=== PATIENT | female | born 1970 | race Caucasian/White ===

== ENCOUNTER 2017-05-29 12:08 | Outpatient (CLI) | payer MEDICAID | END 2017-05-29 12:09 | disposition critical access hospital (66) | LOC: EMS 12:08 | PROVIDERS: ATTEND Surgery | DX: R10.9 Unspecified abdominal pain (principal) | CPT/HCPCS: A0425; A0427 ==

== ENCOUNTER 2017-05-29 12:26 | Emergency (ER) | payer MEDICAID ==
[2017-05-29] MEDS ORDERED: ACETAMINOPHEN 1,000 MG/100 ML 100 ML IV STA (14:08)
[2017-05-29] MEDS ORDERED: SODIUM CHLORIDE 0.9% 1,000 ML IV ONE (14:08)
[2017-05-29] MEDS ORDERED: ONDANSETRON 4 MG/2 ML VIAL IVP STA (14:08)
--- NOTE | 2017-05-29 14:17 | ED Physician Documentation ---
History of Present Illness - Stated complaint Stated Complaint: AB PX - Chief complaint Chief Complaint: Abd Pain - Additonal information Additional information: hx from pt 47 female hx ulcerative colitiis s/p hyst to ER with severe focal lower midline abd pain since last night also a skin infection from shaving to upper right pubic area subjective fever nausea no vomit one bloody BM no urinary sx no bad food no travel no recent antibiotics no camping no hx similar sx Review of Systems Constitutional: reports: Fever. denies: Chills Cardiac: denies: Chest pain / pressure Respiratory: denies: Dyspnea GI: reports: Abdominal Pain, Nausea, Bloody / black stool. 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 - Present Medications Home Medications: Ambulatory Orders Medication Instructions Recorded Confirmed Losartan Potassium 100 mg PO DAILY #30 tablet 06/20/15 predniSONE [Deltasone] 40 mg PO DAILY 5 Days 06/20/15 Cephalexin [Keflex] 500 mg PO Q6H #28 capsule 05/29/17 Mupirocin Calcium [Bactroban] 30 gm TP BID #30 g 05/29/17 Phenazopyridine [Pyridium] 100 mg PO Q8H PRN #9 tablet 05/29/17 - Allergies Allergies/Adverse Reactions: Allergies Allergy/AdvReac Type Severity Reaction Status Date / Time NSAIDS (Non-Steroidal Allergy Nausea Verified 02/25/16 20:19 Anti-Inflamma Penicillins Allergy Respiratory Verified 02/25/16 20:19 - Social History Does the pt smoke?: Yes Smoking Status: Current every day smoker Does the pt drink ETOH?: No Does the pt have substance abuse?: Yes - Immunizations Immunizations are current?: Yes - POLST Patient has POLST: No PD ED PE NORMAL - Vitals Vital signs reviewed: Yes - General General: Alert and oriented X 3, Other (crying and writihing in pain) - HEENT HEENT: PERRL - Cardiac Cardiac: RRR - Respiratory Respiratory: No respiratory distress, Clear bilaterally - Abdomen Abdomen: Other (+ BS, mild distension, severe TTP lower abd R > L but no guarding, cannot determine rebound, crying and writhing in pain, pathc opf cellulitis s abscess over shaved region R upper suprapubic) - Female Female : Deferred (hyst) - Back Back: No CVA TTP - Derm Derm: Other (cellulitis suprapubic) - Neuro Neuro: Alert and oriented X 3 Results - Vitals Vitals: Vital Signs - 24 hr 05/29/17 05/29/17 12:27 14:51 Temperature 36.6 C Heart Rate 98 89 Respiratory 24 16 Rate Blood Pressure 160/97 H 118/84 H O2 Saturation 95 97 Oxygen O2 Source Room air - Labs Labs: Laboratory Tests 05/29/17 05/29/17 05/29/17 14:31 14:31 15:10 WBC 10.2 RBC 3.82 L Hgb 11.9 L Hct 34.2 L MCV 89.4 MCH 31.1 H MCHC 34.8 RDW 13.6 Plt Count 256 MPV 8.2 Neut # 6.3 Lymph # 2.3 [place] # 1.4 H Eos # 0.1 Baso # 0.1 Absolute Nucleated RBC 0.00 Nucleated RBCs 0.0 Sodium 133 L Potassium 3.4 L Chloride 98 L Carbon Dioxide 26 Anion Gap 9.0 BUN 21 H Creatinine 1.6 H Estimated GFR (MDRD) 34 L Glucose 84 Calcium 8.6 Total Bilirubin 0.7 AST 23 ALT 14 Alkaline Phosphatase 88 Total Protein 7.2 Albumin 4.2 Globulin 3.0 Albumin/Globulin Ratio 1.4 Lipase 15 L Urine Color YELLOW Urine Clarity SL. CLOUDY Urine pH 6.0 Ur Specific [place] 1.020 Urine Protein TRACE Urine Glucose (UA) NEGATIVE Urine Ketones NEGATIVE Urine Occult Blood SMALL H Urine Nitrite NEGATIVE Urine Bilirubin NEGATIVE Urine Urobilinogen 0.2 (NORMAL) Ur Leukocyte Esterase MODERATE H Urine RBC 0-5 Urine WBC >25 H Urine WBC Clumps PRESENT Ur Squamous Epith Cells MANY Squamous H Urine Bacteria Many H Ur Microscopic Review INDICATED Urine Culture Comments NOT INDICATED Departure - Departure Disposition: 01 Home, Self Care Clinical Impression: Urinary tract infection Qualifiers: Urinary tract infection type: acute cystitis Hematuria presence: without hematuria Qualified Code(s): N30.00 - Acute cystitis without hematuria Instructions: Abdominal Pain, ED UTI Cystitis Female Prescriptions: Mupirocin Calcium [Bactroban] 30 gm TP BID #30 g Cephalexin [Keflex] 500 mg PO Q6H #28 capsule Phenazopyridine [Pyridium] 100 mg PO Q8H PRN #9 tablet PRN Reason: painful urination Comments: The CT scan was fine - no bowel infection or blockage or perforation, no appendicitis, no kidney stones, no aneurysm It looks like your symptoms are being caused by a bladder infection I have prescribed the antibiotic keflex which you have taken before and pyridium which will help the pain. The keflex should also help the skin infection on your abdomen - in addition apply the antibiotic ointment I prescribed twice a day Your blood count is fine but I recommend you speak to your GI doctor about the blood in your stools
[2017-05-29] MEDS ORDERED: ACETAMINOPHEN 1,000 MG/100 ML 100 ML IV ONE (14:30)
[2017-05-29] MEDS ORDERED: ONDANSETRON 4 MG/2 ML VIAL ONE (14:30)
[2017-05-29 14:40] LABS: BASOPHILS # (AUTO) 0.1 10^3/uL (0.0-0.1); BASOPHILS % (AUTO) 0.7 %; EOSINOPHILS # (AUTO) 0.1 10^3/uL (0.0-0.7); EOSINOPHILS % (AUTO) 1.2 %; HCT - HEMATOCRIT 34.2 % (37.0-47.0); HGB - HEMOGLOBIN 11.9 g/dL (12.0-16.0); LYMPHOCYTES # (AUTO) 2.3 10^3/uL (1.5-3.5); LYMPHOCYTES % (AUTO) 22.8 %; MEAN CORPUSCULAR HEMOGLOBIN 31.1 pg (27.0-31.0); MEAN CORPUSCULAR HGB CONC 34.8 g/dL (32.0-36.0); MEAN CORPUSCULAR VOLUME 89.4 fL (81.0-99.0); MEAN PLATELET VOLUME 8.2 fL (7.9-10.8); MONOCYTES # (AUTO) 1.4 10^3/uL (0.0-1.0); MONOCYTES % (AUTO) 13.9 %; NEUTROPHILS # (AUTO) 6.3 10^3/uL (1.5-6.6); NEUTROPHILS % (AUTO) 61.4 %; RED BLOOD COUNT 3.82 10^6/uL (4.20-5.40); RED CELL DISTRIBUTION WIDTH 13.6 % (12.0-15.0); UNCORRECTED WHITE BLOOD COUNT 10.2 x10^3/uL; WHITE BLOOD COUNT 10.2 x10^3/uL (4.8-10.8)
[2017-05-29 14:51] LABS: ALBUMIN/GLOBULIN RATIO 1.4 (1.0-2.2); BILIRUBIN,TOTAL 0.7 mg/dL (0.2-1.0); CALCIUM 8.6 mg/dL (8.5-10.3); CREATININE 1.6 mg/dL (0.4-1.0); POTASSIUM 3.4 mmol/L (3.5-5.0); TOTAL PROTEIN 7.2 g/dL (6.7-8.2)
--- NOTE | 2017-05-29 14:53 | CT Preliminary Report ---
Exam: CT Abdomen/Pelvis W/O IMPRESSION: 1. Diverticulosis. 2. Appendix not identified but no pericecal inflammatory changes. 3. Mildly prominent common bile duct postcholecystectomy stable [facility] SITE ID: [id number]
--- NOTE | 2017-05-29 14:56 | CT Report ---
EXAM: CT ABDOMEN AND PELVIS EXAM DATE: 05/29/2017 02:28 PM. CLINICAL HISTORY: Severe lower abd pain bloody stools. COMPARISONS: 06/12/2009. TECHNIQUE: Routine helical CT imaging was performed through the abdomen and pelvis. IV contrast: None . Enteric contrast: No. Reconstructions: Coronal and sagittal. In accordance with CT protocol optimization, one or more of the following dose reduction techniques w ere utilized for this exam: automated exposure control, adjustment of mA and/or KV based on patient s ize, or use of iterative reconstructive technique. FINDINGS: Lung Bases: Unremarkable. Liver: Subcentimeter density in right lobe liver is stable, too small to characterize Gallbladder/Bile Ducts: Post cholecystectomy. Common bile duct 1 cm stable Spleen: Normal. Pancreas: Normal. Adrenal Glands: Normal. Kidneys: Normal. No masses or hydronephrosis. Peritoneal Cavity/Bowel: Diverticulosis. No free fluid, free air or adenopathy. No masses or acute in flammatory process. The appendix is not identified but no pericecal inflammatory changes Pelvic Organs: Normal. The bladder and visualized pelvic organs are within normal limits. Vasculature: No aneurysms or other significant abnormality. Bones: No significant abnormality. Other: None. IMPRESSION: 1. Diverticulosis. 2. Appendix not identified but no pericecal inflammatory changes. 3. Mildly prominent common bile duct postcholecystectomy stable [facility] Referring Provider Line: [phone] SITE ID: [id number]
[2017-05-29 15:20] LABS: BILIRUBIN,URINE NEGATIVE (NEGATIVE)
[2017-05-29 15:21] LABS: UA w/ MICROSCOPIC CHARGE YES
[2017-05-29 15:31] LABS: UR CULTURE IF IND NOT INDICATED; WBC,URINE >25 /HPF (0-5)
[2017-05-29] MEDS ORDERED: PHENAZOPYRIDINE 100 MG TABLET PO STA (16:05)
[2017-05-29] MEDS ORDERED: CEPHALEXIN 250 MG CAPSULE PO STA (16:13)
[2017-05-29 16:15] VITALS: BP 119/78
[2017-05-29] MEDS ORDERED: PHENAZOPYRIDINE 100 MG TABLET PO ONE (16:27)
[2017-05-29] MEDS ORDERED: CEPHALEXIN 250 MG CAPSULE PO ONE (16:27)
== END 2017-05-29 16:29 | disposition home or self-care (01) ==
LOC: ED 12:26
DX: N30.00 Acute cystitis without hematuria (principal); I11.0 Hypertensive heart disease with heart failure; I50.9 Heart failure, unspecified; E78.00 Pure hypercholesterolemia, unspecified; I25.10 Atherosclerotic heart disease of native coronary artery without angina pectoris; J44.9 Chronic obstructive pulmonary disease, unspecified; J45.909 Unspecified asthma, uncomplicated; Z98.84 Bariatric surgery status; Z87.19 Personal history of other diseases of the digestive system; F17.200 Nicotine dependence, unspecified, uncomplicated
CPT/HCPCS: 36415; 74176; 80053; 81001; 83690; 85025; 96361; 96374; 96375; 99284; A9270; J0131; 81003; 87086

== ENCOUNTER 2017-06-17 15:23 | Emergency (ER) | payer MEDICAID ==
[2017-06-17] MEDS ORDERED: oxyCODONE 5 MG TABLET PO STA (16:01)
--- NOTE | 2017-06-17 16:02 | ED Physician Documentation ---
PD HPI LOWER EXT INJURY - Stated complaint Stated Complaint: L FOOT INJ - Chief complaint Chief Complaint: Ext Problem - History obtained from History obtained from: Patient, Family - History of Present Illness PD HPI LOW EXT INJURY LOCATION: Left, Foot Type of injury: Crush (piece of wood) Where injury occurred: Home Timing - onset: How many hours ago (15) Timing - duration: Hours (15) Timing - details: Abrupt onset Pain level max: 9 Pain level now: 9 Improved by: Rest Worsened by: Moving, Palpating, Other (walking) Associated symptoms: Swelling. 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 - Present Medications Home Medications: Ambulatory Orders Medication Instructions Recorded Confirmed Cephalexin [Keflex] 500 mg PO Q6H #28 capsule 05/29/17 06/17/17 Oxycodone HCl/Acetaminophen 1 - 2 each PO Q6H PRN #10 tablet 06/17/17 [Percocet 5-325 mg Tablet] - Allergies Allergies/Adverse Reactions: Allergies Allergy/AdvReac Type Severity Reaction Status Date / Time NSAIDS (Non-Steroidal Allergy Nausea Verified 06/17/17 15:35 Anti-Inflamma Penicillins Allergy Respiratory Verified 06/17/17 15:35 - Social History Does the pt smoke?: Yes Smoking Status: Current every day smoker Does the pt drink ETOH?: No Does the pt have substance abuse?: Yes - Immunizations Immunizations are current?: Yes - POLST Patient has POLST: No PD ED PE NORMAL - Vitals Vital signs reviewed: Yes - General General: Alert and oriented X 3, No acute distress - Derm Derm: Warm and dry - Extremities Extremities: Other (L foot - Diffusely tender to palpation across the dorsum of the right foot. Mild swelling. No deformity. Neurovascularly intact. Normal exam of the ankle.) - Neuro Neuro: Alert and oriented X 3 - Psych Psych: Normal mood, Normal affect Results - Vitals Vitals: Vital Signs - 24 hr 06/17/17 06/17/17 15:31 16:56 Temperature 36.3 C L 36.2 C L Heart Rate 92 87 Respiratory 20 18 Rate Blood Pressure 155/100 H 162/105 H O2 Saturation 97 99 Oxygen O2 Source Room air - Rads (name of study) L foot x-ray Radiology: Prelim report reviewed, EMP read contemporaneously, See rad report ( Soft tissue swelling. ) PD MEDICAL DECISION MAKING - ED course Complexity details: reviewed results, re-evaluated patient, considered differential, d/w patient, d/w family ED course: Patient is a 47-year-old female presents to the emergency department after a board dropped on her left foot early this morning. No acute findings on x-ray. Pain well controlled. Given crutches and placed in the postoperative shoe. We will have her follow-up with her doctor for further evaluation and care. Patient counseled regarding signs and symptoms for which I believe and urgent re -evaluation would be necessary. Patient with good understanding of and agreement to plan and is comfortable going home at this time This document was made in part using voice recognition software. While efforts are made to proofread this document, sound alike and grammatical errors may occur. Counseled regarding missed fractures secondary to acute swelling and may need repeat xrays if not improving. Departure - Departure Disposition: 01 Home, Self Care Clinical Impression: Foot contusion Qualifiers: Encounter type: initial encounter Laterality: right Qualified Code(s): S90.31XA - Contusion of right foot, initial encounter Condition: Good Instructions: ED Contusion Foot Follow-Up: your,doctor in 1 week [Other] Prescriptions: Oxycodone HCl/Acetaminophen [Percocet 5-325 mg Tablet] 1 - 2 each PO Q6H PRN # 10 tablet PRN Reason: pain Comments: Use crutches as needed. Keep the postoperative shoe on until released by her doctor. Do not drink alcohol or drive while on narcotic pain medicine. Note that many narcotic pain relievers also contain tylenol/acetaminophen. Please ensure that your total dose of acetaminophen from all sources does not exceed 3 grams (3000mg) per day. You may constipated on this medication, take a stool softener such as "Colace" twice a day while you are on it. Also recommend a mwaj-cvk-rcnahuv laxative such as senna or MiraLAX any day that you do not have a bowel movement. If you received narcotic pain medication in the emergency department, do not drive or operate machinery for the next 24 hours. Your blood pressure was elevated today on check in to the emergency department. This does not mean that you have hypertension, it is a common phenomenon to check into the emergency department and have elevated blood pressure. I recommend that you see your primary care physician within the week to have it rechecked when you're feeling better. Discharge Date/Time: 06/17/17 17:00
--- NOTE | 2017-06-17 16:26 | XRAY Preliminary Report ---
Exam: XR Foot 3 View LT IMPRESSION: Soft tissue swelling. [facility] SITE ID: [id number]
--- NOTE | 2017-06-17 16:28 | XRAY Report ---
EXAM: LEFT FOOT RADIOGRAPHY EXAM DATE: 06/17/2017 04:19 PM. CLINICAL HISTORY: Trauma, pain. COMPARISON: None. TECHNIQUE: 3 views. FINDINGS: Bones: Osteopenia. No definite fracture or other bone lesion. Joints: Normal. No subluxations. Soft Tissues: Mild soft tissue swelling. IMPRESSION: Soft tissue swelling. [facility] Referring Provider Line: [phone] SITE ID: [id number]
[2017-06-17] MEDS ORDERED: oxyCODONE 5 MG TABLET ONE (16:34)
[2017-06-17 16:59] VITALS: BP 162/105
== END 2017-06-17 17:00 | disposition home or self-care (01) ==
LOC: ED 15:23
DX: S90.31XA Contusion of right foot, initial encounter (principal); W22.8XXA Striking against or struck by other objects, initial encounter; Y92.009 Unspecified place in unspecified non-institutional (private) residence as the place of occurrence of the external cause; I11.0 Hypertensive heart disease with heart failure; I50.9 Heart failure, unspecified; I25.10 Atherosclerotic heart disease of native coronary artery without angina pectoris; F17.200 Nicotine dependence, unspecified, uncomplicated
CPT/HCPCS: 73630; 99283; A9270

== ENCOUNTER 2018-04-20 12:28 | Emergency (ER) | payer MEDICAID ==
[2018-04-20 12:52] LABS: BASOPHILS # (AUTO) 0.1 10^3/uL (0.0-0.1); EOSINOPHILS # (AUTO) 0.1 10^3/uL (0.0-0.7); EOSINOPHILS % (AUTO) 0.5 %; LYMPHOCYTES # (AUTO) 2.9 10^3/uL (1.5-3.5); LYMPHOCYTES % (AUTO) 28.3 %; MEAN CORPUSCULAR HEMOGLOBIN 31.1 pg (27.0-31.0); MEAN CORPUSCULAR HGB CONC 33.7 g/dL (32.0-36.0); MEAN CORPUSCULAR VOLUME 92.2 fL (81.0-99.0); MEAN PLATELET VOLUME 8.3 fL (7.9-10.8); MONOCYTES # (AUTO) 0.9 10^3/uL (0.0-1.0); MONOCYTES % (AUTO) 9.2 %; NEUTROPHILS # (AUTO) 6.3 10^3/uL (1.5-6.6); PLT - PLATELET COUNT 293 10^3/uL (130-450); RED BLOOD COUNT 4.51 10^6/uL (4.20-5.40); RED CELL DISTRIBUTION WIDTH 14.7 % (12.0-15.0); WHITE BLOOD COUNT 10.3 x10^3/uL (4.8-10.8)
[2018-04-20 13:08] LABS: ALBUMIN 4.6 g/dL (3.2-5.5); ALBUMIN/GLOBULIN RATIO 1.3 (1.0-2.2); BILIRUBIN,TOTAL 0.7 mg/dL (0.2-1.0); CALCIUM 9.7 mg/dL (8.5-10.3); CREATININE 1.9 mg/dL (0.4-1.0); TOTAL PROTEIN 8.2 g/dL (6.7-8.2)
[2018-04-20 14:08] LABS: GLUCOSE, URINE (UA) NEGATIVE (NEGATIVE); KETONES,URINE (UA) NEGATIVE (NEGATIVE); LEUKOCYTE ESTERASE, URINE SMALL (NEGATIVE); NITRITE,URINE POSITIVE (NEGATIVE); OCCULT BLOOD,URINE SMALL (NEGATIVE); PROTEIN,URINE 30 mg/dL (NEGATIVE); UROBILINOGEN,URINE 0.2 (NORMAL) E.U./dL (NORMAL)
[2018-04-20 14:13] LABS: BILIRUBIN,URINE NEGATIVE (NEGATIVE); CLARITY,URINE CLOUDY (CLEAR); HCG UR QUAL NEGATIVE; ICTOTEST,URINE NEGATIVE
[2018-04-20 14:32] LABS: BACTERIA,URINE Moderate /HPF (None Seen); CRYSTALS,URINE 26-50 Ca Oxalate /LPF; SQUAMOUS EPITHELIAL CELL,UR FEW Squamous (<= Few)
--- NOTE | 2018-04-20 15:02 | ED Physician Documentation ---
History of Present Illness - Stated complaint Stated Complaint: UPPER ABD PX - Chief complaint Chief Complaint: Abd Pain - Additonal information Additional information: hx from pt 48 female s/p hyst and agus hx cardiac dz and renal insuff and maybe bone cancer to ED with right sided abd pain for a week worse with eating subj fever NVD also cough no bad food recent travel from [place] no leg pain or swelling Review of Systems Constitutional: reports: Fever. 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 - Present Medications Home Medications: Ambulatory Orders Medication Instructions Recorded Confirmed Ciprofloxacin HCl [Cipro] 500 mg PO BID #20 tablet 04/20/18 Lisinopril 10 mg PO DAILY #30 tablet 04/20/18 Promethazine [Phenergan] 25 mg PO Q6H PRN #10 tablet 04/20/18 - Allergies Allergies/Adverse Reactions: Allergies Allergy/AdvReac Type Severity Reaction Status Date / Time NSAIDS (Non-Steroidal Allergy Nausea Verified 06/17/17 15:35 Anti-Inflamma Penicillins Allergy Respiratory Verified 04/20/18 12:35 - Social History Does the pt smoke?: Yes Smoking Status: Current every day smoker Does the pt drink ETOH?: No Does the pt have substance abuse?: Yes - Immunizations Immunizations are current?: Yes - POLST Patient has POLST: No PD ED PE NORMAL - Vitals Vital signs reviewed: Yes - Cardiac Cardiac: RRR - Respiratory Respiratory: No respiratory distress, Clear bilaterally - Abdomen Abdomen: Soft, Other (severe TTP entire right abd with vol guarding) - Derm Derm: Normal color - Extremities Extremities: No deformity - Neuro Neuro: Alert and oriented X 3 Eye Opening: Spontaneous Results - Vitals Vitals: Vital Signs - 24 hr 04/20/18 04/20/18 04/20/18 12:33 15:24 17:37 Temperature 36.3 C L Heart Rate 99 70 67 Respiratory 20 18 18 Rate Blood Pressure 144/100 H 152/110 H 121/103 H O2 Saturation 100 97 100 07/23/18 07/23/18 18:10 18:14 Temperature 36.1 C L Heart Rate 78 Respiratory 18 Rate Blood Pressure 164/126 H 162/106 H O2 Saturation 100 Oxygen O2 Source Room air - Labs Labs: Laboratory Tests 04/20/18 04/20/18 04/20/18 12:45 12:45 13:40 WBC 10.3 RBC 4.51 Hgb 14.0 Hct 41.6 MCV 92.2 MCH 31.1 H MCHC 33.7 RDW 14.7 Plt Count 293 MPV 8.3 Neut # (Auto) 6.3 Lymph # (Auto) 2.9 [place] # (Auto) 0.9 Eos # (Auto) 0.1 Baso # (Auto) 0.1 Absolute Nucleated RBC 0.00 Nucleated RBC % 0.0 Sodium 134 L Potassium 3.5 Chloride 97 L Carbon Dioxide 26 Anion Gap 11.0 BUN 29 H Creatinine 1.9 H Estimated GFR (MDRD) 28 L Glucose 102 H Calcium 9.7 Total Bilirubin 0.7 AST 23 ALT 19 Alkaline Phosphatase 89 Total Protein 8.2 Albumin 4.6 Globulin 3.6 Albumin/Globulin Ratio 1.3 Lipase 22 Urine Color DARK YELLOW Urine Clarity CLOUDY Urine pH 5.0 Ur Specific [place] >=1.030 H Urine Protein 30 H Urine Glucose (UA) NEGATIVE Urine Ketones NEGATIVE Urine Occult Blood SMALL H Urine Nitrite POSITIVE H Urine Bilirubin NEGATIVE Urine Urobilinogen 0.2 (NORMAL) Ur Leukocyte Esterase SMALL H Urine RBC 6-10 H Urine WBC 11-25 H Ur Squamous Epith Cells FEW Squamous Urine Crystals 26-50 Ca Oxalate Urine Bacteria Moderate H Ur Microscopic Review INDICATED Urine Culture Comments INDICATED Urine HCG, Qual NEGATIVE - Rads (name of study) CXR Radiology: See rad report (no acute process possible COPD) CT AP Radiology: See rad report (segmental infectious inflammatory colitis spenic flexure to rectum) PD MEDICAL DECISION MAKING - ED course ED course: colitis and pyelo in penicillin allergic (anaphylaxis) pt with worse than baseline (1.9 vs 1.6) renal insuff which precludes bactrim pt states she has take cipro s adverse rxn before so will rx that she is feeling ready to go home BP very high pt states used to be in lisinopril so will rx that - but given renal insuff will rx low dose 10 mg per day - pt has been on lisinopril before without adverse kidney effect that she is aware of, and apparently with good control and renal insuff noted today is more likely due to dehydration and wildly uncontrolled HTN, depending on follow up BP and GFR PMD may adjust meds - Sepsis Event Vital Signs: Vital Signs - 24 hr 04/20/18 04/20/18 04/20/18 12:33 15:24 17:37 Temperature 36.3 C L Heart Rate 99 70 67 Respiratory 20 18 18 Rate Blood Pressure 144/100 H 152/110 H 121/103 H O2 Saturation 100 97 100 04/20/18 04/20/18 18:10 18:14 Temperature 36.1 C L Heart Rate 78 Respiratory 18 Rate Blood Pressure 164/126 H 162/106 H O2 Saturation 100 Oxygen O2 Source Room air Departure - Departure Disposition: 01 Home, Self Care Clinical Impression: Pyelonephritis, Colitis Hypertension Qualifiers: Hypertension type: unspecified Qualified Code(s): I10 - Essential (primary) hypertension Condition: Good Instructions: ED Kidney Infec Female, ED Colitis Ulcerative Follow-Up: [facility] [Provider Group] Prescriptions: Ciprofloxacin HCl [Cipro] 500 mg PO BID #20 tablet Lisinopril 10 mg PO DAILY #30 tablet Promethazine [Phenergan] 25 mg PO Q6H PRN #10 tablet PRN Reason: vomiting Comments: You have a kidney infection and a section of inflamed or infected colon The cipro should treat both We discussed the potential of tendon and nerve injury with cipro - you have taken it before without problem and feel comfortable taking is again I also prescribed phenergan to help with the vomiting May take tylenol for the pain Your kidney function has declined which may be partly due to dehydration so you need to drink plenty of fluids Please follow up with [facility] for a follow up before the weekend - call and say you need an ER follow up - need to follow up on the infection and also the blood pressure and kidney function If your urine infection indicates you need to be on a different antibiotic the ER staff will call you Discharge Date/Time: 04/20/18 18:19
[2018-04-20] MEDS: ACETAMINOPHEN 1,000 MG/100 ML 100 ML IV STA (15:07)
--- NOTE | 2018-04-20 15:37 | XRAY Report ---
Procedure Date: 04/20/2018 Accession Number: [id number] / [id number] Procedure: XR - Chest 2 View X-Ray CPT Code: 08468 FULL RESULT: EXAM: CHEST RADIOGRAPHY EXAM DATE: 04/20/2018 03:23 PM. CLINICAL HISTORY: Chest pain, shortness of breath. COMPARISON: Chest radiograph 06/20/2015, 05/19/2012 and 06/24/2008. Concurrent CT of the abdomen and pelvis without contrast. TECHNIQUE: 2 views. FINDINGS: Lungs/Pleura: No focal opacities evident. No pleural effusion. No pneumothorax. Mildly large lung volumes as before. Mediastinum: Heart and mediastinal contours are unremarkable. Other: Right upper quadrant clips in keeping with prior cholecystectomy. IMPRESSION: No acute cardiopulmonary abnormality with mildly large lung volumes as on prior exams, the latter may be physiologic or due to airways disease such as asthma or COPD. [facility]
--- NOTE | 2018-04-20 15:50 | CT Report ---
Procedure Date: 04/20/2018 Accession Number: [id number] / [id number] Procedure: CT - Abdomen/Pelvis W/O CPT Code: FULL RESULT: EXAM: CT ABDOMEN AND PELVIS EXAM DATE: 04/20/2018 03:18 PM. CLINICAL HISTORY: Right abdominal pain, status post cholecystectomy, history of UC. COMPARISONS: Concurrent chest radiograph. CT of the abdomen and pelvis without contrast 05/29/2017. TECHNIQUE: Routine helical CT imaging was performed through the abdomen and pelvis. IV contrast: None. Enteric contrast: No. Reconstructions: Coronal and sagittal. In accordance with CT protocol optimization, one or more of the following dose reduction techniques were utilized for this exam: automated exposure control, adjustment of mA and/or KV based on patient size, or use of iterative reconstructive technique. FINDINGS: Note: Sensitivity is limited due to the lack of intravenous contrast particularly in evaluation of the solid visceral organs and vasculature. Lung Bases: Unremarkable. Liver: Normal size and surface contour. Subcentimeter hypodensity within the right hepatic lobe inferiorly on prior exam is less well appreciated today, statistically likely a cyst or hemangioma. Gallbladder/Bile Ducts: Post cholecystectomy. No abnormal biliary ductal dilatation. Spleen: Diminutive but unremarkable. Pancreas: Negative. Adrenal Glands: Negative. Kidneys: No calculi or hydronephrosis. No contour-deforming lesion. No significant perinephric fat stranding. Peritoneal Cavity/Bowel: Moderate distal colonic diverticulosis without acute diverticulitis. The distal colon is decompressed limiting sensitivity and evaluation, though there is mild circumferential wall thickening from the level of the splenic flexure through the rectum. A portion of the wall thickening may be due to chronic submucosal fatty deposition, often seen with chronic inflammatory bowel disease. There is minimal adjacent pericolonic fat stranding through this region. Upstream colon as well as the stomach and small bowel are within normal limits for technique. Appendix is well-visualized and normal. No free fluid. No extraluminal gas. No abnormally enlarged lymph nodes by noncontrast exam. Pelvic Organs: Urinary bladder is unremarkable. Uterus is surgically absent. No adnexal mass demonstrated. Vasculature: No abdominal aortic aneurysm. Calcific atherosclerosis noted, marked in the infrarenal abdominal aorta and common iliac arteries. Bones: No acute osseous abnormality. No suspicious focal osseous lesion. No evidence of sacroiliitis. Subcentimeter sclerotic focus within the left femoral head is unchanged, statistically likely a bone island (3/70). Other: None. IMPRESSION: 1. Findings suggestive of mild segmental infectious/inflammatory colitis involving the distal colon from the splenic flexure through the rectum. Statistically this is most likely mild acute on chronic ulcerative colitis flare given the provided patient history. 2. Colonic diverticulosis without evidence of acute diverticulitis. [facility]
[2018-04-20 18:14] VITALS: BP 162/106
[2018-04-20] MEDS: CIPROFLOXACIN 250 MG TABLET PO STA (18:17)
== END 2018-04-20 18:19 | disposition home or self-care (01) ==
LOC: ED 12:28
DX: N12 Tubulo-interstitial nephritis, not specified as acute or chronic (principal); K52.9 Noninfective gastroenteritis and colitis, unspecified; I10 Essential (primary) hypertension; N28.9 Disorder of kidney and ureter, unspecified
CPT/HCPCS: 36415; 71046; 74176; 80053; 81001; 81025; 83690; 85025; 87086; 96365; 99283; A9270; J0131; 81003; 87077; 87181

== ENCOUNTER 2018-05-01 14:15 | Outpatient (CLI) | payer MEDICAID ==
[2018-05-01 18:53] LABS: BASOPHILS # (AUTO) 0.1 10^3/uL (0.0-0.1); BASOPHILS % (AUTO) 0.5 %; EOSINOPHILS # (AUTO) 0.1 10^3/uL (0.0-0.7); EOSINOPHILS % (AUTO) 1.4 %; HGB - HEMOGLOBIN 12.9 g/dL (12.0-16.0); LYMPHOCYTES # (AUTO) 2.9 10^3/uL (1.5-3.5); LYMPHOCYTES % (AUTO) 26.4 %; MEAN CORPUSCULAR HEMOGLOBIN 30.8 pg (27.0-31.0); MEAN CORPUSCULAR HGB CONC 33.5 g/dL (32.0-36.0); MEAN PLATELET VOLUME 9.2 fL (7.9-10.8); MONOCYTES % (AUTO) 8.9 %; NEUTROPHILS # (AUTO) 6.9 10^3/uL (1.5-6.6); NEUTROPHILS % (AUTO) 62.8 %; PLT - PLATELET COUNT 257 10^3/uL (130-450); RED BLOOD COUNT 4.19 10^6/uL (4.20-5.40); RED CELL DISTRIBUTION WIDTH 15.1 % (12.0-15.0)
[2018-05-01 19:34] LABS: ALBUMIN/GLOBULIN RATIO 1.3 (1.0-2.2); BILIRUBIN,TOTAL 0.3 mg/dL (0.2-1.0); CREATININE 1.3 mg/dL (0.4-1.0); TOTAL PROTEIN 7.1 g/dL (6.7-8.2); URIC ACID 5.4 mg/dL (2.6-7.2)
== END 2018-05-01 14:16 | disposition home or self-care (01) ==
LOC: LAB.N 14:15
PROVIDERS: ATTEND Family Medicine
DX: N10 Acute pyelonephritis (principal); N18.9 Chronic kidney disease, unspecified; K51.90 Ulcerative colitis, unspecified, without complications
CPT/HCPCS: 36415; 80053; 84550; 85025; 85651

== ENCOUNTER 2018-05-22 12:21 | Outpatient (CLI) | payer MEDICAID ==
--- NOTE | 2018-05-25 08:51 | Mammography Report ---
Reason: SCREENING MAMMO Procedure Date: 05/22/2018 Accession Number: [id number] / [id number] Procedure: MGN - Screening Mammo Dig Bilat CPT Code: FULL RESULT: EXAM: Screening Mammo Dig Bilat DATE: 05/22/2018 12:41 PM CLINICAL HISTORY: 48-year-old female with personal history of ovarian cancer and early menses presents for screening mammogram. TECHNIQUE: Bilateral CC and MLO views were obtained. COMPARISON: 06/04/2012. FINDINGS: The breasts demonstrate scattered fibroglandular densities bilaterally. No suspicious masses, clustered microcalcifications, or regions of architectural distortion are identified. IMPRESSION: Negative examination RECOMMENDATION: Routine annual screening unless otherwise clinically indicated. BIRADS CATEGORY 1: Negative STANDARD QUALIFYING STATEMENTS: 1. This examination was reviewed with the aid of Computer-Aided Detection (CAD). 2. A negative or benign imaging report should not delay biopsy if clinically suspicious findings are present. Consider surgical consultation if warrented. More than 5% of cancers are not identified by imaging. 3. Dense breasts may obscure an underlying neoplasm.
== END 2018-05-22 12:22 | disposition home or self-care (01) ==
LOC: DI.N 12:21
PROVIDERS: ATTEND Radiology Diagnostic Radiology
DX: Z12.31 Encounter for screening mammogram for malignant neoplasm of breast (principal); Z85.43 Personal history of malignant neoplasm of ovary
CPT/HCPCS: 77067

== ENCOUNTER 2018-05-22 14:00 | Outpatient (CLI) | payer MEDICAID | END 2018-05-22 14:01 | disposition home or self-care (01) | LOC: LAB.R 14:00 | PROVIDERS: ATTEND Family Medicine | DX: B35.3 Tinea pedis (principal); B35.1 Tinea unguium; L60.2 Onychogryphosis ==

== ENCOUNTER 2019-07-05 04:15 | Outpatient (CLI) | payer MEDICAID | END 2019-07-05 04:16 | disposition critical access hospital (66) | LOC: EMS 04:15 | PROVIDERS: ATTEND Surgery | DX: R10.10 Upper abdominal pain, unspecified (principal); R11.2 Nausea with vomiting, unspecified | CPT/HCPCS: A0425; A0427; A0999 ==

== ENCOUNTER 2019-07-05 04:28 | Emergency (ER) | payer MEDICAID ==
[2019-07-05 04:51] LABS: BASOPHILS # (AUTO) 0.1 10^3/uL (0.0-0.1); BASOPHILS % (AUTO) 0.6 %; EOSINOPHILS # (AUTO) 0.1 10^3/uL (0.0-0.7); EOSINOPHILS % (AUTO) 0.7 %; HGB - HEMOGLOBIN 14.6 g/dL (12.0-16.0); LYMPHOCYTES # (AUTO) 2.1 10^3/uL (1.5-3.5); LYMPHOCYTES % (AUTO) 16.7 %; MEAN CORPUSCULAR VOLUME 94.1 fL (81.0-99.0); MEAN PLATELET VOLUME 10.5 fL (7.9-10.8); MONOCYTES # (AUTO) 0.8 10^3/uL (0.0-1.0); MONOCYTES % (AUTO) 6.2 %; NEUTROPHILS # (AUTO) 9.4 10^3/uL (1.5-6.6); NEUTROPHILS % (AUTO) 75.4 %; PLT - PLATELET COUNT 298 10^3/uL (130-450); RED BLOOD COUNT 4.71 10^6/uL (4.20-5.40); RED CELL DISTRIBUTION WIDTH 13.3 % (12.0-15.0); WHITE BLOOD COUNT 12.5 x10^3/uL (4.8-10.8)
[2019-07-05 05:04] LABS: ALBUMIN 4.6 g/dL (3.2-5.5); ALBUMIN/GLOBULIN RATIO 1.1 (1.0-2.2); BILIRUBIN,TOTAL 0.8 mg/dL (0.2-1.0); CALCIUM 9.5 mg/dL (8.5-10.3); CREATININE 1.2 mg/dL (0.4-1.0); TOTAL PROTEIN 8.6 g/dL (6.7-8.2)
--- NOTE | 2019-07-05 05:32 | ED Physician Documentation ---
PD HPI ABD PAIN - Stated complaint Stated Complaint: ABD PX - Chief complaint Chief Complaint: Abd Pain - History obtained from History obtained from: Patient - History of Present Illness Timing - onset: How many days ago (2-3) Timing - duration: Days Timing - details: Gradual onset Quality: Dull Location: RUQ, Epigastric Radiation: Chest Associated symptoms: No: Fever Similar symptoms before: Has not had sx before Recently seen: Not recently seen - Additional information Additional information: c/o upper abdominal and mid-line low chest pain x 1-2 days. also dysepnea, cough. has no PMD. 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 - Present Medications Home Medications: Ambulatory Orders Medication Instructions Recorded Confirmed Ciprofloxacin HCl [Cipro] 500 mg PO BID #20 tablet 04/20/18 Lisinopril 10 mg PO DAILY #30 tablet 04/20/18 Promethazine [Phenergan] 25 mg PO Q6H PRN #10 tablet 04/20/18 Albuterol Sulf [Ventolin Hfa 1 - 2 puffs INH Q4HR PRN #1 inhaler 07/05/19 Inhaler] Azithromycin [Zithromax] 250 mg PO DAILY #4 tablet 07/05/19 Lisinopril 10 mg PO DAILY #30 tablet 07/05/19 predniSONE [Prednisone] 40 mg PO DAILY 3 Days #6 tablet 07/05/19 - Allergies Allergies/Adverse Reactions: Allergies Allergy/AdvReac Type Severity Reaction Status Date / Time NSAIDS (Non-Steroidal Allergy Nausea Verified 07/05/19 04:38 Anti-Inflamma Penicillins Allergy Respiratory Verified 07/05/19 04:38 - Social History Does the pt smoke?: Yes Smoking Status: Current every day smoker Does the pt drink ETOH?: No Does the pt have substance abuse?: Yes - Immunizations Immunizations are current?: Yes - POLST Patient has POLST: No PD ED PE NORMAL - Vitals Vital signs reviewed: Yes - General General: Alert and oriented X 3, No acute distress, Well developed/nourished - HEENT HEENT: PERRL - Neck Neck: Supple, no meningeal sign - Cardiac Cardiac: RRR, No murmur, No gallop, No rub - Respiratory Respiratory: No respiratory distress - Abdomen Abdomen: Soft, Non tender - Derm Derm: Normal color, Warm and dry, No rash - Extremities Extremities: No edema PD ED PE EXPANDED - Respiratory Respiratory: Wheezing (bilateral expiratory) Results - Vitals Vitals: Oxygen O2 Source Room air - EKG (time done) No standard instances Rate: Rate (enter#) Rhythm: NSR (80) [place]: Normal Intervals: Normal [place] QRS: Normal Ischemia: Normal ST segments - Labs Labs: Laboratory Tests 07/05/19 07/05/19 07/05/19 04:40 04:40 05:05 WBC 12.5 H RBC 4.71 Hgb 14.6 Hct 44.3 MCV 94.1 MCH 31.0 MCHC 33.0 RDW 13.3 Plt Count 298 MPV 10.5 Neut # (Auto) 9.4 H Lymph # (Auto) 2.1 [place] # (Auto) 0.8 Eos # (Auto) 0.1 Baso # (Auto) 0.1 Absolute Nucleated RBC 0.00 Nucleated RBC % 0.0 Sodium 142 Potassium 4.0 Chloride 102 Carbon Dioxide 29 Anion Gap 11.0 BUN 17 Creatinine 1.2 H Estimated GFR (MDRD) 47 L Glucose 140 H Calcium 9.5 Total Bilirubin 0.8 AST 27 ALT 37 Alkaline Phosphatase 88 Troponin I High Sens 6.1 B-Natriuretic Peptide Total Protein 8.6 H Albumin 4.6 Globulin 4.0 Albumin/Globulin Ratio 1.1 Lipase 28 07/05/19 Unknown WBC RBC Hgb Hct MCV MCH MCHC RDW Plt Count MPV Neut # (Auto) Lymph # (Auto) [place] # (Auto) Eos # (Auto) Baso # (Auto) Absolute Nucleated RBC Nucleated RBC % Sodium Potassium Chloride Carbon Dioxide Anion Gap BUN Creatinine Estimated GFR (MDRD) Glucose Calcium Total Bilirubin AST ALT Alkaline Phosphatase Troponin I High Sens B-Natriuretic Peptide 18 Total Protein Albumin Globulin Albumin/Globulin Ratio Lipase PD MEDICAL DECISION MAKING - ED course Complexity details: reviewed results, re-evaluated patient, considered differential, d/w patient Departure - Departure Disposition: 01 Home, Self Care Clinical Impression: Hypertension Qualifiers: Hypertension type: unspecified Qualified Code(s): I10 - Essential (primary) hypertension Pneumonia Qualifiers: Pneumonia type: due to unspecified organism Laterality: bilateral Lung location: lower lobe of lung Qualified Code(s): J18.1 - Lobar pneumonia, unspecified organism Condition: Good Instructions: ED Hypertension New Begin Tx, ED Pneumonia Adult Follow-Up: Alf Garcia MD [Primary Care Provider] - Within 1 week Prescriptions: Albuterol Sulf [Ventolin Hfa Inhaler] 1 - 2 puffs INH Q4HR PRN #1 inhaler PRN Reason: Shortness Of Air/Wheezing Azithromycin [Zithromax] 250 mg PO DAILY #4 tablet Lisinopril 10 mg PO DAILY #30 tablet predniSONE [Prednisone] 40 mg PO DAILY 3 Days #6 tablet Discharge Date/Time: 07/05/19 08:13
[2019-07-05] MEDS ORDERED: predniSONE 20 MG TABLET PO STA (06:15)
[2019-07-05] MEDS ORDERED: IPRATROPIUM/ALBUTEROL 3 ML NEB INH STA (06:15)
--- NOTE | 2019-07-05 06:52 | XRAY Report ---
Reason: dyspnea Procedure Date: 07/05/2019 Accession Number: [id number] / [id number] Procedure: XR - Chest 2 View X-Ray CPT Code: 79347 FULL RESULT: EXAM: CHEST RADIOGRAPHY EXAM DATE: 07/05/2019 06:40 AM CLINICAL HISTORY: Dyspnea. COMPARISON: CHEST 2 VIEW 04/20/2018 3:14 PM, ABDOMEN/PELVIS W/O 04/20/2018 3:13 PM. TECHNIQUE: 2 views. FINDINGS: Lungs/Pleura: Right middle lobe airspace opacities with lesser involvement of the left lower lobe. No pneumothorax or effusion. Mediastinum: Heart and mediastinal contours are unremarkable. Other: None. IMPRESSION: Mild bibasilar pneumonia. RADIA
[2019-07-05] MEDS ORDERED: ALBUTEROL NEB 2.5 MG/3 ML INH STA (06:57)
[2019-07-05] MEDS ORDERED: LISINOPRIL 5 MG TABLET PO STA (07:47)
[2019-07-05] MEDS ORDERED: AZITHROMYCIN 250 MG TABLET PO STA (07:48)
[2019-07-05 08:09] VITALS: BP 138/117
== END 2019-07-05 08:13 | disposition home or self-care (01) ==
LOC: EDUNIT# → ED 04:28
DX: J18.9 Pneumonia, unspecified organism (principal); J44.9 Chronic obstructive pulmonary disease, unspecified; I10 Essential (primary) hypertension; I25.10 Atherosclerotic heart disease of native coronary artery without angina pectoris; F17.200 Nicotine dependence, unspecified, uncomplicated
CPT/HCPCS: 36415; 71046; 80053; 83690; 83880; 84484; 85025; 93005; 94640; 94664; 99284; A9270; J7512

== ENCOUNTER 2019-07-13 14:02 | Outpatient (CLI) | payer MEDICAID ==
[2019-07-13 14:16] LABS: BASOPHILS # (AUTO) 0.1 10^3/uL (0.0-0.1); BASOPHILS % (AUTO) 0.6 %; EOSINOPHILS # (AUTO) 0.5 10^3/uL (0.0-0.7); EOSINOPHILS % (AUTO) 3.4 %; HGB - HEMOGLOBIN 12.5 g/dL (12.0-16.0); LYMPHOCYTES # (AUTO) 2.9 10^3/uL (1.5-3.5); MEAN CORPUSCULAR HEMOGLOBIN 31.2 pg (27.0-31.0); MEAN CORPUSCULAR HGB CONC 33.2 g/dL (32.0-36.0); MEAN CORPUSCULAR VOLUME 93.8 fL (81.0-99.0); MEAN PLATELET VOLUME 9.9 fL (7.9-10.8); MONOCYTES # (AUTO) 1.2 10^3/uL (0.0-1.0); MONOCYTES % (AUTO) 8.5 %; NEUTROPHILS % (AUTO) 65.9 %; PLT - PLATELET COUNT 273 10^3/uL (130-450); RED BLOOD COUNT 4.01 10^6/uL (4.20-5.40); RED CELL DISTRIBUTION WIDTH 13.4 % (12.0-15.0); WHITE BLOOD COUNT 13.6 x10^3/uL (4.8-10.8)
--- NOTE | 2019-07-13 14:57 | XRAY Report ---
Reason: PNEUMONIA Procedure Date: 07/13/2019 Accession Number: [id number] / [id number] Procedure: XR - Chest 2 View X-Ray CPT Code: 60120 FULL RESULT: EXAM: CHEST RADIOGRAPHY EXAM DATE: 07/13/2019 02:29 PM. CLINICAL HISTORY: PNEUMONIA, follow-up. COMPARISON: CHEST 2 VIEW 07/05/2019 6:32 AM CHEST 2 VIEW 04/20/2018 3:14 PM. TECHNIQUE: 2 views. FINDINGS: Lungs/Pleura: Mild streaky and patchy right middle lobe opacities are similar in appearance since 07/05/2019. Streaky left base densities have improved. No new consolidation. No pleural effusion. No pneumothorax. Normal expansion. Mediastinum: Heart and mediastinal contours are normal. Other: None. IMPRESSION: Mild right middle lobe opacities are similar to prior and could represent pneumonia, atelectasis or scarring. Improved left lung base opacity. No new consolidation. RADIA
[2019-07-13 15:51] LABS: FREE T4 (FREE THYROXINE) 0.25 ng/dL (0.58-1.64)
== END 2019-07-13 14:03 | disposition home or self-care (01) ==
LOC: DI 14:02
PROVIDERS: ATTEND Nurse Practitioner Gerontology
DX: J18.9 Pneumonia, unspecified organism (principal)
CPT/HCPCS: 36415; 71046; 84439; 84443; 85025

== ENCOUNTER 2019-09-28 11:40 | Outpatient (CLI) | payer MEDICAID | END 2019-09-28 11:41 | disposition home or self-care (01) | LOC: SC 11:40 | PROVIDERS: ATTEND Internal Medicine Pulmonary Disease | DX: Z53.9 Procedure and treatment not carried out, unspecified reason (principal) ==

== ENCOUNTER 2019-10-04 17:39 | Outpatient (CLI) | payer MEDICAID ==
[2019-10-04 18:03] LABS: BASOPHILS # (AUTO) 0.1 10^3/uL (0.0-0.1); BASOPHILS % (AUTO) 0.7 %; EOSINOPHILS # (AUTO) 0.2 10^3/uL (0.0-0.7); EOSINOPHILS % (AUTO) 1.8 %; HGB - HEMOGLOBIN 13.5 g/dL (12.0-16.0); LYMPHOCYTES # (AUTO) 2.9 10^3/uL (1.5-3.5); LYMPHOCYTES % (AUTO) 31.6 %; MEAN CORPUSCULAR HEMOGLOBIN 30.3 pg (27.0-31.0); MEAN CORPUSCULAR HGB CONC 32.1 g/dL (32.0-36.0); MEAN CORPUSCULAR VOLUME 94.2 fL (81.0-99.0); MEAN PLATELET VOLUME 10.3 fL (7.9-10.8); MONOCYTES # (AUTO) 0.6 10^3/uL (0.0-1.0); NEUTROPHILS # (AUTO) 5.4 10^3/uL (1.5-6.6); NEUTROPHILS % (AUTO) 58.4 %; PLT - PLATELET COUNT 238 10^3/uL (130-450); RED BLOOD COUNT 4.46 10^6/uL (4.20-5.40); RED CELL DISTRIBUTION WIDTH 14.1 % (12.0-15.0); WHITE BLOOD COUNT 9.2 x10^3/uL (4.8-10.8)
[2019-10-04 18:15] LABS: ALBUMIN 4.7 g/dL (3.2-5.5); ALBUMIN/GLOBULIN RATIO 1.5 (1.0-2.2); BILIRUBIN,TOTAL 0.7 mg/dL (0.2-1.0); CALCIUM 9.7 mg/dL (8.5-10.3); CREATININE 1.2 mg/dL (0.4-1.0); TOTAL PROTEIN 7.8 g/dL (6.7-8.2)
[2019-10-04 20:37] LABS: FREE T4 (FREE THYROXINE) < 0.25 ng/dL (0.58-1.64)
--- NOTE | 2019-10-05 09:08 | XRAY Report ---
Reason: TOBACCO DEPENDENCE,SHORTNESS OF BREATH Procedure Date: 10/04/2019 Accession Number: [id number] / [id number] Procedure: XR - Chest 2 View X-Ray CPT Code: 11461 Final Report FULL RESULT: EXAM: CHEST RADIOGRAPHY EXAM DATE: 10/04/2019 05:49 PM. CLINICAL HISTORY: TOBACCO Dependence, shortness OF BREATH. COMPARISON: CHEST 2 VIEW 07/13/2019 2:20 PM CHEST 2 VIEW 07/05/2019 6:32 AM ABDOMEN/PELVIS W/O 04/20/2018 3:13 PM ABDOMEN/PELVIS W/O 05/29/2017 2:20 PM. TECHNIQUE: 2 views. FINDINGS: Lungs/Pleura: No focal consolidation evident. No pleural effusion. No pneumothorax. Mild medial right middle lobe and inferior lingular scarring and/or atelectasis. Mediastinum: Heart and mediastinal contours are unremarkable. Other: Mild mid thoracic kyphosis with degenerative thoracic spine endplate changes. Gallbladder fossa surgical clips. IMPRESSION: 1. No acute consolidation. RADIA
== END 2019-10-04 17:40 | disposition home or self-care (01) ==
LOC: DI 17:39
PROVIDERS: ATTEND Nurse Practitioner Gerontology
DX: R06.02 Shortness of breath (principal); F17.200 Nicotine dependence, unspecified, uncomplicated; I10 Essential (primary) hypertension; E07.9 Disorder of thyroid, unspecified
CPT/HCPCS: 36415; 71046; 80053; 84439; 84443; 85025

== ENCOUNTER 2020-08-15 09:12 | Emergency (ER) | payer MEDICAID ==
--- NOTE | 2020-08-15 09:18 | ED Physician Documentation ---
PD HPI OPHTHO - Stated complaint Stated Complaint: SWELLING IN EYES AND FEET - History obtained from History obtained from: Patient - History of Present Illness Timing - onset: How many months ago (3) Timing - details: Gradual onset, Still present (worse the past 1-2 weeks, with dyspnea and cough. Had been in [place] for 3 months and did not have any of her Rx meds with her. Returned couple weeks ago and is feeling edema, cough, wheezing.) Location: Both (swelling around both eyes.) Associated symptoms: Swelling Contributing factors: No: Recent URI Similar symptoms before: Has not had sx before (has had copd and asthma in the past. Currently without ALbuterol MDI. history of some allergies in the past.) Recently seen: Not recently seen (Not seem for the past 4 months and out of meds for 3 months, when went to [place] abruptly due to of child there.) Review of Systems Constitutional: denies: Fever, Chills Nose: reports: Rhinorrhea / runny nose, Congestion. denies: Sinus pressure / pain Throat: denies: Sore throat Cardiac: denies: Chest pain / pressure, Palpitations Respiratory: reports: Dyspnea, Cough, Wheezing GI: denies: Abdominal Pain, Nausea, Vomiting, Diarrhea, Bloody / black stool Skin: denies: Rash Musculoskeletal: reports: Extremity swelling Neurologic: reports: Generalized weakness. 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 - Present Medications Home Medications: Ambulatory Orders Medication Instructions Recorded Confirmed Ciprofloxacin HCl [Cipro] 500 mg PO BID #20 tablet 04/20/18 Promethazine [Phenergan] 25 mg PO Q6H PRN #10 tablet 04/20/18 lisinopriL [Lisinopril] 10 mg PO DAILY #30 tablet 04/20/18 Albuterol Sulf [Ventolin Hfa 1 - 2 puffs INH Q4HR PRN #1 inhaler 07/05/19 Inhaler] Azithromycin [Zithromax] 250 mg PO DAILY #4 tablet 07/05/19 lisinopriL [Lisinopril] 10 mg PO DAILY #30 tablet 07/05/19 predniSONE [Prednisone] 40 mg PO DAILY 3 Days #6 tablet 07/05/19 Albuterol Sulf [Ventolin Hfa 2 - 3 puffs INH Q4HR PRN #1 inhaler 08/15/20 Inhaler] Doxycycline Hyclate 100 mg PO BID #14 tablet. 08/15/20 Levothyroxine Sodium [Unithroid] 200 mcg PO DAILY #30 tablet 08/15/20 Lisinopril/Hydrochlorothiazide 1 each PO DAILY #30 tablet 08/15/20 [Zestoretic 20-25 mg Tablet] Mupirocin Calcium [Mupirocin] 1 applic TP TID #15 cream..g. 08/15/20 amLODIPine [Norvasc] 10 mg PO DAILY #30 tablet 08/15/20 dexAMETHasone [Decadron] 4 mg PO DAILY #5 tablet 08/15/20 - Allergies Allergies/Adverse Reactions: Allergies Allergy/AdvReac Type Severity Reaction Status Date / Time NSAIDS (Non-Steroidal Allergy Nausea Verified 08/15/20 09:15 Anti-Inflamma Penicillins Allergy Respiratory Verified 08/15/20 09:15 - Social History Does the pt smoke?: Yes Smoking Status: Current every day smoker Does the pt drink ETOH?: No Does the pt have substance abuse?: Yes - Immunizations Immunizations are current?: Yes - POLST Patient has POLST: No PD ED PE NORMAL - Vitals Vital signs reviewed: Yes - General General: Alert and oriented X 3, No acute distress, Well developed/nourished (though somewhat unkempt with dirty fingers and under nailbeds, not washed nor groomed hair. ) - HEENT HEENT: Moist mucous membranes, Pharynx benign - Neck Neck: Supple, no meningeal sign, No adenopathy, No JVD - Cardiac Cardiac: RRR, No murmur - Respiratory Respiratory: Clear bilaterally - Abdomen Abdomen: Normal bowel sounds, Soft, Non tender, Non distended - Derm Derm: Normal color, No rash - Extremities Extremities: No tenderness to palpate, Normal ROM s pain, No calf tenderness / cord, Other (1+ edema in both lower legs to shins. Some edema periorbital both eyes. ) - Neuro Neuro: Alert and oriented X 3, No motor deficit, No sensory deficit, Normal speech Eye Opening: Spontaneous Motor: Obeys Commands Verbal: Oriented GCS Score: 15 - Psych Psych: Normal mood, Normal affect Results - Vitals Vitals: Vital Signs - 24 hr 08/15/20 08/15/20 08/15/20 09:15 10:30 10:45 Temperature 36.5 C Heart Rate 97 73 74 Respiratory 22 28 H 16 Rate Blood Pressure 150/108 H 177/121 H O2 Saturation 100 94 08/15/20 11:00 Temperature 36.6 C Heart Rate 75 Respiratory 17 Rate Blood Pressure 173/120 H O2 Saturation 96 Oxygen O2 Source Room air - EKG (time done) 10:05 Rate: Rate (enter#) (69) Rhythm: NSR [place]: Normal Intervals: Normal [place], Prolonged QT QRS: Normal Ischemia: Normal ST segments. No: ST elevation c/w ischemia, ST depression - Labs Labs: Laboratory Tests 08/15/20 08/15/20 08/15/20 09:40 09:40 09:40 WBC 10.6 RBC 4.32 Hgb 13.6 Hct 40.6 MCV 94.0 MCH 31.5 H MCHC 33.5 RDW 14.4 Plt Count 268 MPV 10.8 Neut # (Auto) 7.4 H Lymph # (Auto) 2.6 [place] # (Auto) 0.4 Eos # (Auto) 0.1 Baso # (Auto) 0.1 Absolute Nucleated RBC 0.00 Nucleated RBC % 0.0 Sodium 138 Potassium 3.5 Chloride 101 Carbon Dioxide 27 Anion Gap 10.0 BUN 10 Creatinine 1.2 H Estimated GFR (MDRD) 47 L Glucose 105 H Calcium 8.9 Magnesium 2.1 Total Bilirubin 0.4 AST 36 ALT 41 Alkaline Phosphatase 70 B-Natriuretic Peptide 109 H Total Protein 7.4 Albumin 4.5 Globulin 2.9 Albumin/Globulin Ratio 1.6 TSH Urine Color Urine Clarity Urine pH Ur Specific [place] Urine Protein Urine Glucose (UA) Urine Ketones Urine Occult Blood Urine Nitrite Urine Bilirubin Urine Urobilinogen Ur Leukocyte Esterase Urine RBC Urine WBC Ur Squamous Epith Cells Urine Bacteria Ur Microscopic Review Urine Culture Comments 08/15/20 08/15/20 09:40 10:30 WBC RBC Hgb Hct MCV MCH MCHC RDW Plt Count MPV Neut # (Auto) Lymph # (Auto) [place] # (Auto) Eos # (Auto) Baso # (Auto) Absolute Nucleated RBC Nucleated RBC % Sodium Potassium Chloride Carbon Dioxide Anion Gap BUN Creatinine Estimated GFR (MDRD) Glucose Calcium Magnesium Total Bilirubin AST ALT Alkaline Phosphatase B-Natriuretic Peptide Total Protein Albumin Globulin Albumin/Globulin Ratio TSH 62.37 H Urine Color YELLOW Urine Clarity CLEAR Urine pH 7.0 Ur Specific [place] 1.020 Urine Protein NEGATIVE Urine Glucose (UA) NEGATIVE Urine Ketones NEGATIVE Urine Occult Blood NEGATIVE Urine Nitrite NEGATIVE Urine Bilirubin NEGATIVE Urine Urobilinogen 0.2 (NORMAL) Ur Leukocyte Esterase SMALL H Urine RBC 0-5 Urine WBC 0-3 Ur Squamous Epith Cells FEW Squamous Urine Bacteria Few Ur Microscopic Review INDICATED Urine Culture Comments INDICATED - Rads (name of study) chest xray Radiology: Prelim report reviewed (no acute process), See rad report PD MEDICAL DECISION MAKING - ED course Complexity details: reviewed results (Does not appear in significiant CHF though does have bilateral edema. Has been out of BP/meds for 3 months, so can add HCTZ to her lisinopril anyway. Otherwise dyspnea more likely COPD exac. Mild prolonged QT, but not on any meds, and not having fainting/lightheaded symptoms. ), considered differential, d/w patient Departure - Departure Disposition: 01 Home, Self Care Clinical Impression: Asthma exacerbation in COPD, Edema of both legs, Has run out of medications Skin abscess Qualifiers: Site of cutaneous abscess: extremity Site of cutaneous abscess of extremity: lower extremity Laterality: left Qualified Code(s): L02.416 - Cutaneous abscess of left lower limb Hypertension Qualifiers: Hypertension type: unspecified Qualified Code(s): I10 - Essential (primary) hypertension Condition: Stable Record reviewed to determine appropriate education?: Yes Instructions: ED COPD Flare, ED Edema Legs Bilateral Prescriptions: Albuterol Sulf [Ventolin Hfa Inhaler] 2 - 3 puffs INH Q4HR PRN #1 inhaler PRN Reason: Shortness Of Air/Wheezing dexAMETHasone [Decadron] 4 mg PO DAILY #5 tablet Doxycycline Hyclate 100 mg PO BID #14 tablet. Mupirocin Calcium [Mupirocin] 1 applic TP TID #15 cream..g. amLODIPine [Norvasc] 10 mg PO DAILY #30 tablet Levothyroxine Sodium [Unithroid] 200 mcg PO DAILY #30 tablet Lisinopril/Hydrochlorothiazide [Zestoretic 20-25 mg Tablet] 1 each PO DAILY #30 tablet Comments: Resume usual medications of thyroid and blood pressure and inhaler. I added a diuretic (water pill) to the lisinopril that you previously take. Use your albuterol inhaler 2 puffs 4 times a day for the next several days to week and then as needed. For your current trouble breathing, the diuretic will help some and will decrease the swelling you have. However also use the Decadron steroid and doxycycline antibiotic for presumed flareup of your COPD/asthma. For the leg wound, clean with soap and water and apply mupirocin antibiotic ointment twice daily. That should heal up slowly and resolved. Call to make a follow-up appointment with the clinic. Discharge Date/Time: 08/15/20 11:09
[2020-08-15] MEDS ORDERED: FUROSEMIDE 20 MG/2 ML VIAL IVP STA (09:58)
[2020-08-15] MEDS ORDERED: ALBUTEROL 1 PUFF INH STA (09:58)
[2020-08-15 10:04] LABS: BASOPHILS # (AUTO) 0.1 10^3/uL (0.0-0.1); BASOPHILS % (AUTO) 0.5 %; EOSINOPHILS # (AUTO) 0.1 10^3/uL (0.0-0.7); EOSINOPHILS % (AUTO) 1.2 %; HGB - HEMOGLOBIN 13.6 g/dL (12.0-16.0); LYMPHOCYTES # (AUTO) 2.6 10^3/uL (1.5-3.5); LYMPHOCYTES % (AUTO) 24.4 %; MEAN CORPUSCULAR HEMOGLOBIN 31.5 pg (27.0-31.0); MEAN CORPUSCULAR HGB CONC 33.5 g/dL (32.0-36.0); MEAN PLATELET VOLUME 10.8 fL (7.9-10.8); MONOCYTES # (AUTO) 0.4 10^3/uL (0.0-1.0); MONOCYTES % (AUTO) 4.1 %; NEUTROPHILS # (AUTO) 7.4 10^3/uL (1.5-6.6); NEUTROPHILS % (AUTO) 69.2 %; PLT - PLATELET COUNT 268 10^3/uL (130-450); RED BLOOD COUNT 4.32 10^6/uL (4.20-5.40); RED CELL DISTRIBUTION WIDTH 14.4 % (12.0-15.0); WHITE BLOOD COUNT 10.6 x10^3/uL (4.8-10.8)
[2020-08-15 10:19] LABS: ALBUMIN 4.5 g/dL (3.2-5.5); ALBUMIN/GLOBULIN RATIO 1.6 (1.0-2.2); BILIRUBIN,TOTAL 0.4 mg/dL (0.2-1.0); CALCIUM 8.9 mg/dL (8.5-10.3); CREATININE 1.2 mg/dL (0.4-1.0); MAGNESIUM 2.1 mg/dL (1.7-2.8); TOTAL PROTEIN 7.4 g/dL (6.7-8.2)
--- NOTE | 2020-08-15 10:25 | XRAY Report ---
PROCEDURE: Chest 1 View X-Ray INDICATIONS: dyspnea and leg edema for 3 months TECHNIQUE: One view of the chest was acquired. COMPARISON: 10/04/2019 FINDINGS: Surgical changes and devices: None. Lungs and pleura: No pleural effusions or pneumothorax. Lungs are clear. Mediastinum: Mediastinal contours appear normal. Heart size is normal. Bones and chest wall: No suspicious bony lesions. Overlying soft tissues appear unremarkable. IMPRESSION: Chest without acute cardiopulmonary abnormalities. Reviewed by: Dwight Ceballos MD on 08/15/2020 10:24 AM [facility] Approved by: Dwight Ceballos MD on 08/15/2020 10:24 AM [facility] Station ID: [id number]
[2020-08-15] MEDS ORDERED: POTASSIUM CHLORIDE 20 MEQ TABLET PO STA (10:32)
[2020-08-15 10:40] LABS: BILIRUBIN,URINE NEGATIVE (NEGATIVE); GLUCOSE, URINE (UA) NEGATIVE (NEGATIVE); KETONES,URINE (UA) NEGATIVE (NEGATIVE); LEUKOCYTE ESTERASE, URINE SMALL (NEGATIVE); NITRITE,URINE NEGATIVE (NEGATIVE); OCCULT BLOOD,URINE NEGATIVE (NEGATIVE); PROTEIN,URINE NEGATIVE (NEGATIVE); UROBILINOGEN,URINE 0.2 (NORMAL) E.U./dL (NORMAL)
[2020-08-15 10:41] LABS: CLARITY,URINE CLEAR (CLEAR)
[2020-08-15 10:56] LABS: BACTERIA,URINE Few /HPF (None Seen); RBC,URINE 0-5 /HPF (0-5); SQUAMOUS EPITHELIAL CELL,UR FEW Squamous (<= Few)
[2020-08-15 11:01] VITALS: BP 173/120
== END 2020-08-15 11:09 | disposition home or self-care (01) ==
LOC: ED 09:12
DX: J44.1 Chronic obstructive pulmonary disease with (acute) exacerbation (principal); R60.0 Localized edema; L02.416 Cutaneous abscess of left lower limb; Y63.6 Underdosing and nonadministration of necessary drug, medicament or biological substance; I11.0 Hypertensive heart disease with heart failure; I50.9 Heart failure, unspecified; F17.200 Nicotine dependence, unspecified, uncomplicated; R94.31 Abnormal electrocardiogram [ECG] [EKG]; Z20.828 Contact with and (suspected) exposure to other viral communicable diseases
CPT/HCPCS: 36415; 71045; 80053; 81001; 83735; 83880; 84443; 85025; 87086; 87635; 93005; 94640; 96374; 99284; A9270; 81003

== ENCOUNTER 2020-12-10 18:32 | Outpatient (CLI) | payer MEDICAID ==
[2020-12-10 18:45] LABS: BASOPHILS % (AUTO) 0.3 %; HCT - HEMATOCRIT 37.9 % (37.0-47.0); HGB - HEMOGLOBIN 12.6 g/dL (12.0-16.0); LYMPHOCYTES # (AUTO) 2.2 10^3/uL (1.5-3.5); LYMPHOCYTES % (AUTO) 18.1 %; MEAN CORPUSCULAR HEMOGLOBIN 30.7 pg (27.0-31.0); MEAN CORPUSCULAR HGB CONC 33.2 g/dL (32.0-36.0); MEAN CORPUSCULAR VOLUME 92.2 fL (81.0-99.0); MEAN PLATELET VOLUME 10.1 fL (7.9-10.8); MONOCYTES # (AUTO) 0.4 10^3/uL (0.0-1.0); MONOCYTES % (AUTO) 3.5 %; NEUTROPHILS # (AUTO) 9.3 10^3/uL (1.5-6.6); NEUTROPHILS % (AUTO) 77.8 %; PLT - PLATELET COUNT 266 10^3/uL (130-450); RED BLOOD COUNT 4.11 10^6/uL (4.20-5.40); RED CELL DISTRIBUTION WIDTH 13.5 % (12.0-15.0)
[2020-12-10 18:56] LABS: ALBUMIN 4.7 g/dL (3.2-5.5); ALBUMIN/GLOBULIN RATIO 1.4 (1.0-2.2); BILIRUBIN,TOTAL 0.6 mg/dL (0.2-1.0); CALCIUM 9.8 mg/dL (8.5-10.3); CREATININE 1.7 mg/dL (0.4-1.0); POTASSIUM 3.2 mmol/L (3.5-5.0); TOTAL PROTEIN 8.1 g/dL (6.7-8.2)
[2020-12-10 19:27] LABS: THYROID STIMULATING HORMONE 44.28 uIU/mL (0.34-5.60)
--- NOTE | 2020-12-10 19:42 | XRAY Report ---
PROCEDURE: Chest 2 View X-Ray INDICATIONS: COPD EXACERBATION TECHNIQUE: 2 view(s) of the chest. COMPARISON: Chest x-ray dated 08/15/2020 FINDINGS: Surgical changes and devices: None. Lungs and pleura: No pleural effusions or pneumothorax. Lungs are clear. Mediastinum: Mediastinal contours are normal. Heart size is normal. Bones and chest wall: No suspicious bony abnormalities. Soft tissues appear unremarkable. IMPRESSION: No acute process. Reviewed by: Dominique Carrasco MD on 12/10/2020 7:41 PM PDT Approved by: Dominique Carrasco MD on 12/10/2020 7:41 PM PDT Station ID: [id number]
[2020-12-10 20:09] LABS: FREE T4 (FREE THYROXINE) < 0.25 ng/dL (0.58-1.64)
[2020-12-13 11:40] LABS: ESTIMATED AVERAGE GLUCOSE 137 mg/dL (70-100); HEMOGLOBIN A1c% 6.4 % (4.27-6.07)
== END 2020-12-10 18:33 | disposition home or self-care (01) ==
LOC: DI 18:32
PROVIDERS: ATTEND Physician Assistant Medical
DX: J44.1 Chronic obstructive pulmonary disease with (acute) exacerbation (principal); N18.9 Chronic kidney disease, unspecified; E07.9 Disorder of thyroid, unspecified; I12.9 Hypertensive chronic kidney disease with stage 1 through stage 4 chronic kidney disease, or unspecified chronic kidney disease; R73.9 Hyperglycemia, unspecified
CPT/HCPCS: 36415; 80053; 83036; 84439; 84443; 85025

== ENCOUNTER 2021-02-06 08:00 | Outpatient (CLI) | payer MEDICAID | END 2021-02-06 23:59 | disposition home or self-care (01) | LOC: LAB.R 08:00 | PROVIDERS: ATTEND Physician Assistant Medical | DX: N10 Acute pyelonephritis (principal) | CPT/HCPCS: 87077; 87086; 87181 ==

== ENCOUNTER 2021-03-04 22:01 | Outpatient (CLI) | payer MEDICAID | END 2021-03-04 22:02 | disposition EMS.NT | LOC: EMS 22:01 | DX: R11.2 Nausea with vomiting, unspecified (principal) ==

== ENCOUNTER 2021-03-08 13:29 | Outpatient (CLI) | payer MEDICAID ==
[2021-03-08 13:58] LABS: CREATININE 1.4 mg/dL (0.4-1.0)
[2021-03-08 14:06] LABS: POTASSIUM 2.1 mmol/L (3.5-5.0)
[2021-03-08] MEDS ORDERED: IOVERSOL 320 100 ML VIAL IVP ONE ×2 (14:26→16:54)
--- NOTE | 2021-03-08 15:15 | CT Report ---
PROCEDURE: CHEST W INDICATIONS: COPD, SHORTNESS OF BREATH CONTRAST: IV CONTRAST: Optiray 320 ml: 100 PO CONTRAST: *NO PO CONTRAST TECHNIQUE: After the administration of intravenous contrast, 5 mm thick sections acquired from the pulmonary api serafin to the posterior costophrenic angles. 7 mm thick coronal MIP reformats were acquired. For radia tion dose reduction, the following was used: automated exposure control, adjustment of mA and/or kV according to patient size. COMPARISON: None. FINDINGS: Image quality: Excellent. Lungs and pleura: No acute air space opacities. There is mild right basilar atelectasis. Mild centri lobular emphysematous changes are seen bilaterally in the upper lungs. No pleural effusions or pneum othorax. Central and peripheral airways are patent and normal in caliber. Mediastinum: Heart size is normal. No pericardial effusion. No mediastinal or hilar adenopathy by size criteria. Thoracic aorta and central pulmonary arteries are normal in size. The aortic arch allen s atherosclerotic calcifications. Esophagus is normal in caliber. No hiatal hernia. The coronary ar teries have atherosclerotic calcifications. Bones and chest wall: No suspicious bony lesions. No vertebral body compression fractures. No axil jake or supraclavicular adenopathy by size criteria. The thyroid is normal in size and there are no incidental findings.. Abdomen: Visualized upper abdominal solid organs appear normal. Upper abdominal bowel loops are nor mal in caliber. IMPRESSION: 1. No acute abnormality of the chest. 2. Mild centrilobular emphysematous changes. Reviewed by: Jericho Watson on 03/08/2021 3:14 PM PDT Approved by: Jericho Watson on 03/08/2021 3:14 PM PDT Station ID: [id number]
== END 2021-03-08 13:30 | disposition home or self-care (01) ==
LOC: LAB 13:29
PROVIDERS: ATTEND Physician Assistant Medical
DX: J43.2 Centrilobular emphysema (principal)
CPT/HCPCS: 36415; 71260; 80048; Q9967

== ENCOUNTER 2021-03-22 02:34 | Outpatient (CLI) | payer MEDICAID | END 2021-03-22 02:35 | disposition critical access hospital (66) | LOC: EMS 02:34 | DX: R56.9 Unspecified convulsions (principal) | CPT/HCPCS: A0425; A0427; A0999 ==

== ENCOUNTER 2021-03-22 02:48 | Inpatient (IN) | payer MEDICAID ==
--- NOTE | 2021-03-22 02:50 | ED Physician Documentation ---
PD HPI SEIZURE - Stated complaint Stated Complaint: SEIZURE/LOC - History obtained from History obtained from: EMS - History of Present Illness Timing - onset: How many minutes ago (approximately 45 minutes [employer]) Witnessed: Witnessed Number of seizures: Multiple, Lasted minutes, Recovered between seizure Description of seizure activity: Generalized, LOC, Postictal Injury during seizure: None Associated symptoms: Unknown History of seizures: First seizure Contributing factors: Substance abuse Similar symptoms before: Has not had sx before Recently seen: Not recently seen - Additional information Additional information: MARTELLA. Unable to obtain HPI/ROS from patient due to AMS. Per EMS, patient's roommate called 911 after witnessing patient have a generalized seizure with LOC, lasting approximately 2-3 minutes. Roommate told EMS that patient had been having nausea, vomiting, and diarrhea x 3 weeks. EMS arrived to find patient awake, alert, with some mild confusion initially which rapidly cleared during their assessment; EMS says patient was AAOx3 and in NAD during transport to ED, but as they were pulling up to the ED, patient had a GTC seizure lasting approximately 45 seconds for which they gave 2mg IV Versed. She arrives post- ictal and thus not able to contribute to HPI/ROS. Patient had told EMS she has never had seizures before. Roommate had told EMS that patient is a daily user of methamphetamines and heroin. Review of Systems Unable to obtain: AMS PD PAST MEDICAL HISTORY - Past Medical History Past Medical History: Yes Cardiovascular: Hypertension - Present Medications Home Medications: Ambulatory Orders Medication Instructions Recorded Confirmed Albuterol Sulf [Ventolin Hfa 2 - 3 puffs INH Q4HR PRN #1 inhaler 08/15/20 03/22/21 Inhaler] - Allergies Allergies/Adverse Reactions: Allergies Allergy/AdvReac Type Severity Reaction Status Date / Time NSAIDS (Non-Steroidal Allergy Nausea Verified 03/22/21 04:17 Anti-Inflamma Penicillins Allergy Respiratory Verified 03/22/21 04:17 - Social History Does the pt have substance abuse?: Yes PD ED PE NORMAL - Vitals Vital signs reviewed: Yes - General General: Well developed/nourished - HEENT HEENT: Atraumatic, PERRL, Other (dry mucous membranes) - Cardiac Cardiac: RRR, No murmur - Respiratory Respiratory: No respiratory distress, Clear bilaterally - Derm Derm: Normal color, Warm and dry - Neuro Eye Opening: None Motor: None Verbal: None GCS Score: 3 PD ED PE EXPANDED - General General: Unresponsive - GCS Eye Opening: None Motor: None Verbal: None Total: 3 Results - Vitals Vitals: Vital Signs - 24 hr 03/22/21 03/22/21 03/22/21 02:56 03:15 03:32 Temperature 36.6 C Heart Rate 88 79 79 Respiratory 16 14 15 Rate Blood Pressure 177/128 H 188/144 H 190/130 H O2 Saturation 100 100 03/22/21 03/22/21 03/22/21 04:00 04:55 05:00 Temperature Heart Rate 79 85 82 Respiratory 14 22 15 Rate Blood Pressure 212/143 H 169/103 H 163/108 H O2 Saturation 100 03/22/21 03/22/21 03/22/21 05:10 05:17 05:30 Temperature Heart Rate 82 81 86 Respiratory 20 13 21 Rate Blood Pressure 158/102 H 158/118 H 156/108 H O2 Saturation 100 100 99 03/22/21 05:55 Temperature Heart Rate 85 Respiratory 16 Rate Blood Pressure 114/101 H O2 Saturation 99 Oxygen O2 Source Room air Oxygen Flow Rate 2 - EKG (time done) #1 Rate: Rate (enter#) (81) Rhythm: NSR, LAE [place]rill: Normal Intervals: Normal [place] QRS: Normal Ischemia: ST depression (V3-V6, I, II, III, aVF) #2 Rate: Rate (enter#) (82) Rhythm: NSR, JOSE Sherrill: Normal Intervals: Normal [place], Prolonged QT QRS: Normal, LVH Ischemia: ST depression (V1, V2, V4-V6, I, II, III, aVF) - Labs Labs: Laboratory Tests 03/22/21 03/22/21 03/22/21 03:09 03:09 03:09 WBC 14.9 H RBC 4.78 Hgb 14.7 Hct 40.9 MCV 85.6 MCH 30.8 MCHC 35.9 RDW 12.2 Plt Count 273 MPV 10.6 Neut # (Auto) 11.8 H Lymph # (Auto) 2.1 [place] # (Auto) 0.8 Eos # (Auto) 0.0 Baso # (Auto) 0.1 Absolute Nucleated RBC 0.00 Nucleated RBC % 0.0 Sodium 121 L Potassium 2.2 L* Chloride 71 L* Carbon Dioxide 29 Anion Gap 21.0 H BUN 20 Creatinine 2.4 H Estimated GFR (MDRD) 21 L Glucose 134 H Calcium 8.3 L Magnesium 1.7 Total Bilirubin 0.7 AST 57 H ALT 37 Alkaline Phosphatase 141 H Troponin I High Sens Total Protein 6.3 L Albumin 3.3 Globulin 3.0 Albumin/Globulin Ratio 1.1 Lipase 20 L TSH Free T4 HCG, Quant 2.02 Urine Color Urine Clarity Urine pH Ur Specific [place] Urine Protein Urine Glucose (UA) Urine Ketones Urine Occult Blood Urine Nitrite Urine Bilirubin Urine Urobilinogen Ur Leukocyte Esterase Urine RBC Urine WBC Ur Squamous Epith Cells Urine Bacteria Urine Casts Ur Microscopic Review Urine Culture Comments Nasal Adenovirus (PCR) Nasal B. parapertussis DNA (PCR) Nasal Coronavir 229E PCR Nasal Coronavir HKU1 PCR Nasal Coronavir NL63 PCR Nasal Coronavir OC43 PCR Nasal Enterovir/Rhinovir PCR Nasal Influenza B PCR Nasal Influenza A PCR Nasal Parainfluen 1 PCR Nasal Parainfluen 2 PCR Nasal Parainfluen 3 PCR Nasal Parainfluen 4 PCR Nasal RSV (PCR) Nasal B.pertussis DNA PCR Nasal C.pneumoniae (PCR) [place] Human Metapneumo PCR Nasal M.pneumoniae (PCR) Nasal SARS-CoV-2 (PCR) Urine Opiates Screen Ur Oxycodone Screen Urine Methadone Screen Ur Propoxyphene Screen Ur Barbiturates Screen Ur Tricyclics Screen Ur Phencyclidine Scrn Ur Amphetamine Screen U Methamphetamines Scrn U Benzodiazepines Scrn Urine Cocaine Screen U Cannabinoids Screen Ethyl Alcohol < 5.0 03/22/21 03/22/21 03/22/21 03:09 03:12 03:30 WBC RBC Hgb Hct MCV MCH MCHC RDW Plt Count MPV Neut # (Auto) Lymph # (Auto) [place] # (Auto) Eos # (Auto) Baso # (Auto) Absolute Nucleated RBC Nucleated RBC % Sodium Potassium Chloride Carbon Dioxide Anion Gap BUN Creatinine Estimated GFR (MDRD) Glucose Calcium Magnesium Total Bilirubin AST ALT Alkaline Phosphatase Troponin I High Sens 64.9 H* Total Protein Albumin Globulin Albumin/Globulin Ratio Lipase TSH Free T4 HCG, Quant Urine Color YELLOW Urine Clarity CLEAR Urine pH 6.5 Ur Specific [place] 1.020 Urine Protein >=300 H Urine Glucose (UA) NEGATIVE Urine Ketones NEGATIVE Urine Occult Blood SMALL H Urine Nitrite NEGATIVE Urine Bilirubin NEGATIVE Urine Urobilinogen 0.2 (NORMAL) Ur Leukocyte Esterase NEGATIVE Urine RBC 6-10 H Urine WBC 0-3 Ur Squamous Epith Cells NONE SEEN Urine Bacteria Many H Urine Casts 6-10 Hyaline Casts Ur Microscopic Review INDICATED Urine Culture Comments NOT INDICATED Nasal Adenovirus (PCR) NOT DETECTED Nasal B. parapertussis DNA (PCR) NOT DETECTED Nasal Coronavir 229E PCR NOT DETECTED Nasal Coronavir HKU1 PCR NOT DETECTED Nasal Coronavir NL63 PCR NOT DETECTED Nasal Coronavir OC43 PCR NOT DETECTED Nasal Enterovir/Rhinovir PCR NOT DETECTED Nasal Influenza B PCR NOT DETECTED Nasal Influenza A PCR NOT DETECTED Nasal Parainfluen 1 PCR NOT DETECTED Nasal Parainfluen 2 PCR NOT DETECTED Nasal Parainfluen 3 PCR NOT DETECTED Nasal Parainfluen 4 PCR NOT DETECTED Nasal RSV (PCR) NOT DETECTED Nasal B.pertussis DNA PCR NOT DETECTED Nasal C.pneumoniae (PCR) NOT DETECTED [place] Human Metapneumo PCR NOT DETECTED Nasal M.pneumoniae (PCR) NOT DETECTED Nasal SARS-CoV-2 (PCR) NOT DETECTED Urine Opiates Screen POSITIVE H Ur Oxycodone Screen NEGATIVE Urine Methadone Screen NEGATIVE Ur Propoxyphene Screen NEGATIVE Ur Barbiturates Screen NEGATIVE Ur Tricyclics Screen NEGATIVE Ur Phencyclidine Scrn NEGATIVE Ur Amphetamine Screen POSITIVE H U Methamphetamines Scrn POSITIVE H U Benzodiazepines Scrn NEGATIVE Urine Cocaine Screen NEGATIVE U Cannabinoids Screen POSITIVE H Ethyl Alcohol 03/22/21 03/22/21 05:00 05:00 WBC RBC Hgb Hct MCV MCH MCHC RDW Plt Count MPV Neut # (Auto) Lymph # (Auto) [place] # (Auto) Eos # (Auto) Baso # (Auto) Absolute Nucleated RBC Nucleated RBC % Sodium Potassium Chloride Carbon Dioxide Anion Gap BUN Creatinine Estimated GFR (MDRD) Glucose Calcium Magnesium Total Bilirubin AST ALT Alkaline Phosphatase Troponin I High Sens 58.4 H* Total Protein Albumin Globulin Albumin/Globulin Ratio Lipase TSH 54.42 H Free T4 < 0.25 L HCG, Quant Urine Color Urine Clarity Urine pH Ur Specific [place] Urine Protein Urine Glucose (UA) Urine Ketones Urine Occult Blood Urine Nitrite Urine Bilirubin Urine Urobilinogen Ur Leukocyte Esterase Urine RBC Urine WBC Ur Squamous Epith Cells Urine Bacteria Urine Casts Ur Microscopic Review Urine Culture Comments Nasal Adenovirus (PCR) Nasal B. parapertussis DNA (PCR) Nasal Coronavir 229E PCR Nasal Coronavir HKU1 PCR Nasal Coronavir NL63 PCR Nasal Coronavir OC43 PCR Nasal Enterovir/Rhinovir PCR Nasal Influenza B PCR Nasal Influenza A PCR Nasal Parainfluen 1 PCR Nasal Parainfluen 2 PCR Nasal Parainfluen 3 PCR Nasal Parainfluen 4 PCR Nasal RSV (PCR) Nasal B.pertussis DNA PCR Nasal C.pneumoniae (PCR) [place] Human Metapneumo PCR Nasal M.pneumoniae (PCR) Nasal SARS-CoV-2 (PCR) Urine Opiates Screen Ur Oxycodone Screen Urine Methadone Screen Ur Propoxyphene Screen Ur Barbiturates Screen Ur Tricyclics Screen Ur Phencyclidine Scrn Ur Amphetamine Screen U Methamphetamines Scrn U Benzodiazepines Scrn Urine Cocaine Screen U Cannabinoids Screen Ethyl Alcohol - Rads (name of study) CT head Radiology: Prelim report reviewed, See rad report CXR Radiology: Prelim report reviewed, See rad report PD MEDICAL DECISION MAKING - ED course Complexity details: reviewed old records, reviewed results, re-evaluated patient, considered differential, d/w patient ED course: Patient had steady improvement in mental status early in ED stay c/w resolution of post-ictal phase after a witnessed seizure by EMS (with an earlier seizure witnessed by a roommate). She is able to converse and provide accurate answers, AAOx3 during ED stay. She has new-onset seizure, hypokalmeia (2.2 potassium), hyponatremia (121), EKG changes (diffuse ST depressions), creatinine elevated above her baseline, and severe hypertension en route to ED as well as early in ED stay (consistently 120s-140s DBP on several consecutive readings in field and in ED). Her blood pressure responded rapidly to nicardipine drip. Her troponin is elevated: 65 on first draw but 2 hour repeat is 58 and she denies having chest pain during ED stay. I discussed these results with patient and the multiple emergent concerns as above. She is dismissive of these concerns (for example, repeatedly insists she did not have seizures even though EMS witnessed seizure activity, is unconcerned about her lab abnormalities, and feels that the response to the nicardipine drip equates to not having to stay in the hospital), but she ultimately is agreeable to admission. D/W Dr. Klein, who accepts to hospitalist service. - Critical Care Time(min): 45 Time Includes: Direct patient care, Review records, Reassess patient, Document care, Coordinate care, Medical consult, See progress note Data interpretation: Labs, Pulse ox, CXR, Prior EKG, See progress note Procedures included in critical care time: See progress note Procedures excluded from critical care time: See progress note Departure - Departure Disposition: 66 [facility] DC/Xfer Clinical Impression: Seizure, Hypokalemia, Hyponatremia, Hypertensive emergency Condition: Stable Discharge Date/Time: 03/22/21 07:11
[2021-03-22 03:16] LABS: MUDS CUTOFF CONCENTRATIONS CUTOFF CONC BELOW:
[2021-03-22 03:20] LABS: BILIRUBIN,URINE NEGATIVE (NEGATIVE); GLUCOSE, URINE (UA) NEGATIVE (NEGATIVE); KETONES,URINE (UA) NEGATIVE (NEGATIVE); LEUKOCYTE ESTERASE, URINE NEGATIVE (NEGATIVE); NITRITE,URINE NEGATIVE (NEGATIVE); OCCULT BLOOD,URINE SMALL (NEGATIVE); PH,URINE 6.5 PH (5.0-7.5); PROTEIN,URINE >=300 mg/dL (NEGATIVE); UROBILINOGEN,URINE 0.2 (NORMAL) E.U./dL (NORMAL)
[2021-03-22 03:23] LABS: BASOPHILS # (AUTO) 0.1 10^3/uL (0.0-0.1); BASOPHILS % (AUTO) 0.3 %; EOSINOPHILS % (AUTO) 0.1 %; HCT - HEMATOCRIT 40.9 % (37.0-47.0); HGB - HEMOGLOBIN 14.7 g/dL (12.0-16.0); LYMPHOCYTES # (AUTO) 2.1 10^3/uL (1.5-3.5); LYMPHOCYTES % (AUTO) 14.2 %; MEAN CORPUSCULAR HEMOGLOBIN 30.8 pg (27.0-31.0); MEAN CORPUSCULAR HGB CONC 35.9 g/dL (32.0-36.0); MEAN CORPUSCULAR VOLUME 85.6 fL (81.0-99.0); MEAN PLATELET VOLUME 10.6 fL (7.9-10.8); MONOCYTES # (AUTO) 0.8 10^3/uL (0.0-1.0); MONOCYTES % (AUTO) 5.3 %; NEUTROPHILS # (AUTO) 11.8 10^3/uL (1.5-6.6); NEUTROPHILS % (AUTO) 79.6 %; PLT - PLATELET COUNT 273 10^3/uL (130-450); RED BLOOD COUNT 4.78 10^6/uL (4.20-5.40); RED CELL DISTRIBUTION WIDTH 12.2 % (12.0-15.0); WHITE BLOOD COUNT 14.9 x10^3/uL (4.8-10.8)
[2021-03-22 03:25] LABS: CLARITY,URINE CLEAR (CLEAR)
[2021-03-22 03:30] LABS: BACTERIA,URINE Many /HPF (None Seen); SQUAMOUS EPITHELIAL CELL,UR NONE SEEN (<= Few); WBC,URINE 0-3 /HPF (0-5)
[2021-03-22 03:31] LABS: AMPHETAMINE SCREEN,URINE POSITIVE (NEGATIVE); BARBITURATE SCREEN,UR NEGATIVE (NEGATIVE); BENZODIAZEPINES SCREEN, URINE NEGATIVE (NEGATIVE); CASTS, URINE 6-10 Hyaline Casts /LPF; COCAINE SCREEN URINE NEGATIVE (NEGATIVE); METHADONE SCREEN, URINE NEGATIVE (NEGATIVE); METHAMPHETAMINES SCREEN, URINE POSITIVE (NEGATIVE); OPIATE SCREEN, URINE POSITIVE (NEGATIVE); OXYCODONE SCREEN, URINE NEGATIVE (NEGATIVE); PROPOXYPHENE SCREEN, URINE NEGATIVE (NEGATIVE); THC CANNABINOID SCREEN, URINE POSITIVE (NEGATIVE); TRICYCLIC ANTIDEPRESSANT,URINE NEGATIVE (NEGATIVE)
[2021-03-22 03:55] LABS: ALBUMIN 3.3 g/dL (3.2-5.5); ALBUMIN/GLOBULIN RATIO 1.1 (1.0-2.2); ALKALINE PHOSPHATASE 141 IU/L (42-121); ALT ALANINE AMINOTRANSFERASE 37 IU/L (10-60); AST ASPARTATE AMINOTRANSFERASE 57 IU/L (10-42); BILIRUBIN,TOTAL 0.7 mg/dL (0.2-1.0); BUN - BLOOD UREA NITROGEN 20 mg/dL (6-20); CALCIUM 8.3 mg/dL (8.5-10.3); CARBON DIOXIDE - CO2 29 mmol/L (21-32); CREATININE 2.4 mg/dL (0.4-1.0); ETOH - ETHANOL < 5.0 mg/dL; GFR - MDRD 21 (>89); GLUCOSE 134 mg/dL (70-100); LIPASE 20 U/L (22-51); MAGNESIUM 1.7 mg/dL (1.7-2.8); SODIUM 121 mmol/L (135-145); TOTAL PROTEIN 6.3 g/dL (6.7-8.2)
[2021-03-22 03:57] LABS: CHLORIDE 71 mmol/L (101-111); POTASSIUM 2.2 mmol/L (3.5-5.0)
[2021-03-22] MEDS ORDERED: LABETALOL VIAL 200 MG in SODIUM CHLORIDE 0.9% 160 ML IV STA (03:59)
[2021-03-22] MEDS ORDERED: POTASSIUM CHLOR 10 MEQ/100 ML 10 MEQ/100 ML BAG IV STA ×2 (04:02→05:16)
[2021-03-22] MEDS ORDERED: LABETALOL 5 MG/1 ML 20 ML MDV ONE (04:16)
[2021-03-22] MEDS ORDERED: NICARDIPINE HCL 25 MG in SODIUM CHLORIDE 0.9% 240 ML IV STA (04:29)
[2021-03-22] MEDS ORDERED: NICARDIPINE HCL 25 MG/10 ML VIAL IV ONE (04:36)
[2021-03-22 04:42] LABS: B. PARAPERTUSSIS- RESP PCR PAN NOT DETECTED; B. PERTUSSIS- RESP PCR PANEL NOT DETECTED; C. PNEUMONIAE- RESP PCR PANEL NOT DETECTED; CORONAVIRUS 229E-RESP PCR NOT DETECTED; CORONAVIRUS HKU1-RESP PCR NOT DETECTED; CORONAVIRUS NL63-RESP PCR NOT DETECTED; CORONAVIRUS OC43-RESP PCR NOT DETECTED; HUMAN METAPNEUMOVIRUS NOT DETECTED; INFLUENZA A- RESP PCR PANEL NOT DETECTED; INFLUENZA B - RESP PCR PANEL NOT DETECTED; M. PNEUMONIAE- RESP PCR PANEL NOT DETECTED; PARAINFLUENZA VIRUS 1 NOT DETECTED; PARAINFLUENZA VIRUS 2 NOT DETECTED; PARAINFLUENZA VIRUS 3 NOT DETECTED; PARAINFLUENZA VIRUS 4 NOT DETECTED; RHINOVIRUS/ENTEROVIRUS NOT DETECTED; RSV- RESP PCR PANEL NOT DETECTED; SARS-CoV-2 -RESP PCR PANEL NOT DETECTED
[2021-03-22] MEDS ORDERED: SODIUM CHLORIDE 0.9% 1,000 ML IV STA (05:16)
[2021-03-22] MEDS ORDERED: ALBUTEROL NEB 2.5 MG/3 ML INH PRN (06:02)
[2021-03-22] MEDS ORDERED: oxyCODONE 5 MG TABLET PO PRN (06:02)
[2021-03-22] MEDS ORDERED: SODIUM CHLORIDE FLUSH 0.9% 10 ML SYRINGE IVP PRN (06:02)
[2021-03-22] MEDS ORDERED: ACETAMINOPHEN 325 MG TABLET PO PRN (06:02)
[2021-03-22] MEDS ORDERED: ONDANSETRON ODT 4 MG TABLET TL PRN (06:02)
[2021-03-22] MEDS ORDERED: POTASSIUM CHLORIDE 20 MEQ TABLET PO ONE (06:58)
--- NOTE | 2021-03-22 07:06 | HISTORY & PHYSICAL EXAMINATION ---
Chief Complaint - Chief Complaint Chief Complaint: Seizure at home History of Present Illness - Admitted From Admitted From:: Home - History Obtained From Records Reviewed: Yes History obtained from: Patient, ER Physician, EMR - History of Present Illness HPI Comment/Other: This is a 50-year-old female with a past medical history significant for COPD, ulcerative colitis, heroin and methamphetamine abuse, hypertension who presents today after reportedly having a seizure at home. The patient herself does not believe that she had a seizure and she tells me that she was just resting at home. Reportedly, the patient had a seizure at home that was witnessed by her roommate who then called EMS. In route to the hospital she had another seizure and was reportedly given Versed. The patient denies having a prior history of seizures and she still does not believe that she had a seizure today. She denies any focal deficits, headache, numbness, tingling. She reports no chest pain, dyspnea. She states she is compliant with her antihypertensive medications as well as her thyroid medication but she cannot tell me what her doses. She does admit to daily marijuana use and also admits to heroin and methamphetamine use but cannot tell me when her last use was. She does report feeling depressed at times but denies any suicidal ideations or thoughts at this time. She states she had had suicidal thoughts in the past but currently denies this. She reports no dysuria but does state occasional hematuria. She was reportedly prescribed antibiotics recently for a suspected urinary tract infection. She does report poor oral intake due to nausea so she with ulcerative colitis but she has been using marijuana to treat this with relief. In the emergency department, she is found to be hypertensive with systolics in the 170s to 180s and diastolic in the 120s. Her labs were significant for sodium of 121, potassium 2.2, bicarbonate 71. Her creatinine was 2.4. Initial troponin was 64.9 and repeat was down to 58.4. EKG revealed diffuse ST depressions. Chest x-ray was unremarkable as well as a CT of the head. Given the above findings, medicine was consulted for admission. We did discuss goals of care and she would like to be a DNR. History - Past Medical History Cardiovascular: reports: Congestive heart failure, Hypertension, High cholesterol, Coronary artery disease Respiratory: reports: Asthma, COPD Neuro: reports: None Endocrine/Autoimmune: reports: HyPOthyroidism GI: reports: Ulcerative colitis MRSA Hx?: No - Past Surgical History General: reports: Cholecystectomy, Gastric surgery /CRA OFFICER: reports: Hysterectomy - Family & Social History Family History Comment/Other: She believes her mother had gastric cancer that metastasized to the lung and brain. Living arrangement: At home Living Situation: With friend(s) Social History Notes: She lives at home with her roommate, Netta. She does admit to smoking a pack a day. She denies any alcohol use but does admit to daily marijuana use as well as heroin and methamphetamine use. - Substance History Abuse: Recurrent use of substance despite neg consequences: Amphetamine - POLST Patient has POLST: No Meds/Allgy - Home Medications Home Medications: Ambulatory Orders Medication Instructions Recorded Confirmed Albuterol Sulf [Ventolin Hfa 2 - 3 puffs INH Q4HR PRN #1 inhaler 08/15/20 03/22/21 Inhaler] - Allergies Allergies/Adverse Reactions: Allergies Allergy/AdvReac Type Severity Reaction Status Date / Time NSAIDS (Non-Steroidal Allergy Nausea Verified 03/22/21 04:17 Anti-Inflamma Penicillins Allergy Respiratory Verified 03/22/21 04:17 Review of Systems - Constitutional Constitutional: denies: Fever, Chills - Eyes Eyes: denies: Blurred vision - Ears, Nose & Throat Ears, Nose & Throat: denies: Nasal discharge, Nasal congestion, Sore throat - Cardiovascular Cariovascular: denies: Chest pain, Exertional dyspnea, Decr. exercise tolerance - Respiratory Respiratory: denies: Cough, SOB at rest, SOB with exertion - Gastrointestinal Gastrointestinal: reports: Abdominal pain, Diarrhea, Nausea, Vomiting. denies: Black stools, Bloody stools - Genitourinary Genitourinary: reports: Hematuria. denies: Dysuria, Frequency - Integumentary Integumentary: denies: Rash - Neurological Neurological: denies: General weakness, Focal weakness - Psychiatric Psychiatric: reports: Depression - Hematologic/Lymphatic Hematologic/Lymphatic: denies: Anemia, Bleeding tendencies - All Other Systems All Other Systems: reports: Reviewed and negative Prior Level of Functionality: She is independent with her ADLs. Exam - Vital Signs Reviewed Vital Signs: Yes Vital Signs: Vital Signs x48h Temp Pulse Resp BP Pulse Ox 03/22/21 06:28 16 131/95 H 94 03/22/21 06:10 36.6 C 54 L 17 149/102 H 99 03/22/21 05:55 85 16 114/101 H 99 03/22/21 05:30 86 21 156/108 H 99 03/22/21 05:17 81 13 158/118 H 100 03/22/21 05:10 82 20 158/102 H 100 03/22/21 05:00 82 15 163/108 H 100 03/22/21 04:55 85 22 169/103 H 03/22/21 04:00 79 14 212/143 H 03/22/21 03:32 79 15 190/130 H 03/22/21 03:15 79 14 188/144 H 100 03/22/21 02:56 36.6 C 88 16 177/128 H 100 - Physical Exam General Appearance: positive: No acute distress, Alert Eyes Bilateral: positive: PERRL ENT: positive: Dry mucous membranes. negative: No signs of dehydration Respiratory: positive: No respiratory distress. negative: Wheezes, Rales Cardiovascular: positive: Systolic murmur. negative: No murmur Abdomen: positive: No distention, Tenderness (Mild epigastric tenderness.). negative: Guarding, Rebound Skin: positive: Warm, Dry Extremities: positive: No pedal edema Neurologic/Psychiatric: positive: Motor nml. negative: Disoriented to person, Disoriented to place, Disoriented to time, Facial droop, Slurred/abnml speech Conclusion/Plan - Problem List (1) Hypertensive emergency Conclusion/Plan: She presented with a systolic blood pressure greater than 180 and a diastolic of nearly 140. Concern was for hypertensive emergency given her seizure and diffuse ST depressions on EKG. She has been started on nicardipine by the emergency department physician. Her blood pressure has improved down to the 130s systolic and 90s diastolic. We will continue nicardipine and resume her home medications once dosing is confirmed by pharmacy. (2) Seizure Conclusion/Plan: This is likely multifactorial and related to her illicit drug use as well as the hyponatremia. CT of the head was unremarkable. Her alcohol level was not detectable and she denies a history of alcohol use. We will admit her and treat her underlying electrolyte derangements. Unfortunately MRI is not available so we will not be obtaining one although this can be done on outpatient basis. We will hold off on any antiepileptics given this is her first seizure and likely related to her electrolytes illicit drug use. Seizure precautions. (3) Hyponatremia Conclusion/Plan: This appears to be hypovolemic hyponatremia. Her sodium is decreased at 121. This likely contributed to her new seizures. We will hydrate her with normal saline at 100 mL an hour. We will check BMP every 6 hours. Will obtain urine sodium if there is no improvement. (4) Hypokalemia Conclusion/Plan: Her potassium is decreased at 2.2. I do not have a complete home medication list at this time so I am not sure if she is on any medication that may contribute to this. This could potentially be to GI losses given her ongoing vomiting which she reports. Given her hypertension, consideration is made for possible Breann syndrome. At this time, we will replace her potassium with 40 mEq orally and 40 mEq intravenously. Her magnesium stores are adequate. We will recheck a BMP at noon. Will consider further work-up if she remains persistently hypokalemic. (5) Abnormal EKG Conclusion/Plan: Her EKG does reveal diffuse ST depressions. Her troponin is elevated in the 60s but this is decreasing. She has no chest pain. I suspect her EKG changes are related to her hypokalemia and less likely to be ACS. We will obtain an echocardiogram today. Continue to monitor on telemetry and trend troponin. (6) Illicit drug use Conclusion/Plan: She does admit to daily marijuana use as well as the use of heroin and methamphe tamines. This likely contributed to her new seizures today. I have asked social work to see her regarding her drug use. We will monitor for signs of withdrawal. (7) Hypothyroid Conclusion/Plan: Her last TSH was greater than 40. She does report being compliant with Synthroid. We will recheck a TSH today when asked pharmacy to confirm her home medications before resuming Synthroid or adjusting dose. (8) Depression Conclusion/Plan: She does admit to being depressed but denies any suicidal thoughts or ideations. - Lab Results Lab results reviewed: Yes Fantasma Bones: 03/22/21 03:09 03/22/21 03:09 - Diagnostic Imaging Results Diagnostic Imaging Results: positive: Prelim report reviewed - EKG Results EKG Interpreted Independently: Yes EKG Findings: EKG reveals sinus rhythm with diffuse ST depressions. QTC is prolonged. Core Measures - Anticipated LOS I expect patient to be DC'd or transferred within 96 hours.: Yes - Issues Hospital Issues and Management Plan: 50-year-old female with a history of methamphetamine and heroin use presents with a seizure found to be hyponatremic and hypokalemic. She is also hypertensive with systolic in the 180s and diastolic in the 140s. Will admit for blood pressure control and treat the hypokalemia and hyponatremia. - DVT/VTE - Prophylaxis VTE/DVT Device ordered at admit?: Yes VTE/DVT Prophylaxis med ordered at admit?: Yes
--- NOTE | 2021-03-22 07:12 | CT Report ---
PROCEDURE: HEAD WO INDICATIONS: new onset seizure TECHNIQUE: Noncontrast 4.5 mm thick angled axial sections acquired from the foramen magnum to the vertex. For r adiation dose reduction, the following was used: automated exposure control, adjustment of mA and/or kV according to patient size. COMPARISON: None. FINDINGS: Image quality: Excellent. CSF spaces: Basal cisterns are patent. No extra-axial fluid collections. Ventricles are normal in size and shape. Brain: No midline shift. No intracranial masses or hemorrhage. Blum-white matter interface is norm al. Skull and face: Calvarium and visualized facial bones are intact, without suspicious lesions. Sinuses: Visualized sinuses and mastoids are clear. IMPRESSION: No acute intracranial disease process. If there is continued concern for intracranial pathology, MRI of the brain with and without contrast should be considered for further evaluation. Reviewed by: Lynette Hernández MD, PhD on 03/22/2021 7:11 AM PDT Approved by: Lynette Hernández MD, PhD on 03/22/2021 7:11 AM PDT Station ID: [id number]
[2021-03-22 07:21] LABS: THYROID STIMULATING HORMONE 54.42 uIU/mL (0.34-5.60)
[2021-03-22] MEDS: SODIUM CHLORIDE 0.9% 1,000 ML IV SCH ×2 (07:25→17:17)
[2021-03-22 07:36] LABS: FREE T4 (FREE THYROXINE) < 0.25 ng/dL (0.58-1.64)
[2021-03-22] MEDS: POTASSIUM CHLOR 10 MEQ/100 ML 10 MEQ/100 ML BAG IV SCH ×13 (07:48→23:23)
[2021-03-22] MEDS ORDERED: LORazepam 2 MG/ML VIAL ONE (08:21)
[2021-03-22] MEDS ORDERED: LORazepam 2 MG/ML VIAL IVP PRN (08:29)
[2021-03-22] MEDS ORDERED: SODIUM CHLORIDE 0.9% IV ONE (09:00)
[2021-03-22] MEDS ORDERED: LEVETIRACETAM IV ONE (09:00)
[2021-03-22] MEDS ORDERED: MORPHINE 10 MG/ML VIAL IVP PRN (09:06)
[2021-03-22] MEDS: ONDANSETRON 4 MG/2 ML VIAL IVP PRN (09:12)
--- NOTE | 2021-03-22 09:15 | PHARMACY PROGRESS NOTE ---
- Best Possible Medication History Admit Date and Time: 03/22/21 0602 Processed by: Pharmacy Medication History completed: Yes Patient Interview: Pt unable to participate Secondary Source(s): Physician records, Pharmacy records As the person ultimately responsible for medication therapy, providers are able to order a medication from an existing home medication list in [facility] via the "Reconcile Routine" prior to Confirmation of that medication by youth accommodation support worker. Such practice is discouraged except when the physician, in their clinical judgment, deems that a medical need exists for a medication without regard to previous use.
[2021-03-22] MEDS: HEPARIN 5,000 UNIT/ML VIAL SUBQ SCH ×2 (09:18→21:31)
--- NOTE | 2021-03-22 09:37 | XRAY Report ---
PROCEDURE: Chest 1 View X-Ray INDICATIONS: seizure, AMS TECHNIQUE: One view of the chest was acquired. COMPARISON: CT chest 03/08/21, Chest xray 12/10/20 FINDINGS: Surgical changes and devices: None. Lungs and pleura: No pleural effusions or pneumothorax. Lungs are clear. Mediastinum: Mediastinal contours appear normal. Heart size is normal. Bones and chest wall: No suspicious bony lesions. Overlying soft tissues appear unremarkable. IMPRESSION: 1. No acute pulmonary process. Reviewed by: Soo Weber MD on 03/22/2021 9:35 AM PDT Approved by: Soo Weber MD on 03/22/2021 9:35 AM PDT Station ID: [id number]
[2021-03-22 10:07] LABS: FECAL OCCULT BLOOD (FIT) POSITIVE (NEGATIVE)
[2021-03-22] MEDS ORDERED: MORPHINE 2 MG/ML CARPUJECT IVP PRN (10:15)
[2021-03-22] MEDS: SODIUM CHLORIDE FLUSH 0.9% 10 ML SYRINGE IVP SCH ×2 (10:26→17:00)
[2021-03-22] MEDS: diltiaZEM CD 120 MG CAPSULE PO SCH (11:13)
[2021-03-22] MEDS: lisinopriL 20 MG TABLET PO SCH (11:14)
[2021-03-22] MEDS: amLODIPine 5 MG TABLET PO SCH (12:00)
[2021-03-22] MEDS: IPRATROPIUM 0.2 MG/ML NEB INH SCH ×2 (13:39→20:14)
[2021-03-22 13:41] LABS: CALCIUM 7.3 mg/dL (8.5-10.3); CREATININE 1.7 mg/dL (0.4-1.0)
[2021-03-22 13:45] LABS: POTASSIUM 2.4 mmol/L (3.5-5.0)
--- NOTE | 2021-03-22 15:34 | PROVIDER PROGRESS NOTE ---
Progress Note Patient was admitted earlier this morning by my colleague for seizures. She is 50-year-old female with a past medical history of hypertension and polysubstance abuse including methamphetamines and marijuana. She denies any known history of seizure disorder but states she has been having 3 weeks of diarrhea. Chart review reveals she has a documented history of ulcerative colitis. This morning a rapid response was called due to patient having a seizure approximately 8 AM. Upon arrival to the patient's room immediately, found the patient in a tonic-clonic seizure, with appropriate positioning to the patient's lateral decubitus to prevent aspiration. Seizure lasted approximately 1 to 2 minutes, during which IV Ativan was ordered but the seizure abated prior to administering any of it. Blood pressure was fluctuant during the seizure but normalized shortly after. She had a moderate duration postictal state. Review of events with nursing staff revealed that patient had received 40 mEq of p.o. potassium and about 5 mEq of IV potassium prior to the seizure. Consideration was given for the need for airway protection/intubation however because the patient's seizure abated quickly, and she was breathing well on her own and her post ictal sleep, it did not seem necessary and this was monitored closely for some time. Shortly after seizure, I consulted with neurologist, Dr. Aris Dwyer at [facility] who was kind enough to provide generalized guidance with me over the phone. Please note that this guidance was without the benefit of Dr. Dwyer being able to review the patient's chart, and as he was a remote search consultant was not able to examine the patient himself. But generally speaking his advice was in agreement to pursue antiepileptic medication specifically with a loading dose of 2000 mg of Keppra followed by 1000 mg twice daily starting at 9 PM this evening. He agreed that it would be preferable for the patient to have an MRI but felt that as long as she is neurologically stable it would be okay for the patient to have this done on Friday when our MRI capabilities resume or as an outpatient if she is discharged sooner. In addition, would recommend an EEG if available, but agrees that the lack of availability of EEG is not an indication for transfer to tertiary facility at this time. She agreed with the plan of replacing electrolytes, as this is likely an underlying contributor to the seizures, and felt that as long as this was successful and minimal seizure activity moving forward she would be stable for further management in our hospital. Sometime after I returned to the patient's room to reevaluate her she was awake and alert and conversant. She complained of abdominal pain and provided further history about the diarrhea. Shortly after this conversation she had a large bowel movement and reported feeling better. Stool studies were ordered including ova and parasites, culture, inflammatory markers, and stool culture. Since then patient has been relatively stable, and diet has been advanced and we will continue to monitor keeping her on seizure precautions and anticipate an additional 2 to 3 days of hospitalization. With respect to hypertension, nicardipine was discontinued and blood pressure medications per home regimen were resumed. Dr. Dwyer did mention the concern for press syndrome given the history of hypertension and uncontrolled hypertension being a possible contributor to seizure disorder and we will monitor for this. Again MRI would be preferable, but lack of this is not at this time an immediate indication for transfer as long as she remains neurologically stable and blood pressure can be fairly well managed. Approximately 45 minutes of critical care time was spent providing direct patient care for this patient, in addition to chart review, facilitating care with nursing staff, and consulting specialist.
[2021-03-22] MEDS ORDERED: SODIUM CHLORIDE 0.9% 1,000 ML IV ONE (18:06)
[2021-03-22] MEDS: levETIRAcetam INJ 1,000 MG in SODIUM CHLORIDE 0.9% 100ML 100 ML IV SCH (21:30)
[2021-03-22 23:32] LABS: MAGNESIUM 1.3 mg/dL (1.7-2.8); PHOSPHORUS 1.7 mg/dL (2.5-4.6)
[2021-03-22] MEDS ORDERED: ASPIRIN CHEW 81 MG TABLET PO STA (23:47)
[2021-03-23] MEDS: POTASSIUM CHLOR 10 MEQ/100 ML 10 MEQ/100 ML BAG IV SCH ×3 (00:23→02:33)
[2021-03-23] MEDS: IPRATROPIUM 0.2 MG/ML NEB INH SCH ×4 (01:16→16:00)
[2021-03-23] MEDS ORDERED: POTASSIUM PHOSPHATE 15 MMOL in SODIUM CHLORIDE 0.9% 250 ML IV ONE ×2 (02:37→08:00)
[2021-03-23] MEDS ORDERED: LORazepam 2 MG/ML VIAL IVP STA (03:08)
[2021-03-23] MEDS: SODIUM CHLORIDE FLUSH 0.9% 10 ML SYRINGE IVP SCH ×3 (03:22→17:01)
[2021-03-23] MEDS: MAGNESIUM SULFATE 2 GRAM 2 GM/50 ML BAG IV SCH ×2 (03:36→04:35)
[2021-03-23] MEDS: SODIUM CHLORIDE 0.9% 1,000 ML IV SCH ×2 (04:09→12:19)
[2021-03-23] MEDS: ONDANSETRON 4 MG/2 ML VIAL IVP PRN (04:52)
[2021-03-23 04:58] LABS: BASOPHILS # (AUTO) 0.1 10^3/uL (0.0-0.1); BASOPHILS % (AUTO) 0.4 %; EOSINOPHILS # (AUTO) 0.1 10^3/uL (0.0-0.7); EOSINOPHILS % (AUTO) 0.4 %; HCT - HEMATOCRIT 31.2 % (37.0-47.0); HGB - HEMOGLOBIN 11.1 g/dL (12.0-16.0); LYMPHOCYTES # (AUTO) 2.7 10^3/uL (1.5-3.5); MEAN CORPUSCULAR HEMOGLOBIN 30.9 pg (27.0-31.0); MEAN CORPUSCULAR HGB CONC 35.6 g/dL (32.0-36.0); MEAN CORPUSCULAR VOLUME 86.9 fL (81.0-99.0); MONOCYTES # (AUTO) 0.7 10^3/uL (0.0-1.0); MONOCYTES % (AUTO) 5.6 %; NEUTROPHILS # (AUTO) 9.3 10^3/uL (1.5-6.6); NEUTROPHILS % (AUTO) 72.1 %; PLT - PLATELET COUNT 206 10^3/uL (130-450); RED BLOOD COUNT 3.59 10^6/uL (4.20-5.40); RED CELL DISTRIBUTION WIDTH 12.6 % (12.0-15.0); WHITE BLOOD COUNT 12.9 x10^3/uL (4.8-10.8)
[2021-03-23 05:15] LABS: ALBUMIN 2.4 g/dL (3.2-5.5); BILIRUBIN,DIRECT 0.1 mg/dL (0.1-0.5); BILIRUBIN,TOTAL 0.8 mg/dL (0.2-1.0); MAGNESIUM 1.5 mg/dL (1.7-2.8); PHOSPHORUS 1.3 mg/dL (2.5-4.6); TOTAL PROTEIN 4.8 g/dL (6.7-8.2)
[2021-03-23] MEDS: LEVOTHYROXINE 100 MCG TABLET PO SCH (06:44)
[2021-03-23] MEDS ORDERED: hydroCHLOROthiazide 25 MG TABLET PO SCH (09:00)
[2021-03-23] MEDS: HEPARIN 5,000 UNIT/ML VIAL SUBQ SCH ×2 (09:24→21:15)
[2021-03-23] MEDS: levETIRAcetam INJ 1,000 MG in SODIUM CHLORIDE 0.9% 100ML 100 ML IV SCH (09:28)
[2021-03-23] MEDS: amLODIPine 5 MG TABLET PO SCH (09:30)
[2021-03-23] MEDS: lisinopriL 20 MG TABLET PO SCH (09:31)
[2021-03-23] MEDS: LACTOBACILLUS RHAMNOSUS GG CAPSULE PO SCH (09:31)
[2021-03-23] MEDS: diltiaZEM CD 120 MG CAPSULE PO SCH (09:31)
[2021-03-23] MEDS ORDERED: GLUCAGON 1 MG/ML VIAL ONE (11:49)
[2021-03-23] MEDS ORDERED: GLUCAGON 1 MG/ML VIAL SUBQ ONE (11:56)
[2021-03-23 12:49] LABS: CREATININE 1.7 mg/dL (0.4-1.0); POTASSIUM 3.5 mmol/L (3.5-5.0)
[2021-03-23 12:59] LABS: CALCIUM 6.5 mg/dL (8.5-10.3)
[2021-03-23] MEDS ORDERED: DEXTROSE 5% 1,000 ML IV SCH (13:00)
--- NOTE | 2021-03-23 13:37 | PROVIDER PROGRESS NOTE ---
Subjective - Prog Note Date Prog Note Date: 03/23/21 Prog Note Time: 13:35 - Subjective Pt reports feeling: Improved Subjective: Patient continues to be very lethargic today but I was able to wake her up long enough to ask her if her abdomen was feeling better and she confirmed to me that it did feel better and that she wanted to try to eat something. She sat up in her bed as if she was about to start eating and then went back to sleep. Current Medications - Current Medications Current Medications: Current Medications Generic Name Dose Route Start Last Admin Trade Name Freq PRN Reason Stop Dose Admin Acetaminophen 650 mg 03/22/21 06:02 03/22/21 11:18 Acetaminophen 325 Mg Tablet PO 650 mg Q4HR PRN Administration Pain 1 to 4 Albuterol 2.5 mg 03/22/21 06:02 03/22/21 20:14 Albuterol Neb 2.5 Mg/3 Ml INH 2.5 mg Q4HR PRN Administration Wheezing Amlodipine Besylate 10 mg 03/22/21 12:00 03/23/21 09:30 Amlodipine 5 Mg Tablet PO Not Given DAILY PHI Diltiazem HCl 120 mg 03/22/21 11:00 03/23/21 09:31 Diltiazem Cd 120 Mg Capsule PO Not Given DAILY PHI Heparin Sodium (Porcine) 5,000 unit 03/22/21 09:00 03/23/21 09:24 Heparin 5,000 Unit/Ml Vial SUBQ 5,000 unit BID PHI Administration Sodium Chloride 1,000 mls @ 100 mls/hr 03/22/21 07:00 03/23/21 12:19 Normal Saline 0.9% IV Not Given .Q10H PHI Levetiracetam 1,000 mg/ Sodium 110 mls @ 400 mls/hr 03/22/21 21:00 03/23/21 09:41 Chloride IV 0 mls/hr BID PHI Infusion Dextrose 1,000 mls @ 100 mls/hr 03/23/21 13:00 03/23/21 12:05 D5w IV 100 mls/hr .Q10H PHI Administration Ipratropium [place] 0.5 mg 03/22/21 13:00 03/23/21 10:15 Ipratropium 0.2 Mg/Ml Neb INH 0.5 mg RTQ6H PHI Administration Lactobacillus Rhamnosus 1 cap 03/23/21 09:00 03/23/21 09:31 Lactobacillus Rhamnosus Gg Capsule PO Not Given DAILY PHI Levothyroxine Sodium 200 mcg 03/23/21 07:00 03/23/21 06:44 Levothyroxine 100 Mcg Tablet PO 200 mcg QDAC PHI Administration Lisinopril 40 mg 03/22/21 11:00 03/23/21 09:31 Lisinopril 20 Mg Tablet PO Not Given DAILY PHI Morphine Sulfate 2 mg 03/22/21 10:15 03/22/21 15:49 Morphine 2 Mg/Ml Carpuject IVP 2 mg Q4H PRN Administration PAIN Ondansetron HCl 4 mg 03/22/21 06:02 03/23/21 04:52 Ondansetron 4 Mg/2 Ml Vial IVP 4 mg Q6HR PRN Administration Nausea / Vomiting Oxycodone HCl 5 mg 03/22/21 06:02 03/22/21 11:18 Oxycodone 5 Mg Tablet PO 5 mg Q4HR PRN Administration Pain 5 to 7 Sodium Chloride 10 ml 03/22/21 09:00 03/23/21 09:27 Sodium Chloride Flush 0.9% 10 Ml Syringe IVP 20 ml 0100,0900,1700 PHI Administration Sodium Chloride 10 ml 03/22/21 06:02 03/22/21 10:35 Sodium Chloride Flush 0.9% 10 Ml Syringe IVP 10 ml PRN PRN Administration NEEDED PER PROVIDER ORDERS Objective - Vital Signs/Intake & Output Reviewed Vital Signs: Yes Vital Signs: Vital Signs x48h Temp Pulse Pulse Resp BP Pulse Ox 03/23/21 12:00 36.5 C 68 12 106/64 94 03/23/21 11:00 62 12 109/67 03/23/21 10:15 70 14 03/23/21 10:00 67 15 105/74 88 L 03/23/21 08:59 71 18 93/68 96 03/23/21 08:00 36.4 C L 63 13 114/76 99 03/23/21 07:00 58 L 13 114/76 03/23/21 06:00 64 12 96/58 L Intake & Output: Intake & Output 03/20/21 03/21/21 03/22/21 03/23/21 23:59 23:59 23:59 23:59 Intake Total 4862.916 2640.834 Output Total 6519 892 Balance 2723.916 1748.834 - Objective General Appearance: positive: No acute distress, Lethargic Eyes Bilateral: positive: Normal inspection, EOMI ENT: positive: ENT inspection nml Neck: positive: Nml inspection Respiratory: positive: Chest non-tender, No respiratory distress, Breath sounds nml Cardiovascular: positive: Regular rate & rhythm, No murmur, No gallop Abdomen: positive: Non-tender, No organomegaly, Nml bowel sounds, No distention Skin: positive: Color nml, No rash, Warm Extremities: positive: Non-tender Neurologic/Psychiatric: positive: Motor nml, Weakness, Other (And somewhat hypersomnolence, mumbled speech, but able to arouse to somewhat more normal affect and clear speech when stimulated). negative: Mood/affect nml - Lab Results Fish Bones: 03/23/21 04:40 03/23/21 12:25 Other Labs: Lab Results x24hrs 03/23/21 03/23/21 03/23/21 Range/Units 12:25 07:48 04:40 WBC (4.8-10.8) x10^3/uL RBC (4.20-5.40) 10^6/uL Hgb (12.0-16.0) g/dL Hct (37.0-47.0) % MCV (81.0-99.0) fL MCH (27.0-31.0) pg MCHC (32.0-36.0) g/dL RDW (12.0-15.0) % Plt Count (130-450) 10^3/uL MPV (7.9-10.8) fL Neut # (Auto) (1.5-6.6) 10^3/uL Lymph # (Auto) (1.5-3.5) 10^3/uL [place] # (Auto) (0.0-1.0) 10^3/uL Eos # (Auto) (0.0-0.7) 10^3/uL Baso # (Auto) (0.0-0.1) 10^3/uL Absolute Nucleated RBC x10^3/uL Nucleated RBC % /100WBC Sodium 128 L (135-145) mmol/L Potassium 3.5 (3.5-5.0) mmol/L Chloride 96 L (101-111) mmol/L Carbon Dioxide 24 (21-32) mmol/L Anion Gap 8.0 (6-13) BUN 12 (6-20) mg/dL Creatinine 1.7 H (0.4-1.0) mg/dL Estimated GFR (MDRD) 31 L (>89) Glucose 156 H (70-100) mg/dL Calcium 6.5 L* (8.5-10.3) mg/dL Phosphorus (2.5-4.6) mg/dL Magnesium 2.4 (1.7-2.8) mg/dL Total Bilirubin (0.2-1.0) mg/dL Direct Bilirubin (0.1-0.5) mg/dL AST (10-42) IU/L ALT (10-60) IU/L Alkaline Phosphatase (42-121) IU/L Troponin I High Sens 113.8 H* (2.3-14.8) ng/L Total Protein (6.7-8.2) g/dL Albumin (3.2-5.5) g/dL Globulin (2.1-4.2) g/dL 03/23/21 03/23/21 03/22/21 Range/Units 04:40 04:40 23:14 WBC 12.9 H (4.8-10.8) x10^3/uL RBC 3.59 L (4.20-5.40) 10^6/uL Hgb 11.1 L (12.0-16.0) g/dL Hct 31.2 L (37.0-47.0) % MCV 86.9 (81.0-99.0) fL MCH 30.9 (27.0-31.0) pg MCHC 35.6 (32.0-36.0) g/dL RDW 12.6 (12.0-15.0) % Plt Count 206 (130-450) 10^3/uL MPV 10.0 (7.9-10.8) fL Neut # (Auto) 9.3 H (1.5-6.6) 10^3/uL Lymph # (Auto) 2.7 (1.5-3.5) 10^3/uL [place] # (Auto) 0.7 (0.0-1.0) 10^3/uL Eos # (Auto) 0.1 (0.0-0.7) 10^3/uL Baso # (Auto) 0.1 (0.0-0.1) 10^3/uL Absolute Nucleated RBC 0.00 x10^3/uL Nucleated RBC % 0.0 /100WBC Sodium (135-145) mmol/L Potassium 3.0 L (3.5-5.0) mmol/L Chloride (101-111) mmol/L Carbon Dioxide (21-32) mmol/L Anion Gap (6-13) BUN (6-20) mg/dL Creatinine (0.4-1.0) mg/dL Estimated GFR (MDRD) (>89) Glucose (70-100) mg/dL Calcium (8.5-10.3) mg/dL Phosphorus 1.3 L 1.7 L (2.5-4.6) mg/dL Magnesium 1.5 L 1.3 L (1.7-2.8) mg/dL Total Bilirubin 0.8 (0.2-1.0) mg/dL Direct Bilirubin 0.1 (0.1-0.5) mg/dL AST 71 H (10-42) IU/L ALT 34 (10-60) IU/L Alkaline Phosphatase 94 (42-121) IU/L Troponin I High Sens (2.3-14.8) ng/L Total Protein 4.8 L (6.7-8.2) g/dL Albumin 2.4 L (3.2-5.5) g/dL Globulin 2.4 (2.1-4.2) g/dL 03/22/21 03/22/21 03/22/21 Range/Units 23:14 13:20 13:20 WBC (4.8-10.8) x10^3/uL RBC (4.20-5.40) 10^6/uL Hgb (12.0-16.0) g/dL Hct (37.0-47.0) % MCV (81.0-99.0) fL MCH (27.0-31.0) pg MCHC (32.0-36.0) g/dL RDW (12.0-15.0) % Plt Count (130-450) 10^3/uL MPV (7.9-10.8) fL Neut # (Auto) (1.5-6.6) 10^3/uL Lymph # (Auto) (1.5-3.5) 10^3/uL [place] # (Auto) (0.0-1.0) 10^3/uL Eos # (Auto) (0.0-0.7) 10^3/uL Baso # (Auto) (0.0-0.1) 10^3/uL Absolute Nucleated RBC x10^3/uL Nucleated RBC % /100WBC Sodium 125 L (135-145) mmol/L Potassium 2.4 L* (3.5-5.0) mmol/L Chloride 82 L (101-111) mmol/L Carbon Dioxide 31 (21-32) mmol/L Anion Gap 12.0 (6-13) BUN 15 (6-20) mg/dL Creatinine 1.7 H (0.4-1.0) mg/dL Estimated GFR (MDRD) 32 L (>89) Glucose 121 H (70-100) mg/dL Calcium 7.3 L (8.5-10.3) mg/dL Phosphorus (2.5-4.6) mg/dL Magnesium (1.7-2.8) mg/dL Total Bilirubin (0.2-1.0) mg/dL Direct Bilirubin (0.1-0.5) mg/dL AST (10-42) IU/L ALT (10-60) IU/L Alkaline Phosphatase (42-121) IU/L Troponin I High Sens 138.7 H* 81.2 H* (2.3-14.8) ng/L Total Protein (6.7-8.2) g/dL Albumin (3.2-5.5) g/dL Globulin (2.1-4.2) g/dL Assessment/Plan - Problem List (1) Seizure Impression: Patient admitted for new onset seizures with etiology likely multifactorial. Hypokalemia with history of substance abuse and dehydration secondary to GI loss are likely all contributing factors. 1 witnessed seizure in the ICU yesterday morning, has not repeated since. Has standing orders for as needed Ativan and seizure precautions. Appreciate neurology telephone consultation yesterday with recommendations for loading of Keppra and MRI and EEG when and if possible. We will continue current medications, switching to p.o. Keppra from IV assuming she is able to tolerate p.o. medications. Continue to stabilize electrolytes. Continues to be overly lethargic, would not deem her to be medically stable for discharge until she is more neurologically at baseline. (2) Abnormal EKG Impression: Repeat EKGShows resolution of ST segment depressions. Troponins have trended down This is likely demand ischemia S electrolyte abnormality induced that has since resolved and was probably exacerbated by the seizure activity. Given downward trend of troponin, would not repeat unless symptomatic or changes on telemetry. (3) Hypertensive emergency Impression: Blood pressure is now low, demonstrating significant drop in 24 hours which may be partly related to her lethargy. She is on multiple medications at home, but it is unclear how many of them she was taking at the same time given history of noncompliance and gaps in refills. We will titrate down her antihypertensive starting by discontinuing lisinopril 40 mg daily. Monitor blood pressure and adjust medications accordingly. (4) Hypokalemia Impression: Hypokalemia likely secondary to GI loss with patient admitting to 3 weeks of diarrhea, which may be related to ulcerative colitis versus infectious etiology (Stool studies ordered but diarrhea have since resolved so not enough stool to send for all studies) (5) Hyponatremia Impression: Hyponatremia likely secondary to GI loss and volume depletion, now improved. Improving at an appropriate rate we will continue IV fluids and monitor.
[2021-03-23 14:08] LABS: CALCIUM, IONIZED 0.87 mmol/L (1.15-1.33); VBG PH 7.376 (7.31-7.41)
[2021-03-23] MEDS ORDERED: CALCIUM GLUCONATE 2,000 MG in SODIUM CHLORIDE 0.9% 100ML 100 ML IV ONE (15:00)
[2021-03-23] MEDS ORDERED: DEXTROSE 50% ABBOJECT 25 GM/50 ML SYRINGE IVP ONE (16:39)
[2021-03-23] MEDS ORDERED: levETIRAcetam INJ 1,000 MG in SODIUM CHLORIDE 0.9% 100ML 100 ML IV STA (21:02)
[2021-03-23] MEDS: levETIRAcetam 100 MG/ML 473ML BOTTLE PO SCH (21:08)
[2021-03-24] MEDS: DEXTROSE 5%-0.9% NACL 1,000 ML IV SCH ×2 (00:23→14:12)
[2021-03-24] MEDS: IPRATROPIUM 0.2 MG/ML NEB INH SCH (02:26)
[2021-03-24 04:51] LABS: BASOPHILS # (AUTO) 0.1 10^3/uL (0.0-0.1); BASOPHILS % (AUTO) 0.4 %; EOSINOPHILS # (AUTO) 0.1 10^3/uL (0.0-0.7); EOSINOPHILS % (AUTO) 0.7 %; HCT - HEMATOCRIT 36.1 % (37.0-47.0); HGB - HEMOGLOBIN 12.4 g/dL (12.0-16.0); LYMPHOCYTES # (AUTO) 2.4 10^3/uL (1.5-3.5); LYMPHOCYTES % (AUTO) 19.2 %; MEAN CORPUSCULAR HEMOGLOBIN 30.1 pg (27.0-31.0); MEAN CORPUSCULAR HGB CONC 34.3 g/dL (32.0-36.0); MEAN CORPUSCULAR VOLUME 87.6 fL (81.0-99.0); MEAN PLATELET VOLUME 10.6 fL (7.9-10.8); MONOCYTES # (AUTO) 0.6 10^3/uL (0.0-1.0); MONOCYTES % (AUTO) 5.2 %; NEUTROPHILS # (AUTO) 9.1 10^3/uL (1.5-6.6); NEUTROPHILS % (AUTO) 74.3 %; PLT - PLATELET COUNT 228 10^3/uL (130-450); RED BLOOD COUNT 4.12 10^6/uL (4.20-5.40); WHITE BLOOD COUNT 12.3 x10^3/uL (4.8-10.8)
[2021-03-24] MEDS: SODIUM CHLORIDE 0.9% 1,000 ML IV SCH ×2 (04:55→09:30)
[2021-03-24] MEDS: SODIUM CHLORIDE FLUSH 0.9% 10 ML SYRINGE IVP SCH ×3 (04:55→17:21)
[2021-03-24 05:01] LABS: PHOSPHORUS 1.7 mg/dL (2.5-4.6)
[2021-03-24] MEDS ORDERED: POTASSIUM PHOSPHATE 15 MMOL in SODIUM CHLORIDE 0.9% 250 ML IV ONE ×2 (05:23→09:00)
[2021-03-24] MEDS ORDERED: CALCIUM GLUCONATE 2,000 MG in SODIUM CHLORIDE 0.9% 100ML 100 ML IV ONE (05:25)
[2021-03-24 07:50] LABS: CALCIUM 7.8 mg/dL (8.5-10.3); CREATININE 1.6 mg/dL (0.4-1.0); POTASSIUM 2.8 mmol/L (3.5-5.0)
[2021-03-24] MEDS: amLODIPine 5 MG TABLET PO SCH (08:18)
[2021-03-24] MEDS: diltiaZEM CD 120 MG CAPSULE PO SCH (08:20)
[2021-03-24] MEDS: LEVOTHYROXINE 100 MCG TABLET PO SCH (08:20)
[2021-03-24] MEDS: HEPARIN 5,000 UNIT/ML VIAL SUBQ SCH (08:21)
[2021-03-24] MEDS: LACTOBACILLUS RHAMNOSUS GG CAPSULE PO SCH (08:21)
[2021-03-24] MEDS: levETIRAcetam 100 MG/ML 473ML BOTTLE PO SCH (08:22)
[2021-03-24] MEDS: POTASSIUM CHLORIDE 20 MEQ TABLET PO SCH ×2 (11:03→14:30)
[2021-03-24] MEDS: NEUTRA-PHOS 250 MG TABLET PO SCH ×2 (11:03→12:49)
--- NOTE | 2021-03-24 15:58 | PROVIDER PROGRESS NOTE ---
Objective - Vital Signs/Intake & Output Vital Signs: Vital Signs Temp Pulse Resp BP Pulse Ox 03/24/21 14:00 68 16 97/76 03/24/21 13:00 66 20 156/96 H 03/24/21 12:00 36.9 C 72 20 147/87 H 94 Intake & Output: Intake & Output 03/21/21 03/22/21 03/23/21 03/24/21 23:59 23:59 23:59 23:59 Intake Total 4862.916 4256.167 2930.817 Output Total 2139 1412 832 Balance 2723.916 2844.167 2098.817 - Lab Results Fish Bones: 03/24/21 04:05 03/24/21 07:33 Other Labs: Lab Results x24hrs 03/24/21 03/24/21 03/24/21 Range/Units 12:04 07:33 07:29 WBC (4.8-10.8) x10^3/uL RBC (4.20-5.40) 10^6/uL Hgb (12.0-16.0) g/dL Hct (37.0-47.0) % MCV (81.0-99.0) fL MCH (27.0-31.0) pg MCHC (32.0-36.0) g/dL RDW (12.0-15.0) % Plt Count (130-450) 10^3/uL MPV (7.9-10.8) fL Neut # (Auto) (1.5-6.6) 10^3/uL Lymph # (Auto) (1.5-3.5) 10^3/uL [place] # (Auto) (0.0-1.0) 10^3/uL Eos # (Auto) (0.0-0.7) 10^3/uL Baso # (Auto) (0.0-0.1) 10^3/uL Absolute Nucleated RBC x10^3/uL Nucleated RBC % /100WBC Sodium 127 L (135-145) mmol/L Potassium 2.8 L (3.5-5.0) mmol/L Chloride 97 L (101-111) mmol/L Carbon Dioxide 22 (21-32) mmol/L Anion Gap 8.0 (6-13) BUN 13 (6-20) mg/dL Creatinine 1.6 H (0.4-1.0) mg/dL Estimated GFR (MDRD) 34 L (>89) Glucose 99 (70-100) mg/dL POC Whole Bld Glucose 113 H 106 H (70 - 100) mg/dL Calcium 7.8 L (8.5-10.3) mg/dL Phosphorus (2.5-4.6) mg/dL Magnesium (1.7-2.8) mg/dL Albumin (3.2-5.5) g/dL 03/24/21 03/24/21 03/24/21 Range/Units 04:05 04:05 04:05 WBC 12.3 H (4.8-10.8) x10^3/uL RBC 4.12 L (4.20-5.40) 10^6/uL Hgb 12.4 (12.0-16.0) g/dL Hct 36.1 L (37.0-47.0) % MCV 87.6 (81.0-99.0) fL MCH 30.1 (27.0-31.0) pg MCHC 34.3 (32.0-36.0) g/dL RDW 13.0 (12.0-15.0) % Plt Count 228 (130-450) 10^3/uL MPV 10.6 (7.9-10.8) fL Neut # (Auto) 9.1 H (1.5-6.6) 10^3/uL Lymph # (Auto) 2.4 (1.5-3.5) 10^3/uL [place] # (Auto) 0.6 (0.0-1.0) 10^3/uL Eos # (Auto) 0.1 (0.0-0.7) 10^3/uL Baso # (Auto) 0.1 (0.0-0.1) 10^3/uL Absolute Nucleated RBC 0.00 x10^3/uL Nucleated RBC % 0.0 /100WBC Sodium (135-145) mmol/L Potassium (3.5-5.0) mmol/L Chloride (101-111) mmol/L Carbon Dioxide (21-32) mmol/L Anion Gap (6-13) BUN (6-20) mg/dL Creatinine (0.4-1.0) mg/dL Estimated GFR (MDRD) (>89) Glucose (70-100) mg/dL POC Whole Bld Glucose (70 - 100) mg/dL Calcium (8.5-10.3) mg/dL Phosphorus 1.7 L (2.5-4.6) mg/dL Magnesium 2.0 (1.7-2.8) mg/dL Albumin 2.2 L (3.2-5.5) g/dL 03/23/21 03/23/21 03/23/21 Range/Units 20:14 17:09 16:36 WBC (4.8-10.8) x10^3/uL RBC (4.20-5.40) 10^6/uL Hgb (12.0-16.0) g/dL Hct (37.0-47.0) % MCV (81.0-99.0) fL MCH (27.0-31.0) pg MCHC (32.0-36.0) g/dL RDW (12.0-15.0) % Plt Count (130-450) 10^3/uL MPV (7.9-10.8) fL Neut # (Auto) (1.5-6.6) 10^3/uL Lymph # (Auto) (1.5-3.5) 10^3/uL [place] # (Auto) (0.0-1.0) 10^3/uL Eos # (Auto) (0.0-0.7) 10^3/uL Baso # (Auto) (0.0-0.1) 10^3/uL Absolute Nucleated RBC x10^3/uL Nucleated RBC % /100WBC Sodium (135-145) mmol/L Potassium (3.5-5.0) mmol/L Chloride (101-111) mmol/L Carbon Dioxide (21-32) mmol/L Anion Gap (6-13) BUN (6-20) mg/dL Creatinine (0.4-1.0) mg/dL Estimated GFR (MDRD) (>89) Glucose (70-100) mg/dL POC Whole Bld Glucose 77 154 H 69 L (70 - 100) mg/dL Calcium (8.5-10.3) mg/dL Phosphorus (2.5-4.6) mg/dL Magnesium (1.7-2.8) mg/dL Albumin (3.2-5.5) g/dL 03/23/21 03/23/21 03/23/21 Range/Units 12:32 12:09 11:48 WBC (4.8-10.8) x10^3/uL RBC (4.20-5.40) 10^6/uL Hgb (12.0-16.0) g/dL Hct (37.0-47.0) % MCV (81.0-99.0) fL MCH (27.0-31.0) pg MCHC (32.0-36.0) g/dL RDW (12.0-15.0) % Plt Count (130-450) 10^3/uL MPV (7.9-10.8) fL Neut # (Auto) (1.5-6.6) 10^3/uL Lymph # (Auto) (1.5-3.5) 10^3/uL [place] # (Auto) (0.0-1.0) 10^3/uL Eos # (Auto) (0.0-0.7) 10^3/uL Baso # (Auto) (0.0-0.1) 10^3/uL Absolute Nucleated RBC x10^3/uL Nucleated RBC % /100WBC Sodium (135-145) mmol/L Potassium (3.5-5.0) mmol/L Chloride (101-111) mmol/L Carbon Dioxide (21-32) mmol/L Anion Gap (6-13) BUN (6-20) mg/dL Creatinine (0.4-1.0) mg/dL Estimated GFR (MDRD) (>89) Glucose (70-100) mg/dL POC Whole Bld Glucose 160 H 98 67 L (70 - 100) mg/dL Calcium (8.5-10.3) mg/dL Phosphorus (2.5-4.6) mg/dL Magnesium (1.7-2.8) mg/dL Albumin (3.2-5.5) g/dL 03/23/21 03/23/21 03/22/21 Range/Units 11:44 08:05 21:35 WBC (4.8-10.8) x10^3/uL RBC (4.20-5.40) 10^6/uL Hgb (12.0-16.0) g/dL Hct (37.0-47.0) % MCV (81.0-99.0) fL MCH (27.0-31.0) pg MCHC (32.0-36.0) g/dL RDW (12.0-15.0) % Plt Count (130-450) 10^3/uL MPV (7.9-10.8) fL Neut # (Auto) (1.5-6.6) 10^3/uL Lymph # (Auto) (1.5-3.5) 10^3/uL [place] # (Auto) (0.0-1.0) 10^3/uL Eos # (Auto) (0.0-0.7) 10^3/uL Baso # (Auto) (0.0-0.1) 10^3/uL Absolute Nucleated RBC x10^3/uL Nucleated RBC % /100WBC Sodium (135-145) mmol/L Potassium (3.5-5.0) mmol/L Chloride (101-111) mmol/L Carbon Dioxide (21-32) mmol/L Anion Gap (6-13) BUN (6-20) mg/dL Creatinine (0.4-1.0) mg/dL Estimated GFR (MDRD) (>89) Glucose (70-100) mg/dL POC Whole Bld Glucose 56 L* 86 75 (70 - 100) mg/dL Calcium (8.5-10.3) mg/dL Phosphorus (2.5-4.6) mg/dL Magnesium (1.7-2.8) mg/dL Albumin (3.2-5.5) g/dL 03/22/21 03/22/21 03/22/21 Range/Units 17:31 11:59 08:03 WBC (4.8-10.8) x10^3/uL RBC (4.20-5.40) 10^6/uL Hgb (12.0-16.0) g/dL Hct (37.0-47.0) % MCV (81.0-99.0) fL MCH (27.0-31.0) pg MCHC (32.0-36.0) g/dL RDW (12.0-15.0) % Plt Count (130-450) 10^3/uL MPV (7.9-10.8) fL Neut # (Auto) (1.5-6.6) 10^3/uL Lymph # (Auto) (1.5-3.5) 10^3/uL [place] # (Auto) (0.0-1.0) 10^3/uL Eos # (Auto) (0.0-0.7) 10^3/uL Baso # (Auto) (0.0-0.1) 10^3/uL Absolute Nucleated RBC x10^3/uL Nucleated RBC % /100WBC Sodium (135-145) mmol/L Potassium (3.5-5.0) mmol/L Chloride (101-111) mmol/L Carbon Dioxide (21-32) mmol/L Anion Gap (6-13) BUN (6-20) mg/dL Creatinine (0.4-1.0) mg/dL Estimated GFR (MDRD) (>89) Glucose (70-100) mg/dL POC Whole Bld Glucose 128 H 120 H 146 H (70 - 100) mg/dL Calcium (8.5-10.3) mg/dL Phosphorus (2.5-4.6) mg/dL Magnesium (1.7-2.8) mg/dL Albumin (3.2-5.5) g/dL 03/22/21 Range/Units 03:18 WBC (4.8-10.8) x10^3/uL RBC (4.20-5.40) 10^6/uL Hgb (12.0-16.0) g/dL Hct (37.0-47.0) % MCV (81.0-99.0) fL MCH (27.0-31.0) pg MCHC (32.0-36.0) g/dL RDW (12.0-15.0) % Plt Count (130-450) 10^3/uL MPV (7.9-10.8) fL Neut # (Auto) (1.5-6.6) 10^3/uL Lymph # (Auto) (1.5-3.5) 10^3/uL [place] # (Auto) (0.0-1.0) 10^3/uL Eos # (Auto) (0.0-0.7) 10^3/uL Baso # (Auto) (0.0-0.1) 10^3/uL Absolute Nucleated RBC x10^3/uL Nucleated RBC % /100WBC Sodium (135-145) mmol/L Potassium (3.5-5.0) mmol/L Chloride (101-111) mmol/L Carbon Dioxide (21-32) mmol/L Anion Gap (6-13) BUN (6-20) mg/dL Creatinine (0.4-1.0) mg/dL Estimated GFR (MDRD) (>89) Glucose (70-100) mg/dL POC Whole Bld Glucose 140 H (70 - 100) mg/dL Calcium (8.5-10.3) mg/dL Phosphorus (2.5-4.6) mg/dL Magnesium (1.7-2.8) mg/dL Albumin (3.2-5.5) g/dL
--- NOTE | 2021-03-24 16:02 | Discharge Plan ---
Discharge Plan Problem Reviewed?: Yes Disposition: Home, Self Care Condition: Stable Prescriptions: diltiaZEM CD [Cardizem Cd] 120 mg PO DAILY #30 cap Levetiracetam [Keppra] 1,000 mg PO BID #60 tablet Amlodipine Besylate [Norvasc] 10 mg PO DAILY #30 tab Diet: Cardiac Activity Restrictions: Additional Comments (Please do not take baths as this could present a drowning risk if you have a seizure while taking a bath. Do not swim because of the risk of having a Seizure and drowning.) Shower Restrictions: No Driving Restrictions: Yes (Do not drive for at least 6 months) Instruction Topics: Epilepsy Safety During Seizure, Epilepsy Dx, Epilepsy Meds, Epilepsy Self Care Additional Instructions or Follow Up instructions: Please make sure to take your medications as prescribed. Missing doses of seizure medications puts you at risk for more seizures which ultimately can cause lifelong harm. Also, as we discussed, your kidney function is abnormal and I would really recommend getting this rechecked within about a week or so to make sure you are on the track. You should avoid taking medications called NSAIDs, these include ibuprofen, Advil, or Aleve as [id number] pain medications. Tylenol would be okay. Please stay very well-hydrated especially over the next few days with the hot weather as being dehydrated will worsen your already abnormal kidney function. No Smoking: If you smoke, Please STOP! Call for help.
[2021-03-24 16:51] VITALS: BP 114/77
--- NOTE | 2021-03-24 17:20 | DISCHARGE SUMMARY ---
"Discharge Summary Admit Date: 03/22/21 Discharge Date: 03/24/21 Discharging Provider: Mazin Spencer MD Primary Care Provider: None Code Status: Attempt Resuscitation Condition at Discharge: Stable Discharge Disposition: 01 Home, Self Care - DIAGNOSES Admission Diagnoses: Hypertensive emergencyresolved Seizureresolved Hyponatremiaimproved Hypokalemiaresolved Abnormal EKGresolved Illicit drug useunchanged Hypothyroidstable Depressionstable Discharge Diagnoses with Status of Each Condition: Seizure disorderstable Abnormal EKGresolved Hypertensive emergencyresolved Hypokalemiaimproved Stable Depressionstable Acute kidney injurystable, improved - HPI History of Present Illness: This is a 50-year-old female with a past medical history significant for COPD, ulcerative colitis, heroin and methamphetamine abuse, hypertension who presents today after reportedly having a seizure at home. The patient herself does not believe that she had a seizure and she tells me that she was just resting at home. Reportedly, the patient had a seizure at home that was witnessed by her roommate who then called EMS. In route to the hospital she had another seizure and was reportedly given Versed. The patient denies having a prior history of seizures and she still does not believe that she had a seizure today. She denies any focal deficits, headache, numbness, tingling. She reports no chest pain, dyspnea. She states she is compliant with her antihypertensive medications as well as her thyroid medication but she cannot tell me what her doses. She does admit to daily marijuana use and also admits to heroin and methamphetamine use but cannot tell me when her last use was. She does report feeling depressed at times but denies any suicidal ideations or thoughts at this time. She states she had had suicidal thoughts in the past but currently denies this. She reports no dysuria but does state occasional hematuria. She was reportedly prescribed antibiotics recently for a suspected urinary tract infection. She does report poor oral intake due to nausea so she with ul cerative colitis but she has been using marijuana to treat this with relief. In the emergency department, she is found to be hypertensive with systolics in the 170s to 180s and diastolic in the 120s. Her labs were significant for sodium of 121, potassium 2.2, bicarbonate 71. Her creatinine was 2.4. Initial troponin was 64.9 and repeat was down to 58.4. EKG revealed diffuse ST depressions. Chest x-ray was unremarkable as well as a CT of the head. Given the above findings, medicine was consulted for admission. We did discuss goals of care and she would like to be a DNR. - CONSULTS | PROCEDURES Consultations: Phone consultation only by Dr. Aris Dwyer, [facility] Procedures: None - HOSPITAL COURSE Hospital Course: On admission from the ER, patient was admitted to ICU with replacement protocol for hypokalemia and given IV fluids for hyponatremia. Shortly after admission and arriving in the ICU she had a witnessed seizure leading to a rapid response. This was attended by the attending physician and rapid response team, and the seizure abated within approximately 2 minutes, before the Ativan could be drawn and administered. She had a relatively benign but somewhat prolonged postictal state but was able to recover from this spontaneously without any intervention. Meanwhile, she had been put on a nicardipine drip for elevated blood pressures prior to leaving the ER, but her blood pressures had improved and nicardipine was shortly thereafter discontinued. After the witnessed seizure, a phone call in saltation was requested by a neurologist on-call at [facility]. Dr. Aris Dwyer was kind enough to provide generalized guidance knowing that he is unable to review the patient's chart and unable to of course see and examine the patient. Generally speaking however he did recommend loading the dose with Keppra 2000 mg followed by 1000 mg twice daily which was ordered. He also recommended an MRI and EEG if possible however our facility had temporarily lost access to MRI until 03/26/2021. We do not have access for EEG at any time. He felt that it would be reasonable as long as the patient is neurologically stable that if she would like to discharge sooner, and is otherwise doing well, that the MRI and EEG could be done as an outpatient. Over the next couple of days the patient did continue to be overly lethargic but was intermittently becoming more more arousable and waking. In the meantime, electrolyte abnormalities continue to be addressed. But her overall clinical course progressed and by the day of discharge on 03/24/2021 she symptomatically felt like she was back at baseline. She was able to provide a little bit more history. She stated that she had 3 weeks history of diarrhea prior to admission and this likely led to the hypokalemia. Hypokalemia likely led to seizures. Stool studies were ordered on admission but her diarrhea had already resolved so studies were canceled. She also been admitted to history of ulcerative colitis. Overall, patient will benefit from reconnecting with medical services as she does not have a PCP lower lung specialist. She stated that her current housing situation is tenuous at best so she is planning to relocate to [place] to live with her daughter within the next 2 weeks. She was advised to try to work on getting a PCP as soon as possible so that when she gets there she can have an EEG and an MRI and a neurology referral. In the meantime, I have recommended at least trying to get a repeat basic metabolic panel so that her creatinine and electrolytes can be followed up on. Her discharge creatinine was 1.7 which is apparently above her baseline. She was encouraged to hydrate as much as possible especially with the upcoming heat wave. She was also given the benefit of a social work consult for resource allocation as well as for substance abuse counseling. - ALLERGIES Allergies/Adverse Reactions: Allergies Allergy/AdvReac Type Severity Reaction Status Date / Time NSAIDS (Non-Steroidal Allergy Nausea Verified 03/22/21 04:17 Anti-Inflamma Penicillins Allergy Respiratory Verified 03/22/21 04:17 - MEDICATIONS Home Medications: Ambulatory Orders Medication Instructions Recorded Confirmed Albuterol Sulf [Ventolin Hfa 2 - 3 puffs INH Q4HR PRN #1 inhaler 08/15/20 03/22/21 Inhaler] Levothyroxine Sodium [Synthroid] 200 mcg PO QDAC 03/22/21 03/22/21 Tiotropium [place] [Spiriva] 1 puffs INH DAILY 03/22/21 03/22/21 Amlodipine Besylate [Norvasc] 10 mg PO DAILY #30 tab 03/24/21 Levetiracetam [Keppra] 1,000 mg PO BID #60 tablet 03/24/21 diltiaZEM CD [Cardizem Cd] 120 mg PO DAILY #30 cap 03/24/21 - PHYSICAL EXAM AT DISCHARGE General Appearance: positive: No acute distress Eyes Bilateral: positive: Normal inspection ENT: positive: ENT inspection nml Neck: positive: Nml inspection Respiratory: positive: Chest non-tender, No respiratory distress, Breath sounds nml Cardiovascular: positive: Regular rate & rhythm, No murmur, No gallop Peripheral Pulses: positive: 2+ Abdomen: positive: Non-tender, No organomegaly, Nml bowel sounds, No distention Skin: positive: Color nml, No rash, Warm Extremities: positive: Non-tender, Nml appearance, No pedal edema Neurologic/Psychiatric: positive: Oriented x3, Motor nml, Sensation nml, Mood/affect nml - LABS Result Diagrams: 03/24/21 04:05 03/24/21 07:33 - FOLLOW UP Follow Up: Follow-up As above with walk-in clinic with repeat basic metabolic panel within 1 week to check creatinine and electrolytes. Also would benefit from review of blood pressure as her medications were changed. Following this in the next couple of weeks when she moves to [place] she should establish with a PCP and get a referral to neurology for an MRI and EEG and further discussion of ongoing treatment for seizure disorder as this is a new diagnosis. - TIME SPENT Time Spent in Discharge (Minutes): 42"
== END 2021-03-24 17:35 | disposition home or self-care (01) | DRG 101 ==
LOC: SUPCPDRO 02:48 → ED 02:48 → ICU 06:02
PROVIDERS: ADMIT Internal Medicine; ATTEND Family Medicine Sports Medicine
DX: G40.909 Epilepsy, unspecified, not intractable, without status epilepticus (principal); I16.1 Hypertensive emergency; N17.9 Acute kidney failure, unspecified; E87.1 Hypo-osmolality and hyponatremia; R94.31 Abnormal electrocardiogram [ECG] [EKG]; E87.6 Hypokalemia; F32.9 Major depressive disorder, single episode, unspecified; J44.9 Chronic obstructive pulmonary disease, unspecified; E03.9 Hypothyroidism, unspecified; I10 Essential (primary) hypertension; Z66 Do not resuscitate; Z20.822 Contact with and (suspected) exposure to COVID-19; F17.210 Nicotine dependence, cigarettes, uncomplicated; F15.10 Other stimulant abuse, uncomplicated; R53.83 Other fatigue
CPT/HCPCS: 0202U; 36415; 51702; 70450; 71045; 80048; 80053; 80076; 80306; 80320; 81001; 81599; 82040; 82274; 82330; 83690; 83735; 83993; 84100; 84132; 84439; 84443; 84484; 84702; 85025; 87150; 87798; 93005; 93306; 94640; 96365; 96366; 96368; 99291; A9270; J2060; 81003; 87045; 87046; 87086; 87177; 87209; 87329

== ENCOUNTER 2021-03-30 17:13 | Outpatient (CLI) | payer MEDICAID ==
[2021-03-30 20:57] LABS: BASOPHILS # (AUTO) 0.1 10^3/uL (0.0-0.1); BASOPHILS % (AUTO) 0.7 %; EOSINOPHILS # (AUTO) 0.1 10^3/uL (0.0-0.7); EOSINOPHILS % (AUTO) 0.8 %; HCT - HEMATOCRIT 35.5 % (37.0-47.0); HGB - HEMOGLOBIN 11.9 g/dL (12.0-16.0); LYMPHOCYTES # (AUTO) 2.1 10^3/uL (1.5-3.5); LYMPHOCYTES % (AUTO) 20.5 %; MEAN CORPUSCULAR HEMOGLOBIN 30.2 pg (27.0-31.0); MEAN CORPUSCULAR HGB CONC 33.5 g/dL (32.0-36.0); MEAN CORPUSCULAR VOLUME 90.1 fL (81.0-99.0); MEAN PLATELET VOLUME 9.7 fL (7.9-10.8); MONOCYTES # (AUTO) 0.8 10^3/uL (0.0-1.0); MONOCYTES % (AUTO) 7.6 %; NEUTROPHILS # (AUTO) 7.3 10^3/uL (1.5-6.6); PLT - PLATELET COUNT 365 10^3/uL (130-450); RED BLOOD COUNT 3.94 10^6/uL (4.20-5.40); RED CELL DISTRIBUTION WIDTH 13.5 % (12.0-15.0); WHITE BLOOD COUNT 10.4 x10^3/uL (4.8-10.8)
[2021-03-30 21:07] LABS: ALBUMIN 3.2 g/dL (3.2-5.5); ALBUMIN/GLOBULIN RATIO 0.9 (1.0-2.2); BILIRUBIN,TOTAL 0.5 mg/dL (0.2-1.0); CALCIUM 8.6 mg/dL (8.5-10.3); CREATININE 1.1 mg/dL (0.4-1.0); POTASSIUM 2.6 mmol/L (3.5-5.0); TOTAL PROTEIN 6.6 g/dL (6.7-8.2)
[2021-03-30 21:09] LABS: ESTIMATED AVERAGE GLUCOSE 137 mg/dL (70-100); HEMOGLOBIN A1c% 6.4 % (4.27-6.07)
[2021-03-30 21:51] LABS: THYROID STIMULATING HORMONE 64.85 uIU/mL (0.34-5.60)
[2021-03-30 22:54] LABS: FREE T4 (FREE THYROXINE) < 0.25 ng/dL (0.58-1.64)
== END 2021-03-30 17:14 | disposition home or self-care (01) ==
LOC: LAB.N 17:13
PROVIDERS: ATTEND Physician Assistant Medical
DX: E87.6 Hypokalemia (principal); R56.9 Unspecified convulsions; I10 Essential (primary) hypertension
CPT/HCPCS: 36415; 80053; 80177; 83036; 84439; 84443; 85025

== ENCOUNTER 2021-04-06 08:00 | Outpatient (CLI) | payer MEDICAID ==
[2021-04-06 17:54] LABS: CALCIUM 9.6 mg/dL (8.5-10.3); CREATININE 1.1 mg/dL (0.4-1.0); POTASSIUM 2.7 mmol/L (3.5-5.0)
== END 2021-04-06 23:59 | disposition home or self-care (01) ==
LOC: LAB.WCP 08:00
PROVIDERS: ATTEND Physician Assistant Medical
DX: E87.6 Hypokalemia (principal)
CPT/HCPCS: 36415; 80048

== ENCOUNTER 2021-04-13 11:30 | Outpatient (CLI) | payer MEDICAID ==
[2021-04-13 17:51] LABS: CALCIUM 9.2 mg/dL (8.5-10.3); CREATININE 1.2 mg/dL (0.4-1.0); POTASSIUM 3.5 mmol/L (3.5-5.0)
== END 2021-04-13 23:59 | disposition home or self-care (01) ==
LOC: LAB.WCP 11:30
PROVIDERS: ATTEND Physician Assistant Medical
DX: E87.6 Hypokalemia (principal); R30.0 Dysuria
CPT/HCPCS: 36415; 80048; 81001

== ENCOUNTER 2021-04-13 18:21 | Outpatient (CLI) | payer MEDICAID | END 2021-04-13 23:59 | disposition home or self-care (01) | LOC: LAB.WCP 18:21 | PROVIDERS: ATTEND Physician Assistant Medical | DX: R30.0 Dysuria (principal) | CPT/HCPCS: 87086; 87181 ==

== ENCOUNTER 2021-05-11 12:56 | Outpatient (CLI) | payer MEDICAID | END 2021-05-11 12:57 | disposition home or self-care (01) | LOC: LAB.N 12:56 | PROVIDERS: ATTEND Physician Assistant Medical | DX: R30.0 Dysuria (principal) ==

== ENCOUNTER 2021-05-11 13:12 | Outpatient (CLI) | payer MEDICAID ==
[2021-05-11 18:51] LABS: BILIRUBIN,URINE NEGATIVE (NEGATIVE); GLUCOSE, URINE (UA) NEGATIVE (NEGATIVE); KETONES,URINE (UA) NEGATIVE (NEGATIVE); LEUKOCYTE ESTERASE, URINE MODERATE (NEGATIVE); NITRITE,URINE POSITIVE (NEGATIVE); OCCULT BLOOD,URINE TRACE-LYSE (NEGATIVE); PROTEIN,URINE 100 mg/dL (NEGATIVE); UROBILINOGEN,URINE 0.2 (NORMAL) E.U./dL (NORMAL)
[2021-05-11 18:58] LABS: CLARITY,URINE CLOUDY (CLEAR)
[2021-05-11 19:34] LABS: WBC,URINE >25 /HPF (0-5)
[2021-05-11 19:35] LABS: BACTERIA,URINE Many /HPF (None Seen); CRYSTALS,URINE 3-5 Calcium Oxalate /LPF; RBC,URINE 0-5 /HPF (0-5); SQUAMOUS EPITHELIAL CELL,UR FEW Squamous (<= Few)
== END 2021-05-11 23:59 | disposition home or self-care (01) ==
LOC: LAB.WCP 13:12
PROVIDERS: ATTEND Physician Assistant Medical
DX: R30.0 Dysuria (principal)
CPT/HCPCS: 81001; 87077; 87086; 87181

== ENCOUNTER 2021-07-12 14:43 | Inpatient (IN) | payer MEDICAID ==
[2021-07-12] MEDS ORDERED: ONDANSETRON 4 MG/2 ML VIAL IVP STA (15:10)
[2021-07-12] MEDS ORDERED: SODIUM CHLORIDE 0.9% 1,000 ML IV STA ×2 (15:10→16:20)
[2021-07-12] MEDS ORDERED: BUPRENORPHINE 0.3 MG/ML VIAL IVP STA (15:10)
--- NOTE | 2021-07-12 15:13 | ED Physician Documentation ---
History of Present Illness - Stated complaint Stated Complaint: N/V SOA - Chief complaint Chief Complaint: Abd Pain - History obtained from History obtained from: Patient - History of Present Illness Timing: Yesterday Pain level max: 10 Pain level now: 10 - Additonal information Additional information: Patient is a 51-year-old female who presents to the emergency department stating that she is withdrawing from Suboxone. She states that she has been buying this off of the streets. Has a history of methamphetamine and heroin abuse as well. She states that her last dose was yesterday. Has been vomiting for 24 hours.. Complains of diffuse abdominal pain. No fevers. No chills. Mild cough. Review of Systems Ten Systems: 10 systems reviewed and negative Constitutional: denies: Fever, Chills Nose: denies: Rhinorrhea / runny nose, Congestion Cardiac: denies: Chest pain / pressure, Palpitations Respiratory: reports: Dyspnea, Cough (mild) GI: reports: Abdominal Pain (Diffuse, crampy), Nausea, Vomiting, Diarrhea. denies: Hematemesis, Bloody / black stool : denies: Dysuria, Frequency, Hesitancy Skin: denies: Rash Musculoskeletal: denies: Neck pain, Back pain Neurologic: denies: Headache PD PAST MEDICAL HISTORY - Past Medical History Cardiovascular: Hypertension Respiratory: Asthma, COPD Neuro: None Endocrine/Autoimmune: HyPOthyroidism GI: Ulcerative colitis : None Psych: Depression Musculoskeletal: None Derm: None - Past Surgical History Past Surgical History: Yes General: Cholecystectomy, Gastric surgery /[employer]: Hysterectomy - Present Medications Home Medications: Ambulatory Orders Medication Instructions Recorded Confirmed Albuterol Sulf [Ventolin Hfa 2 - 3 puffs INH Q4HR PRN #1 inhaler 08/15/20 07/12/21 Inhaler] Levothyroxine Sodium [Synthroid] 200 mcg PO QDAC 03/22/21 07/12/21 Tiotropium [place] [Spiriva] 1 puffs INH DAILY 03/22/21 07/12/21 Amlodipine Besylate [Norvasc] 10 mg PO DAILY #30 tab 03/24/21 07/12/21 Levetiracetam [Keppra] 1,000 mg PO BID 07/12/21 07/12/21 dilTIAZem HCL [Diltiazem 24Hr ER 180 mg PO DAILY 07/12/21 07/12/21 (Xr)] - Allergies Allergies/Adverse Reactions: Allergies Allergy/AdvReac Type Severity Reaction Status Date / Time NSAIDS (Non-Steroidal Allergy Nausea Verified 07/12/21 15:03 Anti-Inflamma Penicillins Allergy Respiratory Verified 07/12/21 15:03 - Social History Does the pt smoke?: Yes Smoking Status: Current some day smoker Does the pt drink ETOH?: No Does the pt have substance abuse?: Yes - Immunizations Immunizations are current?: Yes - POLST Patient has POLST: No PD ED PE NORMAL - Vitals Vital signs reviewed: Yes - General General: Alert and oriented X 3, No acute distress, Other (Pale appearing, sweaty) - HEENT HEENT: PERRL, Moist mucous membranes - Neck Neck: Supple, no meningeal sign - Cardiac Cardiac: RRR, Strong equal pulses - Respiratory Respiratory: No respiratory distress, Clear bilaterally - Abdomen Abdomen: Soft, Non tender, Non distended - Derm Derm: Warm and dry, No rash - Extremities Extremities: No edema, No calf tenderness / cord - Neuro Neuro: Alert and oriented X 3 - Psych Psych: Normal mood, Normal affect Results - Vitals Vitals: Vital Signs - 24 hr 07/12/21 07/12/21 07/12/21 14:46 15:03 17:03 Temperature 35.8 C L 36.5 C 36.5 C Heart Rate 87 87 77 Respiratory 25 H 24 16 Rate Blood Pressure 181/114 H 135/70 H 136/72 H O2 Saturation 99 100 100 Oxygen O2 Source Room air - Labs Labs: Laboratory Tests 07/12/21 07/12/21 07/12/21 15:30 15:30 15:30 WBC 22.1 H RBC 6.31 H Hgb 18.2 H Hct 53.2 H MCV 84.3 MCH 28.8 MCHC 34.2 RDW 13.9 Plt Count 423 MPV 9.0 Neut # (Auto) 18.6 H Lymph # (Auto) 2.3 [place] # (Auto) 0.9 Eos # (Auto) 0.0 Baso # (Auto) 0.1 Absolute Nucleated RBC 0.00 Band Neuts % (Manual) Not Reportable Abnorm Lymph % (Manual) Not Reportable Nucleated RBC % 0.0 Neutrophils # (Manual) Not Reportable Lymphocytes # (Manual) Not Reportable Monocytes # (Manual) Not Reportable Eosinophils # (Manual) Not Reportable Basophils # (Manual) Not Reportable Differential Comment MANUAL=AUTO DIFF Platelet Morphology NORMAL APPEARANCE RBC Morph Micro Appear NORMAL APPEARANCE Sodium 125 L Potassium 2.6 L Chloride 76 L* Carbon Dioxide 30 Anion Gap 19.0 H BUN 17 Creatinine 1.9 H Estimated GFR (MDRD) 28 L Glucose 199 H Calcium 9.2 Total Bilirubin 0.9 AST 29 ALT 24 Alkaline Phosphatase 163 H Total Protein 7.4 Albumin 2.8 L Globulin 4.6 H Albumin/Globulin Ratio 0.6 L Lipase 22 TSH 105.01 H Nasal Adenovirus (PCR) Nasal B. parapertussis DNA (PCR) Nasal Coronavir 229E PCR Nasal Coronavir HKU1 PCR Nasal Coronavir NL63 PCR Nasal Coronavir OC43 PCR Nasal Enterovir/Rhinovir PCR Nasal Influenza B PCR Nasal Influenza A PCR Nasal Parainfluen 1 PCR Nasal Parainfluen 2 PCR Nasal Parainfluen 3 PCR Nasal Parainfluen 4 PCR Nasal RSV (PCR) Nasal B.pertussis DNA PCR Nasal C.pneumoniae (PCR) [place] Human Metapneumo PCR Nasal M.pneumoniae (PCR) Nasal SARS-CoV-2 (PCR) Salicylates < 6.0 Acetaminophen < 10 L Ethyl Alcohol < 5.0 07/12/21 16:12 WBC RBC Hgb Hct MCV MCH MCHC RDW Plt Count MPV Neut # (Auto) Lymph # (Auto) [place] # (Auto) Eos # (Auto) Baso # (Auto) Absolute Nucleated RBC Band Neuts % (Manual) Abnorm Lymph % (Manual) Nucleated RBC % Neutrophils # (Manual) Lymphocytes # (Manual) Monocytes # (Manual) Eosinophils # (Manual) Basophils # (Manual) Differential Comment Platelet Morphology RBC Morph Micro Appear Sodium Potassium Chloride Carbon Dioxide Anion Gap BUN Creatinine Estimated GFR (MDRD) Glucose Calcium Total Bilirubin AST ALT Alkaline Phosphatase Total Protein Albumin Globulin Albumin/Globulin Ratio Lipase TSH Nasal Adenovirus (PCR) NOT DETECTED Nasal B. parapertussis DNA (PCR) NOT DETECTED Nasal Coronavir 229E PCR NOT DETECTED Nasal Coronavir HKU1 PCR NOT DETECTED Nasal Coronavir NL63 PCR NOT DETECTED Nasal Coronavir OC43 PCR NOT DETECTED Nasal Enterovir/Rhinovir PCR NOT DETECTED Nasal Influenza B PCR NOT DETECTED Nasal Influenza A PCR NOT DETECTED Nasal Parainfluen 1 PCR NOT DETECTED Nasal Parainfluen 2 PCR NOT DETECTED Nasal Parainfluen 3 PCR NOT DETECTED Nasal Parainfluen 4 PCR NOT DETECTED Nasal RSV (PCR) NOT DETECTED Nasal B.pertussis DNA PCR NOT DETECTED Nasal C.pneumoniae (PCR) NOT DETECTED [place] Human Metapneumo PCR NOT DETECTED Nasal M.pneumoniae (PCR) NOT DETECTED Nasal SARS-CoV-2 (PCR) NOT DETECTED Salicylates Acetaminophen Ethyl Alcohol - Rads (name of study) Chest x-ray Radiology: Final report received, EMP read contemporaneously, See rad report (1.No acute cardiopulmonary abnormality. ) PD MEDICAL DECISION MAKING - ED course Complexity details: reviewed results, re-evaluated patient, considered differential, d/w patient, d/w peoplesoft consultant ED course: Patient is a 51-year-old female with what appears to be narcotic withdrawal complicated by significant dehydration, hyponatremia, hypokalemia and hypochloremia. Also has acute renal insufficiency. Similar symptoms in February of this year resulted in seizures. Will need gentle rehydration and control of her vomiting and diarrhea. Discussed the case with the hospitalist, Dr. Trevino who accepts. This document was made in part using voice recognition software. While efforts are made to proofread this document, sound alike and grammatical errors may occur. Departure - Departure Disposition: [facility] DC/Xfer Clinical Impression: Hyponatremia, Hypochloremia, Hypokalemia, Illicit drug use, Acute renal insufficiency Discharge Date/Time: 07/12/21 17:55
--- NOTE | 2021-07-12 15:28 | XRAY Report ---
PROCEDURE: Chest 1 View X-Ray INDICATIONS: Dyspnea TECHNIQUE: One view of the chest was acquired. COMPARISON: March 22, 2021 FINDINGS: SUPPORT DEVICES: None. LUNG/PLEURA: Hyperexpansion of the lungs. No focal consolidation or pulmonary edema. No pleural effus ion or space-occupying pneumothorax. MEDIASTINUM: The cardiomediastinal silhouette is within normal limits. BONES/SOFT TISSUES: No acute abnormality. IMPRESSION: 1.No acute cardiopulmonary abnormality. Reviewed by: Fede Garcia MD on 07/12/2021 3:27 PM PDT Approved by: Fede Garcia MD on 07/12/2021 3:27 PM PDT Station ID: [id number]
[2021-07-12 15:44] LABS: BASOPHILS # (AUTO) 0.1 10^3/uL (0.0-0.1); BASOPHILS % (AUTO) 0.3 %; EOSINOPHILS % (AUTO) 0.1 %; HCT - HEMATOCRIT 53.2 % (37.0-47.0); HGB - HEMOGLOBIN 18.2 g/dL (12.0-16.0); LYMPHOCYTES # (AUTO) 2.3 10^3/uL (1.5-3.5); LYMPHOCYTES % (AUTO) 10.3 %; MEAN CORPUSCULAR HEMOGLOBIN 28.8 pg (27.0-31.0); MEAN CORPUSCULAR HGB CONC 34.2 g/dL (32.0-36.0); MEAN CORPUSCULAR VOLUME 84.3 fL (81.0-99.0); MONOCYTES # (AUTO) 0.9 10^3/uL (0.0-1.0); MONOCYTES % (AUTO) 4.2 %; NEUTROPHILS # (AUTO) 18.6 10^3/uL (1.5-6.6); NEUTROPHILS % (AUTO) 84.3 %; PLT - PLATELET COUNT 423 10^3/uL (130-450); RED BLOOD COUNT 6.31 10^6/uL (4.20-5.40); RED CELL DISTRIBUTION WIDTH 13.9 % (12.0-15.0); WHITE BLOOD COUNT 22.1 x10^3/uL (4.8-10.8)
[2021-07-12 16:08] LABS: ACETAMINOPHEN < 10 ug/mL (10-30); ALBUMIN 2.8 g/dL (3.2-5.5); ALBUMIN/GLOBULIN RATIO 0.6 (1.0-2.2); ALKALINE PHOSPHATASE 163 IU/L (42-121); ALT ALANINE AMINOTRANSFERASE 24 IU/L (10-60); AST ASPARTATE AMINOTRANSFERASE 29 IU/L (10-42); BILIRUBIN,TOTAL 0.9 mg/dL (0.2-1.0); BUN - BLOOD UREA NITROGEN 17 mg/dL (6-20); CALCIUM 9.2 mg/dL (8.5-10.3); CARBON DIOXIDE - CO2 30 mmol/L (21-32); CREATININE 1.9 mg/dL (0.4-1.0); ETOH - ETHANOL < 5.0 mg/dL; GFR - MDRD 28 (>89); GLUCOSE 199 mg/dL (70-100); LIPASE 22 U/L (22-51); POTASSIUM 2.6 mmol/L (3.5-5.0); SALICYLATE < 6.0 mg/dL; SODIUM 125 mmol/L (135-145); TOTAL PROTEIN 7.4 g/dL (6.7-8.2)
[2021-07-12 16:10] LABS: CHLORIDE 76 mmol/L (101-111)
[2021-07-12 16:33] LABS: DIFFERENTIAL COMMENT MANUAL=AUTO DIFF; PLATELET MORPHOLOGY NORMAL APPEARANCE (NORMAL); RBC MORPHOLOGY (MULTIPLE) NORMAL APPEARANCE (NORMAL)
[2021-07-12] MEDS ORDERED: SODIUM CHLORIDE FLUSH 0.9% 10 ML SYRINGE IVP PRN (17:27)
[2021-07-12] MEDS ORDERED: PROCHLORPERAZINE 10 MG/2 ML VIAL IVP PRN (17:27)
[2021-07-12] MEDS ORDERED: ONDANSETRON 4 MG/2 ML VIAL IVP PRN (17:27)
[2021-07-12] MEDS ORDERED: POTASSIUM CHLORIDE 20 MEQ TABLET PO STA (17:34)
[2021-07-12] MEDS ORDERED: IPRATROPIUM/ALBUTEROL 3 ML NEB INH PRN (17:41)
[2021-07-12] MEDS ORDERED: ALBUTEROL NEB 2.5 MG/3 ML INH PRN (17:41)
[2021-07-12 17:42] LABS: B. PARAPERTUSSIS- RESP PCR PAN NOT DETECTED; B. PERTUSSIS- RESP PCR PANEL NOT DETECTED; C. PNEUMONIAE- RESP PCR PANEL NOT DETECTED; CORONAVIRUS 229E-RESP PCR NOT DETECTED; CORONAVIRUS HKU1-RESP PCR NOT DETECTED; CORONAVIRUS NL63-RESP PCR NOT DETECTED; CORONAVIRUS OC43-RESP PCR NOT DETECTED; HUMAN METAPNEUMOVIRUS NOT DETECTED; INFLUENZA A- RESP PCR PANEL NOT DETECTED; INFLUENZA B - RESP PCR PANEL NOT DETECTED; M. PNEUMONIAE- RESP PCR PANEL NOT DETECTED; PARAINFLUENZA VIRUS 1 NOT DETECTED; PARAINFLUENZA VIRUS 2 NOT DETECTED; PARAINFLUENZA VIRUS 3 NOT DETECTED; PARAINFLUENZA VIRUS 4 NOT DETECTED; RHINOVIRUS/ENTEROVIRUS NOT DETECTED; RSV- RESP PCR PANEL NOT DETECTED; SARS-CoV-2 -RESP PCR PANEL NOT DETECTED
--- NOTE | 2021-07-12 17:43 | HISTORY & PHYSICAL EXAMINATION ---
Chief Complaint - Chief Complaint Chief Complaint: nausea and vomiting, and SOB History of Present Illness - Admitted From Admitted From:: ER - History Obtained From Records Reviewed: [facility] History obtained from: pt - History of Present Illness HPI Comment/Other: This is a 51-year-old female with a past medical history significant for COPD/asthma, ulcerative colitis, heroin and methamphetamine abuse, hypertension, seizure, hypothyroidism who presents today in ER complain of withdrawing from Suboxone with nausea, vomiting, headache and shortness of breath. pt states she is withdrawing from Soboxone. pt has a history of methamphetamine and heroin abuse. She states that she has been buying soboxone from her friend. her last dose was yesterday. Now she could not get from her friend. She report she has been vomiting for 24 hours, report headache, and report diffuse abdominal pain. She denies fever, chill or chest pain. Routine laboratory tests that show patient had sodium 125, potassium 2.6, chloride 76, Creatinine 1.9, WBC 22. Chest x-ray is unremarkable. Urinalysis, drug screening are pending, COVID-19 test are negative. she report she did not have Covid 19 vaccinate. pt had sodium 121 in the last admission which was likely contributed to her new seizures. Given above medical condition, medical team was asked for admitted this patient. Discussed care goal with the patient, patient clearly state she want to be DNR. History - Past Medical History Cardiovascular: reports: Hypertension Respiratory: reports: Asthma, COPD Neuro: reports: None Endocrine/Autoimmune: reports: HyPOthyroidism GI: reports: Ulcerative colitis : reports: None Psych: reports: Depression Musculoskeletal: reports: None Derm: reports: None MRSA Hx?: No - Past Surgical History General: reports: Cholecystectomy, Gastric surgery /KEYLINER: reports: Hysterectomy - Family & Social History Family History Comment/Other: She believes her mother had gastric cancer that metastasized to the lung and brain. Living Situation: With friend(s) Social History Notes: She lives at home with her roommate, Netta. She does admit to smoking a pack a day. She denies any alcohol use but does admit to daily marijuana use as well as heroin and methamphetamine use. - POLST Patient has POLST: No Meds/Allgy - Home Medications Home Medications: Ambulatory Orders Medication Instructions Recorded Confirmed Albuterol Sulf [Ventolin Hfa 2 - 3 puffs INH Q4HR PRN #1 inhaler 08/15/20 07/12/21 Inhaler] Levothyroxine Sodium [Synthroid] 200 mcg PO QDAC 03/22/21 07/12/21 Tiotropium [facility] [place] [Spiriva] 1 puffs INH DAILY 03/22/21 07/12/21 Amlodipine Besylate [Norvasc] 10 mg PO DAILY #30 tab 03/24/21 07/12/21 Levetiracetam [Keppra] 1,000 mg PO BID 07/12/21 07/12/21 dilTIAZem HCL [Diltiazem 24Hr ER 180 mg PO DAILY 07/12/21 07/12/21 (Xr)] - Allergies Allergies/Adverse Reactions: Allergies Allergy/AdvReac Type Severity Reaction Status Date / Time NSAIDS (Non-Steroidal Allergy Nausea Verified 07/12/21 15:03 Anti-Inflamma Penicillins Allergy Respiratory Verified 07/12/21 15:03 Review of Systems - Constitutional Constitutional: denies: Fever, Chills - Eyes Eyes: denies: Pain - Ears, Nose & Throat Ears, Nose & Throat: denies: Ear pain - Cardiovascular Cariovascular: denies: Chest pain, Exertional dyspnea, Decr. exercise tolerance - Respiratory Respiratory: reports: Cough. denies: Wheezing, SOB at rest, SOB with exertion - Gastrointestinal Gastrointestinal: reports: Nausea, Vomiting. denies: Diarrhea - Genitourinary Genitourinary: denies: Dysuria - Musculoskeletal Musculoskeletal: denies: Muscle pain - Integumentary Integumentary: denies: Rash - Neurological Neurological: reports: Headache. denies: Focal weakness, Dizziness, Numbness, Abnormal gait, Seizures, Incoordination, Slurred speech - Psychiatric Psychiatric: denies: Depression, Suicidal Exam - Vital Signs Vital Signs: Vital Signs x48h Temp Pulse Resp BP Pulse Ox 07/12/21 17:03 36.5 C 77 16 136/72 H 100 07/12/21 15:03 36.5 C 87 24 135/70 H 100 07/12/21 14:46 35.8 C L 87 25 H 181/114 H 99 - Physical Exam General Appearance: positive: Alert, Mild distress. negative: Lethargic Eyes Bilateral: positive: Normal inspection, PERRL, No lid inflammation ENT: positive: ENT inspection nml. negative: Purulent nasal drainage Neck: positive: Nml inspection, Trachea midline. negative: Thyromegaly, Tracheal deviation Respiratory: positive: Chest non-tender, No respiratory distress. negative: Wheezes Cardiovascular: positive: Regular rate & rhythm, No murmur. negative: Tachycardia, Bradycardia, Systolic murmur, Diastolic murmur Peripheral Pulses: positive: 2+ Abdomen: positive: Non-tender, Nml bowel sounds, No distention. negative: Tenderness Back: positive: Nml inspection Skin: positive: Color nml, Warm, Dry. negative: Cyanosis Extremities: positive: Non-tender, Full ROM, Nml appearance. negative: Calf tenderness Neurologic/Psychiatric: positive: Oriented x3, Motor nml, Sensation nml. negative: Weakness, Sensory loss, Facial droop, Slurred/abnml speech, Depressed mood/affect Conclusion/Plan - Problem List (1) Withdrawal from recreational drug Conclusion/Plan: Patient reported she cannot get drugs from her friend for 24 hours, She reported she has nausea, vomiting, headache, diffuse abdominal pain. Drug screening show positive for methamphetamine, amphetamine, marijuana. Patient also has a history to use heroin. She also report to use Suboxone. We will continue give patient intravenous IV fluids, antiemesis, continue supportive patient, precaution to patient seizure from withdrawal, add Ativan for seizure PRN, and continue home seizure meds. (2) Nausea & vomiting Conclusion/Plan: it is Likely caused by patient withdrawal from recreational drugs. We will order antiemesis, intravenous IV fluids, microbiology laboratory manager, clear liquid diet as beginning (3) Hyponatremia Conclusion/Plan: Patient sodium is 125, patient has a history when his sodium reached 121 then she show seizure. This is likely caused by patient's nausea and vomiting from recreational drug usage withdrawal. We will give patient intravenous IV fluids with normal saline, laboratory closely monitor, slowly increase pt's sodium. neuro check (4) Hypokalemia Conclusion/Plan: Patient potassium 2.6, likely caused by patient nausea and vomiting, will replacement of potassium, continue microbiology laboratory manager (5) Hypochloremia Conclusion/Plan: Patient chloride is 76, likely caused by nausea and vomiting, we will give patient intravenous IV fluids with normal saline, continue microbiology laboratory manager (6) Acute renal insufficiency Conclusion/Plan: Creatinine today is 1.9, patient baseline creatinine 1.2, it is likely caused by patient dehydration from patient's nausea and vomiting. We will give patient intravenous IV fluids, we will continue microbiology laboratory manager, avoid nephrotoxic agent (7) Hx of seizure disorder Conclusion/Plan: Patient had a history of seizure, patient had her Keppra at home but the patient reported she did not take any Keppra because she believe Keppra get her dizzy and she feel not good for that. We will start with Keppra 500 mg twice daily, Ativan PRN (8) Hypertensive emergency Conclusion/Plan: pt has hx of Hypertensive emergency, patient has 210/135 blood pressure. We will give patient labetalol once, hydralazine as needed, will resume patient home medication amlodipine, closely vital monitor (9) Hypothyroid Conclusion/Plan: Patient reported she did not take any home medication, her TSH is significantly elevated, we will resume patient home Synthroid (10) COPD (chronic obstructive pulmonary disease) Conclusion/Plan: Patient had history of COPD, still cigarette smoker, patient has no active r espiratory distress, we will add albuterol, DuoNeb as needed (11) Medical non-compliance Conclusion/Plan: Patient reported she did not take any medication in the home. Strongly advised patient take medication as scheduled. - Lab Results Fish Bones: 07/13/21 05:11 07/13/21 05:11 Core Measures - Anticipated LOS I expect patient to be DC'd or transferred within 96 hours.: Yes - DVT/VTE - Prophylaxis VTE/DVT Device ordered at admit?: Yes VTE/DVT Prophylaxis med ordered at admit?: Yes
[2021-07-12] MEDS ORDERED: LORazepam 0.5 MG TABLET PO PRN (17:46)
[2021-07-12] MEDS: SODIUM CHLORIDE 0.9% 1,000 ML IV SCH (17:59)
[2021-07-12] MEDS ORDERED: SODIUM CHLORIDE 0.9% 1,000 ML IV SCH (18:00)
[2021-07-12 18:07] LABS: MAGNESIUM 1.8 mg/dL (1.7-2.8); PHOSPHORUS 5.4 mg/dL (2.5-4.6)
[2021-07-12] MEDS ORDERED: LORazepam 2 MG/ML VIAL IVP PRN (18:15)
[2021-07-12] MEDS ORDERED: hydrALAZINE INJ 20 MG/ML VIAL IVP PRN (18:21)
--- NOTE | 2021-07-12 18:31 | PHARMACY PROGRESS NOTE ---
- Best Possible Medication History Admit Date and Time: 07/12/21 0737 Processed by: Pharmacy Medication History completed: Yes Patient Interview: Completed Secondary Source(s): Pharmacy records, Insurance records (PATIENT REPORTS SHE HAS NOT BEEN TAKING HER MEDICATIONS X SEVERAL MONTHS ) As the person ultimately responsible for medication therapy, providers are able to order a medication from an existing home medication list in [facility] via the "Reconcile Routine" prior to Confirmation of that medication by child support specialist. Such practice is discouraged except when the physician, in their clinical judgment, deems that a medical need exists for a medication without regard to previous use.
[2021-07-12 18:45] LABS: MUDS CUTOFF CONCENTRATIONS CUTOFF CONC BELOW:
[2021-07-12 18:48] LABS: BILIRUBIN,URINE NEGATIVE (NEGATIVE); GLUCOSE, URINE (UA) NEGATIVE (NEGATIVE); KETONES,URINE (UA) NEGATIVE (NEGATIVE); LEUKOCYTE ESTERASE, URINE MODERATE (NEGATIVE); NITRITE,URINE NEGATIVE (NEGATIVE); OCCULT BLOOD,URINE SMALL (NEGATIVE); PH,URINE 6.5 PH (5.0-7.5); PROTEIN,URINE >=300 mg/dL (NEGATIVE); UROBILINOGEN,URINE 0.2 (NORMAL) E.U./dL (NORMAL)
[2021-07-12] MEDS: POTASSIUM CHLOR 10 MEQ/100 ML 10 MEQ/100 ML BAG IV SCH ×4 (18:48→22:43)
[2021-07-12 18:57] LABS: CLARITY,URINE CLEAR (CLEAR)
[2021-07-12 18:58] LABS: AMPHETAMINE SCREEN,URINE POSITIVE (NEGATIVE); BARBITURATE SCREEN,UR NEGATIVE (NEGATIVE); BENZODIAZEPINES SCREEN, URINE NEGATIVE (NEGATIVE); COCAINE SCREEN URINE NEGATIVE (NEGATIVE); HCG UR QUAL NEGATIVE; METHADONE SCREEN, URINE NEGATIVE (NEGATIVE); METHAMPHETAMINES SCREEN, URINE POSITIVE (NEGATIVE); OPIATE SCREEN, URINE NEGATIVE (NEGATIVE); OXYCODONE SCREEN, URINE NEGATIVE (NEGATIVE); PROPOXYPHENE SCREEN, URINE NEGATIVE (NEGATIVE); THC CANNABINOID SCREEN, URINE POSITIVE (NEGATIVE); TRICYCLIC ANTIDEPRESSANT,URINE NEGATIVE (NEGATIVE)
[2021-07-12 19:09] LABS: WBC,URINE >25 /HPF (0-5)
[2021-07-12 19:10] LABS: BACTERIA,URINE Many /HPF (None Seen); RBC,URINE 0-5 /HPF (0-5); SQUAMOUS EPITHELIAL CELL,UR FEW Squamous (<= Few); WBC CLUMPS,URINE PRESENT
[2021-07-12] MEDS: LABETALOL 20 MG/4 ML SYRINGE IVP ONE ×2 (19:42→21:34)
[2021-07-12] MEDS: cefTRIAXone 1 GM in SODIUM CHLORIDE 0.9% MINIBAG 100 ML IV SCH (20:42)
[2021-07-12] MEDS ORDERED: levETIRAcetam 250 MG TABLET PO SCH ×2 (21:00)
[2021-07-12] MEDS: HEPARIN 5,000 UNIT/ML VIAL SUBQ SCH (21:39)
[2021-07-12] MEDS: amLODIPine 5 MG TABLET PO SCH (23:44)
[2021-07-13] MEDS: SODIUM CHLORIDE FLUSH 0.9% 10 ML SYRINGE IVP SCH ×3 (00:20→17:01)
[2021-07-13] MEDS: SODIUM CHLORIDE 0.9% 1,000 ML IV SCH ×3 (02:29→20:54)
[2021-07-13 05:39] LABS: BASOPHILS % (AUTO) 0.2 %; EOSINOPHILS % (AUTO) 0.1 %; HCT - HEMATOCRIT 38.3 % (37.0-47.0); HGB - HEMOGLOBIN 13.2 g/dL (12.0-16.0); LYMPHOCYTES # (AUTO) 3.2 10^3/uL (1.5-3.5); LYMPHOCYTES % (AUTO) 18.6 %; MEAN CORPUSCULAR HGB CONC 34.5 g/dL (32.0-36.0); MEAN CORPUSCULAR VOLUME 84.2 fL (81.0-99.0); MEAN PLATELET VOLUME 9.3 fL (7.9-10.8); MONOCYTES # (AUTO) 0.7 10^3/uL (0.0-1.0); MONOCYTES % (AUTO) 4.3 %; NEUTROPHILS # (AUTO) 12.9 10^3/uL (1.5-6.6); NEUTROPHILS % (AUTO) 76.4 %; PLT - PLATELET COUNT 366 10^3/uL (130-450); RED BLOOD COUNT 4.55 10^6/uL (4.20-5.40); RED CELL DISTRIBUTION WIDTH 14.4 % (12.0-15.0); WHITE BLOOD COUNT 16.9 x10^3/uL (4.8-10.8)
[2021-07-13 05:49] LABS: CALCIUM 7.4 mg/dL (8.5-10.3); CREATININE 1.5 mg/dL (0.4-1.0); MAGNESIUM 1.8 mg/dL (1.7-2.8); PHOSPHORUS 3.7 mg/dL (2.5-4.6)
[2021-07-13] MEDS: LEVOTHYROXINE 100 MCG TABLET PO SCH (06:29)
[2021-07-13] MEDS ORDERED: LEVOTHYROXINE 112 MCG TABLET PO SCH (07:00)
[2021-07-13] MEDS ORDERED: POTASSIUM CHLORIDE 20 MEQ TABLET PO ONE (07:45)
[2021-07-13] MEDS ORDERED: levETIRAcetam 250 MG TABLET PO SCH (09:00)
[2021-07-13] MEDS: cefTRIAXone 1 GM in SODIUM CHLORIDE 0.9% MINIBAG 100 ML IV SCH (09:50)
[2021-07-13] MEDS: HEPARIN 5,000 UNIT/ML VIAL SUBQ SCH ×2 (09:56→21:01)
[2021-07-13] MEDS: levETIRAcetam 250 MG TABLET PO SCH ×2 (09:57→20:54)
[2021-07-13] MEDS: ACETAMINOPHEN 325 MG TABLET PO PRN ×2 (09:58→17:12)
[2021-07-13] MEDS: NICOTINE 14 MG PATCH TOP SCH (09:58)
[2021-07-13] MEDS: amLODIPine 5 MG TABLET PO SCH (09:58)
[2021-07-13] MEDS: POTASSIUM CHLOR 10 MEQ/100 ML 10 MEQ/100 ML BAG IV SCH ×2 (10:56→12:28)
[2021-07-13] MEDS: MULTIVITAMIN W/MINERALS TABLET PO SCH (13:33)
--- NOTE | 2021-07-13 14:51 | PROVIDER PROGRESS NOTE ---
Assessment/Plan - Problem List (1) Withdrawal from recreational drug Assessment/Plan: 10-15 good controlled now. advanced her diet as tolerated. continue give patient intravenous IV fluids, antiemesis, continue supportive patient, precaution to patient seizure from withdrawal, add Ativan for seizure PRN, and continue home seizure meds. Patient reported she cannot get drugs from her friend for 24 hours, She reported she has nausea, vomiting, headache, diffuse abdominal pain. Drug screening show positive for methamphetamine, amphetamine, marijuana. Patient also has a history to use heroin. She also report to use Suboxone. We will continue give patient intravenous IV fluids, antiemesis, continue supportive patient, precaution to patient seizure from withdrawal, add Ativan for seizure PRN, and continue home seizure meds. (2) Nausea & vomiting Conclusion/Plan: 10-15 better controlled, Continue antiemesis as needed, Continue intravenous IV fluids. it is Likely caused by patient withdrawal from recreational drugs. We will order antiemesis, intravenous IV fluids, clinical laboratory technologist, clear liquid diet as beginning (3) Hyponatremia Conclusion/Plan: 1015, improved, sodium is 128 From 125, continue intravenous normal saline, continue clinical laboratory technologist. Patient sodium is 125, patient has a history when his sodium reached 121 then she show seizure. This is likely caused by patient's nausea and vomiting from recreational drug usage withdrawal. We will give patient intravenous IV fluids with normal saline, laboratory closely monitor, slowly increase pt's sodium. neuro check (4) Hypokalemia Conclusion/Plan: 1015, improved, potassium 3.0, continue replacement, continue lab monitor Patient potassium 2.6, likely caused by patient nausea and vomiting, will replacement of potassium, continue clinical laboratory technologist (5) Hypochloremia Conclusion/Plan: 1015, Improved, Cl is 89, Continue intravenous IV fluids of normal saline, C ontinue clinical laboratory technologist Patient chloride is 76, likely caused by nausea and vomiting, we will give patient intravenous IV fluids with normal saline, continue clinical laboratory technologist (6) Acute renal insufficiency Conclusion/Plan: 1015, creatinine 1.5 today, We will continue intravenous IV fluids, continue clinical laboratory technologist Creatinine today is 1.9, patient baseline creatinine 1.2, it is likely caused by patient dehydration from patient's nausea and vomiting. We will give patient intravenous IV fluids, we will continue clinical laboratory technologist, avoid nephrotoxic agent (7) Hx of seizure disorder Conclusion/Plan: 1015,Patient was given one-time Ativan for yesterday afternoon possible seizure, Continue Keppra Patient had a history of seizure, patient had her Keppra at home but the patient reported she did not take any Keppra because she believe Keppra get her dizzy and she feel not good for that. We will start with Keppra 500 mg twice daily, Ativan PRN (8) Hypertensive emergency Conclusion/Plan: 1015, resolved pt has hx of Hypertensive emergency, patient has 210/135 blood pressure. We will give patient labetalol once, hydralazine as needed, will resume patient home medication amlodipine, closely vital monitor (9) Hypothyroid Conclusion/Plan: Patient reported she did not take any home medication, her TSH is significantly elevated, we will resume patient home Synthroid (10) COPD (chronic obstructive pulmonary disease) Conclusion/Plan: Patient had history of COPD, still cigarette smoker, patient has no active respiratory distress, we will add albuterol, DuoNeb as needed (11) Medical non-compliance Conclusion/Plan: Patient reported she did not take any medication in the home. Strongly advised patient take medication as scheduled. - Current Meds Current Meds: Current Medications Generic Name Dose Route Start Last Admin Trade Name Freq PRN Reason Stop Dose Admin Acetaminophen 650 mg 07/12/21 17:27 07/13/21 09:58 Acetaminophen 325 Mg Tablet PO 650 mg Q4HR PRN Administration Pain 1 to 4 Amlodipine Besylate 10 mg 07/12/21 23:00 07/13/21 09:58 Amlodipine 5 Mg Tablet PO 10 mg DAILY PHI Administration Heparin Sodium (Porcine) 5,000 unit 07/12/21 21:00 07/13/21 09:56 Heparin 5,000 Unit/Ml Vial SUBQ 5,000 unit BID PHI Administration Hydralazine HCl 10 mg 07/12/21 18:21 07/12/21 18:51 Hydralazine Inj 20 Mg/Ml Vial IVP 10 mg QID PRN Administration Hypertensive Emergency Ceftriaxone Sodium 1 gm/ 100 mls @ 200 mls/hr 07/12/21 19:13 07/13/21 10:25 Sodium Chloride IV Infused DAILY PHI Infusion Sodium Chloride 1,000 mls @ 100 mls/hr 07/13/21 07:48 07/13/21 14:07 Normal Saline 0.9% IV 100 mls/hr .Q10H PHI Infusion Levetiracetam 500 mg 07/13/21 09:00 07/13/21 09:57 Levetiracetam 250 Mg Tablet PO 500 mg BID PHI Administration Levothyroxine Sodium 200 mcg 07/13/21 07:00 07/13/21 06:29 Levothyroxine 100 Mcg Tablet PO 200 mcg QDAC PHI Administration Lorazepam 2 mg 07/12/21 18:15 07/12/21 18:49 Lorazepam 2 Mg/Ml Vial IVP 2 mg Q2H PRN Administration Seizure Multivitamins/Minerals 1 tab 07/13/21 13:00 07/13/21 13:33 Multivitamin W/Minerals Tablet PO 1 tab DAILYWM PHI Administration Nicotine 1 patch 07/13/21 09:00 07/13/21 09:58 Nicotine 14 Mg Patch TOP 1 patch DAILY PHI Administration Ondansetron HCl 4 mg 07/12/21 17:27 07/12/21 18:50 Ondansetron 4 Mg/2 Ml Vial IVP 4 mg Q6HR PRN Administration Nausea / Vomiting Sodium Chloride 10 ml 07/13/21 01:00 07/13/21 09:59 Sodium Chloride Flush 0.9% 10 Ml Syringe IVP Not Given 0100,0900,1700 PHI - Lab Result Fish Bone Diagrams: 07/13/21 05:11 07/13/21 05:11 - Additional Planning My Orders: My Active Orders 07/12/21 17:27 Activity Orders [RC] Q2HR IO [RC] IOSHIFT Initiate Bowel Care Protocol [RC] .protocol Initiate Line Care Protocol [RC] QSHIFT Initiate Personal Care Protoco [RC] .protocol Telemetry- [RC] Q4HR Vital Signs [RC] Q4HR Acetaminophen [Tylenol] 650 mg PO Q4HR PRN Ondansetron Inj [Zofran Inj] 4 mg IVP Q6HR PRN Prochlorperazine Inj [Compazine Inj] 10 mg IVP Q6HR PRN Sodium Chloride Flush 0.9% [Normal Saline Flush 0.9%] 10 ml IVP PRN PRN Code Status [OTHERS] Routine Condition of Patient [OTHERS] Routine DVT Prophylaxis [OTHERS] Routine 07/12/21 17:28 IV Insert [RC] .ONCE 07/12/21 17:29 SCDs [RC] QSHIFT 07/12/21 17:41 Albuterol 2.5 mg INH RTQ4H PRN Ipratropium/Albuterol [Duoneb] 3 ml INH RTQID PRN 07/12/21 17:46 LEVETIRACETAM (KEPPRA) LEVEL [REFLAB] Urgent LORazepam [Ativan] 0.5 mg PO Q6H PRN 07/12/21 18:15 LORazepam INJ [Ativan Inj (Vial)] 2 mg IVP Q2H PRN 07/12/21 18:18 Code Status [OTHERS] Routine 07/12/21 18:21 hydrALAZINE INJ [Apresoline Inj] 10 mg IVP QID PRN 07/12/21 19:13 cefTRIAXone [Rocephin] 1 gm Sodium Chloride 0.9% Minibag [Normal Saline 0.9% Minibag] 100 ml IV DAILY 07/12/21 19:23 RT [Oxygen Therapy] [RC] .PRN 07/12/21 21:00 Heparin [Heparin Sodium (Porcine)] 5,000 unit SUBQ BID 07/13/21 01:00 Sodium Chloride Flush 0.9% [Normal Saline Flush 0.9%] 10 ml IVP 0100,0900,1700 07/13/21 Breakfast Soft (Low Fiber) Diet [DIET] 07/13/21 07:00 Levothyroxine [Synthroid] 200 mcg PO QDAC 07/13/21 07:48 Sodium Chloride 0.9% [Normal Saline 0.9%] 1,000 ml IV 100 mls/hr 07/13/21 08:21 Blood Culture [CULTURE, BLOOD #1] [RM] Urgent 07/13/21 08:26 Blood Culture [CULTURE, BLOOD #2] [RM] Urgent 07/13/21 08:57 Neuro Check [RC] QSHIFT 07/13/21 09:00 Nicotine 14 mg Patch [Nicoderm] 1 patch TOP DAILY levETIRAcetam [Keppra] 500 mg PO BID 07/13/21 13:00 Multivitamin W/Minerals [Theragran M] 1 tab PO DAILYWM 07/14/21 05:00 BMP - BASIC METABOLIC PANEL [CHEM] DAILYLAB CBC - COMP BLD CT W/AUTO DIFF [HEME] DAILYLAB MAGNESIUM [CHEM] DAILYLAB PHOSPHORUS [CHEM] DAILYLAB 07/15/21 05:00 BMP - BASIC METABOLIC PANEL [CHEM] DAILYLAB CBC - COMP BLD CT W/AUTO DIFF [HEME] DAILYLAB 07/16/21 05:00 BMP - BASIC METABOLIC PANEL [CHEM] DAILYLAB CBC - COMP BLD CT W/AUTO DIFF [HEME] DAILYLAB 07/17/21 05:00 BMP - BASIC METABOLIC PANEL [CHEM] DAILYLAB CBC - COMP BLD CT W/AUTO DIFF [HEME] DAILYLAB Subjective - Subjective Patient Reports: Resting Comfortably Objective Vital Signs: Vital Signs - 24 hr 07/12/21 07/12/21 07/12/21 15:03 17:03 18:39 Temperature 36.5 C 36.5 C 36.7 C Heart Rate 87 77 Heart Rate [ Brachial] Heart Rate [ 88 Radial] Respiratory 24 16 24 Rate Blood Pressure 135/70 H 136/72 H Blood Pressure [Left Brachial artery] Blood Pressure 210/135 H [Right Brachial artery] O2 Saturation 100 100 98 07/12/21 07/12/21 07/12/21 18:51 19:13 19:15 Temperature 36.7 C Heart Rate Heart Rate [ 95 Brachial] Heart Rate [ 92 Radial] Respiratory 24 Rate Blood Pressure 210/135 H Blood Pressure [Left Brachial artery] Blood Pressure 146/96 H 140/93 H [Right Brachial artery] O2 Saturation 99 07/12/21 07/12/21 07/12/21 19:30 19:45 21:00 Temperature 36.5 C Heart Rate Heart Rate [ 95 95 95 Brachial] Heart Rate [ Radial] Respiratory 20 Rate Blood Pressure Blood Pressure 177/112 H [Left Brachial artery] Blood Pressure 138/100 H 150/91 H [Right Brachial artery] O2 Saturation 97 07/12/21 07/12/21 07/12/21 21:35 21:43 21:49 Temperature Heart Rate Heart Rate [ 93 66 67 Brachial] Heart Rate [ Radial] Respiratory Rate Blood Pressure Blood Pressure [Left Brachial artery] Blood Pressure 184/129 H 115/83 H 124/90 H [Right Brachial artery] O2 Saturation 07/12/21 07/12/21 07/12/21 21:55 22:15 22:44 Temperature Heart Rate Heart Rate [ 70 72 Brachial] Heart Rate [ Radial] Respiratory Rate Blood Pressure Blood Pressure [Left Brachial artery] Blood Pressure 137/100 H 163/114 H 175/114 H [Right Brachial artery] O2 Saturation 07/12/21 07/13/21 07/13/21 23:42 05:00 07:54 Temperature 37.1 C 36.8 C 36.8 C Heart Rate Heart Rate [ 75 76 70 Brachial] Heart Rate [ Radial] Respiratory 20 18 20 Rate Blood Pressure Blood Pressure [Left Brachial artery] Blood Pressure 174/94 H 145/94 H 123/77 [Right Brachial artery] O2 Saturation 98 95 93 07/13/21 12:08 Temperature 36.8 C Heart Rate Heart Rate [ 75 Brachial] Heart Rate [ Radial] Respiratory 18 Rate Blood Pressure Blood Pressure [Left Brachial artery] Blood Pressure 122/86 H [Right Brachial artery] O2 Saturation 96 Oxygen O2 Source Room air I&O (Last 24 Hrs): Intake and Output Totals x24h 07/11/21 07/12/21 07/13/21 23:59 23:59 23:59 Intake Total 4947.182 0852.907 Output Total 300 375 Balance 0654.028 8390.907 General: Alert, No acute distress HEENT: Atraumatic Neck: Supple Lymphatic: no adenopathy Neuro: Alert, Non Focal Cardiovascular: Regular rate, Normal S1, Normal S2 Respiratory: Chest non-tender, No respiratory distress Abdomen: Normal bowel sounds, Soft Extremities: Normal pulses - Results Results: Laboratory Results WBC 16.9 x10^3/uL (4.8-10.8) H 07/13/21 05:11 RBC 4.55 10^6/uL (4.20-5.40) 07/13/21 05:11 Hgb 13.2 g/dL (12.0-16.0) 07/13/21 05:11 Hct 38.3 % (37.0-47.0) 07/13/21 05:11 MCV 84.2 fL (81.0-99.0) 07/13/21 05:11 MCH 29.0 pg (27.0-31.0) 07/13/21 05:11 MCHC 34.5 g/dL (32.0-36.0) 07/13/21 05:11 RDW 14.4 % (12.0-15.0) 07/13/21 05:11 Plt Count 366 10^3/uL (130-450) 07/13/21 05:11 MPV 9.3 fL (7.9-10.8) 07/13/21 05:11 Neut # (Auto) 12.9 10^3/uL (1.5-6.6) H 07/13/21 05:11 Lymph # (Auto) 3.2 10^3/uL (1.5-3.5) 07/13/21 05:11 [place] # (Auto) 0.7 10^3/uL (0.0-1.0) 07/13/21 05:11 Eos # (Auto) 0.0 10^3/uL (0.0-0.7) 07/13/21 05:11 Baso # (Auto) 0.0 10^3/uL (0.0-0.1) 07/13/21 05:11 Absolute Nucleated RBC 0.00 x10^3/uL 07/13/21 05:11 Band Neuts % (Manual) Not Reportable 07/12/21 15:30 Abnorm Lymph % (Manual) Not Reportable 07/12/21 15:30 Nucleated RBC % 0.0 /100WBC 07/13/21 05:11 Neutrophils # (Manual) Not Reportable 07/12/21 15:30 Lymphocytes # (Manual) Not Reportable 07/12/21 15:30 Monocytes # (Manual) Not Reportable 07/12/21 15:30 Eosinophils # (Manual) Not Reportable 07/12/21 15:30 Basophils # (Manual) Not Reportable 07/12/21 15:30 Differential Comment MANUAL=AUTO DIFF 07/12/21 15:30 Platelet Morphology NORMAL APPEARANCE (NORMAL) 07/12/21 15:30 RBC Morph Micro Appear NORMAL APPEARANCE (NORMAL) 07/12/21 15:30 Sodium 128 mmol/L (135-145) L 07/13/21 05:11 Potassium 3.0 mmol/L (3.5-5.0) L 07/13/21 05:11 Chloride 89 mmol/L (101-111) L 07/13/21 05:11 Carbon Dioxide 28 mmol/L (21-32) 07/13/21 05:11 Anion Gap 11.0 (6-13) 07/13/21 05:11 BUN 18 mg/dL (6-20) 07/13/21 05:11 Creatinine 1.5 mg/dL (0.4-1.0) H 07/13/21 05:11 Estimated GFR (MDRD) 36 (>89) L 07/13/21 05:11 Glucose 120 mg/dL (70-100) H 07/13/21 05:11 Calcium 7.4 mg/dL (8.5-10.3) L 07/13/21 05:11 Phosphorus 3.7 mg/dL (2.5-4.6) 07/13/21 05:11 Magnesium 1.8 mg/dL (1.7-2.8) 07/13/21 05:11 Total Bilirubin 0.9 mg/dL (0.2-1.0) 07/12/21 15:30 AST 29 IU/L (10-42) 07/12/21 15:30 ALT 24 IU/L (10-60) 07/12/21 15:30 Alkaline Phosphatase 163 IU/L (42-121) H 07/12/21 15:30 Total Protein 7.4 g/dL (6.7-8.2) 07/12/21 15:30 Albumin 2.8 g/dL (3.2-5.5) L 07/12/21 15:30 Globulin 4.6 g/dL (2.1-4.2) H 07/12/21 15:30 Albumin/Globulin Ratio 0.6 (1.0-2.2) L 07/12/21 15:30 Lipase 22 U/L (22-51) 07/12/21 15:30 TSH 105.01 uIU/mL (0.34-5.60) H 07/12/21 15:30 Urine Color YELLOW 07/12/21 18:43 Urine Clarity CLEAR (CLEAR) 07/12/21 18:43 Urine pH 6.5 PH (5.0-7.5) 07/12/21 18:43 Ur Specific [place] 1.020 (1.002-1.030) 07/12/21 18:43 Urine Protein >=300 mg/dL (NEGATIVE) H 07/12/21 18:43 Urine Glucose (UA) NEGATIVE mg/dL (NEGATIVE) 07/12/21 18:43 Urine Ketones NEGATIVE mg/dL (NEGATIVE) 07/12/21 18:43 Urine Occult Blood SMALL (NEGATIVE) H 07/12/21 18:43 Urine Nitrite NEGATIVE (NEGATIVE) 07/12/21 18:43 Urine Bilirubin NEGATIVE (NEGATIVE) 07/12/21 18:43 Urine Urobilinogen 0.2 (NORMAL) E.U./dL (NORMAL) 07/12/21 18:43 Ur Leukocyte Esterase MODERATE (NEGATIVE) H 07/12/21 18:43 Urine RBC 0-5 /HPF (0-5) 07/12/21 18:43 Urine WBC >25 /HPF (0-5) H 07/12/21 18:43 Urine WBC Clumps PRESENT 07/12/21 18:43 Ur Squamous Epith Cells FEW Squamous (<= Few) 07/12/21 18:43 Urine Bacteria Many /HPF (None Seen) H 07/12/21 18:43 Ur Microscopic Review INDICATED 07/12/21 18:43 Urine Culture Comments INDICATED 07/12/21 18:43 Urine HCG, Qual NEGATIVE 07/12/21 18:43 Nasal Adenovirus (PCR) NOT DETECTED 07/12/21 16:12 Nasal B. parapertussis DNA (PCR) NOT DETECTED 07/12/21 16:12 Nasal Coronavir 229E PCR NOT DETECTED 07/12/21 16:12 Nasal Coronavir HKU1 PCR NOT DETECTED 07/12/21 16:12 Nasal Coronavir NL63 PCR NOT DETECTED 07/12/21 16:12 Nasal Coronavir OC43 PCR NOT DETECTED 07/12/21 16:12 Nasal Enterovir/Rhinovir PCR NOT DETECTED 07/12/21 16:12 Nasal Influenza B PCR NOT DETECTED 07/12/21 16:12 Nasal Influenza A PCR NOT DETECTED 07/12/21 16:12 Nasal Parainfluen 1 PCR NOT DETECTED 07/12/21 16:12 Nasal Parainfluen 2 PCR NOT DETECTED 07/12/21 16:12 Nasal Parainfluen 3 PCR NOT DETECTED 07/12/21 16:12 Nasal Parainfluen 4 PCR NOT DETECTED 07/12/21 16:12 Nasal RSV (PCR) NOT DETECTED 07/12/21 16:12 Nasal B.pertussis DNA PCR NOT DETECTED 07/12/21 16:12 Nasal C.pneumoniae (PCR) NOT DETECTED 07/12/21 16:12 [place] Human Metapneumo PCR NOT DETECTED 07/12/21 16:12 Nasal M.pneumoniae (PCR) NOT DETECTED 07/12/21 16:12 Nasal SARS-CoV-2 (PCR) NOT DETECTED 07/12/21 16:12 Salicylates < 6.0 mg/dL 07/12/21 15:30 Urine Opiates Screen NEGATIVE (NEGATIVE) 07/12/21 18:43 Ur Oxycodone Screen NEGATIVE (NEGATIVE) 07/12/21 18:43 Urine Methadone Screen NEGATIVE (NEGATIVE) 07/12/21 18:43 Ur Propoxyphene Screen NEGATIVE (NEGATIVE) 07/12/21 18:43 Acetaminophen < 10 ug/mL (10-30) L 07/12/21 15:30 Ur Barbiturates Screen NEGATIVE (NEGATIVE) 07/12/21 18:43 Ur Tricyclics Screen NEGATIVE (NEGATIVE) 07/12/21 18:43 Ur Phencyclidine Scrn NEGATIVE (NEGATIVE) 07/12/21 18:43 Ur Amphetamine Screen POSITIVE (NEGATIVE) H 07/12/21 18:43 U Methamphetamines Scrn POSITIVE (NEGATIVE) H 07/12/21 18:43 U Benzodiazepines Scrn NEGATIVE (NEGATIVE) 07/12/21 18:43 Urine Cocaine Screen NEGATIVE (NEGATIVE) 07/12/21 18:43 U Cannabinoids Screen POSITIVE (NEGATIVE) H 07/12/21 18:43 Ethyl Alcohol < 5.0 mg/dL 07/12/21 15:30 ABX Reporting Has patient been on IV antibiotics over the past 48 hours?: Yes Current Medications - Current Medications Current Medications: Active Medications Acetaminophen (Acetaminophen 325 Mg Tablet) 650 mg PO Q4HR PRN PRN Reason: Pain 1 to 4 Last Admin: 07/13/21 09:58 Dose: 650 mg Documented by: Albuterol (Albuterol Neb 2.5 Mg/3 Ml) 2.5 mg INH RTQ4H PRN PRN Reason: Wheezing Albuterol/Ipratropium (Ipratropium/Albuterol 3 Ml Neb) 3 ml INH RTQID PRN PRN Reason: Shortness of Air/Wheezing Amlodipine Besylate (Amlodipine 5 Mg Tablet) 10 mg PO DAILY [facility] Last Admin: 07/13/21 09:58 Dose: 10 mg Documented by: Heparin Sodium (Porcine) (Heparin 5,000 Unit/Ml Vial) 5,000 unit SUBQ BID PHI Last Admin: 07/13/21 09:56 Dose: 5,000 unit Documented by: Hydralazine HCl (Hydralazine Inj 20 Mg/Ml Vial) 10 mg IVP QID PRN PRN Reason: Hypertensive Emergency Last Admin: 07/12/21 18:51 Dose: 10 mg Documented by: Ceftriaxone Sodium 1 gm/ (Sodium Chloride) 100 mls @ 200 mls/hr IV DAILY [facility] Last Infusion: 07/13/21 10:25 Dose: Infused Documented by: Sodium Chloride (Normal Saline 0.9%) 1,000 mls @ 100 mls/hr IV .Q10H [facility] Last Infusion: 07/13/21 14:07 Dose: 100 mls/hr Documented by: Levetiracetam (Levetiracetam 250 Mg Tablet) 500 mg PO BID [facility] Last Admin: 07/13/21 09:57 Dose: 500 mg Documented by: Levothyroxine Sodium (Levothyroxine 100 Mcg Tablet) 200 mcg PO QDAC [facility] Last Admin: 07/13/21 06:29 Dose: 200 mcg Documented by: Lorazepam (Lorazepam 0.5 Mg Tablet) 0.5 mg PO Q6H PRN PRN Reason: Anxiety Lorazepam (Lorazepam 2 Mg/Ml Vial) 2 mg IVP Q2H PRN PRN Reason: Seizure Last Admin: 07/12/21 18:49 Dose: 2 mg Documented by: Multivitamins/Minerals (Multivitamin W/Minerals Tablet) 1 tab PO DAILYWM [facility] Last Admin: 07/13/21 13:33 Dose: 1 tab Documented by: Nicotine (Nicotine 14 Mg Patch) 1 patch TOP DAILY [facility] Last Admin: 07/13/21 09:58 Dose: 1 patch Documented by: Ondansetron HCl (Ondansetron 4 Mg/2 Ml Vial) 4 mg IVP Q6HR PRN PRN Reason: Nausea / Vomiting Last Admin: 07/12/21 18:50 Dose: 4 mg Documented by: Prochlorperazine Edisylate (Prochlorperazine 10 Mg/2 Ml Vial) 10 mg IVP Q6HR PRN PRN Reason: Nausea / Vomiting Sodium Chloride (Sodium Chloride Flush 0.9% 10 Ml Syringe) 10 ml IVP PRN PRN PRN Reason: NEEDED PER PROVIDER ORDERS Sodium Chloride (Sodium Chloride Flush 0.9% 10 Ml Syringe) 10 ml IVP 0100,0900,1700 [facility] Last Admin: 07/13/21 09:59 Dose: Not Given Documented by: Levothyroxine Sodium [Synthroid] 200 mcg PO QDAC 03/22/21 Tiotropium [place] [Spiriva] 1 puffs INH DAILY 03/22/21 Levetiracetam [Keppra] 1,000 mg PO BID 07/12/21 dilTIAZem HCL [Diltiazem 24Hr ER (Xr)] 180 mg PO DAILY 07/12/21
[2021-07-14] MEDS: SODIUM CHLORIDE FLUSH 0.9% 10 ML SYRINGE IVP SCH ×2 (00:03→08:32)
[2021-07-14] MEDS: ACETAMINOPHEN 325 MG TABLET PO PRN ×3 (00:10→13:24)
[2021-07-14] MEDS: LEVOTHYROXINE 100 MCG TABLET PO SCH (05:28)
[2021-07-14 05:50] LABS: BASOPHILS % (AUTO) 0.3 %; EOSINOPHILS % (AUTO) 0.3 %; HCT - HEMATOCRIT 38.6 % (37.0-47.0); LYMPHOCYTES # (AUTO) 3.3 10^3/uL (1.5-3.5); LYMPHOCYTES % (AUTO) 27.5 %; MEAN CORPUSCULAR HEMOGLOBIN 29.3 pg (27.0-31.0); MEAN CORPUSCULAR HGB CONC 33.7 g/dL (32.0-36.0); MEAN CORPUSCULAR VOLUME 87.1 fL (81.0-99.0); MEAN PLATELET VOLUME 9.4 fL (7.9-10.8); MONOCYTES # (AUTO) 0.7 10^3/uL (0.0-1.0); MONOCYTES % (AUTO) 5.9 %; NEUTROPHILS # (AUTO) 7.9 10^3/uL (1.5-6.6); NEUTROPHILS % (AUTO) 65.7 %; PLT - PLATELET COUNT 346 10^3/uL (130-450); RED BLOOD COUNT 4.43 10^6/uL (4.20-5.40); RED CELL DISTRIBUTION WIDTH 14.6 % (12.0-15.0); WHITE BLOOD COUNT 12.1 x10^3/uL (4.8-10.8)
[2021-07-14 06:03] LABS: CALCIUM 7.8 mg/dL (8.5-10.3); CREATININE 1.5 mg/dL (0.4-1.0); MAGNESIUM 1.8 mg/dL (1.7-2.8); PHOSPHORUS 2.5 mg/dL (2.5-4.6); POTASSIUM 2.9 mmol/L (3.5-5.0)
[2021-07-14] MEDS ORDERED: POTASSIUM CHLORIDE 20 MEQ TABLET PO ONE (07:11)
[2021-07-14] MEDS: SODIUM CHLORIDE 0.9% 1,000 ML IV SCH ×2 (08:24→14:46)
[2021-07-14] MEDS: HEPARIN 5,000 UNIT/ML VIAL SUBQ SCH (08:26)
[2021-07-14] MEDS: NICOTINE 14 MG PATCH TOP SCH (08:28)
[2021-07-14] MEDS: amLODIPine 5 MG TABLET PO SCH (08:30)
[2021-07-14] MEDS: levETIRAcetam 250 MG TABLET PO SCH (08:31)
[2021-07-14] MEDS: MULTIVITAMIN W/MINERALS TABLET PO SCH (08:31)
[2021-07-14] MEDS: cefTRIAXone 1 GM in SODIUM CHLORIDE 0.9% MINIBAG 100 ML IV SCH (08:35)
--- NOTE | 2021-07-14 08:44 | Discharge Plan ---
Discharge Plan Problem Reviewed?: Yes Disposition: Home, Self Care Condition: Fair Prescriptions: Potassium Chloride [Klor-Con] 20 meq PO TID #15 packet Diet: Regular Activity Restrictions: Activity as Tolerated Shower Restrictions: No Driving Restrictions: Yes (no driving due to seizures and not taking meds) Health Concerns: You presented to our emergency room with intractable nausea and vomiting since you are withdrawing from Suboxone. You have a history of heroin, and prescription opioid abuse and your urine tox screen was positive for methamphetamines and amphetamines as well. The nausea and vomiting was given you severe dehydration and a low sodium, potassium, and chloride in your bloodstream. We were able to control your nausea and vomiting, give you IV fluids and you were able to to eat breakfast, ambulate in your room without help, and were ready for discharge. While you were here we did treat you as a urinary tract infection and you received the 3 days of antibiotics you needed to get to complete therapy. Plan of Treatment: You have completed treatment for dehydration. Your kidney function is now normal for who you are. You have chronic kidney disease. We measure that with creatinine and your creatinine is 1.5. You usually run about 1.2. For you your sodium level is still a little low but that is normal for you. Your potassium is still low at 2.9 today. As such when you get home, you will need to: Take potassium 3 times a day for the next 5 days Make sure you take plenty of fluids. Get a container that is measuring 32 ounces. Drink that one container of fluid every day. Make sure you take your seizure medicine. Follow through with the referrals that social work gave you for a substance abuse clinic. See your primary care provider in the next 2 to 3 weeks. While you were here your thyroid was very, very low. You need to make sure that you take your thyroid medicine every day. If you do not it can sometimes cause permanent lack of memory, ability to have sharp thinking. Care Goals: To be free from substance abuse through help from the clinic. To have your thyroid go back to normal levels. To avoid having any seizures Assessment: Patient states that she will follow through No Smoking: If you smoke, Please STOP! Call for help. Follow-up with: Yokasta Bowens PA-C [Primary Care Provider] -
--- NOTE | 2021-07-14 08:47 | DISCHARGE SUMMARY ---
"Discharge Summary Admit Date: 07/12/21 Discharge Date: 07/14/21 Discharging Provider: Capri Trevino MD Primary Care Provider: PIEDAD Helm Code Status: Attempt Resuscitation Condition at Discharge: Fair Discharge Disposition: 01 Home, Self Care - DIAGNOSES Discharge Diagnoses with Status of Each Condition: 1. Withdrawal from recreational drug 2. Nausea and vomiting 3. Dehydration 4. Acute renal insufficiency 5. Hyponatremia 6. Hypokalemia 7. Hypochloremia 8. History of seizure disorder 9. Hypertensive emergency 10. Hypothyroidism 11. COPD without exacerbation 12. Medication noncompliance 13. Opioid abuse - HPI History of Present Illness: This is a 51-year-old female with a past medical history significant for COPD/asthma, ulcerative colitis, heroin and methamphetamine abuse, hypertension, seizure, hypothyroidism who presents today in ER complain of withdrawing from Suboxone with nausea, vomiting, headache and shortness of breath. pt states she is withdrawing from Soboxone. pt has a history of methamphetamine and heroin abuse. She states that she has been buying soboxone from her friend. her last dose was yesterday. Now she could not get from her friend. She report she has been vomiting for 24 hours, report headache, and report diffuse abdominal pain. She denies fever, chill or chest pain. Routine laboratory tests that show patient had sodium 125, potassium 2.6, chloride 76, Creatinine 1.9, WBC 22. Chest x-ray is unremarkable. Urinalysis, drug screening are pending, COVID-19 test are negative. she report she did not have Covid 19 vaccinate. pt had sodium 121 in the last admission which was likely contributed to her new seizures. Given above medical condition, medical team was asked for admitted this patient. Discussed care goal with the patient, patient clearly state she want to be DNR. 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 Chest x-ray without acute cardiopulmonary abnormality. 2. Urine culture with beta-hemolytic group strep 3. Blood cultures negative within 1 day - HOSPITAL COURSE Hospital Course: As her withdrawal symptoms abated, her nausea and vomiting also was much more controlled. She required antiemetics, continuous IV fluids. Withdrawal was treated with as needed Ativan. Her home medications for seizures were also continued. She was sharing with us that she went into withdrawal because her iends that usually give her her drugs had not been able to given to her for over 24 hours. She was still having hypokalemia at discharge but she wanted to be treated p.o. We did give her IV supplementation before she left. Hyponatremia had improved from 1 25-1 34. Urine culture grew out beta-hemolytic strep and blood cultures were negative. As such we did not think this was a true UTI. With hydration acute renal insufficiency also resolved. Hypertension which was initially 210/135 was treated with as needed medication as well as her home medicines of amlodipine. At discharge blood pressure was 141/91. Discharge exam was a temperature of 36.6. Pulse 78. Blood pressure 141/91. Respirations 18. 98% on room air. She is an alert oriented female. Says that she hurts all over and was asking for opioid prescriptions at discharge. I explained to her that she has an opioid problem and I am declining giving her more medication. Lungs are clear. Regular rate and rhythm. No tachycardia. No tremors no diaphoresis. Abdomen was vaguely achy on palpation but no rebound or guarding and she had normal bowel sounds. Extremities were with full range of motion, she did not have any ataxia. She was felt stable enough for discharge. She is asked to please follow-up with her primary care provider Angela oBwens. Social work is provided her with opportunities and list for rehab. Suboxone clinics. She is asked to follow-up with them as well. Greater than 30 minutes was spent coordinating discharge - ALLERGIES Allergies/Adverse Reactions: Allergies Allergy/AdvReac Type Severity Reaction Status Date / Time NSAIDS (Non-Steroidal Allergy Nausea Verified 07/12/21 15:03 Anti-Inflamma Penicillins Allergy Respiratory Verified 07/12/21 15:03 - MEDICATIONS Home Medications: Ambulatory Orders Medication Instructions Recorded Confirmed Levothyroxine Sodium [Synthroid] 200 mcg PO QDAC 03/22/21 07/12/21 Tiotropium [place] [Spiriva] 1 puffs INH DAILY 03/22/21 07/12/21 Amlodipine Besylate [Norvasc] 10 mg PO DAILY #30 tab 03/24/21 07/12/21 Levetiracetam [Keppra] 1,000 mg PO BID 07/12/21 07/12/21 dilTIAZem HCL [Diltiazem 24Hr ER 180 mg PO DAILY 07/12/21 07/12/21 (Xr)] Albuterol Sulfate [Proair Hfa 1 - 2 puffs INH Q4H PRN #1 gm 07/14/21 Inhaler] Potassium Chloride [Klor-Con] 20 meq PO TID #15 packet 07/14/21 - LABS Result Diagrams: 07/14/21 05:37 07/14/21 05:37"
[2021-07-14] MEDS: POTASSIUM CHLOR 10 MEQ/100 ML 10 MEQ/100 ML BAG IV SCH ×4 (09:10→12:31)
[2021-07-14 11:28] VITALS: BP 141/91
== END 2021-07-14 14:30 | disposition home or self-care (01) | DRG 897 ==
LOC: ED 14:43 → MS2 17:27
PROVIDERS: ADMIT Nurse Practitioner Gerontology; ATTEND Specialist
DX: F19.139 Other psychoactive substance abuse with withdrawal, unspecified (principal); E87.1 Hypo-osmolality and hyponatremia; I16.1 Hypertensive emergency; K51.90 Ulcerative colitis, unspecified, without complications; E86.0 Dehydration; N28.9 Disorder of kidney and ureter, unspecified; E87.6 Hypokalemia; E87.8 Other disorders of electrolyte and fluid balance, not elsewhere classified; G40.909 Epilepsy, unspecified, not intractable, without status epilepticus; E03.9 Hypothyroidism, unspecified; J44.9 Chronic obstructive pulmonary disease, unspecified; F11.10 Opioid abuse, uncomplicated; I10 Essential (primary) hypertension; Z20.822 Contact with and (suspected) exposure to COVID-19; F17.210 Nicotine dependence, cigarettes, uncomplicated; Z91.128 Patient's intentional underdosing of medication regimen for other reason; F15.10 Other stimulant abuse, uncomplicated
CPT/HCPCS: 0202U; 36415; 71045; 80048; 80053; 80177; 80306; 80307; 80320; 80329; 81001; 81025; 83690; 83735; 84100; 84443; 85025; 87040; 87077; 87086; 96361; 96374; 96375; 99284; 99285; A9270; J0592; J2060; 81003

== ENCOUNTER 2021-07-30 06:47 | Observation (INO) | payer MEDICAID ==
[2021-07-30] MEDS ORDERED: ONDANSETRON 4 MG/2 ML VIAL IVP STA (06:55)
[2021-07-30] MEDS ORDERED: SODIUM CHLORIDE 0.9% 1,000 ML IV STA ×3 (06:55→12:33)
[2021-07-30 07:32] LABS: BASOPHILS # (AUTO) 0.1 10^3/uL (0.0-0.1); BASOPHILS % (AUTO) 0.5 %; EOSINOPHILS % (AUTO) 0.3 %; HCT - HEMATOCRIT 42.5 % (37.0-47.0); HGB - HEMOGLOBIN 14.9 g/dL (12.0-16.0); LYMPHOCYTES # (AUTO) 2.2 10^3/uL (1.5-3.5); LYMPHOCYTES % (AUTO) 19.9 %; MEAN CORPUSCULAR HEMOGLOBIN 29.6 pg (27.0-31.0); MEAN CORPUSCULAR HGB CONC 35.1 g/dL (32.0-36.0); MEAN CORPUSCULAR VOLUME 84.5 fL (81.0-99.0); MEAN PLATELET VOLUME 9.5 fL (7.9-10.8); MONOCYTES # (AUTO) 0.8 10^3/uL (0.0-1.0); MONOCYTES % (AUTO) 7.6 %; NEUTROPHILS # (AUTO) 7.9 10^3/uL (1.5-6.6); NEUTROPHILS % (AUTO) 71.3 %; PLT - PLATELET COUNT 389 10^3/uL (130-450); RED BLOOD COUNT 5.03 10^6/uL (4.20-5.40); RED CELL DISTRIBUTION WIDTH 14.4 % (12.0-15.0); WHITE BLOOD COUNT 11.1 x10^3/uL (4.8-10.8)
[2021-07-30] MEDS ORDERED: BUPRENORPHINE 0.3 MG/ML VIAL IVP ONE (07:33)
[2021-07-30 07:55] LABS: BILIRUBIN,URINE NEGATIVE (NEGATIVE); GLUCOSE, URINE (UA) NEGATIVE (NEGATIVE); KETONES,URINE (UA) NEGATIVE (NEGATIVE); LEUKOCYTE ESTERASE, URINE TRACE (NEGATIVE); NITRITE,URINE NEGATIVE (NEGATIVE); OCCULT BLOOD,URINE NEGATIVE (NEGATIVE); PROTEIN,URINE 100 mg/dL (NEGATIVE); UROBILINOGEN,URINE 0.2 (NORMAL) E.U./dL (NORMAL)
[2021-07-30 07:57] LABS: ALBUMIN 3.1 g/dL (3.2-5.5); ALBUMIN/GLOBULIN RATIO 0.8 (1.0-2.2); BILIRUBIN,TOTAL 0.7 mg/dL (0.2-1.0); CALCIUM 8.7 mg/dL (8.5-10.3); CREATININE 0.9 mg/dL (0.4-1.0); TOTAL PROTEIN 6.8 g/dL (6.7-8.2)
[2021-07-30 07:58] LABS: CLARITY,URINE CLEAR (CLEAR)
[2021-07-30 08:04] LABS: POTASSIUM 2.1 mmol/L (3.5-5.0)
--- NOTE | 2021-07-30 08:04 | ED Physician Documentation ---
PD HPI NVD - Stated complaint Stated Complaint: VOMITING - Chief complaint Chief Complaint: Abd Pain - History obtained from History obtained from: Patient - History of Present Illness Timing - details: Gradual onset, Still present, Waxing and waning Associated symptoms: Abdominal pain, Dizzy, Near syncope / syncope Contributing factors: Other (narcotic withdrawal) Improved by: Vomiting Worsened by: Other (time) Similar symptoms before: Diagnosis (narcotic withdrawal, ulcerative colitis) Recently seen: Emergency Dept, Admitted - Additonal information Additional information: 51-year-old female with a history of heroin and methamphetamine abuse, ulcerative colitis, hypertension and seizure disorder has been using Suboxone that she has been buying off the street for the past 5 years. She reports she is doing this for pain control. She has been admitted into the hospital here at [facility] twice this year for withdrawal symptoms with excessive electrolyte and fluid losses resulting in hypertensive crisis and hypokalemia and hyponatremia. She indicates that she has plans to go to [facility] tomorrow. She has not been able to establish care to get to the neurologist for followup. She has had seizure in her first presentation this February with hypertensive crisis, dehydration, hypokalemia, hyponatremia and acute kidney injury. Review of Systems Constitutional: denies: Fever Eyes: denies: Decreased vision Ears: denies: Ear pain Nose: denies: Congestion Throat: denies: Sore throat Cardiac: denies: Chest pain / pressure, Palpitations, Pedal edema, Calf pain Respiratory: denies: Dyspnea, Cough GI: reports: Abdominal Pain, Nausea, Vomiting, Diarrhea : denies: Dysuria, Frequency PD PAST MEDICAL HISTORY - Past Medical History Past Medical History: Yes Cardiovascular: Hypertension Respiratory: Asthma, COPD Neuro: None Endocrine/Autoimmune: HyPOthyroidism GI: Ulcerative colitis : None Psych: Depression, Other Musculoskeletal: None Derm: None Other Past Medical History: Heroin addiction - Past Surgical History Past Surgical History: Yes General: Cholecystectomy, 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 - Present Medications Home Medications: Ambulatory Orders Medication Instructions Recorded Confirmed Levothyroxine Sodium [Synthroid] 200 mcg PO QDAC 03/22/21 07/30/21 Tiotropium [place] [Spiriva] 1 puffs INH DAILY 03/22/21 07/30/21 Amlodipine Besylate [Norvasc] 10 mg PO DAILY #30 tab 03/24/21 07/30/21 Levetiracetam [Keppra] 1,000 mg PO BID 07/12/21 07/30/21 dilTIAZem HCL [Diltiazem 24Hr ER 180 mg PO DAILY 07/12/21 07/30/21 (Xr)] Albuterol Sulfate [Proair Hfa 1 - 2 puffs INH Q4H PRN #1 gm 07/14/21 07/30/21 Inhaler] Potassium Chloride [Klor-Con] 20 meq PO TID #15 packet 07/14/21 07/30/21 - Allergies Allergies/Adverse Reactions: Allergies Allergy/AdvReac Type Severity Reaction Status Date / Time NSAIDS (Non-Steroidal Allergy Nausea Verified 07/30/21 07:01 Anti-Inflamma Penicillins Allergy Respiratory Verified 07/30/21 07:01 - Social History Does the pt smoke?: Yes Smoking Status: Current every day smoker Does the pt drink ETOH?: No Does the pt have substance abuse?: Yes - Immunizations Immunizations are current?: Yes - POLST Patient has POLST: No PD ED PE NORMAL - Vitals Vital signs reviewed: Yes (tachy and hypertensive severe) - General General: Alert and oriented X 3, Well developed/nourished, Other (The patient is whining and pain and not making tears.) - HEENT HEENT: Atraumatic, PERRL, EOMI, Other (Parched mucous membranes.) - Neck Neck: Supple, no meningeal sign, No bony TTP - Cardiac Cardiac: No murmur, Other (Tachycardic to 100) - Respiratory Respiratory: No respiratory distress, Clear bilaterally - Abdomen Abdomen: Normal bowel sounds, Soft, Non distended, No organomegaly, Other (Mild general tenderness without focal tenderness no guarding or rebound.) - Back Back: No CVA TTP, No spinal TTP - Derm Derm: Normal color, Warm and dry, No rash - Extremities Extremities: No deformity, No edema - Neuro Neuro: Alert and oriented X 3, hemp fiber taker off 2-12 intact, No motor deficit, No sensory deficit, Normal speech Eye Opening: Spontaneous Motor: Obeys Commands Verbal: Oriented GCS Score: 15 - Psych Psych: Other (Mood is defeated the affect is sad) Results - Vitals Vitals: Vital Signs - 24 hr 07/30/21 07/30/21 07/30/21 06:54 07:48 08:28 Temperature 36.7 C Heart Rate 103 H 110 H 94 Respiratory 18 18 16 Rate Blood Pressure 238/153 H 232/131 H 216/136 H O2 Saturation 100 99 92 07/30/21 07/30/21 07/30/21 09:30 11:00 12:00 Temperature Heart Rate 88 84 85 Respiratory 15 15 20 Rate Blood Pressure 216/136 H 192/118 H 180/128 H O2 Saturation 97 99 95 Oxygen O2 Source Room air - Labs Labs: Laboratory Tests 07/30/21 07/30/21 07/30/21 07:19 07:30 07:35 WBC 11.1 H RBC 5.03 Hgb 14.9 Hct 42.5 MCV 84.5 MCH 29.6 MCHC 35.1 RDW 14.4 Plt Count 389 MPV 9.5 Neut # (Auto) 7.9 H Lymph # (Auto) 2.2 [place] # (Auto) 0.8 Eos # (Auto) 0.0 Baso # (Auto) 0.1 Absolute Nucleated RBC 0.00 Nucleated RBC % 0.0 Sodium 135 Potassium 2.1 L* Chloride 87 L Carbon Dioxide 36 H Anion Gap 12.0 BUN 10 Creatinine 0.9 Estimated GFR (MDRD) 65 L Glucose 126 H Calcium 8.7 Total Bilirubin 0.7 AST 19 ALT 18 Alkaline Phosphatase 123 H Total Protein 6.8 Albumin 3.1 L Globulin 3.7 Albumin/Globulin Ratio 0.8 L Lipase 26 Urine Color YELLOW Urine Clarity CLEAR Urine pH 8.0 H Ur Specific [place] 1.020 Urine Protein 100 H Urine Glucose (UA) NEGATIVE Urine Ketones NEGATIVE Urine Occult Blood NEGATIVE Urine Nitrite NEGATIVE Urine Bilirubin NEGATIVE Urine Urobilinogen 0.2 (NORMAL) Ur Leukocyte Esterase TRACE H Urine RBC 0-5 Urine WBC 6-10 H Ur Squamous Epith Cells MOD Squamous H Urine Bacteria Few Urine Casts 0-2 Hyaline Casts Ur Microscopic Review INDICATED Urine Culture Comments NOT INDICATED Nasal Adenovirus (PCR) Nasal B. parapertussis DNA (PCR) Nasal Coronavir 229E PCR Nasal Coronavir HKU1 PCR Nasal Coronavir NL63 PCR Nasal Coronavir OC43 PCR Nasal Enterovir/Rhinovir PCR Nasal Influenza B PCR Nasal Influenza A PCR Nasal Parainfluen 1 PCR Nasal Parainfluen 2 PCR Nasal Parainfluen 3 PCR Nasal Parainfluen 4 PCR Nasal RSV (PCR) Nasal B.pertussis DNA PCR Nasal C.pneumoniae (PCR) [place] Human Metapneumo PCR Nasal M.pneumoniae (PCR) Nasal SARS-CoV-2 (PCR) 07/30/21 07/30/21 08:20 12:06 WBC RBC Hgb Hct MCV MCH MCHC RDW Plt Count MPV Neut # (Auto) Lymph # (Auto) [place] # (Auto) Eos # (Auto) Baso # (Auto) Absolute Nucleated RBC Nucleated RBC % Sodium 134 L Potassium 2.4 L* Chloride 92 L Carbon Dioxide 31 Anion Gap 11.0 BUN 8 Creatinine 0.7 Estimated GFR (MDRD) 88 L Glucose 105 H Calcium 8.1 L Total Bilirubin AST ALT Alkaline Phosphatase Total Protein Albumin Globulin Albumin/Globulin Ratio Lipase Urine Color Urine Clarity Urine pH Ur Specific [place] Urine Protein Urine Glucose (UA) Urine Ketones Urine Occult Blood Urine Nitrite Urine Bilirubin Urine Urobilinogen Ur Leukocyte Esterase Urine RBC Urine WBC Ur Squamous Epith Cells Urine Bacteria Urine Casts Ur Microscopic Review Urine Culture Comments Nasal Adenovirus (PCR) NOT DETECTED Nasal B. parapertussis DNA (PCR) NOT DETECTED Nasal Coronavir 229E PCR NOT DETECTED Nasal Coronavir HKU1 PCR NOT DETECTED Nasal Coronavir NL63 PCR NOT DETECTED Nasal Coronavir OC43 PCR NOT DETECTED Nasal Enterovir/Rhinovir PCR NOT DETECTED Nasal Influenza B PCR NOT DETECTED Nasal Influenza A PCR NOT DETECTED Nasal Parainfluen 1 PCR NOT DETECTED Nasal Parainfluen 2 PCR NOT DETECTED Nasal Parainfluen 3 PCR NOT DETECTED Nasal Parainfluen 4 PCR NOT DETECTED Nasal RSV (PCR) NOT DETECTED Nasal B.pertussis DNA PCR NOT DETECTED Nasal C.pneumoniae (PCR) NOT DETECTED [place] Human Metapneumo PCR NOT DETECTED Nasal M.pneumoniae (PCR) NOT DETECTED Nasal SARS-CoV-2 (PCR) NOT DETECTED PD MEDICAL DECISION MAKING - ED course Complexity details: reviewed results, re-evaluated patient, considered differential, d/w patient ED course: 51-year-old female with a history of heroin and methamphetamine abuse with seizure disorder and ulcerative colitis has developed withdrawal symptoms again and she is having issue with nausea vomiting abdominal pain and generalized pain. She arrives to the emergency department with a markedly elevated blood pressure she did not have seizure today. The patient is given a dose of buprenorphine with marked improvement in her affect and ability to cope. She is administered saline and ondansetron. She has critically low potassium at 2.1 and she is administered intravenous potassium and when her vomiting and affect are controlled she is administered oral potassium as well as her morning medications of amlodipine diltiazem and Keppra. Despite efforts with saline, intravenous potassium and oral potassium the patient's potassium still remains in critically low at 2.4. She does have an a appointment detox tomorrow at [facility]. She continues to have hypertensive crisis improved. Departure - Departure Disposition: ED Place in Observation Clinical Impression: Narcotic withdrawal, Hypertensive emergency, Hypokalemia
[2021-07-30] MEDS ORDERED: POTASSIUM CHLOR 10 MEQ/100 ML 10 MEQ/100 ML BAG IV ONE ×2 (08:06→10:01)
[2021-07-30 08:09] LABS: BACTERIA,URINE Few /HPF (None Seen); CASTS, URINE 0-2 Hyaline Casts /LPF; RBC,URINE 0-5 /HPF (0-5); SQUAMOUS EPITHELIAL CELL,UR MOD Squamous (<= Few)
[2021-07-30] MEDS ORDERED: amLODIPine 5 MG TABLET PO STA (08:41)
[2021-07-30] MEDS ORDERED: POTASSIUM CHLORIDE 20 MEQ TABLET PO STA ×2 (08:41→10:00)
[2021-07-30] MEDS ORDERED: diltiaZEM CD 180 MG CAPSULE PO STA (08:42)
[2021-07-30] MEDS ORDERED: levETIRAcetam 250 MG TABLET PO STA (08:45)
[2021-07-30 09:26] LABS: B. PARAPERTUSSIS- RESP PCR PAN NOT DETECTED; B. PERTUSSIS- RESP PCR PANEL NOT DETECTED; C. PNEUMONIAE- RESP PCR PANEL NOT DETECTED; CORONAVIRUS 229E-RESP PCR NOT DETECTED; CORONAVIRUS HKU1-RESP PCR NOT DETECTED; CORONAVIRUS NL63-RESP PCR NOT DETECTED; CORONAVIRUS OC43-RESP PCR NOT DETECTED; HUMAN METAPNEUMOVIRUS NOT DETECTED; INFLUENZA A- RESP PCR PANEL NOT DETECTED; INFLUENZA B - RESP PCR PANEL NOT DETECTED; M. PNEUMONIAE- RESP PCR PANEL NOT DETECTED; PARAINFLUENZA VIRUS 1 NOT DETECTED; PARAINFLUENZA VIRUS 2 NOT DETECTED; PARAINFLUENZA VIRUS 3 NOT DETECTED; PARAINFLUENZA VIRUS 4 NOT DETECTED; RHINOVIRUS/ENTEROVIRUS NOT DETECTED; RSV- RESP PCR PANEL NOT DETECTED; SARS-CoV-2 -RESP PCR PANEL NOT DETECTED
[2021-07-30 12:19] LABS: CALCIUM 8.1 mg/dL (8.5-10.3); CREATININE 0.7 mg/dL (0.4-1.0)
[2021-07-30 12:22] LABS: POTASSIUM 2.4 mmol/L (3.5-5.0)
[2021-07-30] MEDS: POTASSIUM CHLOR 10 MEQ/100 ML 10 MEQ/100 ML BAG IV SCH ×8 (13:04→22:01)
[2021-07-30] MEDS ORDERED: SODIUM CHLORIDE FLUSH 0.9% 10 ML SYRINGE IVP PRN (16:25)
[2021-07-30] MEDS: D5NS W/20 MEQ KCL 1,000 ML IV SCH (18:21)
[2021-07-30] MEDS: SODIUM CHLORIDE FLUSH 0.9% 10 ML SYRINGE IVP SCH (18:22)
[2021-07-30] MEDS: hydrALAZINE INJ 20 MG/ML VIAL IVP PRN (18:33)
[2021-07-30] MEDS ORDERED: ONDANSETRON 4 MG/2 ML VIAL IVP PRN (20:33)
[2021-07-30] MEDS ORDERED: PROCHLORPERAZINE 10 MG/2 ML VIAL IVP PRN (20:34)
--- NOTE | 2021-07-30 20:53 | HISTORY & PHYSICAL EXAMINATION ---
Chief Complaint - Chief Complaint Chief Complaint: Abdominal pain, nausea, vomiting History of Present Illness - Admitted From Admitted From:: ED from home - History Obtained From Records Reviewed: [facility] History obtained from: Patient, medical records Exam Limitations: None - History of Present Illness HPI Comment/Other: Verena is a 51 year old female who presented to the ED today with abdominal pain, nausea, and vomiting. She has a history of heroin and methamphetamine use and has been purchasing Suboxone from a friend for her pain. She has been hospitalized here twice for withdrawal symptoms, with her most recent stay being July 12-. She also has ulcerative colitis, hypertension, seizure disorder, asthma, COPD, and hypothydroidism. She reports that her symptoms of N/V and abdominal pain started 2 days ago. They have ebbed and flowed and worsened this morning. She reports that she vomited bright red blood yesterday and has been coughing. Her abdominal pain radiates to her back and chest. She describes her chest pain as "someone making a fist and punching my chest." She last used Suboxone 4 days ago and states that she tried Tylenol but it did not provide her any relief. She reports using methamphetamines daily and marijuana every 2-3 hours to "calm her nerves". She last used meth yesterday morning. She has an appointment with a detox center tomorrow morning at 8:30 a.m. and hopes to be discharged so she can still make the appointment. In the ED today, her blood pressure was as high as 238/152. Most recent blood pressure is 165/98. Her potassium was also critically low at 2.1. She was given supplemental IV potassium and it increased to 2.4 but is still much lower than we would like to see. She has a white count of 11.1, na 132, Cl 92, BUN 8, and Cr 0.7. The patient also complains of urinary urgency, frequency, and pain with urination; she has seen blood in her urine. She is sexually active and in a monogamous relationship with a man of 15 years. She has no concerns for STIs. Verena has a known seizure disorder for which she takes Keppra. Because of her nausea and vomiting, she has not been able to remain compliant. Her last seizure was yesterday afternoon. She does not regularly see a neurologist and is waiting for a call back from a clinic in [facility]. History - Past Medical History Cardiovascular: reports: Hypertension Respiratory: reports: Asthma, COPD Neuro: reports: None Endocrine/Autoimmune: reports: HyPOthyroidism GI: reports: Ulcerative colitis : reports: None Psych: reports: Depression, Other Musculoskeletal: reports: None Derm: reports: None MRSA Hx?: No Other Past Medical History: Heroin addiction - Past Surgical History General: reports: Cholecystectomy, Gastric surgery /[employer]: reports: Hysterectomy - Family & Social History Family History: Mother: Cancer, Father: Cancer Family History Comment/Other: Mother: gastric cancer, in her 50s. Father: lung cancer, in his 50s Living arrangement: At home Living Situation: With friend(s) Social History Notes: She lives at home with her roommates: 2 females and 1 males. She has been in a monogamous relationship with the same man for 15 years. She admits to daily marijuana and methamphetamine use. No alcohol abuse. 2 cigarette/day. unemployed. - Substance History Use: Uses substance without health or social issues: Tobacco, Amphetamine, Cannabis, Other (Heroin) Dependence: Experiences withdrawal or developed tolerances: Amphetamine, Other (Heroin) - POLST Patient has POLST: No Meds/Allgy - Home Medications Home Medications: Ambulatory Orders Medication Instructions Recorded Confirmed Levothyroxine Sodium [Synthroid] 200 mcg PO QDAC 03/22/21 07/30/21 Tiotropium [place] [Spiriva] 1 puffs INH DAILY 03/22/21 07/30/21 Amlodipine Besylate [Norvasc] 10 mg PO DAILY #30 tab 03/24/21 07/30/21 Levetiracetam [Keppra] 1,000 mg PO BID 07/12/21 07/30/21 dilTIAZem HCL [Diltiazem 24Hr ER 180 mg PO DAILY 07/12/21 07/30/21 (Xr)] Albuterol Sulfate [Proair Hfa 1 - 2 puffs INH Q4H PRN #1 gm 07/14/21 07/30/21 Inhaler] Potassium Chloride [Klor-Con] 20 meq PO TID #15 packet 07/14/21 07/30/21 - Allergies Allergies/Adverse Reactions: Allergies Allergy/AdvReac Type Severity Reaction Status Date / Time NSAIDS (Non-Steroidal Allergy Nausea Verified 07/30/21 07:01 Anti-Inflamma Penicillins Allergy Respiratory Verified 07/30/21 07:01 Review of Systems - Constitutional Constitutional: reports: Fatigue, Chills, Malaise, Weakness, Diaphoresis, Weight loss - Eyes Eyes: denies: Blurred vision, Vision loss - Ears, Nose & Throat Ears, Nose & Throat: denies: Hearing loss, Mouth lesions - Cardiovascular Cariovascular: reports: Chest pain (desribed as someone punching her), Lightheadedness - Respiratory Respiratory: reports: Cough, Wheezing (Hx of asthma and COPD), SOB at rest - Gastrointestinal Gastrointestinal: reports: Abdominal pain, Nausea, Vomiting, Aren blood emesis. denies: Constipation, Diarrhea - Genitourinary Genitourinary: reports: Dysuria, Frequency, Urgency, Hematuria, Flank pain - Integumentary Integumentary: reports: Rash, Dryness - Neurological Neurological: reports: Headache, Seizures (Last seizure was yesterday after missed dose of Keppra) - Psychiatric Psychiatric: reports: Depression - Hematologic/Lymphatic Hematologic/Lymphatic: denies: Bruising Prior Level of Functionality: Verena is able to perform her activities of daily living without difficulty. She has no ambulatory restrictions. Exam - Vital Signs Reviewed Vital Signs: Yes Vital Signs: Vital Signs x48h Temp Pulse Pulse Resp BP BP Pulse Ox 07/30/21 20:46 36.9 C 89 18 168/105 H 98 07/30/21 19:31 93 165/98 H 07/30/21 19:15 167/97 H 07/30/21 19:01 88 187/107 H 07/30/21 18:47 90 171/108 H 07/30/21 18:42 90 179/116 H 07/30/21 18:37 92 199/123 H 07/30/21 18:33 85 187/115 H 187/118 H 07/30/21 18:16 37.1 C 92 22 98 07/30/21 18:00 197/115 H 07/30/21 16:00 85 19 175/112 H 96 07/30/21 14:00 86 13 172/113 H 97 - Physical Exam General Appearance: positive: Alert, Other (The patient looks to feel miserable, she is sweaty and curled up in bed, rolling around and slow to answer questions) Eyes Bilateral: positive: PERRL, EOMI ENT: positive: Dry mucous membranes Neck: positive: No JVD. negative: Stiff neck Respiratory: positive: Breath sounds nml Cardiovascular: positive: Regular rate & rhythm. negative: Gallop/S4, Friction rub Peripheral Pulses: positive: 2+ Abdomen: positive: Tenderness (Diffuse tenderness, worst at RUQ), Guarding, Other (Active bowel sounds) Back: positive: CVA tenderness (R) Skin: positive: Dry (Lower extremities are dry), Skin rash (Small, circumscribed dry patch on right lateral carrero; has been present 2-3 months) Extremities: positive: Non-tender, No pedal edema Neurologic/Psychiatric: positive: Oriented x3, CN's nml (2-12) Conclusion/Plan - Problem List (1) Withdrawal from recreational drug Conclusion/Plan: This is the patient's third hospitalization for drug withdrawal this year. The last time she was admitted was July 12- for withdrawal from Suboxone. She purchases Suboxone from a friend and has been without it for 4 days now. She also admits to daily methamphetamine and marijuana use. She has a history of heroin use. Verena has an appointment with a detox facility tomorrow at 8:30 a.m. and is hopeful that she can still attend this appointment. Plan: Continue IVF, and anti-emetics as needed. We will monitor her closely for seizures during withdrawal. (2) Hypertensive emergency Conclusion/Plan: BP on initial presentation in the ED was 238/153. Most recent BP is 165/98. She received her usual home meds in the ER (oral). She has known hypertension for which she takes Diltiazem and Norvasc. Plan: Monitor BP closely Resume diltiazem/norvasc. Hydralazine as needed for systolic readings >175. (3) Hypokalemia Conclusion/Plan: Critically low potassium in the ED of 2.1. She was given IV potassium 100 meq and 40 meq po and increased to 2.4. Plan: Recheck now. Supplement with IV potassium Closely monitor with BMP (4) Hyponatremia Conclusion/Plan: Sodium of 134, likely due to volume depletion. Plan: IVF Closely monitor with BMP in am (5) Seizure Conclusion/Plan: Known seizure disorder. Takes Keppra at home. She missed yesterday's evening dose due to emesis. She had a seizure shortly after. She does not have a neurologist that she sees regularly. She is waiting for a call back from a clinic in [facility]. She did get 1000 mg in the ER. Plan: Change her PO Keppra to IV for tomorrow's dose due to nausea and vomiting Closely monitor electrolytes and symptoms of withdrawal (6) Hypothyroid Conclusion/Plan: TSH on 07/12. She has a history of medication non-compliance. IN review of the EMR she has had a rising TSH for most of the last year. Plan: Synthroid 200mcg PO in the morning Stress compliance since this may cause permanent end organ damage if she does this for too long. Qualifiers: Hypothyroidism type: acquired Qualified Code(s): E03.9 - Hypothyroidism, unspecified (7) Nicotine dependence Conclusion/Plan: Currently smoking 1-2 cigarettes daily. She is requesting a Nicotine patch for withdrawal. Plan: Nicotine 7mg patch Qualifiers: Nicotine product type: cigarettes (8) COPD (chronic obstructive pulmonary disease) Conclusion/Plan: History of chronic obstructive pulmonary disease. Lungs are clear on physical exam. Patient reports use of inhaler every 4-6 hours at home. Plan: Albuterol inhaler prn Qualifiers: COPD type: unspecified COPD Qualified Code(s): J44.9 - Chronic obstructive pulmonary disease, unspecified (9) Chest pain Conclusion/Plan: Plan: EKG Trend troponins Qualifiers: Chest pain type: unspecified Qualified Code(s): R07.9 - Chest pain, unspecified (10) Dysuria Conclusion/Plan: Dysuria, urinary freqency and urgency. Patient reports hematuria. Right sided- CVA tenderness on physical exam. UA results show protein 100, trace leukocyte esterase, urine WBC 6-10, and moderate squamous epithelial cells. Plan: CT abdomen and pelvis to rule out pyelonephritis. - Lab Results Lab results reviewed: Yes Fish Bones: 07/30/21 07:19 07/30/21 22:00 Core Measures - Anticipated LOS I expect patient to be DC'd or transferred within 96 hours.: Yes - DVT/VTE - Prophylaxis VTE/DVT Device ordered at admit?: Yes
[2021-07-30] MEDS ORDERED: ALBUTEROL NEB 2.5 MG/3 ML INH PRN (22:19)
[2021-07-30] MEDS ORDERED: POTASSIUM CHLORIDE 20 MEQ/15 ML UDC PO SCH (23:45)
[2021-07-31] MEDS: SODIUM CHLORIDE FLUSH 0.9% 10 ML SYRINGE IVP SCH ×2 (01:37→13:01)
[2021-07-31] MEDS: D5NS W/20 MEQ KCL 1,000 ML IV SCH ×2 (02:32→11:10)
[2021-07-31] MEDS: POTASSIUM CHLORIDE 20 MEQ TABLET PO SCH ×2 (03:25→08:21)
[2021-07-31] MEDS: hydrALAZINE INJ 20 MG/ML VIAL IVP PRN (06:42)
[2021-07-31] MEDS ORDERED: LEVOTHYROXINE 75 MCG TABLET PO SCH (07:00)
[2021-07-31] MEDS ORDERED: LEVOTHYROXINE 125 MCG TABLET PO SCH (07:00)
--- NOTE | 2021-07-31 08:10 | CT Report ---
PROCEDURE: Abdomen/Pelvis WO INDICATIONS: Right flank pain, abdominal pain, elevated wbc TECHNIQUE: Noncontrast 5 mm thick sections acquired from the diaphragms to the symphysis. 5 mm coronal and sagi ttal reformats were then performed. For radiation dose reduction, the following was used: automated exposure control, adjustment of mA and/or kV according to patient size. COMPARISON: April 20, 2018 FINDINGS: Inferior chest: Left middle and and lower lobe streaky densities, most consistent with atelectasis. No cardiomegaly or pericardial effusion. Gallbladder: Cholecystectomy. Biliary tree: No intra-or extrahepatic biliary ductal dilatation. Liver: The liver demonstrates normal appearance. Spleen: Normal size and morphology is seen. Pancreas: Normal morphology without masses or inflammatory changes. Adrenals: Normal size without masses. Kidneys: Mild right hydronephrosis and perinephric stranding without residual nephrolithiasis. The left kidney demonstrates normal contour without nephrolithiasis or hydronephrosis. Vasculature: Mild to moderate calcified atheromatous changes aorta, measuring up to 2.4 cm. Lymphatic system: No pathologic enlargement by size criteria. Bowel: No intestinal obstruction. Diffuse wall thickening of the colon and distal ileum. Descending/s igmoid diverticulosis. Peritoneum/Retroperitoneum: No free intraperitoneal gas or large collection. Urinary bladder: The urinary bladder is distended with a smooth thin wall. Pelvic organs: No significant abnormality. Bones/soft tissues: No significant abnormality. IMPRESSION: 1.Mild right hydronephrosis and perinephric stranding, which may reflect recent calculus passage. 2.Diffuse wall thickening of the distal ileum and colon, most consistent with an infectious or inflam matory process. Reviewed by: Fede Garcia MD on 07/31/2021 8:08 AM PDT Approved by: Fede Garcia MD on 07/31/2021 8:08 AM PDT Station ID: [id number]
[2021-07-31] MEDS ORDERED: POTASSIUM CHLORIDE 20 MEQ TABLET PO ONE ×2 (08:51→11:16)
[2021-07-31] MEDS ORDERED: hydrALAZINE INJ 20 MG/ML VIAL IVP PRN (08:57)
[2021-07-31] MEDS ORDERED: levETIRAcetam INJ 500 MG in SODIUM CHLORIDE 0.9% 100ML 100 ML IV SCH (09:00)
[2021-07-31] MEDS ORDERED: NICOTINE 7 MG PATCH TOP SCH (09:00)
[2021-07-31] MEDS ORDERED: amLODIPine 5 MG TABLET PO SCH (09:00)
[2021-07-31] MEDS ORDERED: diltiaZEM CD 180 MG CAPSULE PO SCH (09:00)
[2021-07-31 09:52] LABS: BASOPHILS % (AUTO) 0.7 %; EOSINOPHILS % (AUTO) 16.1 %; HCT - HEMATOCRIT 38.5 % (37.0-47.0); HGB - HEMOGLOBIN 13.1 g/dL (12.0-16.0); LYMPHOCYTES % (AUTO) 23.9 %; MEAN CORPUSCULAR HEMOGLOBIN 29.1 pg (27.0-31.0); MEAN CORPUSCULAR VOLUME 85.6 fL (81.0-99.0); MEAN PLATELET VOLUME 9.3 fL (7.9-10.8); MONOCYTES % (AUTO) 6.9 %; PLT - PLATELET COUNT 371 10^3/uL (130-450); RED CELL DISTRIBUTION WIDTH 14.7 % (12.0-15.0); WHITE BLOOD COUNT 8.6 x10^3/uL (4.8-10.8)
[2021-07-31 10:20] LABS: CALCIUM 8.2 mg/dL (8.5-10.3); CREATININE 0.9 mg/dL (0.4-1.0); POTASSIUM 3.1 mmol/L (3.5-5.0)
[2021-07-31 10:23] LABS: ABNORMAL LYMPHS % (MANUAL) 0 %
[2021-07-31 10:25] LABS: BAND NEUTROPHILS % (MANUAL) 2 %; EOSINOPHILS # (MANUAL) 0.1 10^3/uL (0-0.7); LYMPHOCYTES # (MANUAL) 1.6 10^3/uL (1.5-3.5); LYMPHOCYTES % (MANUAL) 11 %; MONOCYTES # (MANUAL) 0.1 10^3/uL (0.0-1.0); NEUTROPHILS # (MANUAL) 6.8 10^3/uL (1.5-6.6); REACTIVE LYMPHS % (MANUAL) 8 %
--- NOTE | 2021-07-31 13:42 | Discharge Plan ---
Discharge Plan Problem Reviewed?: Yes Disposition: Home, Self Care Condition: Stable Prescriptions: Ondansetron HCl [Zofran] 4 mg PO Q6H PRN #15 tab PRN Reason: Nausea / Vomiting Diet: Regular Activity Restrictions: Activity as Tolerated Shower Restrictions: No (fall precaution) Instruction Topics: Ondansetron tablets, Nausea Vomit Control, Hypokalemia Dc, Diet High Potassium Dc Health Concerns: You tolerated diet now. you are prescribed Zofran as needed for control of nausea and vomiting. You are found to have hypokalemia, you may continue take your home potassium as schedule, you may take rich potassium foods such as bananas, oranges, cantaloupe at home, keep hydration at home, and recheck your potassium level when you see your PCP on next week. You may resume your home meds as the schedule. Plan of Treatment: as the above Care Goals: Stabilization and improvement of your medical conditions Assessment: Discussed the care plan with you, answered your questions, you understood Additional Instructions or Follow Up instructions: You may follow-up with your PCP in 1 week, recheck your potassium level. Should your symptoms return or worse, you may present to ER or call 911 for help No Smoking: If you smoke, Please STOP! Call for help. Follow-up with: Yokasta Bowens PA-C [Primary Care Provider] -
--- NOTE | 2021-07-31 14:00 | DISCHARGE SUMMARY ---
Discharge Summary Admit Date: 07/30/21 Discharge Date: 07/31/21 Discharging Provider: Ottoniel Echeverria Primary Care Provider: Angela Briceno Condition at Discharge: Stable Discharge Disposition: Home, Self Care Discharge Facility Name: home - DIAGNOSES Discharge Diagnoses with Status of Each Condition: (1) Withdrawal from recreational drug stable without withdrawal symptoms. Patient tolerated diet without nausea, vomiting or abdominal pain (2) Hypertensive emergency resolved. resume home meds (3) Hypokalemia potassium is 3.1, replaced. resume home potassium and recheck with her PCP in one week. (4) Hyponatremia sodium is 133. (5) Seizure no seizure at hospital, resume home meds (6) Hypothyroid slight elevated TSH but normal arrange Free T4. resume home meds. pt has hx of medical non-compliance. advise pt for medical compliance. (7) Nicotine dependence stable, advise pt quit smoking cigarette. (8) COPD (chronic obstructive pulmonary disease) stable, resume home meds (9) Chest pain pt denies any chest pain. troponin is slightly elevated and trended down. EKG reveals no acute Ischemic change. (10) Dysuria resolved. pt denies abdominal pain or dysuria at the discharge. pt has no fever or chill. WBC became normal arrange. UA culture was not indicated. (11)medical non-compliance as pt's hx. strongly advise pt make medical compliance special at her medical hx of hypertension emergence, seizure disorder, hypothyroid, COPD disease. - HPI History of Present Illness: refer from Dr. Trevino's HPI on 07/30/21 Verena is a 51 year old female who presented to the ED today with abdominal pain, nausea, and vomiting. She has a history of heroin and methamphetamine use and has been purchasing Suboxone from a friend for her pain. She has been hospitalized here twice for withdrawal symptoms, with her most recent stay being July 12-. She also has ulcerative colitis, hypertension, seizure disorder, asthma, COPD, and hypothydroidism. She reports that her symptoms of N/V and abdominal pain started 2 days ago. They have ebbed and flowed and worsened this morning. She reports that she vomited bright red blood yesterday and has been coughing. Her abdominal pain radiates to her back and chest. She describes her chest pain as "someone making a fist and punching my chest." She last used Suboxone 4 days ago and states that she tried Tylenol but it did not provide her any relief. She reports using methamphetamines daily and marijuana every 2-3 hours to "calm her nerves". She last used meth yesterday morning. She has an appointment with a detox center tomorrow morning at 8:30 a.m. and hopes to be discharged so she can still make the appointment. In the ED today, her blood pressure was as high as 238/152. Most recent blood pressure is 165/98. Her potassium was also critically low at 2.1. She was given supplemental IV potassium and it increased to 2.4 but is still much lower than we would like to see. She has a white count of 11.1, na 132, Cl 92, BUN 8, and Cr 0.7. The patient also complains of urinary urgency, frequency, and pain with urination; she has seen blood in her urine. She is sexually active and in a monogamous relationship with a man of 15 years. She has no concerns for STIs. Verena has a known seizure disorder for which she takes Keppra. Because of her nausea and vomiting, she has not been able to remain compliant. Her last seizure was yesterday afternoon. She does not regularly see a neurologist and is waiting for a call back from a clinic in [facility]. - ALLERGIES Allergies/Adverse Reactions: Allergies Allergy/AdvReac Type Severity Reaction Status Date / Time NSAIDS (Non-Steroidal Allergy Nausea Verified 07/30/21 07:01 Anti-Inflamma Penicillins Allergy Respiratory Verified 07/30/21 07:01 - MEDICATIONS Home Medications: Ambulatory Orders Medication Instructions Recorded Confirmed Levothyroxine Sodium [Synthroid] 200 mcg PO QDAC 03/22/21 07/30/21 Tiotropium [place] [Spiriva] 1 puffs INH DAILY 03/22/21 07/30/21 Amlodipine Besylate [Norvasc] 10 mg PO DAILY #30 tab 03/24/21 07/30/21 Levetiracetam [Keppra] 1,000 mg PO BID 07/12/21 07/30/21 dilTIAZem HCL [Diltiazem 24Hr ER 180 mg PO DAILY 07/12/21 07/30/21 (Xr)] Albuterol Sulfate [Proair Hfa 1 - 2 puffs INH Q4H PRN #1 gm 07/14/21 07/30/21 Inhaler] Potassium Chloride [Klor-Con] 20 meq PO TID #15 packet 07/14/21 07/30/21 Ondansetron HCl [Zofran] 4 mg PO Q6H PRN #15 tab 07/31/21 - PHYSICAL EXAM AT DISCHARGE General Appearance: positive: No acute distress, Alert. negative: Lethargic Eyes Bilateral: positive: Normal inspection, PERRL, No lid inflammation ENT: positive: ENT inspection nml, No signs of dehydration. negative: Purulent nasal drainage Neck: positive: Nml inspection, Trachea midline. negative: Thyromegaly, Tracheal deviation Respiratory: positive: Chest non-tender, No respiratory distress. negative: Wheezes Cardiovascular: positive: Regular rate & rhythm, No murmur. negative: Tachycardia, Bradycardia, Systolic murmur, Diastolic murmur Peripheral Pulses: positive: 2+ Abdomen: positive: Non-tender, Nml bowel sounds. negative: Tenderness Back: positive: Nml inspection Skin: positive: Color nml, Warm, Dry. negative: Cyanosis Extremities: positive: Non-tender, Full ROM, Nml appearance. negative: Calf tenderness Neurologic/Psychiatric: positive: Oriented x3, Motor nml, Sensation nml. negative: Weakness, Sensory loss, Facial droop, Slurred/abnml speech, Depressed mood/affect - LABS Result Diagrams: 07/31/21 09:26 07/31/21 07:54 - FOLLOW UP Follow Up: You tolerated diet now. you are prescribed Zofran as needed for control of nausea and vomiting. You are found to have hypokalemia, you may continue take your home potassium as schedule, you may take rich potassium foods such as bananas, oranges, cantaloupe at home, keep hydration at home, and recheck your potassium level when you see your PCP on next week. You may resume your home meds as the schedule. You may follow-up with your PCP in 1 week, recheck your potassium level. Should your symptoms return or worse, you may present to ER or call 911 for help - TIME SPENT Time Spent in Discharge (Minutes): 30
[2021-07-31 16:59] VITALS: BP 148/98
== END 2021-07-31 16:25 | disposition home or self-care (01) ==
LOC: ED 06:47 → MS2 16:24 → MS3 16:56
PROVIDERS: ADMIT Specialist; ATTEND Nurse Practitioner Gerontology
DX: F19.139 Other psychoactive substance abuse with withdrawal, unspecified (principal); R11.2 Nausea with vomiting, unspecified; I16.1 Hypertensive emergency; E87.6 Hypokalemia; E87.1 Hypo-osmolality and hyponatremia; R07.9 Chest pain, unspecified; R77.8 Other specified abnormalities of plasma proteins; R30.0 Dysuria; R39.15 Urgency of urination; R35.0 Frequency of micturition; J44.9 Chronic obstructive pulmonary disease, unspecified; G40.909 Epilepsy, unspecified, not intractable, without status epilepticus; T42.6X6A Underdosing of other antiepileptic and sedative-hypnotic drugs, initial encounter; E03.9 Hypothyroidism, unspecified; K51.90 Ulcerative colitis, unspecified, without complications; F11.21 Opioid dependence, in remission; F17.210 Nicotine dependence, cigarettes, uncomplicated; Z91.19 Patient's noncompliance with other medical treatment and regimen; Z20.822 Contact with and (suspected) exposure to COVID-19; Z72.89 Other problems related to lifestyle; Z79.899 Other long term (current) drug therapy
CPT/HCPCS: 0202U; 36415; 74176; 80048; 80053; 81001; 83690; 84132; 84439; 84443; 84484; 85025; 93005; 94640; 96361; 96365; 96375; 96376; 99284; 99285; A9270; G0378; J0592; 81003; 87086

== ENCOUNTER 2021-08-03 18:05 | Outpatient (CLI) | payer MEDICAID | END 2021-08-03 18:06 | disposition critical access hospital (66) | LOC: EMS 18:05 | DX: R10.84 Generalized abdominal pain (principal) | CPT/HCPCS: A0425; A0429 ==

== ENCOUNTER 2021-08-03 18:19 | Emergency (ER) | payer MEDICAID ==
[2021-08-03 19:23] LABS: BASOPHILS # (AUTO) 0.1 10^3/uL (0.0-0.1); BASOPHILS % (AUTO) 0.7 %; EOSINOPHILS # (AUTO) 0.5 10^3/uL (0.0-0.7); EOSINOPHILS % (AUTO) 4.1 %; HCT - HEMATOCRIT 34.1 % (37.0-47.0); LYMPHOCYTES # (AUTO) 2.9 10^3/uL (1.5-3.5); LYMPHOCYTES % (AUTO) 25.1 %; MEAN CORPUSCULAR HEMOGLOBIN 29.8 pg (27.0-31.0); MEAN CORPUSCULAR HGB CONC 35.2 g/dL (32.0-36.0); MEAN CORPUSCULAR VOLUME 84.6 fL (81.0-99.0); MONOCYTES % (AUTO) 8.4 %; NEUTROPHILS # (AUTO) 7.2 10^3/uL (1.5-6.6); NEUTROPHILS % (AUTO) 61.2 %; PLT - PLATELET COUNT 388 10^3/uL (130-450); RED BLOOD COUNT 4.03 10^6/uL (4.20-5.40); RED CELL DISTRIBUTION WIDTH 14.6 % (12.0-15.0); WHITE BLOOD COUNT 11.7 x10^3/uL (4.8-10.8)
[2021-08-03 19:35] LABS: ALBUMIN 3.5 g/dL (3.2-5.5); BILIRUBIN,TOTAL 0.8 mg/dL (0.2-1.0); CALCIUM 9.1 mg/dL (8.5-10.3); CREATININE 1.3 mg/dL (0.4-1.0); POTASSIUM 2.6 mmol/L (3.5-5.0)
[2021-08-03] MEDS ORDERED: POTASSIUM CHLORIDE 20 MEQ TABLET PO STA (20:40)
[2021-08-03 20:47] VITALS: BP 148/98
[2021-08-03] MEDS ORDERED: ONDANSETRON ODT 4 MG TABLET TL STA (21:18)
== END 2021-08-03 21:40 | disposition left against medical advice (07) ==
LOC: EDUNIT# → ED 18:19 → SUPCPDRO 18:19 → ED 21:40
DX: Z53.21 Procedure and treatment not carried out due to patient leaving prior to being seen by health care provider (principal)
CPT/HCPCS: 36415; 80053; 83690; 85025; A9270

== ENCOUNTER 2021-11-03 09:19 | Outpatient (CLI) | payer MEDICAID | END 2021-11-03 09:20 | disposition critical access hospital (66) | LOC: EMS 09:19 | DX: S00.12XA Contusion of left eyelid and periocular area, initial encounter (principal); S00.11XA Contusion of right eyelid and periocular area, initial encounter; W19.XXXA Unspecified fall, initial encounter; Y92.89 Other specified places as the place of occurrence of the external cause | CPT/HCPCS: A0425; A0429; A0999 ==

== ENCOUNTER 2021-11-03 09:40 | Emergency (ER) | payer MEDICAID ==
--- NOTE | 2021-11-03 10:00 | ED Physician Documentation ---
History of Present Illness - Stated complaint Stated Complaint: GLF - Chief complaint Chief Complaint: Trauma Hd/Nk - History obtained from History obtained from: Patient, EMS - History of Present Illness Timing: Yesterday Pain level max: 7 Pain level now: 5 - Additonal information Additional information: Patient is a 51-year-old female who states that she tripped and fell yesterday, striking her head on pavement. Complains of swelling to the left upper eyelid as well as increasing headache today. No vision changes. No vomiting. No loss of consciousness. She states that she quit taking her seizure medication as well as her blood pressure medication about 5 months ago. She states that she used methamphetamines this morning to help keep her awake. She also states that she used marijuana this morning. Patient states that her tetanus is up-to-date. Review of Systems Constitutional: denies: Fever, Chills Eyes: denies: Decreased vision Ears: denies: Ear pain, Drainage/discharge Nose: denies: Rhinorrhea / runny nose, Congestion Throat: denies: Sore throat Respiratory: denies: Cough GI: denies: Nausea, Vomiting, Diarrhea Skin: denies: Rash Musculoskeletal: denies: Back pain Neurologic: reports: Headache PD PAST MEDICAL HISTORY - Past Medical History Cardiovascular: Hypertension Respiratory: Asthma, COPD Neuro: None Endocrine/Autoimmune: HyPOthyroidism GI: Ulcerative colitis : None Psych: Depression, Other Musculoskeletal: None Derm: None - Past Surgical History Past Surgical History: Yes General: Cholecystectomy, 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 - Present Medications Home Medications: Ambulatory Orders Medication Instructions Recorded Confirmed Levothyroxine Sodium [Synthroid] 200 mcg PO QDAC 03/22/21 07/30/21 Tiotropium [place] [Spiriva] 1 puffs INH DAILY 03/22/21 07/30/21 Amlodipine Besylate [Norvasc] 10 mg PO DAILY #30 tab 03/24/21 07/30/21 Levetiracetam [Keppra] 1,000 mg PO BID 07/12/21 07/30/21 dilTIAZem HCL [Diltiazem 24Hr ER 180 mg PO DAILY 07/12/21 07/30/21 (Xr)] Albuterol Sulfate [Proair Hfa 1 - 2 puffs INH Q4H PRN #1 gm 07/14/21 07/30/21 Inhaler] Potassium Chloride [Klor-Con] 20 meq PO TID #15 packet 07/14/21 07/30/21 ondansetron HCL [Zofran] 4 mg PO Q6H PRN #15 tab 07/31/21 - Allergies Allergies/Adverse Reactions: Allergies Allergy/AdvReac Type Severity Reaction Status Date / Time NSAIDS (Non-Steroidal Allergy Nausea Verified 08/03/21 18:26 Anti-Inflamma Penicillins Allergy Respiratory Verified 08/03/21 18:26 - Social History Does the pt smoke?: Yes Smoking Status: Current every day smoker Does the pt drink ETOH?: No Does the pt have substance abuse?: Yes - Immunizations Immunizations are current?: Yes - POLST Patient has POLST: No PD ED PE NORMAL - Vitals Vital signs reviewed: Yes - General General: Alert and oriented X 3, No acute distress, Well developed/nourished - HEENT HEENT: Moist mucous membranes, Other (Significant swelling to the left upper eyelid. Pupils are equal round reactive to light.) - Neck Neck: Other (Tender to palpation upper C-spine around C2-C3. No step-off or deformity.) - Cardiac Cardiac: RRR - Respiratory Respiratory: No respiratory distress, Clear bilaterally - Abdomen Abdomen: Soft, Non tender, Non distended - Derm Derm: Warm and dry, No rash - Extremities Extremities: No deformity, No tenderness to palpate, Normal ROM s pain - Neuro Neuro: Alert and oriented X 3, manager property 2-12 intact, No motor deficit, No sensory deficit, Normal speech Eye Opening: Spontaneous Motor: Obeys Commands Verbal: Oriented GCS Score: 15 Results - Vitals Vitals: Vital Signs - 24 hr 11/03/21 11/03/21 09:52 10:05 Temperature 36.9 C Heart Rate 74 84 Respiratory 15 20 Rate Blood Pressure 231/138 H 161/111 H O2 Saturation 98 98 Oxygen O2 Source Room air - Labs Labs: Laboratory Tests 11/03/21 11/03/21 11/03/21 09:58 09:58 09:58 WBC 10.0 RBC 3.42 L Hgb 10.6 L Hct 31.3 L MCV 91.5 MCH 31.0 MCHC 33.9 RDW 15.8 H Plt Count 245 MPV 9.9 Neut # (Auto) 7.2 H Lymph # (Auto) 1.9 [place] # (Auto) 0.6 Eos # (Auto) 0.1 Baso # (Auto) 0.1 Absolute Nucleated RBC 0.00 Nucleated RBC % 0.0 PT 12.0 INR 1.1 APTT 41.3 H Sodium 137 Potassium 2.5 L* Chloride 94 L Carbon Dioxide 30 Anion Gap 13.0 BUN 16 Creatinine 1.5 H Estimated GFR (MDRD) 36 L Glucose 85 Calcium 8.9 Total Bilirubin 0.9 AST 40 ALT 19 Alkaline Phosphatase 102 Total Protein 7.4 Albumin 3.7 Globulin 3.7 Albumin/Globulin Ratio 1.0 - Rads (name of study) Head CT Radiology: Final report received, EMP read contemporaneously, See rad report Maxillofacial CT Radiology: Final report received, EMP read contemporaneously, See rad report Cervical spine CT Radiology: Final report received, EMP read contemporaneously, See rad report PD MEDICAL DECISION MAKING - ED course Complexity details: reviewed results, re-evaluated patient, considered differential, d/w patient ED course: No significant findings on head CT, maxillofacial CT or cervical spine CT. Tetanus is up-to-date. Potassium was replaced. Given her usual antihypertensive medication. Encouraged her to start taking her medications at home again. Patient was counseled at length regarding the risk of not taking her medications as prescribed, These would include but are not limited to stroke, seizures, coma, , injury, kidney failure, loss of vision, etc. We will have her follow-up with her doctor for further care. Patient states that her medications are all ready to be picked up from the pharmacy today. Patient counseled regarding signs and symptoms for which I believe and urgent re- evaluation would be necessary. Patient with good understanding of and agreement to plan and is comfortable going home at this time This document was made in part using voice recognition software. While efforts are made to proofread this document, sound alike and grammatical errors may occur. Potassium was also replaced. This is a chronic issue for the patient Departure - Departure Disposition: 01 Home, Self Care Clinical Impression: Fall Qualifiers: Encounter type: initial encounter Qualified Code(s): W19.XXXA - Unspecified fall, initial encounter Periorbital ecchymosis of left eye Qualifiers: Encounter type: initial encounter Qualified Code(s): S00.12XA - Contusion of left eyelid and periocular area, initial encounter Head injury Qualifiers: Encounter type: initial encounter Qualified Code(s): S09.90XA - Unspecified injury of head, initial encounter Hypertension Qualifiers: Hypertension type: unspecified Qualified Code(s): I10 - Essential (primary) hypertension Condition: Good Instructions: ED Head Injury Closed, ED Potassium Deficiency Follow-Up: your,doctor in 1 week [Other] Comments: It is important that you take your medications as prescribed. Not taking your medications may lead to seizures, coma, brain injury, , kidney failure, loss of eyesight, loss of current lifestyle and other effects. Please follow-up with your doctor for further care. Return if you worsen. Your CT scans do not show any acute abnormality today. You have stated that your medications are ready at the pharmacy. Please go pick them up today.
[2021-11-03 10:04] LABS: BASOPHILS # (AUTO) 0.1 10^3/uL (0.0-0.1); BASOPHILS % (AUTO) 0.7 %; EOSINOPHILS # (AUTO) 0.1 10^3/uL (0.0-0.7); EOSINOPHILS % (AUTO) 1.1 %; HCT - HEMATOCRIT 31.3 % (37.0-47.0); HGB - HEMOGLOBIN 10.6 g/dL (12.0-16.0); LYMPHOCYTES # (AUTO) 1.9 10^3/uL (1.5-3.5); LYMPHOCYTES % (AUTO) 19.4 %; MEAN CORPUSCULAR HGB CONC 33.9 g/dL (32.0-36.0); MEAN CORPUSCULAR VOLUME 91.5 fL (81.0-99.0); MEAN PLATELET VOLUME 9.9 fL (7.9-10.8); MONOCYTES # (AUTO) 0.6 10^3/uL (0.0-1.0); MONOCYTES % (AUTO) 6.3 %; NEUTROPHILS # (AUTO) 7.2 10^3/uL (1.5-6.6); NEUTROPHILS % (AUTO) 72.3 %; PLT - PLATELET COUNT 245 10^3/uL (130-450); RED BLOOD COUNT 3.42 10^6/uL (4.20-5.40); RED CELL DISTRIBUTION WIDTH 15.8 % (12.0-15.0)
[2021-11-03 10:10] LABS: INR 1.1 (0.8-1.2)
[2021-11-03 10:17] LABS: PARTIAL THROMBOPLASTIN TIME 41.3 secs (24.9-33.3)
[2021-11-03 10:19] LABS: ALBUMIN 3.7 g/dL (3.2-5.5); BILIRUBIN,TOTAL 0.9 mg/dL (0.2-1.0); CALCIUM 8.9 mg/dL (8.5-10.3); CREATININE 1.5 mg/dL (0.4-1.0); TOTAL PROTEIN 7.4 g/dL (6.7-8.2)
[2021-11-03 10:21] LABS: POTASSIUM 2.5 mmol/L (3.5-5.0)
--- NOTE | 2021-11-03 10:52 | CT Report ---
PROCEDURE: MAXILLOFACIAL WO INDICATIONS: fall, head/face pain TECHNIQUE: Noncontrast 1.5 mm thick axial images acquired from the mandible through the frontal sinuses, with co alena and sagittal reformatting. For radiation dose reduction, the following was used: automated ex posure control, adjustment of mA and/or kV according to patient size. COMPARISON: Correlation is made with the accompanying head CT and cervical spine CT, 11/03/2021. Corre lation is also made with the prior head CT, 03/22/2021. FINDINGS: Image quality: Excellent. Bones and teeth: Orbital loaiza are intact. Sinus loaiza show no fracture or deformity. Nasal bones and septum are intact. Visualized portions of the mandible demonstrate no fractures or subluxation. Zygomatic arches are intact. Pterygoid plates are intact. Visualized portions of the skull base an d auditory canals are intact. Sinuses: There is a small amount of mucosal thickening seen within the left maxillary sinus. Paranas al sinuses are otherwise normally aerated, without fluid levels, mucosal thickening, or mucoceles. M astoid air cells are aerated. The ostiomeatal complexes are constitutionally narrowed. Moderate righ tward nasal septal deviation can be seen. Soft tissues: Relatively prominent left periorbital soft tissue swelling is seen, with hematoma. No s oft tissue gas is seen. Vascular: Visualized vascular structures appear normal in the absence of contrast. Bony vascular fo ramina and canals are intact. IMPRESSION: Left periorbital soft tissue swelling is seen with hematoma. No associated regional fracture can be seen. Incidental note is made of: Mild left maxillary sinus disease Constitutionally narrowed ostiomeatal complexes Moderate rightward nasal septal deviation Reviewed by: Trell Matute MD on 11/03/2021 9:51 AM [facility] Approved by: Trell Matute MD on 11/03/2021 9:51 AM [facility] Station ID: [id number]
[2021-11-03] MEDS ORDERED: POTASSIUM CHLORIDE 20 MEQ TABLET PO STA (11:03)
[2021-11-03] MEDS ORDERED: diltiaZEM CD 120 MG CAPSULE PO STA (11:03)
[2021-11-03] MEDS ORDERED: amLODIPine 5 MG TABLET PO STA (11:04)
--- NOTE | 2021-11-03 11:17 | CT Report ---
PROCEDURE: HEAD WO INDICATIONS: fall, head/face pain TECHNIQUE: Noncontrast 4.5 mm thick angled axial sections acquired from the foramen magnum to the vertex. For r adiation dose reduction, the following was used: automated exposure control, adjustment of mA and/or kV according to patient size. COMPARISON: Correlation [facility] max[facility]ofacial CT and cervical spine CT, 11/03/2021. FINDINGS: Image quality: Motion artifact is noted. There is streak artifact seen through the skull base. CSF spaces: Basal cisterns are patent. No extra-axial fluid collections. Ventricles are normal in size and shape. Brain: No midline shift. No intracranial masses or hemorrhage. Blum-white matter interface is norm al. Skull and face: Left periorbital soft tissue swelling is seen, with hematoma. No regional fracture is seen. Calvarium and visualized facial bones are intact, without suspicious lesions. Sinuses: Visualized sinuses and mastoids are clear. IMPRESSION: Left periorbital soft tissue hematoma, without associated fracture. No intracranial hemorrhage is seen. No significant intracranial abnormality is seen. Reviewed by: Trell Matute MD on 11/03/2021 10:16 AM [facility] Approved by: Trell Matute MD on 11/03/2021 10:16 AM [facility] Station ID: [id number]
--- NOTE | 2021-11-03 11:18 | CT Report ---
PROCEDURE: CERVICAL SPINE WO INDICATIONS: fall, head/face pain TECHNIQUE: Noncontrast 3 mm thick sections acquired from the skull base to the T4 level. Sagittal and coronal r eformats were then constructed. For radiation dose reduction, the following was used: automated exp osure control, adjustment of mA and/or kV according to patient size. COMPARISON: Correlation is made with the accompanying maxillofacial CT and head CT, 11/03/2021. FINDINGS: Image quality: Excellent. Bones: No fractures or dislocations. Visualized superior ribs are intact. Soft tissues: Prevertebral soft tissues are normal in thickness. No paravertebral hematomas. No ap ical pneumothoraces. Mild centrilobular emphysematous changes can be seen at the lung apices. Athero sclerotic calcification is seen. IMPRESSION: Negative for fracture. Reviewed by: Trell Matute MD on 11/03/2021 10:17 AM [facility] Approved by: Trell Matute MD on 11/03/2021 10:17 AM [facility] Station ID: [id number]
[2021-11-03] MEDS ORDERED: ACETAMINOPHEN 325 MG TABLET PO STA (11:19)
[2021-11-03 11:31] VITALS: BP 167/140
== END 2021-11-03 11:56 | disposition home or self-care (01) ==
LOC: EDUNIT# → ED 09:40
DX: S00.12XA Contusion of left eyelid and periocular area, initial encounter (principal); S09.90XA Unspecified injury of head, initial encounter; W01.198A Fall on same level from slipping, tripping and stumbling with subsequent striking against other object, initial encounter; Y93.01 Activity, walking, marching and hiking; Y92.89 Other specified places as the place of occurrence of the external cause; F17.200 Nicotine dependence, unspecified, uncomplicated; I10 Essential (primary) hypertension
CPT/HCPCS: 36415; 70450; 70486; 72125; 80053; 85025; 85610; 85730; 99282; 99284; A9270

== ENCOUNTER 2021-11-15 08:00 | Outpatient (CLI) | payer MEDICAID ==
[2021-11-15 19:05] LABS: BILIRUBIN,URINE NEGATIVE (NEGATIVE); CLARITY,URINE CLOUDY (CLEAR); GLUCOSE, URINE (UA) NEGATIVE (NEGATIVE); KETONES,URINE (UA) TRACE mg/dL (NEGATIVE); LEUKOCYTE ESTERASE, URINE MODERATE (NEGATIVE); NITRITE,URINE NEGATIVE (NEGATIVE); OCCULT BLOOD,URINE MODERATE (NEGATIVE); PH,URINE 5.5 PH (5.0-7.5); PROTEIN,URINE >=300 mg/dL (NEGATIVE); UROBILINOGEN,URINE 0.2 (NORMAL) E.U./dL (NORMAL)
[2021-11-15 19:13] LABS: BACTERIA,URINE Moderate /HPF (None Seen); RBC,URINE TNTC /HPF (0-5); SQUAMOUS EPITHELIAL CELL,UR RARE Squamous (<= Few); WBC CLUMPS,URINE PRESENT; WBC,URINE >25 /HPF (0-5)
[2021-11-15 22:56] LABS: CHLAMYDIA TRACHOMATIS DNA NEGATIVE (NEGATIVE); NEISSERIA GONORRHOEAE DNA NEGATIVE (NEGATIVE)
[2021-11-15 23:08] LABS: TRICHOMONAS VAGINALIS DNA POSITIVE (NEGATIVE)
== END 2021-11-15 23:59 | disposition home or self-care (01) ==
LOC: LAB.WCP 08:00
PROVIDERS: ATTEND Physician Assistant Medical
DX: R31.9 Hematuria, unspecified (principal); N89.8 Other specified noninflammatory disorders of vagina
CPT/HCPCS: 81001; 87086; 87181; 87491; 87591; 87661

== ENCOUNTER 2021-11-25 13:17 | Outpatient (CLI) | payer MEDICAID | END 2021-11-25 13:18 | disposition critical access hospital (66) | LOC: EMS 13:17 | DX: M54.9 Dorsalgia, unspecified (principal); R53.1 Weakness; R31.9 Hematuria, unspecified | CPT/HCPCS: A0425; A0429; A0999 ==

== ENCOUNTER 2021-11-25 13:40 | Emergency (ER) | payer MEDICAID ==
[2021-11-25] MEDS ORDERED: SODIUM CHLORIDE 0.9% 1,000 ML IV STA (13:52)
[2021-11-25] MEDS ORDERED: MORPHINE 2 MG/ML CARPUJECT IVP STA (13:52)
[2021-11-25] MEDS ORDERED: cefTRIAXone 1 GM VIAL IVP STA (13:52)
[2021-11-25] MEDS ORDERED: IOVERSOL 320 100 ML VIAL IVP ONE ×2 (14:06→15:11)
--- NOTE | 2021-11-25 14:06 | ED Physician Documentation ---
History of Present Illness - Stated complaint Stated Complaint: BILAT FLANK PX - Chief complaint Chief Complaint: Abd Pain - History obtained from History obtained from: Patient, EMS - History of Present Illness Timing: How many weeks ago (1) Pain level max: 8 Pain level now: 8 - Additonal information Additional information: 51-year-old female presents to the emergency department with bilateral back pain and lower abdominal pain. She states that she was diagnosed with a UTI several days ago but has not started the antibiotics. Pain has been gradually increasing. No vaginal bleeding or discharge. Nothing makes it better or worse. No fevers. No nausea or vomiting. No diarrhea or constipation. Is st ill having dysuria. No history of kidney stones Review of Systems Ten Systems: 10 systems reviewed and negative Constitutional: denies: Fever, Chills Cardiac: denies: Chest pain / pressure, Palpitations Respiratory: denies: Cough GI: denies: Vomiting, Diarrhea Skin: denies: Rash Musculoskeletal: denies: Neck pain Neurologic: denies: Focal weakness, Numbness, Headache PD PAST MEDICAL HISTORY - Past Medical History Cardiovascular: Hypertension Respiratory: Asthma, COPD Neuro: None Endocrine/Autoimmune: HyPOthyroidism GI: Ulcerative colitis : None Psych: Depression, Other Musculoskeletal: None Derm: None - Past Surgical History Past Surgical History: Yes General: Cholecystectomy, 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 - Present Medications Home Medications: Ambulatory Orders Medication Instructions Recorded Confirmed Levothyroxine Sodium [Synthroid] 200 mcg PO QDAC 03/22/21 07/30/21 Tiotropium [place] [Spiriva] 1 puffs INH DAILY 03/22/21 07/30/21 Amlodipine Besylate [Norvasc] 10 mg PO DAILY #30 tab 03/24/21 07/30/21 Levetiracetam [Keppra] 1,000 mg PO BID 07/12/21 07/30/21 dilTIAZem HCL [Diltiazem 24Hr ER 180 mg PO DAILY 07/12/21 07/30/21 (Xr)] Albuterol Sulfate [Proair Hfa 1 - 2 puffs INH Q4H PRN #1 gm 07/14/21 07/30/21 Inhaler] Potassium Chloride [Klor-Con] 20 meq PO TID #15 packet 07/14/21 07/30/21 ondansetron HCL [Zofran] 4 mg PO Q6H PRN #15 tab 07/31/21 Cefdinir 300 mg PO BID #20 cap 11/25/21 - Allergies Allergies/Adverse Reactions: Allergies Allergy/AdvReac Type Severity Reaction Status Date / Time NSAIDS (Non-Steroidal Allergy Nausea Verified 11/25/21 13:49 Anti-Inflamma Penicillins Allergy Respiratory Verified 11/25/21 13:49 - Social History Does the pt smoke?: Yes Smoking Status: Current every day smoker Does the pt drink ETOH?: No Does the pt have substance abuse?: Yes - Immunizations Immunizations are current?: Yes - POLST Patient has POLST: No PD ED PE NORMAL - Vitals Vital signs reviewed: Yes - General General: Alert and oriented X 3, No acute distress - HEENT HEENT: PERRL, Moist mucous membranes - Neck Neck: Supple, no meningeal sign - Cardiac Cardiac: RRR - Respiratory Respiratory: No respiratory distress, Clear bilaterally - Abdomen Abdomen: Soft, Non tender, Non distended - Back Back: Other (mild B CVAT) - Derm Derm: Warm and dry - Extremities Extremities: No edema - Neuro Neuro: Alert and oriented X 3 - Psych Psych: Normal mood, Normal affect Results - Vitals Vitals: Vital Signs - 24 hr 11/25/21 11/25/21 11/25/21 13:44 13:48 15:22 Temperature 36.6 C 36.6 C Heart Rate 88 88 100 Respiratory 16 16 20 Rate Blood Pressure 168/109 H 169/109 H 176/100 H O2 Saturation 96 96 93 Oxygen O2 Source Room air - Labs Labs: Laboratory Tests 11/25/21 11/25/21 11/25/21 14:03 14:03 14:51 WBC 8.2 RBC 3.53 L Hgb 11.3 L Hct 34.0 L MCV 96.3 MCH 32.0 H MCHC 33.2 RDW 15.5 H Plt Count 341 MPV 9.8 Neut # (Auto) 5.7 Lymph # (Auto) 1.6 [place] # (Auto) 0.5 Eos # (Auto) 0.3 Baso # (Auto) 0.1 Absolute Nucleated RBC 0.00 Nucleated RBC % 0.0 Sodium 138 Potassium 4.6 Chloride 100 L Carbon Dioxide 25 Anion Gap 13.0 BUN 30 H Creatinine 1.7 H Estimated GFR (MDRD) 31 L Glucose 105 H Calcium 9.3 Total Bilirubin 0.6 AST 24 ALT 20 Alkaline Phosphatase 92 Total Protein 8.4 H Albumin 4.1 Globulin 4.3 H Albumin/Globulin Ratio 1.0 Lipase 27 Urine Color YELLOW Urine Clarity HAZY Urine pH 7.0 Ur Specific [place] 1.020 Urine Protein 100 H Urine Glucose (UA) NEGATIVE Urine Ketones NEGATIVE Urine Occult Blood NEGATIVE Urine Nitrite POSITIVE H Urine Bilirubin NEGATIVE Urine Urobilinogen 0.2 (NORMAL) Ur Leukocyte Esterase TRACE H Urine RBC 0-5 Urine WBC 6-10 H Ur Squamous Epith Cells MANY Squamous H Urine Bacteria Many H Ur Microscopic Review INDICATED Urine Culture Comments NOT INDICATED - Rads (name of study) CT abd/pelvis Radiology: Final report received, EMP read contemporaneously, See rad report PD MEDICAL DECISION MAKING - ED course Complexity details: reviewed results, re-evaluated patient, considered differential, d/w patient ED course: 51-year-old female with what appears to be likely early pyelonephritis. She did not take her antibiotics as prescribed by her doctor for the UTI. She was given Rocephin here. Feeling better. Given IV fluids as well. Nontoxic. Does not appear septic. We will place on antibiotics for home and have her follow- up with her doctor. Patient counseled regarding signs and symptoms for which I believe and urgent re-evaluation would be necessary. Patient with good understanding of and agreement to plan and is comfortable going home at this time This document was made in part using voice recognition software. While efforts are made to proofread this document, sound alike and grammatical errors may occur. IMPRESSION: 1. CT abdomen and pelvis without acute abnormalities to explain patient's symptoms. 2. Scattered atherosclerotic calcifications of the abdominal aorta and iliac vessels with small infrarenal fusiform abdominal aortic aneurysm measuring approximately 2.8 x 2.7 cm in cross-sectional dimension. Recommend continued clinical and imaging surveillance. 3. Colonic diverticulosis without evidence for acute diverticulitis. 4. Status post cholecystectomy. 5. Unremarkable appearance of the bilateral kidneys and ureters. Departure - Departure Disposition: Home, Self Care Clinical Impression: Pyelonephritis UTI (urinary tract infection) Qualifiers: Urinary tract infection type: acute cystitis Hematuria presence: with hematuria Qualified Code(s): N30.01 - Acute cystitis with hematuria Back pain Qualifiers: Back pain location: back pain in unspecified location Chronicity: acute Back pain laterality: bilateral Qualified Code(s): M54.9 - Dorsalgia, unspecified Chronic renal insufficiency Qualifiers: Chronic kidney disease stage: unspecified stage Qualified Code(s): N18.9 - Chronic kidney disease, unspecified Condition: Good Instructions: ED Kidney Infec Female, ED UTI Cystitis Female Follow-Up: Yokasta Bowens PA-C [Primary Care Provider] - Within 1 week Prescriptions: Cefdinir 300 mg PO BID #20 cap Comments: Your prescription were sent to [facility] in [place]. Your CT scan does not show any acute abnormalities today. Please follow-up with your doctor for furth er care. Take all antibiotics until gone. Return if you worsen. IMPRESSION: 1. CT abdomen and pelvis without acute abnormalities to explain patient's symptoms. 2. Scattered atherosclerotic calcifications of the abdominal aorta and iliac vessels with small infrarenal fusiform abdominal aortic aneurysm measuring approximately 2.8 x 2.7 cm in cross- sectional dimension. Recommend continued clinical and imaging surveillance. 3. Colonic diverticulosis without evidence for acute diverticulitis. 4. Status post cholecystectomy. 5. Unremarkable appearance of the bilateral kidneys and ureters.
[2021-11-25 14:09] LABS: BASOPHILS # (AUTO) 0.1 10^3/uL (0.0-0.1); BASOPHILS % (AUTO) 0.9 %; EOSINOPHILS # (AUTO) 0.3 10^3/uL (0.0-0.7); EOSINOPHILS % (AUTO) 3.1 %; HGB - HEMOGLOBIN 11.3 g/dL (12.0-16.0); LYMPHOCYTES # (AUTO) 1.6 10^3/uL (1.5-3.5); LYMPHOCYTES % (AUTO) 19.7 %; MEAN CORPUSCULAR HGB CONC 33.2 g/dL (32.0-36.0); MEAN CORPUSCULAR VOLUME 96.3 fL (81.0-99.0); MEAN PLATELET VOLUME 9.8 fL (7.9-10.8); MONOCYTES # (AUTO) 0.5 10^3/uL (0.0-1.0); MONOCYTES % (AUTO) 6.6 %; NEUTROPHILS # (AUTO) 5.7 10^3/uL (1.5-6.6); NEUTROPHILS % (AUTO) 69.5 %; PLT - PLATELET COUNT 341 10^3/uL (130-450); RED BLOOD COUNT 3.53 10^6/uL (4.20-5.40); RED CELL DISTRIBUTION WIDTH 15.5 % (12.0-15.0); WHITE BLOOD COUNT 8.2 x10^3/uL (4.8-10.8)
[2021-11-25 14:23] LABS: ALBUMIN 4.1 g/dL (3.2-5.5); BILIRUBIN,TOTAL 0.6 mg/dL (0.2-1.0); CALCIUM 9.3 mg/dL (8.5-10.3); CREATININE 1.7 mg/dL (0.4-1.0); POTASSIUM 4.6 mmol/L (3.5-5.0); TOTAL PROTEIN 8.4 g/dL (6.7-8.2)
[2021-11-25 15:04] LABS: BILIRUBIN,URINE NEGATIVE (NEGATIVE); GLUCOSE, URINE (UA) NEGATIVE (NEGATIVE); KETONES,URINE (UA) NEGATIVE (NEGATIVE); LEUKOCYTE ESTERASE, URINE TRACE (NEGATIVE); NITRITE,URINE POSITIVE (NEGATIVE); OCCULT BLOOD,URINE NEGATIVE (NEGATIVE); PROTEIN,URINE 100 mg/dL (NEGATIVE); UROBILINOGEN,URINE 0.2 (NORMAL) E.U./dL (NORMAL)
[2021-11-25 15:14] LABS: BACTERIA,URINE Many /HPF (None Seen); CLARITY,URINE HAZY (CLEAR); RBC,URINE 0-5 /HPF (0-5); SQUAMOUS EPITHELIAL CELL,UR MANY Squamous (<= Few)
--- NOTE | 2021-11-25 16:00 | CT Report ---
PROCEDURE: Abdomen/Pelvis W INDICATIONS: diffuse abd/back pain CONTRAST: IV CONTRAST: Optiray 320 ml: 100 PO CONTRAST: *NO PO CONTRAST TECHNIQUE: After the administration of weight appropriate dose of intravenous contrast, 5 mm thick sections acqu ired from the diaphragms to the symphysis. 5 mm thick coronal and sagittal reformats were acquired. For radiation dose reduction, the following was used: automated exposure control, adjustment of mA and/or kV according to patient size. COMPARISON: 07/31/2021 and 04/20/2018 FINDINGS: Image quality: Excellent. ABDOMEN: Lung bases: Moderate bibasilar atelectasis. Heart size is normal. Solid organs: Liver and spleen are normal in size and enhancement. Gallbladder is surgically absent . Persistent prominence of the common bile duct measuring approximately 1 cm in diameter. Biliary sy stem is non dilated. Pancreas enhances normally. No adrenal nodules. Kidneys demonstrate normal si ze and enhancement, without hydronephrosis. Peritoneum and bowel: Bowel loops demonstrate normal wall thickness and caliber. No free fluid or a ir. Scattered colonic diverticulosis without acute diverticulitis. Nodes and vessels: No retroperitoneal or mesenteric adenopathy by size criteria. IVC is normal in si ze. Atherosclerotic calcifications of the abdominal aorta and iliac vessels with small fusiform dilat ation of the infrarenal abdominal aorta measuring approximately 2.8 x 2.7 cm in maximum cross-section al diameter. Miscellaneous: No ventral hernias. PELVIS: Genitourinary: Bladder wall thickness is unremarkable for degree of distention. Miscellaneous: No inguinal hernias or adenopathy. Bones: No suspicious bony lesions. No acute vertebral body compression fractures. IMPRESSION: 1. CT abdomen and pelvis without acute abnormalities to explain patient's symptoms. 2. Scattered atherosclerotic calcifications of the abdominal aorta and iliac vessels with small infra renal fusiform abdominal aortic aneurysm measuring approximately 2.8 x 2.7 cm in cross-sectional dime nsion. Recommend continued clinical and imaging surveillance. 3. Colonic diverticulosis without evidence for acute diverticulitis. 4. Status post cholecystectomy. 5. Unremarkable appearance of the bilateral kidneys and ureters. Reviewed by: Dwight Ceballos MD on 11/25/2021 2:58 PM [facility] Approved by: Dwight Ceballos MD on 11/25/2021 2:58 PM [facility] Station ID: [id number]
[2021-11-25 16:47] VITALS: BP 148/98
== END 2021-11-25 16:47 | disposition home or self-care (01) ==
LOC: EDUNIT# → ED 13:40
DX: N12 Tubulo-interstitial nephritis, not specified as acute or chronic (principal); M54.9 Dorsalgia, unspecified; N30.01 Acute cystitis with hematuria; I12.9 Hypertensive chronic kidney disease with stage 1 through stage 4 chronic kidney disease, or unspecified chronic kidney disease; N18.9 Chronic kidney disease, unspecified; F17.200 Nicotine dependence, unspecified, uncomplicated
CPT/HCPCS: 36415; 74177; 80053; 81001; 83690; 85025; 96374; 96375; 99284; Q9967; 81003; 87086

== ENCOUNTER 2021-12-03 08:41 | Outpatient (CLI) | payer MEDICAID ==
--- NOTE | 2021-12-03 09:03 | CT Report ---
PROCEDURE: HEAD WO INDICATIONS: TRAUMATIC HEADACHE TECHNIQUE: Noncontrast 4.5 mm thick angled axial sections acquired from the foramen magnum to the vertex. For r adiation dose reduction, the following was used: automated exposure control, adjustment of mA and/or kV according to patient size. COMPARISON: CT 252 FINDINGS: Image quality: Excellent. CSF spaces: Basal cisterns are patent. No extra-axial fluid collections. Ventricles are normal in size and shape. Brain: No midline shift. No intracranial masses or hemorrhage. Blum-white matter interface is norm al. Skull and face: Calvarium and visualized facial bones are intact, without suspicious lesions. Left periorbital hematoma is again noted, slightly less prominent. Sinuses: Visualized sinuses and mastoids are clear. IMPRESSION: 1. No acute intracranial process. 2. Slightly less prominent appearance of previously noted left periorbital hematoma. Reviewed by: Soo Weber MD on 12/03/2021 9:02 AM PST Approved by: Soo Weber MD on 12/03/2021 9:02 AM PST Station ID: [id number]
== END 2021-12-03 23:59 | disposition home or self-care (01) ==
LOC: DI 08:41
PROVIDERS: ATTEND Physician Assistant Medical
DX: G44.309 Post-traumatic headache, unspecified, not intractable (principal); R41.3 Other amnesia; S00.12XD Contusion of left eyelid and periocular area, subsequent encounter

== ENCOUNTER 2022-01-04 08:00 | Outpatient (CLI) | payer MEDICAID ==
[2022-01-04 20:49] LABS: CHLAMYDIA TRACHOMATIS DNA NEGATIVE (NEGATIVE); NEISSERIA GONORRHOEAE DNA NEGATIVE (NEGATIVE); TRICHOMONAS VAGINALIS DNA NEGATIVE (NEGATIVE)
== END 2022-01-04 23:59 | disposition home or self-care (01) ==
LOC: LAB.R 08:00
PROVIDERS: ATTEND Physician Assistant Medical
DX: R30.0 Dysuria (principal)
CPT/HCPCS: 87086; 87181; 87491; 87591; 87661

== ENCOUNTER 2022-03-15 16:56 | Outpatient (CLI) | payer MEDICAID | END 2022-03-15 16:57 | disposition critical access hospital (66) | LOC: EMS 16:56 | DX: R10.817 Generalized abdominal tenderness (principal); R11.10 Vomiting, unspecified; R19.7 Diarrhea, unspecified; R00.1 Bradycardia, unspecified; R53.1 Weakness; R06.02 Shortness of breath | CPT/HCPCS: A0425; A0427; A0999 ==

== ENCOUNTER 2022-03-15 17:17 | Emergency (ER) | payer MEDICAID ==
[2022-03-15] MEDS ORDERED: SODIUM CHLORIDE 0.9% 1,000 ML IV STA (17:23)
--- NOTE | 2022-03-15 17:29 | ED Physician Documentation ---
History of Present Illness - Stated complaint Stated Complaint: N/D ABD PX - Chief complaint Chief Complaint: General - History obtained from History obtained from: Patient, EMS - Additonal information Additional information: 51-year-old woman presents by ambulance for the evaluation of nausea, diarrhea, and abdominal pain. Most of the history is from chart review as she is quite somnolent and minimally able to cooperate with history. She has a history of hypertension, CHF, COPD, homelessness, methamphetamine use, ulcerative colitis, cholecystectomy and hysterectomy. She was admitted in July of last year for abdominal pain, nausea, and vomiting. She was noted to be hypoxic to 88 on room air for EMS and also cool with a temperature of 34. 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 - Present Medications Home Medications: Ambulatory Orders Medication Instructions Recorded Confirmed Levothyroxine Sodium [Synthroid] 200 mcg PO QDAC 03/22/21 07/30/21 Tiotropium [place] [Spiriva] 1 puffs INH DAILY 03/22/21 07/30/21 Amlodipine Besylate [Norvasc] 10 mg PO DAILY #30 tab 03/24/21 07/30/21 Levetiracetam [Keppra] 1,000 mg PO BID 07/12/21 07/30/21 dilTIAZem HCL [Diltiazem 24Hr ER 180 mg PO DAILY 07/12/21 07/30/21 (Xr)] Albuterol Sulfate [Proair Hfa 1 - 2 puffs INH Q4H PRN #1 gm 07/14/21 07/30/21 Inhaler] Potassium Chloride [Klor-Con] 20 meq PO TID #15 packet 07/14/21 07/30/21 ondansetron HCL [Zofran] 4 mg PO Q6H PRN #15 tab 07/31/21 Cefdinir 300 mg PO BID #20 cap 11/25/21 - Allergies Allergies/Adverse Reactions: Allergies Allergy/AdvReac Type Severity Reaction Status Date / Time NSAIDS (Non-Steroidal Allergy Nausea Verified 03/15/22 17:26 Anti-Inflamma Penicillins Allergy Respiratory Verified 03/15/22 17:26 - Social History Does the pt smoke?: Yes Smoking Status: Current every day smoker Does the pt drink ETOH?: No Does the pt have substance abuse?: Yes - Immunizations Immunizations are current?: Yes - POLST Patient has POLST: No PD ED PE NORMAL - Vitals Vital signs reviewed: Yes - General General: Other (somnolent, v slow to answer question) - HEENT HEENT: PERRL, EOMI - Neck Neck: Supple, no meningeal sign, No bony TTP - Cardiac Cardiac: RRR, No murmur - Respiratory Respiratory: No respiratory distress, Clear bilaterally - Abdomen Abdomen: Normal bowel sounds, Soft, Other (mild diffuse TTP) - Back Back: No CVA TTP, No spinal TTP - Derm Derm: Normal color, Warm and dry - Extremities Extremities: No edema, No calf tenderness / cord - Neuro Eye Opening: To Voice Motor: Obeys Commands Verbal: Confused GCS Score: 13 Results - Vitals Vitals: Vital Signs - 24 hr 03/15/22 03/15/22 03/15/22 17:23 17:26 18:30 Temperature 35.8 C L Heart Rate 52 L 53 L 57 L Respiratory 10 L 18 Rate Blood Pressure 161/104 H O2 Saturation 92 93 95 03/15/22 03/15/22 03/15/22 18:40 19:00 19:30 Temperature Heart Rate 56 L 58 L 61 Respiratory 16 17 15 Rate Blood Pressure 153/104 H 164/116 H O2 Saturation 97 98 03/15/22 03/15/22 20:00 20:30 Temperature Heart Rate 64 70 Respiratory 17 18 Rate Blood Pressure 151/82 H 124/76 O2 Saturation 93 93 Oxygen O2 Source Oxymizer - EKG (time done) 1835 Rate: Rate (enter#) (58) Rhythm: NSR [place]: Normal Intervals: Normal CA QRS: Normal Ischemia: Other (Peaked T waves) Computer interpretation: Disagree with computer (Computer reads A. fib but she is in sinus rhythm) - Labs Labs: Laboratory Tests 03/15/22 03/15/22 03/15/22 17:30 17:30 17:30 WBC 35.1 H* RBC 5.13 Hgb 15.0 Hct 45.1 MCV 87.9 MCH 29.2 MCHC 33.3 RDW 14.1 Plt Count 278 MPV 10.7 Neut # (Auto) Not Reportable Lymph # (Auto) Not Reportable Henry # (Auto) Not Reportable Eos # (Auto) Not Reportable Baso # (Auto) Not Reportable Absolute Nucleated RBC Not Reportable Total Counted 100 Band Neuts % (Manual) 13 H Abnorm Lymph % (Manual) 0 Nucleated RBC % Not Reportable Neutrophils # (Manual) 33.7 H Lymphocytes # (Manual) 0.4 L Monocytes # (Manual) 0.7 Eosinophils # (Manual) 0.0 Basophils # (Manual) 0.4 H Differential Comment MANUAL DIFFERENTIAL Platelet Estimate NORMAL (130-450,000) Platelet Morphology 1+ GIANT PLATELETS RBC Morph Micro Appear NORMAL APPEARANCE PT 11.3 INR 1.0 VBG pH VBG pCO2 VBG pO2 VBG HCO3 VBG Total CO2 VBG O2 Saturation VBG Base Excess Sodium 133 L Potassium 8.0 H* Chloride 96 L Carbon Dioxide 19 L Anion Gap 18.0 H BUN 60 H Creatinine 4.1 H Estimated GFR (MDRD) 11 L Glucose 155 H Lactic Acid Calcium 10.2 Magnesium 4.0 H Total Bilirubin 0.9 AST 299 H ALT 197 H Alkaline Phosphatase 114 Total Protein 8.5 H Albumin 4.2 Globulin 4.3 H Albumin/Globulin Ratio 1.0 Lipase 29 TSH Free T4 Free T3 pg/mL Cortisol Urine Color Urine Clarity Urine pH Ur Specific [place] Urine Protein Urine Glucose (UA) Urine Ketones Urine Occult Blood Urine Nitrite Urine Bilirubin Urine Urobilinogen Ur Leukocyte Esterase Urine RBC Urine WBC Ur Squamous Epith Cells Amorphous Sediment Urine Bacteria Urine Casts Ur Microscopic Review Urine Culture Comments Nasal Adenovirus (PCR) Nasal B. parapertussis DNA (PCR) Nasal Coronavir 229E PCR Nasal Coronavir HKU1 PCR Nasal Coronavir NL63 PCR Nasal Coronavir OC43 PCR Nasal Enterovir/Rhinovir PCR Nasal Influenza B PCR Nasal Influenza A PCR Nasal Parainfluen 1 PCR Nasal Parainfluen 2 PCR Nasal Parainfluen 3 PCR Nasal Parainfluen 4 PCR Nasal RSV (PCR) Nasal B.pertussis DNA PCR Nasal C.pneumoniae (PCR) [place] Human Metapneumo PCR Nasal M.pneumoniae (PCR) Nasal SARS-CoV-2 (PCR) Salicylates < 6.0 Urine Opiates Screen Ur Oxycodone Screen Urine Methadone Screen Ur Propoxyphene Screen Acetaminophen < 10 L Ur Barbiturates Screen Ur Tricyclics Screen Ur Phencyclidine Scrn Ur Amphetamine Screen U Methamphetamines Scrn U Benzodiazepines Scrn Urine Cocaine Screen U Cannabinoids Screen Ethyl Alcohol < 5.0 03/15/22 03/15/22 03/15/22 17:30 17:30 17:30 WBC RBC Hgb Hct MCV MCH MCHC RDW Plt Count MPV Neut # (Auto) Lymph # (Auto) Henry # (Auto) Eos # (Auto) Baso # (Auto) Absolute Nucleated RBC Total Counted Band Neuts % (Manual) Abnorm Lymph % (Manual) Nucleated RBC % Neutrophils # (Manual) Lymphocytes # (Manual) Monocytes # (Manual) Eosinophils # (Manual) Basophils # (Manual) Differential Comment Platelet Estimate Platelet Morphology RBC Morph Micro Appear PT INR VBG pH 7.318 VBG pCO2 35.8 L VBG pO2 41.8 VBG HCO3 17.9 L VBG Total CO2 19.0 L VBG O2 Saturation 75.2 VBG Base Excess -7.3 L Sodium Potassium Chloride Carbon Dioxide Anion Gap BUN Creatinine Estimated GFR (MDRD) Glucose Lactic Acid 3.3 H* Calcium Magnesium Total Bilirubin AST ALT Alkaline Phosphatase Total Protein Albumin Globulin Albumin/Globulin Ratio Lipase TSH 157.59 H Free T4 Free T3 pg/mL Cortisol Urine Color Urine Clarity Urine pH Ur Specific [place] Urine Protein Urine Glucose (UA) Urine Ketones Urine Occult Blood Urine Nitrite Urine Bilirubin Urine Urobilinogen Ur Leukocyte Esterase Urine RBC Urine WBC Ur Squamous Epith Cells Amorphous Sediment Urine Bacteria Urine Casts Ur Microscopic Review Urine Culture Comments Nasal Adenovirus (PCR) Nasal B. parapertussis DNA (PCR) Nasal Coronavir 229E PCR Nasal Coronavir HKU1 PCR Nasal Coronavir NL63 PCR Nasal Coronavir OC43 PCR Nasal Enterovir/Rhinovir PCR Nasal Influenza B PCR Nasal Influenza A PCR Nasal Parainfluen 1 PCR Nasal Parainfluen 2 PCR Nasal Parainfluen 3 PCR Nasal Parainfluen 4 PCR Nasal RSV (PCR) Nasal B.pertussis DNA PCR Nasal C.pneumoniae (PCR) [place] Human Metapneumo PCR Nasal M.pneumoniae (PCR) Nasal SARS-CoV-2 (PCR) Salicylates Urine Opiates Screen Ur Oxycodone Screen Urine Methadone Screen Ur Propoxyphene Screen Acetaminophen Ur Barbiturates Screen Ur Tricyclics Screen Ur Phencyclidine Scrn Ur Amphetamine Screen U Methamphetamines Scrn U Benzodiazepines Scrn Urine Cocaine Screen U Cannabinoids Screen Ethyl Alcohol 03/15/22 03/15/22 03/15/22 17:30 18:40 18:55 WBC RBC Hgb Hct MCV MCH MCHC RDW Plt Count MPV Neut # (Auto) Lymph # (Auto) Henry # (Auto) Eos # (Auto) Baso # (Auto) Absolute Nucleated RBC Total Counted Band Neuts % (Manual) Abnorm Lymph % (Manual) Nucleated RBC % Neutrophils # (Manual) Lymphocytes # (Manual) Monocytes # (Manual) Eosinophils # (Manual) Basophils # (Manual) Differential Comment Platelet Estimate Platelet Morphology RBC Morph Micro Appear PT INR VBG pH VBG pCO2 VBG pO2 VBG HCO3 VBG Total CO2 VBG O2 Saturation VBG Base Excess Sodium Potassium Chloride Carbon Dioxide Anion Gap BUN Creatinine Estimated GFR (MDRD) Glucose Lactic Acid Calcium Magnesium Total Bilirubin AST ALT Alkaline Phosphatase Total Protein Albumin Globulin Albumin/Globulin Ratio Lipase TSH Free T4 < 0.25 L Free T3 pg/mL 1.65 L Cortisol Urine Color BROWN Urine Clarity CLOUDY Urine pH 5.5 Ur Specific [place] 1.025 Urine Protein >=300 H Urine Glucose (UA) NEGATIVE Urine Ketones TRACE Urine Occult Blood TRACE-INTA Urine Nitrite POSITIVE H Urine Bilirubin NEGATIVE Urine Urobilinogen 1 (NORMAL) Ur Leukocyte Esterase TRACE H Urine RBC 6-10 H Urine WBC 6-10 H Ur Squamous Epith Cells FEW Squamous Amorphous Sediment Moderate Urine Bacteria Moderate H Urine Casts 3-5 Hyaline Casts Ur Microscopic Review INDICATED Urine Culture Comments INDICATED Nasal Adenovirus (PCR) NOT DETECTED Nasal B. parapertussis DNA (PCR) NOT DETECTED Nasal Coronavir 229E PCR NOT DETECTED Nasal Coronavir HKU1 PCR NOT DETECTED Nasal Coronavir NL63 PCR NOT DETECTED Nasal Coronavir OC43 PCR NOT DETECTED Nasal Enterovir/Rhinovir PCR NOT DETECTED Nasal Influenza B PCR NOT DETECTED Nasal Influenza A PCR NOT DETECTED Nasal Parainfluen 1 PCR NOT DETECTED Nasal Parainfluen 2 PCR NOT DETECTED Nasal Parainfluen 3 PCR NOT DETECTED Nasal Parainfluen 4 PCR NOT DETECTED Nasal RSV (PCR) NOT DETECTED Nasal B.pertussis DNA PCR NOT DETECTED Nasal C.pneumoniae (PCR) NOT DETECTED [place] Human Metapneumo PCR NOT DETECTED Nasal M.pneumoniae (PCR) NOT DETECTED Nasal SARS-CoV-2 (PCR) NOT DETECTED Salicylates Urine Opiates Screen Ur Oxycodone Screen Urine Methadone Screen Ur Propoxyphene Screen Acetaminophen Ur Barbiturates Screen Ur Tricyclics Screen Ur Phencyclidine Scrn Ur Amphetamine Screen U Methamphetamines Scrn U Benzodiazepines Scrn Urine Cocaine Screen U Cannabinoids Screen Ethyl Alcohol 03/15/22 03/15/22 18:55 20:21 WBC RBC Hgb Hct MCV MCH MCHC RDW Plt Count MPV Neut # (Auto) Lymph # (Auto) Henry # (Auto) Eos # (Auto) Baso # (Auto) Absolute Nucleated RBC Total Counted Band Neuts % (Manual) Abnorm Lymph % (Manual) Nucleated RBC % Neutrophils # (Manual) Lymphocytes # (Manual) Monocytes # (Manual) Eosinophils # (Manual) Basophils # (Manual) Differential Comment Platelet Estimate Platelet Morphology RBC Morph Micro Appear PT INR VBG pH VBG pCO2 VBG pO2 VBG HCO3 VBG Total CO2 VBG O2 Saturation VBG Base Excess Sodium Potassium Chloride Carbon Dioxide Anion Gap BUN Creatinine Estimated GFR (MDRD) Glucose Lactic Acid Calcium Magnesium Total Bilirubin AST ALT Alkaline Phosphatase Total Protein Albumin Globulin Albumin/Globulin Ratio Lipase TSH Free T4 Free T3 pg/mL Cortisol 34.6 Urine Color Urine Clarity Urine pH Ur Specific [place] Urine Protein Urine Glucose (UA) Urine Ketones Urine Occult Blood Urine Nitrite Urine Bilirubin Urine Urobilinogen Ur Leukocyte Esterase Urine RBC Urine WBC Ur Squamous Epith Cells Amorphous Sediment Urine Bacteria Urine Casts Ur Microscopic Review Urine Culture Comments Nasal Adenovirus (PCR) Nasal B. parapertussis DNA (PCR) Nasal Coronavir 229E PCR Nasal Coronavir HKU1 PCR Nasal Coronavir NL63 PCR Nasal Coronavir OC43 PCR Nasal Enterovir/Rhinovir PCR Nasal Influenza B PCR Nasal Influenza A PCR Nasal Parainfluen 1 PCR Nasal Parainfluen 2 PCR Nasal Parainfluen 3 PCR Nasal Parainfluen 4 PCR Nasal RSV (PCR) Nasal B.pertussis DNA PCR Nasal C.pneumoniae (PCR) [place] Human Metapneumo PCR Nasal M.pneumoniae (PCR) Nasal SARS-CoV-2 (PCR) Salicylates Urine Opiates Screen POSITIVE H Ur Oxycodone Screen NEGATIVE Urine Methadone Screen NEGATIVE Ur Propoxyphene Screen NEGATIVE Acetaminophen Ur Barbiturates Screen NEGATIVE Ur Tricyclics Screen POSITIVE H Ur Phencyclidine Scrn NEGATIVE Ur Amphetamine Screen POSITIVE H U Methamphetamines Scrn POSITIVE H U Benzodiazepines Scrn NEGATIVE Urine Cocaine Screen NEGATIVE U Cannabinoids Screen POSITIVE H Ethyl Alcohol - Rads (name of study) CT of the head shows atrophy and chronic ischemic change Radiology: EMP read contemporaneously Initial single view chest x-ray demonstrates normality Radiology: EMP read contemporaneously PD MEDICAL DECISION MAKING - ED course Complexity details: d/w family (I discussed her condition with her daughter, Cathie Montes. She is in [place] but will try to fly out) ED course: 51-year-old woman with above medical history presents by ambulance somnolence complaints of abdominal pain. I am also able to elicit a complaint of headache, nausea, and diarrhea. I asked her when she last used drugs, she said she is not using, but then endorsed using drugs "a few days ago." She is cool with elevated blood pressure, and bradypnea, borderline pulse oximetry. Consideration was given to giving her Narcan to see if that would reverse her altered mental status, that said I also worried about precipitating acute withdrawal that would make the necessary medical work-up more difficult. As result started coming back it became clear that she was critically ill with profound hyperkalemia, renal failure, and probably sepsis with a white count of 35k with 13% bands. EKG was done without widened QRS, but she did have peaked T waves. I ordered 2 L of saline per the sepsis protocol, a bicarb drip, 10 mg of albuterol, insulin, glucose, and broad-spectrum antibiotics including cefepime, Flagyl, and vancomycin. Blood cultures were ordered and I expeditiously placed a right IJ central line. I discussed the case by phone with Dr. Nava, nephrology at [facility] who recommends the following changes to my orders: 1. No normal saline, to be replaced by bicarb containing fluids, so I ordered 2 L of D5 with 3 A of bicarb to run at bolus rate. 2. 200 mg of IV Lasix 3. An insulin drip 4. He agrees with ongoing albuterol to be continued via transport Subsequently accepted to ICU at [facility] by Dr Mathur approx 1930. Note v high TSH and undetectable low T4, ?myxedema. Ordered IV hydrocortisone and 200mcg levothyroxine IV. We do not have IV T3. Transfer delayed as house sup at [facility] demanded Covid result prior to transport despite no change in dispo or POC. - Critical Care Time(min): 55 Time Includes: Direct patient care, Review records, Reassess patient, Document care, Coordinate care, Medical consult Data interpretation: Labs, Pulse ox Procedures included in critical care time: Peripheral IV Procedures excluded from critical care time: Central IV, EKG Departure - Departure Disposition: 02 Transfer Acute Care Hosp Clinical Impression: Hyperkalemia, Encephalopathy, Colitis, Myxedema Acute renal failure Qualifiers: Acute renal failure type: unspecified Qualified Code(s): N17.9 - Acute kidney failure, unspecified Sepsis Qualifiers: Sepsis type: sepsis due to unspecified organism Sepsis acute organ dysfunction status: with acute organ dysfunction Severe sepsis acute organ dysfunction type: acute renal failure Acute renal failure type: unspecified Severe sepsis shock status: without septic shock Qualified Code(s): A41.9 - Sepsis, unspecified organism Abdominal pain Qualifiers: Abdominal location: generalized Qualified Code(s): R10.84 - Generalized abdominal pain Condition: Critical Discharge Date/Time: 03/15/22 21:00
[2022-03-15 17:40] LABS: BASOPHILS % (AUTO) 0.5 %; EOSINOPHILS % (AUTO) 0.2 %; HCT - HEMATOCRIT 45.1 % (37.0-47.0); LYMPHOCYTES % (AUTO) 2.4 %; MEAN CORPUSCULAR HEMOGLOBIN 29.2 pg (27.0-31.0); MEAN CORPUSCULAR HGB CONC 33.3 g/dL (32.0-36.0); MEAN CORPUSCULAR VOLUME 87.9 fL (81.0-99.0); MEAN PLATELET VOLUME 10.7 fL (7.9-10.8); NEUTROPHILS % (AUTO) 91.9 %; PLT - PLATELET COUNT 278 10^3/uL (130-450); RED BLOOD COUNT 5.13 10^6/uL (4.20-5.40); RED CELL DISTRIBUTION WIDTH 14.1 % (12.0-15.0)
[2022-03-15 17:42] LABS: VBG PCO2 35.8 mmHg (41-51); VBG PH 7.318 (7.31-7.41); VBG PO2 41.8 mmHg (25-47); WHITE BLOOD COUNT 35.1 x10^3/uL (4.8-10.8)
[2022-03-15 17:43] LABS: ABNORMAL LYMPHS % (MANUAL) 0 %; VBG BASE EXCESS -7.3 mmol/L (-2 - +2); VBG HCO3 17.9 mmol/L (23-28); VBG OXYGEN SATURATION 75.2 % (60-80)
[2022-03-15 17:51] LABS: PT - PROTHROMBIN TIME 11.3 secs (9.9-12.6)
[2022-03-15 18:02] LABS: ACETAMINOPHEN < 10 ug/mL (10-30); ALBUMIN 4.2 g/dL (3.2-5.5); ALKALINE PHOSPHATASE 114 IU/L (42-121); ALT ALANINE AMINOTRANSFERASE 197 IU/L (10-60); AST ASPARTATE AMINOTRANSFERASE 299 IU/L (10-42); BILIRUBIN,TOTAL 0.9 mg/dL (0.2-1.0); BUN - BLOOD UREA NITROGEN 60 mg/dL (6-20); CALCIUM 10.2 mg/dL (8.5-10.3); CARBON DIOXIDE - CO2 19 mmol/L (21-32); CHLORIDE 96 mmol/L (101-111); CREATININE 4.1 mg/dL (0.4-1.0); ETOH - ETHANOL < 5.0 mg/dL; GFR - MDRD 11 (>89); GLUCOSE 155 mg/dL (70-100); LIPASE 29 U/L (22-51); SALICYLATE < 6.0 mg/dL; SODIUM 133 mmol/L (135-145); TOTAL PROTEIN 8.5 g/dL (6.7-8.2)
[2022-03-15 18:04] LABS: BAND NEUTROPHILS % (MANUAL) 13 %; BASOPHILS # (MANUAL) 0.4 10^3/uL (0-0.1); BASOPHILS % (MANUAL) 1 %; DIFFERENTIAL COMMENT MANUAL DIFFERENTIAL; LYMPHOCYTES # (MANUAL) 0.4 10^3/uL (1.5-3.5); LYMPHOCYTES % (MANUAL) 1 %; MONOCYTES # (MANUAL) 0.7 10^3/uL (0.0-1.0); NEUTROPHILS # (MANUAL) 33.7 10^3/uL (1.5-6.6); PLATELET ESTIMATE, MANUAL NORMAL (130-450,000) (NORMAL); PLATELET MORPHOLOGY 1+ GIANT PLATELETS (NORMAL); RBC MORPHOLOGY (MULTIPLE) NORMAL APPEARANCE (NORMAL)
[2022-03-15] MEDS ORDERED: metroNIDAZOLE 500 MG/100 ML 500 MG/100 ML BAG IV STA (18:04)
[2022-03-15] MEDS ORDERED: VANCOMYCIN INJ 1.25 GM in SODIUM CHLORIDE 0.9% 500 ML IV STA (18:04)
[2022-03-15] MEDS ORDERED: SODIUM CHLORIDE 0.9% 1,905.09 ML IV STA (18:04)
[2022-03-15] MEDS ORDERED: CEFEPIME 2 GM in SODIUM CHLORIDE 0.9% MINIBAG 100 ML IV STA (18:04)
[2022-03-15] MEDS ORDERED: SODIUM BICARBONATE 150 MEQ in DEXTROSE 5% 1,000 ML IV STA (18:05)
[2022-03-15] MEDS ORDERED: ALBUTEROL NEB 2.5 MG/3 ML INH STA (18:05)
[2022-03-15] MEDS ORDERED: CALCIUM GLUC 1,000MG/50ML-NACL 1,000 MG/50 ML BAG IV STA (18:05)
[2022-03-15] MEDS ORDERED: INSULIN REGULAR HUMAN 100 UNIT/1 ML 10 ML MDV IVP STA ×2 (18:05→18:32)
--- NOTE | 2022-03-15 18:10 | XRAY Report ---
PROCEDURE: Chest 1 View X-Ray INDICATIONS: hypoxemia TECHNIQUE: One view of the chest was acquired. COMPARISON: 03/01/2022. FINDINGS: Surgical changes and devices: None. Lungs and pleura: No pleural effusions or pneumothorax. Lungs are clear. Mediastinum: Mediastinal contours appear normal. Heart size is normal. Bones and chest wall: No suspicious bony lesions. Overlying soft tissues appear unremarkable. IMPRESSION: No acute cardiopulmonary disease process. Reviewed by: Lynette Hernández MD, PhD on 03/15/2022 6:09 PM PDT Approved by: Lynette Hernández MD, PhD on 03/15/2022 6:09 PM PDT Station ID: [id number]
--- NOTE | 2022-03-15 18:28 | CT Report ---
PROCEDURE: CT brain without contrast INDICATIONS: altered TECHNIQUE: Noncontrast 4.5 mm thick angled axial sections acquired from the foramen magnum to the vertex. For r adiation dose reduction, the following was used: automated exposure control, adjustment of mA and/or kV according to patient size. COMPARISON: 12/03/2021 scalp nodule FINDINGS: Image quality: Excellent. CSF spaces: Basal cisterns are patent. No extra-axial fluid collections. Ventricles are normal in size and shape. Brain: No midline shift. No intracranial masses or hemorrhage. Blum-white matter interface is norm al. Moderate atrophy and multifocal white matter chronic ischemic change noted. Atherosclerotic vasc ular calcification noted in the cavernous segments of both internal carotid arteries as well as the i ntradural vertebral arteries. Skull and face: Calvarium and visualized facial bones are intact, without suspicious lesions. Left frontal periorbital scalp nodule, similar prior exam Sinuses: Visualized sinuses and mastoids are clear. IMPRESSION: Atrophy and chronic ischemic change without acute hemorrhage or mass effect Reviewed by: Roney Hector MD on 03/15/2022 5:26 PM AKDT Approved by: Roney Hector MD on 03/15/2022 5:26 PM AKDT Station ID: [id number]
--- NOTE | 2022-03-15 18:32 | CT Report ---
PROCEDURE: Abdomen/Pelvis WO INDICATIONS: abd pain TECHNIQUE: Noncontrast 5 mm thick sections acquired from the diaphragms to the symphysis. 5 mm coronal and sagi ttal reformats were then performed. For radiation dose reduction, the following was used: automated exposure control, adjustment of mA and/or kV according to patient size. COMPARISON: None. FINDINGS: Image quality: Excellent. ABDOMEN: Lung bases: Scarring left base is stable from the prior. Heart size is normal. Solid organs: Liver and spleen are normal in size. Gallbladder surgically absent. Pancreas is norm al in contours. No adrenal nodules. Kidneys are normal in size, without hydronephrosis or nephrolit hiasis. Peritoneum and bowel: Transverse and descending colon shows wall thickening and pericolonic inflammat ory change, consistent with colitis. No evidence of bowel obstruction, free air or free fluid. Nodes and vessels: No retroperitoneal or mesenteric adenopathy by size criteria. Aorta and inferior vena cava are normal in caliber. Dense obscuring vascular calcification associated with small infra renal aortic aneurysm measuring 3 cm Miscellaneous: No ventral hernias. PELVIS: Genitourinary: Bladder wall thickness is normal. Miscellaneous: No inguinal hernias or adenopathy. Bones: No suspicious bony lesions. No vertebral body compression fractures. IMPRESSION: Mild colitis in the mid colon without evidence of obstruction or perforation or abscess. Stable infrarenal small abdominal aortic aneurysm. Reviewed by: Roney Hector MD on 03/15/2022 5:31 PM AKDT Approved by: Roney Hector MD on 03/15/2022 5:31 PM AKDT Station ID: [id number]
[2022-03-15] MEDS ORDERED: INSULIN REGULAR HUMAN 100 UNIT in SODIUM CHLORIDE 0.9% 100ML 99 ML IV ONE (18:37)
[2022-03-15] MEDS ORDERED: FUROSEMIDE 100 MG/10 ML VIAL IVP STA (18:39)
[2022-03-15] MEDS ORDERED: SODIUM BICARBONATE 150 MEQ in DEXTROSE 5% 1,000 ML IV SCH ×6 (19:00)
[2022-03-15 19:11] LABS: MUDS CUTOFF CONCENTRATIONS CUTOFF CONC BELOW:
--- NOTE | 2022-03-15 19:18 | XRAY Report ---
PROCEDURE: Chest for Line Placement, x-ray INDICATIONS: Central venous line TECHNIQUE: One view of the chest was acquired. COMPARISON: 03/15/2022 FINDINGS: Surgical changes and devices: Right IJ since venous line tip at the cavoatrial junction. Lungs and pleura: No pleural effusions or pneumothorax. Lungs are clear. Mediastinum: Mediastinal contours appear normal. Heart size is normal. Bones and chest wall: No suspicious bony lesions. Overlying soft tissues appear unremarkable. IMPRESSION: Right IJ central venous line tip at the cavoatrial junction. No pneumothorax Reviewed by: Roney Hector MD on 03/15/2022 6:16 PM AKDT Approved by: Roney Hector MD on 03/15/2022 6:16 PM AKDT Station ID: [id number]
[2022-03-15 19:19] LABS: GLUCOSE, URINE (UA) NEGATIVE (NEGATIVE); KETONES,URINE (UA) TRACE mg/dL (NEGATIVE); LEUKOCYTE ESTERASE, URINE TRACE (NEGATIVE); NITRITE,URINE POSITIVE (NEGATIVE); OCCULT BLOOD,URINE TRACE-INTA (NEGATIVE); PH,URINE 5.5 PH (5.0-7.5); PROTEIN,URINE >=300 mg/dL (NEGATIVE); UROBILINOGEN,URINE 1 (NORMAL) E.U./dL (NORMAL)
[2022-03-15 19:31] LABS: AMPHETAMINE SCREEN,URINE POSITIVE (NEGATIVE); BARBITURATE SCREEN,UR NEGATIVE (NEGATIVE); BENZODIAZEPINES SCREEN, URINE NEGATIVE (NEGATIVE); COCAINE SCREEN URINE NEGATIVE (NEGATIVE); METHADONE SCREEN, URINE NEGATIVE (NEGATIVE); METHAMPHETAMINES SCREEN, URINE POSITIVE (NEGATIVE); OPIATE SCREEN, URINE POSITIVE (NEGATIVE); OXYCODONE SCREEN, URINE NEGATIVE (NEGATIVE); PROPOXYPHENE SCREEN, URINE NEGATIVE (NEGATIVE); THC CANNABINOID SCREEN, URINE POSITIVE (NEGATIVE); TRICYCLIC ANTIDEPRESSANT,URINE POSITIVE (NEGATIVE)
[2022-03-15 19:47] LABS: BILIRUBIN,URINE NEGATIVE (NEGATIVE); ICTOTEST,URINE NEGATIVE
[2022-03-15 19:48] LABS: CLARITY,URINE CLOUDY (CLEAR); SQUAMOUS EPITHELIAL CELL,UR FEW Squamous (<= Few)
[2022-03-15 19:48] LABS: FREE T3 1.65 pg/mL (2.5-3.9)
[2022-03-15 19:49] LABS: AMORPHOUS SEDIMENT,UR Moderate /LPF; BACTERIA,URINE Moderate /HPF (None Seen)
[2022-03-15 19:50] LABS: FREE T4 (FREE THYROXINE) < 0.25 ng/dL (0.58-1.64)
[2022-03-15] MEDS ORDERED: LEVOTHYROXINE 100 MCG VIAL IVP STA (20:06)
[2022-03-15] MEDS ORDERED: HYDROCORTISONE SUCCINATE 100 MG/2 ML VIAL IVP STA (20:07)
--- NOTE | 2022-03-15 20:11 | ED Physician Documentation ---
ED Addendum - Addendum Addendum: 03/15/22 20:10The patient was accepted for transfer by the prior ER physician. [facility] is ready to take the patient. However [facility] called back and wanted a rapid COVID test performed and was holding transfer at this point pending the result. We are awaiting the result of that with [facility] standing by in the hallway.
[2022-03-15 20:33] LABS: B. PARAPERTUSSIS- RESP PCR PAN NOT DETECTED; B. PERTUSSIS- RESP PCR PANEL NOT DETECTED; C. PNEUMONIAE- RESP PCR PANEL NOT DETECTED; CORONAVIRUS 229E-RESP PCR NOT DETECTED; CORONAVIRUS HKU1-RESP PCR NOT DETECTED; CORONAVIRUS NL63-RESP PCR NOT DETECTED; CORONAVIRUS OC43-RESP PCR NOT DETECTED; HUMAN METAPNEUMOVIRUS NOT DETECTED; INFLUENZA A- RESP PCR PANEL NOT DETECTED; INFLUENZA B - RESP PCR PANEL NOT DETECTED; M. PNEUMONIAE- RESP PCR PANEL NOT DETECTED; PARAINFLUENZA VIRUS 1 NOT DETECTED; PARAINFLUENZA VIRUS 2 NOT DETECTED; PARAINFLUENZA VIRUS 3 NOT DETECTED; PARAINFLUENZA VIRUS 4 NOT DETECTED; RHINOVIRUS/ENTEROVIRUS NOT DETECTED; RSV- RESP PCR PANEL NOT DETECTED; SARS-CoV-2 -RESP PCR PANEL NOT DETECTED
[2022-03-15 20:38] VITALS: BP 124/76
== END 2022-03-15 21:00 | disposition short-term general hospital (02) ==
LOC: ED 17:17
DX: A41.9 Sepsis, unspecified organism (principal); R65.20 Severe sepsis without septic shock; N17.8 Other acute kidney failure; I10 Essential (primary) hypertension; Z59.00 Homelessness unspecified; F17.200 Nicotine dependence, unspecified, uncomplicated; E87.5 Hyperkalemia; G93.40 Encephalopathy, unspecified; K52.9 Noninfective gastroenteritis and colitis, unspecified; E03.9 Hypothyroidism, unspecified
CPT/HCPCS: 36415; 36556; 70450; 71045; 74176; 80053; 80306; 80307; 80320; 80329; 81001; 81599; 82533; 82803; 83605; 83690; 83735; 84439; 84443; 84481; 85025; 85610; 87040; 87086; 87150; 87633; 93005; 94640; 96361; 96365; 96366; 96368; 96375; 99285; 99291; J1815; J1940; J3370; 81003

== ENCOUNTER 2022-04-22 12:56 | Emergency (ER) | payer MEDICAID ==
[2022-04-22 13:28] LABS: BASOPHILS # (AUTO) 0.1 10^3/uL (0.0-0.1); BASOPHILS % (AUTO) 0.4 %; EOSINOPHILS # (AUTO) 0.3 10^3/uL (0.0-0.7); EOSINOPHILS % (AUTO) 2.7 %; HCT - HEMATOCRIT 31.5 % (37.0-47.0); HGB - HEMOGLOBIN 10.1 g/dL (12.0-16.0); LYMPHOCYTES # (AUTO) 2.7 10^3/uL (1.5-3.5); LYMPHOCYTES % (AUTO) 21.8 %; MEAN CORPUSCULAR HEMOGLOBIN 28.4 pg (27.0-31.0); MEAN CORPUSCULAR HGB CONC 32.1 g/dL (32.0-36.0); MEAN CORPUSCULAR VOLUME 88.5 fL (81.0-99.0); MEAN PLATELET VOLUME 10.1 fL (7.9-10.8); MONOCYTES % (AUTO) 8.3 %; NEUTROPHILS # (AUTO) 8.1 10^3/uL (1.5-6.6); NEUTROPHILS % (AUTO) 66.2 %; PLT - PLATELET COUNT 331 10^3/uL (130-450); RED BLOOD COUNT 3.56 10^6/uL (4.20-5.40); RED CELL DISTRIBUTION WIDTH 14.9 % (12.0-15.0); WHITE BLOOD COUNT 12.2 x10^3/uL (4.8-10.8)
[2022-04-22 13:41] LABS: ALBUMIN 3.4 g/dL (3.2-5.5); BILIRUBIN,TOTAL 0.5 mg/dL (0.2-1.0); CREATININE 1.8 mg/dL (0.4-1.0); POTASSIUM 4.2 mmol/L (3.5-5.0); TOTAL PROTEIN 6.8 g/dL (6.7-8.2)
[2022-04-22 13:45] LABS: PT - PROTHROMBIN TIME 11.3 secs (9.9-12.6)
[2022-04-22] MEDS ORDERED: IPRATROPIUM/ALBUTEROL 3 ML NEB INH STA (14:40)
--- NOTE | 2022-04-22 14:41 | ED Physician Documentation ---
History of Present Illness - Stated complaint Stated Complaint: FEMALE GI - Chief complaint Chief Complaint: Abd Pain - History obtained from History obtained from: Patient - History of Present Illness Timing: Today Pain level max: 0 Pain level now: 0 - Additonal information Additional information: Patient is a 52-year-old female who presents to the emergency department complaining of increased difficulty breathing over the past 2 to 3 days. She states that she ran out of her inhaler and her nebulizer medication. She states that she could not afford to pick them up. She states she is still smoking 1 to 2 packs/day. She is trying to quit. She also states that she had diarrhea and difficulty with urination over the past few days. She states that once she noticed a small amount of bright red blood in her stool. None today. She states she just feels tired and like she is having a hard time breathing. She states she was recently admitted to for "renal failure" and that she had dialysis x1. She states she was not told if she will need any dialysis in the future or not. Patient does have a history of hypertension, CHF, COPD, homelessness, methamphetamine abuse, ulcerative colitis, cholecystectomy and hysterectomy. Upon review of her records, it appears that it was a one-time dialysis for hyperkalemia with acute renal insufficiency. Review of Systems Ten Systems: 10 systems reviewed and negative Constitutional: denies: Fever, Chills Ears: denies: Ear pain Nose: reports: Rhinorrhea / runny nose. denies: Congestion Throat: denies: Sore throat Cardiac: denies: Chest pain / pressure, Palpitations Respiratory: reports: Dyspnea, Cough, Wheezing GI: reports: Diarrhea. denies: Nausea, Vomiting : reports: Frequency, Hesitancy. 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 - Present Medications Home Medications: Ambulatory Orders Medication Instructions Recorded Confirmed Levothyroxine Sodium [Synthroid] 200 mcg PO QDAC 03/22/21 07/30/21 Tiotropium [place] [Spiriva] 1 puffs INH DAILY 03/22/21 07/30/21 Amlodipine Besylate [Norvasc] 10 mg PO DAILY #30 tab 03/24/21 07/30/21 Levetiracetam [Keppra] 1,000 mg PO BID 07/12/21 07/30/21 dilTIAZem HCL [Diltiazem 24Hr ER 180 mg PO DAILY 07/12/21 07/30/21 (Xr)] Albuterol Sulfate [Proair Hfa 1 - 2 puffs INH Q4H PRN #1 gm 07/14/21 07/30/21 Inhaler] Potassium Chloride [Klor-Con] 20 meq PO TID #15 packet 07/14/21 07/30/21 ondansetron HCL [Zofran] 4 mg PO Q6H PRN #15 tab 07/31/21 Cefdinir 300 mg PO BID #20 cap 11/25/21 Albuterol Sulf [Ventolin Hfa 2 - 3 puffs INH Q4HR PRN #1 inhaler 04/12/22 Inhaler] Buprenorphine HCl/Naloxone HCl 0.5 each SL DAILY 6 Days #3 film 04/12/22 [Suboxone 4 mg-1 mg Sl Film] Ipratropium [Atrovent] 1 puffs INH QID 30 Days #12.9 gm 04/12/22 Ondansetron Odt [Zofran] 4 mg TL Q6H PRN #20 tablet 04/12/22 dexAMETHasone [Decadron] 4 mg PO DAILY #5 tablet 04/12/22 predniSONE [Deltasone] 10 mg PO [id number] #42 tab 04/22/22 - Allergies Allergies/Adverse Reactions: Allergies Allergy/AdvReac Type Severity Reaction Status Date / Time NSAIDS (Non-Steroidal Allergy Nausea Verified 04/22/22 13:13 Anti-Inflamma Penicillins Allergy Respiratory Verified 04/22/22 13:13 - Social History Does the pt smoke?: Yes Smoking Status: Current every day smoker Does the pt drink ETOH?: No Does the pt have substance abuse?: Yes - Immunizations Immunizations are current?: Yes - POLST Patient has POLST: No PD ED PE NORMAL - Vitals Vital signs reviewed: Yes - General General: Alert and oriented X 3, No acute distress - HEENT HEENT: PERRL, Moist mucous membranes - Neck Neck: Supple, no meningeal sign - Cardiac Cardiac: RRR, Strong equal pulses - Respiratory Respiratory: No respiratory distress, Other (Mild wheezing bilaterally, no respiratory distress) - Abdomen Abdomen: Normal bowel sounds, Soft, Non tender, Non distended - Rectal Rectal: Pt declined - Back Back: No spinal TTP, Other (No tenderness to palpation or percussion over the spine.) - Derm Derm: Warm and dry - Extremities Extremities: No edema, No calf tenderness / cord - Neuro Neuro: Alert and oriented X 3, java development manager 2-12 intact, No motor deficit, No sensory deficit, Other (Normal bilateral lower extremity patellar and ankle jerk reflexes. Normal great toe extension bilaterally. no saddle anesthesia) - Psych Psych: Normal mood, Normal affect Results - Vitals Vitals: Vital Signs - 24 hr 04/22/22 04/22/22 04/22/22 13:07 14:20 14:54 Temperature 36.4 C L 36.5 C Heart Rate 90 90 90 Respiratory 28 H 28 H 22 Rate Blood Pressure 155/97 H 155/97 H O2 Saturation 97 97 04/22/22 04/22/22 16:00 16:07 Temperature Heart Rate 88 84 Respiratory 20 18 Rate Blood Pressure 140/88 H O2 Saturation 97 Oxygen O2 Source Room air - Labs Labs: Laboratory Tests 04/22/22 04/22/22 04/22/22 13:23 13:23 13:23 WBC 12.2 H RBC 3.56 L Hgb 10.1 L Hct 31.5 L MCV 88.5 MCH 28.4 MCHC 32.1 RDW 14.9 Plt Count 331 MPV 10.1 Neut # (Auto) 8.1 H Lymph # (Auto) 2.7 [place] # (Auto) 1.0 Eos # (Auto) 0.3 Baso # (Auto) 0.1 Absolute Nucleated RBC 0.00 Nucleated RBC % 0.0 PT 11.3 INR 1.0 Sodium Potassium Chloride Carbon Dioxide Anion Gap BUN Creatinine Estimated GFR (MDRD) Glucose Calcium Total Bilirubin AST ALT Alkaline Phosphatase Total Protein Albumin Globulin Albumin/Globulin Ratio Lipase Urine Color Urine Clarity Urine pH Ur Specific [place] Urine Protein Urine Glucose (UA) Urine Ketones Urine Occult Blood Urine Nitrite Urine Bilirubin Urine Urobilinogen Ur Leukocyte Esterase Urine RBC Urine WBC Ur Squamous Epith Cells Amorphous Sediment Urine Bacteria Ur Microscopic Review Urine Culture Comments Urine Opiates Screen Ur Oxycodone Screen Urine Methadone Screen Ur Propoxyphene Screen Ur Barbiturates Screen Ur Tricyclics Screen Ur Phencyclidine Scrn Ur Amphetamine Screen U Methamphetamines Scrn U Benzodiazepines Scrn Urine Cocaine Screen U Cannabinoids Screen Blood Type A NEGATIVE Antibody Screen NEGATIVE 04/22/22 04/22/22 13:23 15:58 WBC RBC Hgb Hct MCV MCH MCHC RDW Plt Count MPV Neut # (Auto) Lymph # (Auto) [place] # (Auto) Eos # (Auto) Baso # (Auto) Absolute Nucleated RBC Nucleated RBC % PT INR Sodium 138 Potassium 4.2 Chloride 102 Carbon Dioxide 27 Anion Gap 9.0 BUN 28 H Creatinine 1.8 H Estimated GFR (MDRD) 29 L Glucose 98 Calcium 9.0 Total Bilirubin 0.5 AST 14 ALT 12 Alkaline Phosphatase 69 Total Protein 6.8 Albumin 3.4 Globulin 3.4 Albumin/Globulin Ratio 1.0 Lipase 25 Urine Color YELLOW Urine Clarity CLEAR Urine pH 6.0 Ur Specific [place] 1.025 Urine Protein 100 H Urine Glucose (UA) NEGATIVE Urine Ketones NEGATIVE Urine Occult Blood NEGATIVE Urine Nitrite NEGATIVE Urine Bilirubin NEGATIVE Urine Urobilinogen 0.2 (NORMAL) Ur Leukocyte Esterase NEGATIVE Urine RBC None Seen Urine WBC 4-5 Ur Squamous Epith Cells MANY Squamous H Amorphous Sediment Few Urine Bacteria Many H Ur Microscopic Review INDICATED Urine Culture Comments NOT INDICATED Urine Opiates Screen POSITIVE H Ur Oxycodone Screen NEGATIVE Urine Methadone Screen NEGATIVE Ur Propoxyphene Screen NEGATIVE Ur Barbiturates Screen NEGATIVE Ur Tricyclics Screen NEGATIVE Ur Phencyclidine Scrn NEGATIVE Ur Amphetamine Screen POSITIVE H U Methamphetamines Scrn POSITIVE H U Benzodiazepines Scrn POSITIVE H Urine Cocaine Screen NEGATIVE U Cannabinoids Screen POSITIVE H Blood Type Antibody Screen - Rads (name of study) Chest x-ray Radiology: EMP read indepedently, See rad report (No acute abnormality) PD MEDICAL DECISION MAKING - ED course Complexity details: reviewed results, re-evaluated patient, considered differential, d/w patient ED course: No acute findings on x-ray. Patient is well-appearing, nontoxic. Afebrile. Wheezing resolved with dexamethasone and breathing treatments. Ambulating throughout the emergency department without any shortness of breath. No hypoxia. No indication for antibiotics. Counseled to quit using illicit substances including methamphetamines. Recommend that she fern picker her medication as soon as possible so that she has medications to help with her breathing. Encouraged her to quit smoking. Will place on steroids for a COPD flare. No indication for antibiotics. Abdomen is soft, nontender nondistended on serial exam. No diarrhea or urinary incontinence here. No back pain. No fevers. Normal reflexes. Normal gait. Patient counseled regarding signs and symptoms for which I believe and urgent re-evaluation would be necessary. Patient with good understanding of and agreement to plan and is comfortable going home at this time This document was made in part using voice recognition software. While efforts are made to proofread this document, sound alike and grammatical errors may occur. Departure - Departure Disposition: Home, Self Care Clinical Impression: Methamphetamine abuse COPD (chronic obstructive pulmonary disease) Qualifiers: COPD type: unspecified COPD Qualified Code(s): J44.9 - Chronic obstructive pulmonary disease, unspecified Condition: Good Instructions: ED COPD Flare Follow-Up: Yokasta Bowens PA-C [Primary Care Provider] - Within 1 week Prescriptions: predniSONE [Deltasone] 10 mg PO [id number] #42 tab Comments: Please follow-up with your doctor for further care. Return if you worsen. Your prescriptions were sent to [facility] in [place]. Please fern picker your inhaler as well. Discharge Date/Time: 04/22/22 17:11
[2022-04-22] MEDS ORDERED: DEXAMETHASONE 10 MG/ML VIAL PO STA (15:05)
[2022-04-22] MEDS ORDERED: CHERRY SYRUP 10 ML UDC PO ONE (15:05)
[2022-04-22] MEDS ORDERED: ALBUTEROL NEB 2.5 MG/3 ML INH STA (15:55)
[2022-04-22 16:02] VITALS: BP 140/88
[2022-04-22 16:05] LABS: MUDS CUTOFF CONCENTRATIONS CUTOFF CONC BELOW:
[2022-04-22 16:11] LABS: BILIRUBIN,URINE NEGATIVE (NEGATIVE); GLUCOSE, URINE (UA) NEGATIVE (NEGATIVE); KETONES,URINE (UA) NEGATIVE (NEGATIVE); LEUKOCYTE ESTERASE, URINE NEGATIVE (NEGATIVE); NITRITE,URINE NEGATIVE (NEGATIVE); OCCULT BLOOD,URINE NEGATIVE (NEGATIVE); PROTEIN,URINE 100 mg/dL (NEGATIVE); UROBILINOGEN,URINE 0.2 (NORMAL) E.U./dL (NORMAL)
[2022-04-22 16:24] LABS: CLARITY,URINE CLEAR (CLEAR)
[2022-04-22 16:30] LABS: AMORPHOUS SEDIMENT,UR Few /LPF; BACTERIA,URINE Many /HPF (None Seen); RBC,URINE None Seen /HPF (0-5); SQUAMOUS EPITHELIAL CELL,UR MANY Squamous (<= Few)
[2022-04-22 16:31] LABS: AMPHETAMINE SCREEN,URINE POSITIVE (NEGATIVE); BARBITURATE SCREEN,UR NEGATIVE (NEGATIVE); BENZODIAZEPINES SCREEN, URINE POSITIVE (NEGATIVE); COCAINE SCREEN URINE NEGATIVE (NEGATIVE); METHADONE SCREEN, URINE NEGATIVE (NEGATIVE); METHAMPHETAMINES SCREEN, URINE POSITIVE (NEGATIVE); OPIATE SCREEN, URINE POSITIVE (NEGATIVE); OXYCODONE SCREEN, URINE NEGATIVE (NEGATIVE); PROPOXYPHENE SCREEN, URINE NEGATIVE (NEGATIVE); THC CANNABINOID SCREEN, URINE POSITIVE (NEGATIVE); TRICYCLIC ANTIDEPRESSANT,URINE NEGATIVE (NEGATIVE)
--- NOTE | 2022-04-22 17:35 | XRAY Report ---
PROCEDURE: Chest 1 View X-Ray INDICATIONS: DYSPNEA,COUGH, COPD TECHNIQUE: One view of the chest was acquired. COMPARISON: Chest x-ray one view, 04/12/2022. FINDINGS: Surgical changes and devices: None. Lungs and pleura: Lungs are mildly hyperinflated. There is infiltrate in right lower lobe. No pleura l effusions or pneumothorax. Mediastinum: Mediastinal contours appear normal. Heart size is normal. Bones and chest wall: No suspicious bony lesions. Overlying soft tissues appear unremarkable. IMPRESSION: Right lower lobe infiltrate suspicious for pneumonia. Reviewed by: Matias Elder MD on 04/22/2022 5:33 PM PDT Approved by: Matias Elder MD on 04/22/2022 5:33 PM PDT Station ID: [id number]
== END 2022-04-22 17:11 | disposition home or self-care (01) ==
LOC: ED 12:56
DX: F15.10 Other stimulant abuse, uncomplicated (principal); J44.9 Chronic obstructive pulmonary disease, unspecified; F17.200 Nicotine dependence, unspecified, uncomplicated; Z59.00 Homelessness unspecified
CPT/HCPCS: 36415; 71045; 80053; 80306; 81001; 83690; 85025; 85610; 86850; 86900; 86901; 94640; 99284; A9270; 81003; 87086

== ENCOUNTER 2022-08-12 15:38 | Observation (INO) | payer MEDICAID ==
[2022-08-12 16:34] LABS: BASOPHILS # (AUTO) 0.1 10^3/uL (0.0-0.1); BASOPHILS % (AUTO) 0.8 %; EOSINOPHILS # (AUTO) 0.3 10^3/uL (0.0-0.7); EOSINOPHILS % (AUTO) 3.7 %; HCT - HEMATOCRIT 39.5 % (37.0-47.0); HGB - HEMOGLOBIN 12.6 g/dL (12.0-16.0); LYMPHOCYTES # (AUTO) 2.4 10^3/uL (1.5-3.5); LYMPHOCYTES % (AUTO) 25.9 %; MEAN CORPUSCULAR HGB CONC 31.9 g/dL (32.0-36.0); MEAN CORPUSCULAR VOLUME 87.8 fL (81.0-99.0); MEAN PLATELET VOLUME 10.6 fL (7.9-10.8); MONOCYTES # (AUTO) 0.4 10^3/uL (0.0-1.0); MONOCYTES % (AUTO) 4.5 %; NEUTROPHILS # (AUTO) 5.9 10^3/uL (1.5-6.6); NEUTROPHILS % (AUTO) 64.7 %; PLT - PLATELET COUNT 209 10^3/uL (130-450); RED CELL DISTRIBUTION WIDTH 15.5 % (12.0-15.0); WHITE BLOOD COUNT 9.2 x10^3/uL (4.8-10.8)
[2022-08-12 16:40] LABS: PT - PROTHROMBIN TIME 10.9 secs (9.9-12.6)
[2022-08-12 16:49] LABS: ALBUMIN/GLOBULIN RATIO 1.2 (1.0-2.2); BILIRUBIN,TOTAL 0.2 mg/dL (0.2-1.0); CALCIUM 9.2 mg/dL (8.5-10.3); CREATININE 2.8 mg/dL (0.4-1.0); POTASSIUM 3.1 mmol/L (3.5-5.0); TOTAL PROTEIN 7.3 g/dL (6.7-8.2)
--- NOTE | 2022-08-12 17:08 | XRAY Report ---
PROCEDURE: Chest 1 View X-Ray INDICATIONS: Chest pain TECHNIQUE: One view of the chest was acquired. COMPARISON: Chest x-ray 04/22/2022 FINDINGS: Surgical changes and devices: None. Lungs and pleura: No pleural effusions or pneumothorax. Lungs are clear. Mediastinum: Mediastinal contours appear normal. Heart size is normal. Bones and chest wall: No suspicious bony lesions. Overlying soft tissues appear unremarkable. IMPRESSION: No acute pulmonary process. Reviewed by: Soo Weber MD on 08/12/2022 5:07 PM [facility] Approved by: Soo Weber MD on 08/12/2022 5:07 PM [facility] Station ID: [id number]
[2022-08-12] MEDS ORDERED: NITROGLYCERIN 50 MG/250 ML 50 MG/250 ML BOTTLE IV STA (17:38)
--- NOTE | 2022-08-12 17:49 | ED Physician Documentation ---
History of Present Illness - Stated complaint Stated Complaint: CHEST PX,SOA - Chief complaint Chief Complaint: Cardiac - Additonal information Additional information: 52-year-old female presents emergency department for evaluation of substernal chest pain and chest pressure that began about 10 AM. She has a longstanding history of hypertension as well as chronic kidney disease. She is currently residing in a travel trailer. She states she has not taken any of her blood pressure medications for at least 3 weeks. She denies any headache nausea or vomiting. She has no focal neurodeficits. Denies alcohol or drug use. Occasional tobacco use endorsed Review of Systems Constitutional: denies: Fever, Chills Throat: reports: Reviewed and negative Cardiac: reports: Chest pain / pressure Respiratory: reports: Reviewed and negative GI: reports: Reviewed and negative : reports: Reviewed and negative Skin: reports: Reviewed and negative PD PAST MEDICAL HISTORY - Past Medical History Cardiovascular: Hypertension Respiratory: Asthma, COPD Neuro: None Endocrine/Autoimmune: HyPOthyroidism GI: Ulcerative colitis : None Psych: Depression, Other Musculoskeletal: None Derm: None - Past Surgical History Past Surgical History: Yes General: Cholecystectomy, 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: Hysterectomy - Present Medications Home Medications: Ambulatory Orders Medication Instructions Recorded Confirmed Levothyroxine Sodium [Synthroid] 200 mcg PO QDAC 03/22/21 07/30/21 Tiotropium [place] [Spiriva 1 puffs INH DAILY 03/22/21 07/30/21 Handihaler] Amlodipine Besylate [Norvasc] 10 mg PO DAILY #30 tab 03/24/21 07/30/21 Levetiracetam [Keppra] 1,000 mg PO BID 07/12/21 07/30/21 dilTIAZem HCL [Diltiazem 24Hr ER 180 mg PO DAILY 07/12/21 07/30/21 (Xr)] Albuterol Sulfate [Proair Hfa 1 - 2 puffs INH Q4H PRN #1 gm 07/14/21 07/30/21 Inhaler] Potassium Chloride [Klor-Con] 20 meq PO TID #15 packet 07/14/21 07/30/21 ondansetron HCL [Zofran] 4 mg PO Q6H PRN #15 tab 07/31/21 Cefdinir 300 mg PO BID #20 cap 11/25/21 Albuterol Sulf [Ventolin Hfa 2 - 3 puffs INH Q4HR PRN #1 inhaler 04/12/22 Inhaler] Buprenorphine HCl/Naloxone HCl 0.5 each SL DAILY 6 Days #3 film 04/12/22 [Suboxone 4 mg-1 mg Sl Film] Ipratropium [Atrovent] 1 puffs INH QID 30 Days #12.9 gm 04/12/22 Ondansetron Odt [Zofran] 4 mg TL Q6H PRN #20 tablet 04/12/22 dexAMETHasone [Decadron] 4 mg PO DAILY #5 tablet 04/12/22 predniSONE [Deltasone] 10 mg PO [id number] #42 tab 04/22/22 - Allergies Allergies/Adverse Reactions: Allergies Allergy/AdvReac Type Severity Reaction Status Date / Time NSAIDS (Non-Steroidal Allergy Nausea Verified 08/12/22 16:04 Anti-Inflamma Penicillins Allergy Respiratory Verified 08/12/22 16:04 - Social History Does the pt smoke?: Yes Smoking Status: Current every day smoker Does the pt drink ETOH?: No Does the pt have substance abuse?: Yes - Immunizations Immunizations are current?: Yes - POLST Patient has POLST: No PD ED PE NORMAL - General General: Alert and oriented X 3, No acute distress, Well developed/nourished, Other (Appears much older than stated age) - HEENT HEENT: Atraumatic, Moist mucous membranes - Neck Neck: Supple, no meningeal sign, No adenopathy - Cardiac Cardiac: RRR, No murmur - Respiratory Respiratory: No respiratory distress, Clear bilaterally - Abdomen Abdomen: Normal bowel sounds, Soft - Back Back: No CVA TTP, No spinal TTP - Derm Derm: Normal color, Warm and dry - Extremities Extremities: No deformity, No tenderness to palpate - Neuro Neuro: Alert and oriented X 3, packing machine can feeder 2-12 intact Eye Opening: Spontaneous Motor: Obeys Commands Verbal: Oriented GCS Score: 15 Results - Vitals Vitals: Vital Signs - 24 hr 08/12/22 08/12/22 08/12/22 15:59 17:56 18:02 Temperature 36.2 C L Heart Rate 84 68 70 Respiratory 16 21 14 Rate Blood Pressure 222/133 H 207/130 H 215/138 H O2 Saturation 100 93 96 08/12/22 08/12/22 08/12/22 18:10 18:15 18:18 Temperature Heart Rate 73 72 69 Respiratory 16 16 11 L Rate Blood Pressure 216/147 H 210/165 H 216/134 H O2 Saturation 93 91 L 93 08/12/22 08/12/22 08/12/22 18:21 18:25 18:29 Temperature Heart Rate 75 78 79 Respiratory 16 14 13 Rate Blood Pressure 216/135 H 196/148 H 197/135 H O2 Saturation 93 93 94 08/12/22 08/12/22 08/12/22 18:37 18:43 18:45 Temperature Heart Rate 72 72 78 Respiratory 17 25 H 24 Rate Blood Pressure 177/122 H 196/130 H 184/128 H O2 Saturation 92 90 L 93 08/12/22 08/12/22 08/12/22 19:00 19:30 20:00 Temperature Heart Rate 72 75 75 Respiratory 24 23 20 Rate Blood Pressure 157/130 H 195/123 H 169/117 H O2 Saturation 92 93 93 08/12/22 08/12/22 20:27 20:30 Temperature Heart Rate 72 74 Respiratory 17 15 Rate Blood Pressure 161/102 H 155/105 H O2 Saturation 93 92 Oxygen O2 Source Room air - EKG (time done) 1605 Rate: Rate (enter#) (79) Rhythm: NSR [place]: Normal Intervals: Normal [place], Prolonged QT QRS: LVH Ischemia: ST elevation c/w repol, Other (QTC 608. Previously noted be 610. Patient is hypokalemic) Compare to prior EKG: Changed from prior EKG - Labs Labs: Laboratory Tests 08/12/22 08/12/22 08/12/22 16:29 16:29 16:29 WBC 9.2 RBC 4.50 Hgb 12.6 Hct 39.5 MCV 87.8 MCH 28.0 MCHC 31.9 L RDW 15.5 H Plt Count 209 MPV 10.6 Neut # (Auto) 5.9 Lymph # (Auto) 2.4 [place] # (Auto) 0.4 Eos # (Auto) 0.3 Baso # (Auto) 0.1 Absolute Nucleated RBC 0.00 Nucleated RBC % 0.0 PT INR Sodium 136 Potassium 3.1 L Chloride 94 L Carbon Dioxide 32 Anion Gap 10.0 BUN 27 H Creatinine 2.8 H Estimated GFR (MDRD) 18 L Glucose 139 H Calcium 9.2 Total Bilirubin 0.2 AST 57 H ALT 41 Alkaline Phosphatase 89 Troponin I High Sens 64.6 H* B-Natriuretic Peptide Total Protein 7.3 Albumin 4.0 Globulin 3.3 Albumin/Globulin Ratio 1.2 Lipase 25 Nasal Adenovirus (PCR) Nasal B. parapertussis DNA (PCR) Nasal Coronavir 229E PCR Nasal Coronavir HKU1 PCR Nasal Coronavir NL63 PCR Nasal Coronavir OC43 PCR Nasal Enterovir/Rhinovir PCR Nasal Influenza B PCR Nasal Influenza A PCR Nasal Parainfluen 1 PCR Nasal Parainfluen 2 PCR Nasal Parainfluen 3 PCR Nasal Parainfluen 4 PCR Nasal RSV (PCR) Nasal B.pertussis DNA PCR Nasal C.pneumoniae (PCR) [place] Human Metapneumo PCR Nasal M.pneumoniae (PCR) Nasal SARS-CoV-2 (PCR) 08/12/22 08/12/22 08/12/22 16:29 16:29 17:58 WBC RBC Hgb Hct MCV MCH MCHC RDW Plt Count MPV Neut # (Auto) Lymph # (Auto) [place] # (Auto) Eos # (Auto) Baso # (Auto) Absolute Nucleated RBC Nucleated RBC % PT 10.9 INR 1.0 Sodium Potassium Chloride Carbon Dioxide Anion Gap BUN Creatinine Estimated GFR (MDRD) Glucose Calcium Total Bilirubin AST ALT Alkaline Phosphatase Troponin I High Sens 62.4 H* B-Natriuretic Peptide 654 H Total Protein Albumin Globulin Albumin/Globulin Ratio Lipase Nasal Adenovirus (PCR) Nasal B. parapertussis DNA (PCR) Nasal Coronavir 229E PCR Nasal Coronavir HKU1 PCR Nasal Coronavir NL63 PCR Nasal Coronavir OC43 PCR Nasal Enterovir/Rhinovir PCR Nasal Influenza B PCR Nasal Influenza A PCR Nasal Parainfluen 1 PCR Nasal Parainfluen 2 PCR Nasal Parainfluen 3 PCR Nasal Parainfluen 4 PCR Nasal RSV (PCR) Nasal B.pertussis DNA PCR Nasal C.pneumoniae (PCR) [place] Human Metapneumo PCR Nasal M.pneumoniae (PCR) Nasal SARS-CoV-2 (PCR) 08/12/22 08/12/22 18:15 20:10 WBC RBC Hgb Hct MCV MCH MCHC RDW Plt Count MPV Neut # (Auto) Lymph # (Auto) [place] # (Auto) Eos # (Auto) Baso # (Auto) Absolute Nucleated RBC Nucleated RBC % PT INR Sodium Potassium Chloride Carbon Dioxide Anion Gap BUN Creatinine Estimated GFR (MDRD) Glucose Calcium Total Bilirubin AST ALT Alkaline Phosphatase Troponin I High Sens 58.9 H* B-Natriuretic Peptide Total Protein Albumin Globulin Albumin/Globulin Ratio Lipase Nasal Adenovirus (PCR) NOT DETECTED Nasal B. parapertussis DNA (PCR) NOT DETECTED Nasal Coronavir 229E PCR NOT DETECTED Nasal Coronavir HKU1 PCR NOT DETECTED Nasal Coronavir NL63 PCR NOT DETECTED Nasal Coronavir OC43 PCR NOT DETECTED Nasal Enterovir/Rhinovir PCR NOT DETECTED Nasal Influenza B PCR NOT DETECTED Nasal Influenza A PCR NOT DETECTED Nasal Parainfluen 1 PCR NOT DETECTED Nasal Parainfluen 2 PCR NOT DETECTED Nasal Parainfluen 3 PCR NOT DETECTED Nasal Parainfluen 4 PCR NOT DETECTED Nasal RSV (PCR) NOT DETECTED Nasal B.pertussis DNA PCR NOT DETECTED Nasal C.pneumoniae (PCR) NOT DETECTED [place] Human Metapneumo PCR NOT DETECTED Nasal M.pneumoniae (PCR) NOT DETECTED Nasal SARS-CoV-2 (PCR) NOT DETECTED - Rads (name of study) cxr Radiology: Final report received (No acute pulmonary process) PD MEDICAL DECISION MAKING - ED course Complexity details: reviewed results, re-evaluated patient, considered differential, d/w patient ED course: 52-year-old female presents to the emergency department for evaluation of chest pain and pressure that started about 10 AM. She has a longstanding history of hypertension and chronic kidney disease. She has not taken her hypertensive meds for about 3 weeks because she is having difficulty locating her meds as she is marginally home and currently living in a travel trailer. She does have occasional tobacco use historically she has been positive for amphetamines/methamphetamines. On presentation she has chest pain or pressure but no pain radiating to the back. She has no focal neurological symptoms. Initial labs do show acute on chronic kidney disease as well as hypokalemia. We do note a mildly elevated troponin at 64 and on repeat is flat at 62. Her EKG is evaluated she is got a prolonged QTC. It is not ischemic. Her QTC is in the past have been elevated as well at 500. Knowing this we should avoid any QT prolonging agents however correction of the hypokalemia will likely improve her QTC segments. However with the elevated troponin and chest pain pressure as well as markedly elevated blood pressures on presentation to 233/133 she does present with hypertensive emergency. Initially the patient was started on nitroglycerin with my goal sbp blood pressure being 185-1 90. Once the patient had no changes in blood pressure with up titration to 50 we did give a single dose of enalapril which subsequently dropped the blood pressures to 184/90. 1930: I have spoken with Dr. hayes [facility] hospitalist who graciously agrees to admit the patient to the ICU for further management and treatment of her hypertensive emergency. - Critical Care Time(min): 45 Time Includes: Direct patient care, Review records, Reassess patient Data interpretation: Labs, Prior EKG Departure - Departure Disposition: ED Place in Observation Clinical Impression: Hypertensive emergency, Elevated troponin, CKD (chronic kidney disease) stage 4, GFR 15-29 ml/min, Elevated brain natriuretic peptide (BNP) level, Prolonged Q-T interval on ECG, Hypokalemia
[2022-08-12] MEDS ORDERED: NICARDIPINE HCL 25 MG in SODIUM CHLORIDE 0.9% 240 ML IV STA (18:24)
[2022-08-12] MEDS ORDERED: ENALAPRILAT 1.25 MG/ML VIAL IVP STA (18:25)
[2022-08-12] MEDS ORDERED: NICARDIPINE HCL 25 MG/10 ML VIAL IV ONE (18:26)
[2022-08-12] MEDS ORDERED: ACETAMINOPHEN 325 MG TABLET PO PRN (19:28)
[2022-08-12] MEDS ORDERED: ONDANSETRON 4 MG/2 ML VIAL IVP PRN (19:28)
[2022-08-12] MEDS ORDERED: TEMAZEPAM 15 MG CAPSULE PO PRN (19:28)
[2022-08-12] MEDS ORDERED: ALBUTEROL NEB 2.5 MG/3 ML INH PRN (19:28)
[2022-08-12] MEDS ORDERED: IPRATROPIUM 0.2 MG/ML NEB INH PRN (19:28)
[2022-08-12] MEDS ORDERED: SODIUM CHLORIDE FLUSH 0.9% 10 ML SYRINGE IVP PRN (19:28)
[2022-08-12] MEDS ORDERED: hydrALAZINE INJ 20 MG/ML VIAL IVP PRN (19:35)
[2022-08-12 19:38] LABS: B. PARAPERTUSSIS- RESP PCR PAN NOT DETECTED; B. PERTUSSIS- RESP PCR PANEL NOT DETECTED; C. PNEUMONIAE- RESP PCR PANEL NOT DETECTED; CORONAVIRUS 229E-RESP PCR NOT DETECTED; CORONAVIRUS HKU1-RESP PCR NOT DETECTED; CORONAVIRUS NL63-RESP PCR NOT DETECTED; CORONAVIRUS OC43-RESP PCR NOT DETECTED; HUMAN METAPNEUMOVIRUS NOT DETECTED; INFLUENZA A- RESP PCR PANEL NOT DETECTED; INFLUENZA B - RESP PCR PANEL NOT DETECTED; M. PNEUMONIAE- RESP PCR PANEL NOT DETECTED; PARAINFLUENZA VIRUS 1 NOT DETECTED; PARAINFLUENZA VIRUS 2 NOT DETECTED; PARAINFLUENZA VIRUS 3 NOT DETECTED; PARAINFLUENZA VIRUS 4 NOT DETECTED; RHINOVIRUS/ENTEROVIRUS NOT DETECTED; RSV- RESP PCR PANEL NOT DETECTED; SARS-CoV-2 -RESP PCR PANEL NOT DETECTED
--- NOTE | 2022-08-12 19:40 | HISTORY & PHYSICAL EXAMINATION ---
Chief Complaint - Chief Complaint Chief Complaint: Chest Pain History of Present Illness - Admitted From Admitted From:: Home - History Obtained From Records Reviewed: Yes History obtained from: Patient and ER Exam Limitations: Telemedcine - History of Present Illness HPI Comment/Other: 52-year-old female presents emergency department for evaluation of substernal chest pain and chest pressure that began about 10 AM. She has a longstanding history of hypertension as well as chronic kidney disease. She is currently residing in a travel trailer. She states she has not taken any of her blood pressure medications for at least 3 weeks. Patient denies any focal deficits, no chest pain at this time, no sob, feels better then arrival to ER. 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 Father: lung cancer, in his 50s Living Situation: With friend(s) Social History Notes: She lives at home with her roommates: 2 females and 1 males. She has been in a monogamous relationship with the same man for 15 years. She admits to daily marijuana and methamphetamine use. No alcohol abuse. 2 cigarette/day. unemployed. - Substance History Use: Uses substance without health or social issues: Tobacco, Amphetamine, Cannabis, Other (Heroin) - POLST Patient has POLST: No Meds/Allgy - Home Medications Home Medications: Ambulatory Orders Medication Instructions Recorded Confirmed Levothyroxine Sodium [Synthroid] 200 mcg PO QDAC 03/22/21 07/30/21 Tiotropium Petty [Spiriva 1 puffs INH DAILY 03/22/21 07/30/21 Handihaler] Amlodipine Besylate [Norvasc] 10 mg PO DAILY #30 tab 03/24/21 07/30/21 Levetiracetam [Keppra] 1,000 mg PO BID 07/12/21 07/30/21 dilTIAZem HCL [Diltiazem 24Hr ER 180 mg PO DAILY 07/12/21 07/30/21 (Xr)] Albuterol Sulfate [Proair Hfa 1 - 2 puffs INH Q4H PRN #1 gm 07/14/21 07/30/21 Inhaler] Potassium Chloride [Klor-Con] 20 meq PO TID #15 packet 07/14/21 07/30/21 ondansetron HCL [Zofran] 4 mg PO Q6H PRN #15 tab 07/31/21 Cefdinir 300 mg PO BID #20 cap 11/25/21 Albuterol Sulf [Ventolin Hfa 2 - 3 puffs INH Q4HR PRN #1 inhaler 04/12/22 Inhaler] Buprenorphine HCl/Naloxone HCl 0.5 each SL DAILY 6 Days #3 film 04/12/22 [Suboxone 4 mg-1 mg Sl Film] Ipratropium [Atrovent] 1 puffs INH QID 30 Days #12.9 gm 04/12/22 Ondansetron Odt [Zofran] 4 mg TL Q6H PRN #20 tablet 04/12/22 dexAMETHasone [Decadron] 4 mg PO DAILY #5 tablet 04/12/22 predniSONE [Deltasone] 10 mg PO [id number] #42 tab 04/22/22 - Allergies Allergies/Adverse Reactions: Allergies Allergy/AdvReac Type Severity Reaction Status Date / Time NSAIDS (Non-Steroidal Allergy Nausea Verified 08/12/22 16:04 Anti-Inflamma Penicillins Allergy Respiratory Verified 08/12/22 16:04 Review of Systems - Constitutional Constitutional: reports: Fatigue, Weakness - Cardiovascular Cariovascular: reports: Chest pain Prior Level of Functionality: Lives independtly in [facility] Exam - Vital Signs Vital Signs: Vital Signs x48h Temp Pulse Resp BP Pulse Ox 08/12/22 19:30 75 23 195/123 H 93 08/12/22 19:00 72 24 157/130 H 92 08/12/22 18:45 78 24 184/128 H 93 08/12/22 18:43 72 25 H 196/130 H 90 L 08/12/22 18:37 72 17 177/122 H 92 08/12/22 18:29 79 13 197/135 H 94 08/12/22 18:25 78 14 196/148 H 93 08/12/22 18:21 75 16 216/135 H 93 08/12/22 18:18 69 11 L 216/134 H 93 08/12/22 18:15 72 16 210/165 H 91 L 08/12/22 18:10 73 16 216/147 H 93 08/12/22 18:02 70 14 215/138 H 96 08/12/22 17:56 68 21 207/130 H 93 08/12/22 15:59 36.2 C L 84 16 222/133 H 100 - Physical Exam Eyes Bilateral: positive: Normal inspection, No scleral icterus Neck: positive: Nml inspection Respiratory: positive: No respiratory distress, Breath sounds nml Cardiovascular: positive: Regular rate & rhythm Abdomen: positive: Non-tender, No organomegaly Skin: positive: Color nml Extremities: positive: Non-tender, No pedal edema Neurologic/Psychiatric: positive: Oriented x3, Motor nml Sepsis Event Note (H) - Evaluation Current Stage of Sepsis: Ruled out Conclusion/Plan - Problem List (1) Hypertensive emergency Conclusion/Plan: Admit to ICu got IV Enapril in ER, will avoid more secondary to CKD, monitor BHP target would be between 160-180 on NTG drip to be weaned off and started on po intake as toelrated, have added clonidine patch, hydaralazine, norvasc and Cardizem Educate the importance of medication complicane (2) CKD (chronic kidney disease) stage 4, GFR 15-29 ml/min Conclusion/Plan: Avoid nephrotoxins, be conservative with electrolyte repalcement, continue to monitor creatinine, renal consult and close follow up in outpatient setting (3) Elevated brain natriuretic peptide (BNP) level Conclusion/Plan: Likely from HTN em ergency check baseline echo (4) Elevated troponin Conclusion/Plan: Down trending likely Type II Mi secondary to demand supply mismatch from HTN emergency (5) Hypokalemia Conclusion/Plan: Monitor K, gentle replacement secondary to CKD, kcl 20 meq x one dose and reassess in am (6) Prolonged Q-T interval on ECG Conclusion/Plan: Avoid Qt prolonging drugs and monitor on telemetry for any arrhytmias (7) Chest pain Conclusion/Plan: Resolved secondary to HTN would recommend outpatient stress test, ekg reviewed, only QT prolongation no other major concerns Qualifiers: Chest pain type: unspecified Qualified Code(s): R07.9 - Chest pain, unspecified (8) Nicotine dependence Conclusion/Plan: Counselling for tobacco cessation and call 1800 no buts as outpatient Qualifiers: Nicotine product type: cigarettes (9) COPD (chronic obstructive pulmonary disease) Conclusion/Plan: tobacoo cessation,l outpatient PFT, continue duonebs prn, continue spiriva Qualifiers: COPD type: unspecified COPD Qualified Code(s): J44.9 - Chronic obstructive pulmonary disease, unspecified (10) Hx of seizure disorder Conclusion/Plan: Continue Keppra (11) Hypothyroid Conclusion/Plan: continue synthroid, check tsh and lipid panel in am Qualifiers: Hypothyroidism type: acquired Qualified Code(s): E03.9 - Hypothyroidism, unspecified (12) Illicit drug use Conclusion/Plan: counseling and resources in am (13) Medical non-compliance Conclusion/Plan: Education and importance of medication compliance - Lab Results Fish Bones: 08/12/22 16:29 08/12/22 16:29 - Diagnostic Imaging Results Diagnostic Imaging Results: positive: Final report reviewed - EKG Results EKG Interpreted Independently: Yes EKG Comparison: Changed from prior EKG (Prolonged QT)
[2022-08-12] MEDS ORDERED: cloNIDine 0.1 MG PATCH TOP SCH (20:00)
[2022-08-12] MEDS ORDERED: LORazepam 0.5 MG TABLET PO STA (20:05)
[2022-08-12] MEDS ORDERED: NICOTINE 14 MG PATCH TOP STA (20:05)
[2022-08-12] MEDS: hydrALAZINE 25 MG TABLET PO SCH (22:01)
[2022-08-12 22:23] LABS: MAGNESIUM 2.2 mg/dL (1.7-2.8); POTASSIUM 2.8 mmol/L (3.5-5.0)
[2022-08-12] MEDS ORDERED: POTASSIUM CHLOR 10 MEQ/100 ML 10 MEQ/100 ML BAG IV SCH (23:00)
[2022-08-12] MEDS ORDERED: POTASSIUM CHLORIDE 20 MEQ TABLET PO ONE (23:24)
[2022-08-13] MEDS: SODIUM CHLORIDE FLUSH 0.9% 10 ML SYRINGE IVP SCH ×3 (00:35→17:49)
[2022-08-13 03:28] LABS: MUDS CUTOFF CONCENTRATIONS CUTOFF CONC BELOW:
[2022-08-13 03:55] LABS: AMPHETAMINE SCREEN,URINE POSITIVE (NEGATIVE); BARBITURATE SCREEN,UR NEGATIVE (NEGATIVE); BENZODIAZEPINES SCREEN, URINE NEGATIVE (NEGATIVE); COCAINE SCREEN URINE NEGATIVE (NEGATIVE); METHADONE SCREEN, URINE POSITIVE (NEGATIVE); METHAMPHETAMINES SCREEN, URINE POSITIVE (NEGATIVE); OPIATE SCREEN, URINE POSITIVE (NEGATIVE); OXYCODONE SCREEN, URINE NEGATIVE (NEGATIVE); PROPOXYPHENE SCREEN, URINE NEGATIVE (NEGATIVE); THC CANNABINOID SCREEN, URINE POSITIVE (NEGATIVE); TRICYCLIC ANTIDEPRESSANT,URINE NEGATIVE (NEGATIVE)
[2022-08-13] MEDS: HYDROcod/ACETAM 10 MG/325 MG TABLET PO PRN ×3 (03:59→20:55)
[2022-08-13 05:24] LABS: BASOPHILS # (AUTO) 0.1 10^3/uL (0.0-0.1); BASOPHILS % (AUTO) 0.7 %; EOSINOPHILS # (AUTO) 0.4 10^3/uL (0.0-0.7); EOSINOPHILS % (AUTO) 3.7 %; HCT - HEMATOCRIT 34.3 % (37.0-47.0); HGB - HEMOGLOBIN 11.2 g/dL (12.0-16.0); LYMPHOCYTES # (AUTO) 1.9 10^3/uL (1.5-3.5); LYMPHOCYTES % (AUTO) 19.7 %; MEAN CORPUSCULAR HEMOGLOBIN 28.1 pg (27.0-31.0); MEAN CORPUSCULAR HGB CONC 32.7 g/dL (32.0-36.0); MEAN PLATELET VOLUME 10.3 fL (7.9-10.8); MONOCYTES # (AUTO) 0.5 10^3/uL (0.0-1.0); MONOCYTES % (AUTO) 4.8 %; NEUTROPHILS # (AUTO) 6.7 10^3/uL (1.5-6.6); NEUTROPHILS % (AUTO) 70.9 %; PLT - PLATELET COUNT 181 10^3/uL (130-450); RED BLOOD COUNT 3.99 10^6/uL (4.20-5.40); RED CELL DISTRIBUTION WIDTH 15.3 % (12.0-15.0); WHITE BLOOD COUNT 9.4 x10^3/uL (4.8-10.8)
[2022-08-13 05:26] LABS: CALCIUM, IONIZED 1.01 mmol/L (1.15-1.33); VBG PH 7.503 (7.31-7.41)
[2022-08-13 05:38] LABS: CHOL/HDL RATIO 9.4 (<4.4); CHOLESTEROL 413 mg/dL; HDL CHOLESTEROL 44 mg/dL; LDL CHOLESTEROL,CALCULATED 322 mg/dL; LDL/HDL RATIO 7.3 (<4.4); MAGNESIUM 2.2 mg/dL (1.7-2.8); PHOSPHORUS 3.4 mg/dL (2.5-4.6); TRIGLYCERIDES 233 mg/dL; VLDL CHOLESTEROL 47 mg/dL
[2022-08-13 05:48] LABS: CALCIUM 8.7 mg/dL (8.5-10.3); CREATININE 2.6 mg/dL (0.4-1.0); POTASSIUM 3.1 mmol/L (3.5-5.0)
[2022-08-13] MEDS: hydrALAZINE 25 MG TABLET PO SCH ×3 (06:28→22:03)
[2022-08-13] MEDS: LEVOTHYROXINE 100 MCG TABLET PO SCH (06:28)
[2022-08-13] MEDS: IPRATROPIUM 0.2 MG/ML NEB INH SCH ×3 (07:10→16:01)
[2022-08-13] MEDS: amLODIPine 5 MG TABLET PO SCH (08:15)
[2022-08-13] MEDS ORDERED: levETIRAcetam 250 MG TABLET PO SCH (09:00)
[2022-08-13] MEDS ORDERED: diltiaZEM CD 180 MG CAPSULE PO SCH (09:00)
[2022-08-13] MEDS: POTASSIUM CHLOR 10 MEQ/100 ML 10 MEQ/100 ML BAG IV SCH ×2 (09:48→11:07)
[2022-08-13] MEDS: BUPRENORPHINE/NALOXONE 8-2 MG TAB SL SCH (09:48)
--- NOTE | 2022-08-13 12:52 | PHARMACY PROGRESS NOTE ---
- Best Possible Medication History Admit Date and Time: 08/12/221927 Processed by: Pharmacy Medication History completed: Yes Patient Interview: Completed Secondary Source(s): Pharmacy records (Pt doesn't know her meds that well.) As the person ultimately responsible for medication therapy, providers are able to order a medication from an existing home medication list in [facility] via the "Reconcile Routine" prior to Confirmation of that medication by ict support and test engineers. Such practice is discouraged except when the physician, in their clinical judgment, deems that a medical need exists for a medication without regard to previous use.
[2022-08-13 14:34] LABS: CALCIUM 8.6 mg/dL (8.5-10.3); CREATININE 2.6 mg/dL (0.4-1.0); POTASSIUM 3.5 mmol/L (3.5-5.0)
[2022-08-13] MEDS ORDERED: HYDROcod/ACETAM 5/325 MG TABLET PO PRN (15:33)
--- NOTE | 2022-08-13 15:36 | PROVIDER PROGRESS NOTE ---
Subjective - Subjective Pt reports feeling: Improved (No further chest pain or shortness of breath. Had a good nap today after lunch, still has a headache that uis normally controlled with Vicodon.) Objective - Vital Signs/Intake & Output Vital Signs: Vital Signs Pulse Resp BP Pulse Ox 08/13/22 14:03 70 10 L 113/79 93 08/13/22 13:00 71 10 L 118/79 93 08/13/22 12:00 73 18 156/106 H 97 Intake & Output: Intake & Output 08/10/22 08/11/22 08/12/22 08/13/22 23:59 23:59 23:59 23:59 Intake Total 59.150 1052.85 Output Total 0 125 Balance 59.150 927.85 - Objective General Appearance: positive: No acute distress, Alert, Lethargic, Other (Disheveled) Eyes Bilateral: positive: Normal inspection ENT: positive: No signs of dehydration Neck: positive: Nml inspection, No JVD Respiratory: positive: Wheezes (Scattered wheeze, poor air movement) Cardiovascular: positive: Regular rate & rhythm, No murmur (Loud P2) Abdomen: positive: Non-tender, Nml bowel sounds, No distention Skin: positive: Warm, Dry Extremities: positive: Non-tender, No pedal edema Neurologic/Psychiatric: positive: Oriented x3, Motor nml, Other (No tremor) - Lab Results Fish Bones: 08/13/22 05:15 08/13/22 14:08 Other Labs: Lab Results x24hrs 08/13/22 08/13/22 08/13/22 Range/Units 14:08 05:15 05:15 WBC (4.8-10.8) x10^3/uL RBC (4.20-5.40) 10^6/uL Hgb (12.0-16.0) g/dL Hct (37.0-47.0) % MCV (81.0-99.0) fL MCH (27.0-31.0) pg MCHC (32.0-36.0) g/dL RDW (12.0-15.0) % Plt Count (130-450) 10^3/uL MPV (7.9-10.8) fL Neut # (Auto) (1.5-6.6) 10^3/uL Lymph # (Auto) (1.5-3.5) 10^3/uL [place] # (Auto) (0.0-1.0) 10^3/uL Eos # (Auto) (0.0-0.7) 10^3/uL Baso # (Auto) (0.0-0.1) 10^3/uL Absolute Nucleated RBC x10^3/uL Nucleated RBC % /100WBC PT (9.9-12.6) secs INR (0.8-1.2) VBG pH 7.503 H (7.31-7.41) Ionized Calcium 1.01 L (1.15-1.33) mmol/L Sodium 134 L (135-145) mmol/L Potassium 3.5 (3.5-5.0) mmol/L Chloride 95 L (101-111) mmol/L Carbon Dioxide 28 (21-32) mmol/L Anion Gap 11.0 (6-13) BUN 27 H (6-20) mg/dL Creatinine 2.6 H (0.4-1.0) mg/dL Estimated GFR (MDRD) 19 L (>89) Glucose 102 H (70-100) mg/dL Calcium 8.6 (8.5-10.3) mg/dL Phosphorus 3.4 (2.5-4.6) mg/dL Magnesium 2.2 (1.7-2.8) mg/dL Total Bilirubin (0.2-1.0) mg/dL AST (10-42) IU/L ALT (10-60) IU/L Alkaline Phosphatase (42-121) IU/L Troponin I High Sens (2.3-14.8) ng/L B-Natriuretic Peptide (5-100) pg/mL Total Protein (6.7-8.2) g/dL Albumin (3.2-5.5) g/dL Globulin (2.1-4.2) g/dL Albumin/Globulin Ratio (1.0-2.2) Triglycerides 233 H ( - 149) mg/dL Cholesterol 413 H ( - 199) mg/dL LDL Cholesterol, Calc 322 H ( - 129) mg/dL VLDL Cholesterol 47 mg/dL HDL Cholesterol 44 L (60 - ) mg/dL LDL/HDL Ratio 7.3 (<4.4) Cholesterol/HDL Ratio 9.4 (<4.4) Lipase (22-51) U/L Nasal Adenovirus (PCR) Nasal B. parapertussis DNA (PCR) Nasal Coronavir 229E PCR Nasal Coronavir HKU1 PCR Nasal Coronavir NL63 PCR Nasal Coronavir OC43 PCR Nasal Enterovir/Rhinovir PCR Nasal Influenza B PCR Nasal Influenza A PCR Nasal Parainfluen 1 PCR Nasal Parainfluen 2 PCR Nasal Parainfluen 3 PCR Nasal Parainfluen 4 PCR Nasal RSV (PCR) Nasal Screen MRSA (PCR) (NEGATIVE) Nasal B.pertussis DNA PCR Nasal C.pneumoniae (PCR) [place] Human Metapneumo PCR Nasal M.pneumoniae (PCR) Nasal SARS-CoV-2 (PCR) Urine Opiates Screen (NEGATIVE) Ur Oxycodone Screen (NEGATIVE) Urine Methadone Screen (NEGATIVE) Ur Propoxyphene Screen (NEGATIVE) Ur Barbiturates Screen (NEGATIVE) Ur Tricyclics Screen (NEGATIVE) Ur Phencyclidine Scrn (NEGATIVE) Ur Amphetamine Screen (NEGATIVE) U Methamphetamines Scrn (NEGATIVE) U Benzodiazepines Scrn (NEGATIVE) Urine Cocaine Screen (NEGATIVE) U Cannabinoids Screen (NEGATIVE) 08/13/22 08/13/22 08/13/22 Range/Units 05:15 05:15 03:15 WBC 9.4 (4.8-10.8) x10^3/uL RBC 3.99 L (4.20-5.40) 10^6/uL Hgb 11.2 L (12.0-16.0) g/dL Hct 34.3 L (37.0-47.0) % MCV 86.0 (81.0-99.0) fL MCH 28.1 (27.0-31.0) pg MCHC 32.7 (32.0-36.0) g/dL RDW 15.3 H (12.0-15.0) % Plt Count 181 (130-450) 10^3/uL MPV 10.3 (7.9-10.8) fL Neut # (Auto) 6.7 H (1.5-6.6) 10^3/uL Lymph # (Auto) 1.9 (1.5-3.5) 10^3/uL [place] # (Auto) 0.5 (0.0-1.0) 10^3/uL Eos # (Auto) 0.4 (0.0-0.7) 10^3/uL Baso # (Auto) 0.1 (0.0-0.1) 10^3/uL Absolute Nucleated RBC 0.00 x10^3/uL Nucleated RBC % 0.0 /100WBC PT (9.9-12.6) secs INR (0.8-1.2) VBG pH (7.31-7.41) Ionized Calcium (1.15-1.33) mmol/L Sodium 134 L (135-145) mmol/L Potassium 3.1 L (3.5-5.0) mmol/L Chloride 95 L (101-111) mmol/L Carbon Dioxide 29 (21-32) mmol/L Anion Gap 10.0 (6-13) BUN 29 H (6-20) mg/dL Creatinine 2.6 H (0.4-1.0) mg/dL Estimated GFR (MDRD) 19 L (>89) Glucose 94 (70-100) mg/dL Calcium 8.7 (8.5-10.3) mg/dL Phosphorus (2.5-4.6) mg/dL Magnesium (1.7-2.8) mg/dL Total Bilirubin (0.2-1.0) mg/dL AST (10-42) IU/L ALT (10-60) IU/L Alkaline Phosphatase (42-121) IU/L Troponin I High Sens (2.3-14.8) ng/L B-Natriuretic Peptide (5-100) pg/mL Total Protein (6.7-8.2) g/dL Albumin (3.2-5.5) g/dL Globulin (2.1-4.2) g/dL Albumin/Globulin Ratio (1.0-2.2) Triglycerides ( - 149) mg/dL Cholesterol ( - 199) mg/dL LDL Cholesterol, Calc ( - 129) mg/dL VLDL Cholesterol mg/dL HDL Cholesterol (60 - ) mg/dL LDL/HDL Ratio (<4.4) Cholesterol/HDL Ratio (<4.4) Lipase (22-51) U/L Nasal Adenovirus (PCR) Nasal B. parapertussis DNA (PCR) Nasal Coronavir 229E PCR Nasal Coronavir HKU1 PCR Nasal Coronavir NL63 PCR Nasal Coronavir OC43 PCR Nasal Enterovir/Rhinovir PCR Nasal Influenza B PCR Nasal Influenza A PCR Nasal Parainfluen 1 PCR Nasal Parainfluen 2 PCR Nasal Parainfluen 3 PCR Nasal Parainfluen 4 PCR Nasal RSV (PCR) Nasal Screen MRSA (PCR) (NEGATIVE) Nasal B.pertussis DNA PCR Nasal C.pneumoniae (PCR) [place] Human Metapneumo PCR Nasal M.pneumoniae (PCR) Nasal SARS-CoV-2 (PCR) Urine Opiates Screen POSITIVE H (NEGATIVE) Ur Oxycodone Screen NEGATIVE (NEGATIVE) Urine Methadone Screen POSITIVE H (NEGATIVE) Ur Propoxyphene Screen NEGATIVE (NEGATIVE) Ur Barbiturates Screen NEGATIVE (NEGATIVE) Ur Tricyclics Screen NEGATIVE (NEGATIVE) Ur Phencyclidine Scrn NEGATIVE (NEGATIVE) Ur Amphetamine Screen POSITIVE H (NEGATIVE) U Methamphetamines Scrn POSITIVE H (NEGATIVE) U Benzodiazepines Scrn NEGATIVE (NEGATIVE) Urine Cocaine Screen NEGATIVE (NEGATIVE) U Cannabinoids Screen POSITIVE H (NEGATIVE) 08/12/22 08/12/22 08/12/22 Range/Units 22:05 22:00 20:10 WBC (4.8-10.8) x10^3/uL RBC (4.20-5.40) 10^6/uL Hgb (12.0-16.0) g/dL Hct (37.0-47.0) % MCV (81.0-99.0) fL MCH (27.0-31.0) pg MCHC (32.0-36.0) g/dL RDW (12.0-15.0) % Plt Count (130-450) 10^3/uL MPV (7.9-10.8) fL Neut # (Auto) (1.5-6.6) 10^3/uL Lymph # (Auto) (1.5-3.5) 10^3/uL [place] # (Auto) (0.0-1.0) 10^3/uL Eos # (Auto) (0.0-0.7) 10^3/uL Baso # (Auto) (0.0-0.1) 10^3/uL Absolute Nucleated RBC x10^3/uL Nucleated RBC % /100WBC PT (9.9-12.6) secs INR (0.8-1.2) VBG pH (7.31-7.41) Ionized Calcium (1.15-1.33) mmol/L Sodium (135-145) mmol/L Potassium 2.8 L (3.5-5.0) mmol/L Chloride (101-111) mmol/L Carbon Dioxide (21-32) mmol/L Anion Gap (6-13) BUN (6-20) mg/dL Creatinine (0.4-1.0) mg/dL Estimated GFR (MDRD) (>89) Glucose (70-100) mg/dL Calcium (8.5-10.3) mg/dL Phosphorus 3.0 (2.5-4.6) mg/dL Magnesium 2.2 (1.7-2.8) mg/dL Total Bilirubin (0.2-1.0) mg/dL AST (10-42) IU/L ALT (10-60) IU/L Alkaline Phosphatase (42-121) IU/L Troponin I High Sens 58.9 H* (2.3-14.8) ng/L B-Natriuretic Peptide (5-100) pg/mL Total Protein (6.7-8.2) g/dL Albumin (3.2-5.5) g/dL Globulin (2.1-4.2) g/dL Albumin/Globulin Ratio (1.0-2.2) Triglycerides ( - 149) mg/dL Cholesterol ( - 199) mg/dL LDL Cholesterol, Calc ( - 129) mg/dL VLDL Cholesterol mg/dL HDL Cholesterol (60 - ) mg/dL LDL/HDL Ratio (<4.4) Cholesterol/HDL Ratio (<4.4) Lipase (22-51) U/L Nasal Adenovirus (PCR) Nasal B. parapertussis DNA (PCR) Nasal Coronavir 229E PCR Nasal Coronavir HKU1 PCR Nasal Coronavir NL63 PCR Nasal Coronavir OC43 PCR Nasal Enterovir/Rhinovir PCR Nasal Influenza B PCR Nasal Influenza A PCR Nasal Parainfluen 1 PCR Nasal Parainfluen 2 PCR Nasal Parainfluen 3 PCR Nasal Parainfluen 4 PCR Nasal RSV (PCR) Nasal Screen MRSA (PCR) NEGATIVE (NEGATIVE) Nasal B.pertussis DNA PCR Nasal C.pneumoniae (PCR) [place] Human Metapneumo PCR Nasal M.pneumoniae (PCR) Nasal SARS-CoV-2 (PCR) Urine Opiates Screen (NEGATIVE) Ur Oxycodone Screen (NEGATIVE) Urine Methadone Screen (NEGATIVE) Ur Propoxyphene Screen (NEGATIVE) Ur Barbiturates Screen (NEGATIVE) Ur Tricyclics Screen (NEGATIVE) Ur Phencyclidine Scrn (NEGATIVE) Ur Amphetamine Screen (NEGATIVE) U Methamphetamines Scrn (NEGATIVE) U Benzodiazepines Scrn (NEGATIVE) Urine Cocaine Screen (NEGATIVE) U Cannabinoids Screen (NEGATIVE) 08/12/22 08/12/22 08/12/22 Range/Units 18:15 17:58 16:29 WBC (4.8-10.8) x10^3/uL RBC (4.20-5.40) 10^6/uL Hgb (12.0-16.0) g/dL Hct (37.0-47.0) % MCV (81.0-99.0) fL MCH (27.0-31.0) pg MCHC (32.0-36.0) g/dL RDW (12.0-15.0) % Plt Count (130-450) 10^3/uL MPV (7.9-10.8) fL Neut # (Auto) (1.5-6.6) 10^3/uL Lymph # (Auto) (1.5-3.5) 10^3/uL [place] # (Auto) (0.0-1.0) 10^3/uL Eos # (Auto) (0.0-0.7) 10^3/uL Baso # (Auto) (0.0-0.1) 10^3/uL Absolute Nucleated RBC x10^3/uL Nucleated RBC % /100WBC PT (9.9-12.6) secs INR (0.8-1.2) VBG pH (7.31-7.41) Ionized Calcium (1.15-1.33) mmol/L Sodium (135-145) mmol/L Potassium (3.5-5.0) mmol/L Chloride (101-111) mmol/L Carbon Dioxide (21-32) mmol/L Anion Gap (6-13) BUN (6-20) mg/dL Creatinine (0.4-1.0) mg/dL Estimated GFR (MDRD) (>89) Glucose (70-100) mg/dL Calcium (8.5-10.3) mg/dL Phosphorus (2.5-4.6) mg/dL Magnesium (1.7-2.8) mg/dL Total Bilirubin (0.2-1.0) mg/dL AST (10-42) IU/L ALT (10-60) IU/L Alkaline Phosphatase (42-121) IU/L Troponin I High Sens 62.4 H* (2.3-14.8) ng/L B-Natriuretic Peptide 654 H (5-100) pg/mL Total Protein (6.7-8.2) g/dL Albumin (3.2-5.5) g/dL Globulin (2.1-4.2) g/dL Albumin/Globulin Ratio (1.0-2.2) Triglycerides ( - 149) mg/dL Cholesterol ( - 199) mg/dL LDL Cholesterol, Calc ( - 129) mg/dL VLDL Cholesterol mg/dL HDL Cholesterol (60 - ) mg/dL LDL/HDL Ratio (<4.4) Cholesterol/HDL Ratio (<4.4) Lipase (22-51) U/L Nasal Adenovirus (PCR) NOT DETECTED Nasal B. parapertussis DNA (PCR) NOT DETECTED Nasal Coronavir 229E PCR NOT DETECTED Nasal Coronavir HKU1 PCR NOT DETECTED Nasal Coronavir NL63 PCR NOT DETECTED Nasal Coronavir OC43 PCR NOT DETECTED Nasal Enterovir/Rhinovir PCR NOT DETECTED Nasal Influenza B PCR NOT DETECTED Nasal Influenza A PCR NOT DETECTED Nasal Parainfluen 1 PCR NOT DETECTED Nasal Parainfluen 2 PCR NOT DETECTED Nasal Parainfluen 3 PCR NOT DETECTED Nasal Parainfluen 4 PCR NOT DETECTED Nasal RSV (PCR) NOT DETECTED Nasal Screen MRSA (PCR) (NEGATIVE) Nasal B.pertussis DNA PCR NOT DETECTED Nasal C.pneumoniae (PCR) NOT DETECTED [place] Human Metapneumo PCR NOT DETECTED Nasal M.pneumoniae (PCR) NOT DETECTED Nasal SARS-CoV-2 (PCR) NOT DETECTED Urine Opiates Screen (NEGATIVE) Ur Oxycodone Screen (NEGATIVE) Urine Methadone Screen (NEGATIVE) Ur Propoxyphene Screen (NEGATIVE) Ur Barbiturates Screen (NEGATIVE) Ur Tricyclics Screen (NEGATIVE) Ur Phencyclidine Scrn (NEGATIVE) Ur Amphetamine Screen (NEGATIVE) U Methamphetamines Scrn (NEGATIVE) U Benzodiazepines Scrn (NEGATIVE) Urine Cocaine Screen (NEGATIVE) U Cannabinoids Screen (NEGATIVE) 08/12/22 08/12/22 08/12/22 Range/Units 16:29 16:29 16:29 WBC (4.8-10.8) x10^3/uL RBC (4.20-5.40) 10^6/uL Hgb (12.0-16.0) g/dL Hct (37.0-47.0) % MCV (81.0-99.0) fL MCH (27.0-31.0) pg MCHC (32.0-36.0) g/dL RDW (12.0-15.0) % Plt Count (130-450) 10^3/uL MPV (7.9-10.8) fL Neut # (Auto) (1.5-6.6) 10^3/uL Lymph # (Auto) (1.5-3.5) 10^3/uL [place] # (Auto) (0.0-1.0) 10^3/uL Eos # (Auto) (0.0-0.7) 10^3/uL Baso # (Auto) (0.0-0.1) 10^3/uL Absolute Nucleated RBC x10^3/uL Nucleated RBC % /100WBC PT 10.9 (9.9-12.6) secs INR 1.0 (0.8-1.2) VBG pH (7.31-7.41) Ionized Calcium (1.15-1.33) mmol/L Sodium 136 (135-145) mmol/L Potassium 3.1 L (3.5-5.0) mmol/L Chloride 94 L (101-111) mmol/L Carbon Dioxide 32 (21-32) mmol/L Anion Gap 10.0 (6-13) BUN 27 H (6-20) mg/dL Creatinine 2.8 H (0.4-1.0) mg/dL Estimated GFR (MDRD) 18 L (>89) Glucose 139 H (70-100) mg/dL Calcium 9.2 (8.5-10.3) mg/dL Phosphorus (2.5-4.6) mg/dL Magnesium (1.7-2.8) mg/dL Total Bilirubin 0.2 (0.2-1.0) mg/dL AST 57 H (10-42) IU/L ALT 41 (10-60) IU/L Alkaline Phosphatase 89 (42-121) IU/L Troponin I High Sens 64.6 H* (2.3-14.8) ng/L B-Natriuretic Peptide (5-100) pg/mL Total Protein 7.3 (6.7-8.2) g/dL Albumin 4.0 (3.2-5.5) g/dL Globulin 3.3 (2.1-4.2) g/dL Albumin/Globulin Ratio 1.2 (1.0-2.2) Triglycerides ( - 149) mg/dL Cholesterol ( - 199) mg/dL LDL Cholesterol, Calc ( - 129) mg/dL VLDL Cholesterol mg/dL HDL Cholesterol (60 - ) mg/dL LDL/HDL Ratio (<4.4) Cholesterol/HDL Ratio (<4.4) Lipase 25 (22-51) U/L Nasal Adenovirus (PCR) Nasal B. parapertussis DNA (PCR) Nasal Coronavir 229E PCR Nasal Coronavir HKU1 PCR Nasal Coronavir NL63 PCR Nasal Coronavir OC43 PCR Nasal Enterovir/Rhinovir PCR Nasal Influenza B PCR Nasal Influenza A PCR Nasal Parainfluen 1 PCR Nasal Parainfluen 2 PCR Nasal Parainfluen 3 PCR Nasal Parainfluen 4 PCR Nasal RSV (PCR) Nasal Screen MRSA (PCR) (NEGATIVE) Nasal B.pertussis DNA PCR Nasal C.pneumoniae (PCR) [place] Human Metapneumo PCR Nasal M.pneumoniae (PCR) Nasal SARS-CoV-2 (PCR) Urine Opiates Screen (NEGATIVE) Ur Oxycodone Screen (NEGATIVE) Urine Methadone Screen (NEGATIVE) Ur Propoxyphene Screen (NEGATIVE) Ur Barbiturates Screen (NEGATIVE) Ur Tricyclics Screen (NEGATIVE) Ur Phencyclidine Scrn (NEGATIVE) Ur Amphetamine Screen (NEGATIVE) U Methamphetamines Scrn (NEGATIVE) U Benzodiazepines Scrn (NEGATIVE) Urine Cocaine Screen (NEGATIVE) U Cannabinoids Screen (NEGATIVE) 08/12/22 Range/Units 16:29 WBC 9.2 (4.8-10.8) x10^3/uL RBC 4.50 (4.20-5.40) 10^6/uL Hgb 12.6 (12.0-16.0) g/dL Hct 39.5 (37.0-47.0) % MCV 87.8 (81.0-99.0) fL MCH 28.0 (27.0-31.0) pg MCHC 31.9 L (32.0-36.0) g/dL RDW 15.5 H (12.0-15.0) % Plt Count 209 (130-450) 10^3/uL MPV 10.6 (7.9-10.8) fL Neut # (Auto) 5.9 (1.5-6.6) 10^3/uL Lymph # (Auto) 2.4 (1.5-3.5) 10^3/uL [place] # (Auto) 0.4 (0.0-1.0) 10^3/uL Eos # (Auto) 0.3 (0.0-0.7) 10^3/uL Baso # (Auto) 0.1 (0.0-0.1) 10^3/uL Absolute Nucleated RBC 0.00 x10^3/uL Nucleated RBC % 0.0 /100WBC PT (9.9-12.6) secs INR (0.8-1.2) VBG pH (7.31-7.41) Ionized Calcium (1.15-1.33) mmol/L Sodium (135-145) mmol/L Potassium (3.5-5.0) mmol/L Chloride (101-111) mmol/L Carbon Dioxide (21-32) mmol/L Anion Gap (6-13) BUN (6-20) mg/dL Creatinine (0.4-1.0) mg/dL Estimated GFR (MDRD) (>89) Glucose (70-100) mg/dL Calcium (8.5-10.3) mg/dL Phosphorus (2.5-4.6) mg/dL Magnesium (1.7-2.8) mg/dL Total Bilirubin (0.2-1.0) mg/dL AST (10-42) IU/L ALT (10-60) IU/L Alkaline Phosphatase (42-121) IU/L Troponin I High Sens (2.3-14.8) ng/L B-Natriuretic Peptide (5-100) pg/mL Total Protein (6.7-8.2) g/dL Albumin (3.2-5.5) g/dL Globulin (2.1-4.2) g/dL Albumin/Globulin Ratio (1.0-2.2) Triglycerides ( - 149) mg/dL Cholesterol ( - 199) mg/dL LDL Cholesterol, Calc ( - 129) mg/dL VLDL Cholesterol mg/dL HDL Cholesterol (60 - ) mg/dL LDL/HDL Ratio (<4.4) Cholesterol/HDL Ratio (<4.4) Lipase (22-51) U/L Nasal Adenovirus (PCR) Nasal B. parapertussis DNA (PCR) Nasal Coronavir 229E PCR Nasal Coronavir HKU1 PCR Nasal Coronavir NL63 PCR Nasal Coronavir OC43 PCR Nasal Enterovir/Rhinovir PCR Nasal Influenza B PCR Nasal Influenza A PCR Nasal Parainfluen 1 PCR Nasal Parainfluen 2 PCR Nasal Parainfluen 3 PCR Nasal Parainfluen 4 PCR Nasal RSV (PCR) Nasal Screen MRSA (PCR) (NEGATIVE) Nasal B.pertussis DNA PCR Nasal C.pneumoniae (PCR) [place] Human Metapneumo PCR Nasal M.pneumoniae (PCR) Nasal SARS-CoV-2 (PCR) Urine Opiates Screen (NEGATIVE) Ur Oxycodone Screen (NEGATIVE) Urine Methadone Screen (NEGATIVE) Ur Propoxyphene Screen (NEGATIVE) Ur Barbiturates Screen (NEGATIVE) Ur Tricyclics Screen (NEGATIVE) Ur Phencyclidine Scrn (NEGATIVE) Ur Amphetamine Screen (NEGATIVE) U Methamphetamines Scrn (NEGATIVE) U Benzodiazepines Scrn (NEGATIVE) Urine Cocaine Screen (NEGATIVE) U Cannabinoids Screen (NEGATIVE) Sepsis Event Note (H) - Evaluation Current Stage of Sepsis: Ruled out Assessment/Plan - Problem List (1) Hypertensive emergency Impression: She said she ran out of blood pressure medications 3 weeks ago and was in the middle of changing to a different pharmacy anyway, so she had none for about 3 weeks Blood pressure has improved considerably, after p.o. meds (re)started and was on nitroglycerin drip overnight (BP in ER 222/133>> 130/89 today) Will stop IV nitroglycerin now and adjust blood pressure meds. She could be moved out of the ICU if necessary Expect discharge soon, possibly tomorrow (2) CKD (chronic kidney disease) stage 4, GFR 15-29 ml/min Conclusion/Plan: Looking back at her many years of records here, she did have a normal creatinine in July 2021. Otherwise she has run creatinines of 1.0-1.6, has had exacerbations as high as creatinine of 2.4 in the past. Not sure if this currently is therefore acute or chronic kidney dis, or may even be acute on top of chronic. Etiology is likely her poorly controlled HTN. Creat has improved slt from 2.8 at admission to 2.6 today. Cont avoiding nephrotoxins and controlling BP. Will continue to monitor BMP and creatinine daily (3) Elevated brain natriuretic peptide (BNP) level Conclusion/Plan: Likely from HTN emergency Echo ordered to check LVEF (4) Elevated troponin Conclusion/Plan: Downtrending troponins (68>> 66>> 58), likely from a Type II MD secondary to demand supply mismatch from HTN emergency Echo results awaited to see if she has regional wall motion abnormalities (5) Hypokalemia Conclusion/Plan: Monitor K, gentle replacement planned, given the renal failure (6) Prolonged Q-T interval on ECG Conclusion/Plan: Avoid Qt prolonging drugs and monitor on telemetry for any arrhytmias (7) Chest pain Conclusion/Plan: Resolved. It was likely secondary to severe HTN We will recommend outpatient stress test Qualifiers: Chest pain type: unspecified Qualified Code(s): R07.9 - Chest pain, unspecified (8) Nicotine dependence Conclusion/Plan: Counselling for tobacco cessation and will order Nicotine patch ordered Qualifiers: Nicotine product type: cigarettes (9) COPD (chronic obstructive pulmonary disease) Conclusion/Plan: tobacoo cessation,l outpatient PFT, continue duonebs prn, continue spiriva Qualifiers: COPD type: unspecified COPD Qualified Code(s): J44.9 - Chronic obstructive pulmonary disease, unspecified (10) Hx of seizure disorder Conclusion/Plan: Continue Keppra was ordered by Telemedicine Night Hospitalist. Pharmacist checked and noted that pt is not on Keppra for many months. Pharmacist recommended Lamictal: week 1-2 25 mg/d, week 3-4 50 mg/day, then 5th week and going forward should be increased every 1-2 days to a max of 225-375 mg/day and should be given in 2 doses per day. (11) Hypothyroid Conclusion/Plan: continue synthroid, checking tsh and lipid panel in am Qualifiers: Hypothyroidism type: acquired Qualified Code(s): E03.9 - Hypothyroidism, unspecified (12) Illicit drug use Conclusion/Plan: She had a remote history of heroin use. Currently there is a history of meth use and narcotic use. She reminds me that she takes Suboxone Counseling and resources for her by SW hopefully today. Her headache may be from withdrawal. Will order Vicodin for her headache and continue the Suboxone daily (13) Medical non-compliance Conclusion/Plan: Educated re importance of medication compliance
[2022-08-13] MEDS: NICOTINE 14 MG PATCH TOP SCH (16:13)
[2022-08-13] MEDS: lamoTRIgine 25 MG TABLET PO SCH (17:49)
[2022-08-13] MEDS ORDERED: ATORVASTATIN 40 MG TABLET PO SCH (21:00)
[2022-08-14] MEDS: HYDROcod/ACETAM 10 MG/325 MG TABLET PO PRN (01:58)
[2022-08-14] MEDS: SODIUM CHLORIDE FLUSH 0.9% 10 ML SYRINGE IVP SCH ×2 (01:59→09:13)
[2022-08-14 04:29] LABS: VBG PH 7.518 (7.31-7.41)
[2022-08-14 04:46] LABS: MAGNESIUM 2.2 mg/dL (1.7-2.8)
[2022-08-14] MEDS: IPRATROPIUM 0.2 MG/ML NEB INH SCH ×4 (05:46→15:16)
[2022-08-14] MEDS: hydrALAZINE 25 MG TABLET PO SCH ×2 (06:09→13:36)
[2022-08-14] MEDS: LEVOTHYROXINE 100 MCG TABLET PO SCH (06:09)
[2022-08-14] MEDS ORDERED: METOPROLOL SUCCINATE 50 MG TABLET PO SCH (09:00)
[2022-08-14] MEDS: NICOTINE 14 MG PATCH TOP SCH (09:05)
[2022-08-14] MEDS: BUPRENORPHINE/NALOXONE 8-2 MG TAB SL SCH (09:08)
[2022-08-14] MEDS: amLODIPine 5 MG TABLET PO SCH (09:09)
[2022-08-14] MEDS: lamoTRIgine 25 MG TABLET PO SCH (09:09)
[2022-08-14 10:55] LABS: CALCIUM 8.4 mg/dL (8.5-10.3); CREATININE 2.6 mg/dL (0.4-1.0); POTASSIUM 3.5 mmol/L (3.5-5.0)
--- NOTE | 2022-08-14 13:22 | Discharge Plan ---
Discharge Plan Problem Reviewed?: Yes Disposition: Home, Self Care Condition: Fair Prescriptions: Albuterol Sulf [Ventolin Hfa Inhaler] 2 - 3 puffs INH Q4HR PRN #1 each PRN Reason: Shortness Of Air/Wheezing HYDROcodone/ACET 10/325 [[place] 10 mg/325 mg] 1 tab PO Q6HR PRN #6 tab PRN Reason: Severe Pain hydrALAZINE [Apresoline] 25 mg PO QID #120 tab cloNIDine 0.1 MG PATCH [[id number]] 1 patch TOP Q7D #4 patch lamoTRIgine [LaMICtal] 25 mg PO DAILY #30 tab Atorvastatin [Lipitor] 40 mg PO QPM #30 tab Nicotine 14 mg Patch [Nicoderm] 1 patch TOP DAILY #14 patch Amlodipine Besylate [Norvasc] 10 mg PO DAILY #30 tab Levothyroxine [Synthroid] 200 mcg PO QDAC #30 tab Metoprolol Succinate [Toprol Xl] 50 mg PO DAILY #30 tab Lisinopril [Zestril] 40 mg PO DAILY #30 tab Diet: Low Sodium Activity Restrictions: Activity as Tolerated Shower Restrictions: No Driving Restrictions: No Instruction Topics: Kidney Disease Eat Less Sodium, Heart Failure Evaluate, Kidney Disease Chronic Dc Health Concerns: You were hospitalized with hypertension that was causing your chest pain. Your blood pressure was critically high and you needed treatment in the ICU. There was prior kidney disease but your kidney disease has worsened now because of the poorly controlled high blood pressure. We also found you to have a weak heart muscle, which is called congestive heart failure, and this could also be from poorly controlled high blood pressure as well as methamphetamine use. It is extremely important that you keep taking your blood pressure medications, do not stop them, do not run out! With such high blood pressure, you are at risk of having a heart attack or a stroke, which could lead to permanent paralysis. You should stop using illicit drugs which are also harming you. You are being discharged on several new medications. I also prescribed all your pre-hospital medications, since you had run out, except you are on a new seizure medicine now, because of your worsened kidney function. All prescriptions were electronically sent to your [facility] pharmacy in [place]. I do not have the license to prescribe Suboxone however. You need to be seen by your Primary Care Provider soon, for a hospital follow-up visit and to have orders for more detailed evaluation of the heart muscle weakness. You will need to have a stress test ordered, to be done as an outpatient, to check for coronary artery disease. You will also need to have your medicines adjusted (for example, the seizure medicine dose needs to be incr eased in several weeks, etc). Plan of Treatment: As above. Care Goals: Improvement in symptoms and stabilization are the goals. Assessment: This was reviewed with you, these instructions are provided as a reminder. Additional Instructions or Follow Up instructions: If you have new or worsening symptoms, call your Primary Care Provider for advice or come to the ER. No Smoking: If you smoke, Please STOP! Call for help. Follow-up with: Yokasta Bowens PA-C [Provider Admit Priv/Credential] -
--- NOTE | 2022-08-14 14:33 | DISCHARGE SUMMARY ---
Discharge Summary Admit Date: 08/12/22 Discharge Date: 08/14/22 Discharging Provider: Dr Bonnie Vu Primary Care Provider: PIEDAD Bowens Code Status: Attempt Resuscitation Condition at Discharge: Fair Discharge Disposition: 01 Home, Self Care - HPI History of Present Illness: 52-year-old female presents to emergency department for evaluation of substernal chest pain and chest pressure that began about 10 AM. She has a yazmin gstanding history of hypertension as well as chronic kidney disease. She is currently residing in a travel trailer. She states she has not taken any of her blood pressure medications for at least 3 weeks, because she ran out and because she is changing pharmacies. Patient denies any focal deficits, no chest pain at this time, no sob, feels better then arrival to ER. Hx of polysusbstance abuse in past. She says she takes Suboxone. 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 In the ED, work-up showed BP 222/133, HR 80. Elevated BNP of 644 and elevated troponin of 64. Toxicology positive for Oxycodone, Meth, Opiates, Cannabis. She is being admitted to the ICU on an iv NTG drip for BP and chest pain control. - HOSPITAL COURSE Hospital Course: (1) Hypertensive emergency She said she ran out of blood pressure medications 3 weeks ago and was in the middle of changing to a different pharmacy anyway, so she had none for about 3 weeks. Her BP improved considerably, after p.o. meds (re)started and was on nitroglycerin drip overnight (BP in ER 222/133>> 130/89). She was discharged on several BP meds. (2) CKD (chronic kidney disease) stage 4, GFR 15-29 ml/min Looking back at her many years of records here, she did have a normal creatinine in July 2021. After that, she runs creatinines of 1.0-1.6, has had exacerbations as high as creatinine of 2.4 in the past. Etiology is likely her poorly controlled HTN. Creat improved from 2.8 at admission to 2.6 at discharge. (3) Elevated brain natriuretic peptide (BNP) level Likely from HTN emergency. Echo was done to check LVEF, came back at 45% with global hypokinesis. She needs closer follow up and a stress test and repeat Eho, and/or referral to Cardiology. (4) Elevated troponin Downtrending troponins (68>> 66>> 58), likely from a Type II LA secondary to demand supply mismatch from HTN emergency. Echo result as in #3. (5) Hypokalemia Replaced carefully, given her renal failure. (6) Prolonged Q-T interval on ECG Avoid Qt prolonging drugs advised. (7) Chest pain Resolved when BP improved. Troponins ruled her out for ACS. Chest pain may have been due to severe HTN. Recommend outpatient stress testing, smoking cessation and better lipid control. (8) Nicotine dependence She got tobacco cessation counseling and was on a Nicotine patch. (9) COPD (chronic obstructive pulmonary disease) She got tobacco cessation counseling and was on a Nicotine path. Consider outpatient PFTs, continuing bronchodilators. (10) Hx of seizure disorder Pharmacist checked and noted that patient has not been on Keppra for many months. Pharmacist recommended Lamictal: week 1-2 25 mg/d, week 3-4 50 mg/day, then 5th week and going forward should be increased every 1-2 days to a max of 225-375 mg/day, given in 2 doses per day. She was discharged on starting dose of Lamictal. (11) Hypothyroid Her TSH came back at 100.78, and lipid panel with cholesterol 413, LDL 233. She is a high risk for severe cardiovascular disease. Her Synthroid and Lipitor were restarted and re-ordered at discharge. (12) Illicit drug use She had a remote history of heroin use. She initially denied drug use but cu rrently meth use and narcotic use were positive by toxicology screen. She also takes Suboxone. Counseling and resources for her by [facility] was done. She was somnolent all her time here, possibly from meth withdrawal, and her headache was likely from withdrawal. (13) Medical non-compliance Educated re importance of medication compliance - ALLERGIES Allergies/Adverse Reactions: Allergies Allergy/AdvReac Type Severity Reaction Status Date / Time NSAIDS (Non-Steroidal Allergy Nausea Verified 08/12/22 16:04 Anti-Inflamma Penicillins Allergy Respiratory Verified 08/12/22 16:04 lactose AdvReac Unknown Verified 08/14/22 08:44 - MEDICATIONS Home Medications: Ambulatory Orders Medication Instructions Recorded Confirmed Buprenorphine HCl/Naloxone HCl 0.5 each SL DAILY 6 Days #3 film 04/12/22 08/13/22 [Suboxone 4 mg-1 mg Sl Film] Albuterol Sulf [Ventolin Hfa 2 - 3 puffs INH Q4HR PRN #1 each 08/14/22 Inhaler] Amlodipine Besylate [Norvasc] 10 mg PO DAILY #30 tab 08/14/22 Atorvastatin [Lipitor] 40 mg PO QPM #30 tab 08/14/22 HYDROcodone/ACET 10/325 [[place] 10 1 tab PO Q6HR PRN #6 tab 08/14/22 mg/325 mg] Levothyroxine [Synthroid] 200 mcg PO QDAC #30 tab 08/14/22 Lisinopril [Zestril] 40 mg PO DAILY #30 tab 08/14/22 Metoprolol Succinate [Toprol Xl] 50 mg PO DAILY #30 tab 08/14/22 Nicotine 14 mg Patch [Nicoderm] 1 patch TOP DAILY #14 patch 08/14/22 cloNIDine 0.1 MG PATCH 1 patch TOP Q7D #4 patch 08/14/22 [[id number]] hydrALAZINE [Apresoline] 25 mg PO QID #120 tab 08/14/22 lamoTRIgine [LaMICtal] 25 mg PO DAILY #30 tab 08/14/22 - PHYSICAL EXAM AT DISCHARGE General Appearance: positive: No acute distress, Lethargic, Other (Is disheveled, poor dentition, deep hoarse voice. She appears older than her age.) Eyes Bilateral: positive: Normal inspection, EOMI ENT: positive: Dry mucous membranes Neck: positive: Nml inspection, No JVD Respiratory: positive: No respiratory distress, Other (Poor air mvm but no wheezing) Cardiovascular: positive: Regular rate & rhythm, No murmur Abdomen: positive: Non-tender, No distention Skin: positive: Warm, Dry Extremities: positive: Non-tender, No pedal edema Neurologic/Psychiatric: positive: Oriented x3, Motor nml - LABS Result Diagrams: 08/13/22 05:15 08/14/22 04:20 - SEPSIS Current Stage of Sepsis: Ruled out - FOLLOW UP Follow Up: See PCP in 1-2 weeks for a hospital follow-up visit. Needs med adjustments and stress test. - TIME SPENT Time Spent in Discharge (Minutes): 50
[2022-08-14 15:35] VITALS: BP 141/98
[2022-08-14] MEDS ORDERED: hydrALAZINE 25 MG TABLET PO SCH (17:00)
== END 2022-08-14 18:00 | disposition home or self-care (01) ==
LOC: ED 15:38 → UNDOADMOB 19:28 → ICU 19:28 → OBSVTOIN 08-14 10:35 → MS2 08-14 10:35 → ICU 08-14 10:35 → INTOOBSV 08-14 10:35 → UNDODISIN 08-14 18:00
PROVIDERS: ADMIT Internal Medicine; ATTEND Internal Medicine
DX: I16.1 Hypertensive emergency (principal); I12.9 Hypertensive chronic kidney disease with stage 1 through stage 4 chronic kidney disease, or unspecified chronic kidney disease; T46.5X6A Underdosing of other antihypertensive drugs, initial encounter; N18.4 Chronic kidney disease, stage 4 (severe); E87.6 Hypokalemia; F17.200 Nicotine dependence, unspecified, uncomplicated; J44.9 Chronic obstructive pulmonary disease, unspecified; G40.909 Epilepsy, unspecified, not intractable, without status epilepticus; E03.9 Hypothyroidism, unspecified; F32.A Depression, unspecified; R77.8 Other specified abnormalities of plasma proteins; R94.31 Abnormal electrocardiogram [ECG] [EKG]; Z20.822 Contact with and (suspected) exposure to COVID-19; Z79.890 Hormone replacement therapy; Z79.899 Other long term (current) drug therapy; Z80.0 Family history of malignant neoplasm of digestive organs; Z80.1 Family history of malignant neoplasm of trachea, bronchus and lung; Z90.49 Acquired absence of other specified parts of digestive tract; Z90.710 Acquired absence of both cervix and uterus; Z91.14 Patient's other noncompliance with medication regimen
CPT/HCPCS: 36415; 71045; 80048; 80053; 80061; 80306; 82330; 83690; 83735; 83880; 84100; 84132; 84443; 84484; 85025; 85610; 87150; 87633; 93005; 93306; 94640; 96365; 96366; 96375; 99285; 99291; A9270; G0378; 83721

== ENCOUNTER → 2022-09-11 | Outpatient (CLI) | payer MEDICAID | END | disposition critical access hospital (66) | LOC: EMS 16:19 | DX: R06.00 Dyspnea, unspecified (principal); R19.7 Diarrhea, unspecified; R10.9 Unspecified abdominal pain; R00.0 Tachycardia, unspecified; I10 Essential (primary) hypertension | CPT/HCPCS: A0425; A0429; A0999 ==

== ENCOUNTER 2023-01-29 20:50 | Outpatient (CLI) | payer MEDICAID | END 2023-01-29 20:51 | disposition critical access hospital (66) | LOC: EMS 20:50 | DX: R41.82 Altered mental status, unspecified (principal); T40.1X2A Poisoning by heroin, intentional self-harm, initial encounter | CPT/HCPCS: A0425; A0429; A0999 ==

== ENCOUNTER 2023-01-29 21:14 | Emergency (ER) | payer MEDICAID ==
--- NOTE | 2023-01-29 21:21 | ED Physician Documentation ---
History of Present Illness - Stated complaint Stated Complaint: OD - History obtained from History obtained from: Patient - Additonal information Additional information: 52yF with hx heroin abuse p/w attempted suicide by heroin overdose. patient bibems with report that she was at someone's house and went outside to use heroin, came back in and became unconscious. they called 911, began bystander cpr. On ems arrival she had a good pulse and only required some assisted ventilations and came to improved alertness after 2mg IN narcan. Patient AOX3 here in ED, albeit drowsy. does endorse SI. denies HI. 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 - Present Medications Home Medications: Ambulatory Orders Medication Instructions Recorded Confirmed Buprenorphine HCl/Naloxone HCl 0.5 each SL DAILY 6 Days #3 film 04/12/22 08/13/22 [Suboxone 4 mg-1 mg Sl Film] Albuterol Sulf [Ventolin Hfa 2 - 3 puffs INH Q4HR PRN #1 each 08/14/22 Inhaler] Amlodipine Besylate [Norvasc] 10 mg PO DAILY #30 tab 08/14/22 Atorvastatin [Lipitor] 40 mg PO QPM #30 tab 08/14/22 HYDROcodone/ACET 10/325 [[place] 10 1 tab PO Q6HR PRN #6 tab 08/14/22 mg/325 mg] Levothyroxine [Synthroid] 200 mcg PO QDAC #30 tab 08/14/22 Lisinopril [Zestril] 40 mg PO DAILY #30 tab 08/14/22 Metoprolol Succinate [Toprol Xl] 50 mg PO DAILY #30 tab 08/14/22 Nicotine 14 mg Patch [Nicoderm] 1 patch TOP DAILY #14 patch 08/14/22 cloNIDine 0.1 MG PATCH 1 patch TOP Q7D #4 patch 08/14/22 [[id number]] hydrALAZINE [Apresoline] 25 mg PO QID #120 tab 08/14/22 lamoTRIgine [LaMICtal] 25 mg PO DAILY #30 tab 08/14/22 Albuterol Sulf [Ventolin Hfa 1 - 2 puffs INH Q4HR PRN #1 each 09/11/22 Inhaler] Vancomycin [Vancocin] 125 mg PO QID #40 cap 09/11/22 Levothyroxine [Synthroid] 112 mcg PO QDAC #30 tablet 01/30/23 - Allergies Allergies/Adverse Reactions: Allergies Allergy/AdvReac Type Severity Reaction Status Date / Time NSAIDS (Non-Steroidal Allergy Nausea Verified 01/29/23 21:29 Anti-Inflamma Penicillins Allergy Respiratory Verified 01/29/23 21:29 lactose AdvReac Unknown Verified 01/29/23 21:29 - Social History Does the pt smoke?: Yes Smoking Status: Current every day smoker Does the pt drink ETOH?: No Does the pt have substance abuse?: Yes - Immunizations Immunizations are current?: Yes - POLST Patient has POLST: No PD ED PE NORMAL - Vitals Vital signs reviewed: Yes - General General: No acute distress, Well developed/nourished, Other (disheveled appe aring. drowsy but responsive to verbal cues. ) - HEENT HEENT: Atraumatic, PERRL, EOMI, Moist mucous membranes, Pharynx benign - Neck Neck: Supple, no meningeal sign - Cardiac Cardiac: RRR - Respiratory Respiratory: No respiratory distress, Clear bilaterally - Abdomen Abdomen: Non tender, Non distended - Derm Derm: Normal color, Warm and dry - Neuro Eye Opening: To Voice Motor: Obeys Commands Verbal: Confused GCS Score: 13 Results - Vitals Vitals: Vital Signs - 24 hr 01/29/23 01/29/23 01/29/23 21:19 21:28 22:10 Temperature 36.3 C L Heart Rate 81 76 78 Respiratory 15 14 19 Rate Blood Pressure 196/127 H 181/121 H 179/126 H O2 Saturation 92 93 91 L If not protocol 2 2 : Oxygen Flow, liters/minute 01/29/23 01/30/23 01/30/23 22:26 00:09 01:46 Temperature Heart Rate 67 68 Respiratory 16 14 Rate Blood Pressure 196/125 H 200/131 H O2 Saturation 93 100 100 If not protocol 4 4 4 : Oxygen Flow, liters/minute 01/30/23 03:33 Temperature Heart Rate 73 Respiratory 12 Rate Blood Pressure 191/141 H O2 Saturation 100 If not protocol 4 : Oxygen Flow, liters/minute Oxygen O2 Source Nasal cannula Oxygen Flow Rate 2 - EKG (time done) 2117 EKG releavant findings:: EKG personally interpreted by author of this note. Relevant findings are: Rate: Rate (enter#) (81) Rhythm: NSR, Other (1 PVC) Intervals: Normal ND, Other (QT /QTC 559/649) QRS: Normal Ischemia: Normal ST segments - Labs Labs: Laboratory Tests 01/29/23 01/29/23 01/29/23 21:27 21:27 21:27 WBC 9.0 RBC 3.46 L Hgb 10.3 L Hct 31.7 L MCV 91.6 MCH 29.8 MCHC 32.5 RDW 14.5 Plt Count 167 MPV 11.5 H Neut # (Auto) 6.8 H Lymph # (Auto) 1.5 Gooding # (Auto) 0.4 Eos # (Auto) 0.1 Baso # (Auto) 0.1 Absolute Nucleated RBC 0.00 Nucleated RBC % 0.0 Sodium 139 Potassium 3.3 L Chloride 102 Carbon Dioxide 27 Anion Gap 10.0 BUN 33 H Creatinine 3.0 H Estimated GFR (MDRD) 16 L Glucose 93 Calcium 9.2 Magnesium 2.2 Total Bilirubin 0.5 AST 58 H ALT 26 Alkaline Phosphatase 52 Total Protein 6.8 Albumin 3.9 Globulin 2.9 Albumin/Globulin Ratio 1.3 Lipase 31 TSH 153.50 H Free T4 Thyroxine (T4) Free T3 pg/mL Total T3 Urine Color Urine Clarity Urine pH Ur Specific Franklin Urine Protein Urine Glucose (UA) Urine Ketones Urine Occult Blood Urine Nitrite Urine Bilirubin Urine Urobilinogen Ur Leukocyte Esterase Urine RBC Urine WBC Ur Epithelial Cells Ur Squamous Epith Cells Urine Bacteria Ur Microscopic Review Urine Culture Comments Salicylates < 6.0 Urine Opiates Screen Ur Oxycodone Screen Urine Methadone Screen Ur Propoxyphene Screen Acetaminophen < 10 L Ur Barbiturates Screen Ur Tricyclics Screen Ur Phencyclidine Scrn Ur Amphetamine Screen U Methamphetamines Scrn U Benzodiazepines Scrn Urine Cocaine Screen U Cannabinoids Screen Ethyl Alcohol < 5.0 01/29/23 01/29/23 01/29/23 21:27 21:27 21:39 WBC RBC Hgb Hct MCV MCH MCHC RDW Plt Count MPV Neut # (Auto) Lymph # (Auto) Gooding # (Auto) Eos # (Auto) Baso # (Auto) Absolute Nucleated RBC Nucleated RBC % Sodium Potassium Chloride Carbon Dioxide Anion Gap BUN Creatinine Estimated GFR (MDRD) Glucose Calcium Magnesium Total Bilirubin AST ALT Alkaline Phosphatase Total Protein Albumin Globulin Albumin/Globulin Ratio Lipase TSH Free T4 < 0.25 L Thyroxine (T4) < 0.50 L Free T3 pg/mL 1.68 L Total T3 0.26 L Urine Color YELLOW Urine Clarity HAZY Urine pH 6.0 Ur Specific Franklin 1.025 Urine Protein 100 H Urine Glucose (UA) NEGATIVE Urine Ketones NEGATIVE Urine Occult Blood SMALL H Urine Nitrite POSITIVE H Urine Bilirubin NEGATIVE Urine Urobilinogen 0.2 (NORMAL) Ur Leukocyte Esterase SMALL H Urine RBC 6-10 H Urine WBC >25 H Ur Epithelial Cells FEW Transitional Ur Squamous Epith Cells NONE SEEN Urine Bacteria Many H Ur Microscopic Review INDICATED Urine Culture Comments INDICATED Salicylates Urine Opiates Screen NEGATIVE Ur Oxycodone Screen NEGATIVE Urine Methadone Screen NEGATIVE Ur Propoxyphene Screen NEGATIVE Acetaminophen Ur Barbiturates Screen NEGATIVE Ur Tricyclics Screen NEGATIVE Ur Phencyclidine Scrn NEGATIVE Ur Amphetamine Screen POSITIVE H U Methamphetamines Scrn POSITIVE H U Benzodiazepines Scrn NEGATIVE Urine Cocaine Screen NEGATIVE U Cannabinoids Screen NEGATIVE Ethyl Alcohol PD Medical Decision Making - ED course ED course: 52yF presents s/p intentional heroin overdose. Will undertake mental health evaluation pending medical clearance. cbc, abdominal panel, tox labs, u/a, and cxr ordered. CXR Interpreted independently by myself and outside radiologist as no evidence of cardiopulmonary disease.She does have some baseline chronic anemia and chronic kidney disease. Her TSH was 153, indicative of hypothyroidism. Additional thyroid studies ordered including free T4 to determine to the degree of hypothyroidism. Urinalysis was positive for bacteria but patient is asymptomatic per her report, therefore we will call it asymptomatic bacteriuria. no beds available tonight. plan to endorse to incoming daytime ED MD at 7am shift change. Departure - Departure Clinical Impression: Hypothyroidism, CKD (chronic kidney disease), Heroin abuse, Methamphetamine abuse, Suicidal ideation, Anemia Prescriptions: Levothyroxine [Synthroid] 112 mcg PO QDAC #30 tablet
[2023-01-29 21:36] LABS: BASOPHILS # (AUTO) 0.1 10^3/uL (0.0-0.1); BASOPHILS % (AUTO) 0.6 %; EOSINOPHILS # (AUTO) 0.1 10^3/uL (0.0-0.7); HCT - HEMATOCRIT 31.7 % (37.0-47.0); HGB - HEMOGLOBIN 10.3 g/dL (12.0-16.0); LYMPHOCYTES # (AUTO) 1.5 10^3/uL (1.5-3.5); LYMPHOCYTES % (AUTO) 16.8 %; MEAN CORPUSCULAR HEMOGLOBIN 29.8 pg (27.0-31.0); MEAN CORPUSCULAR HGB CONC 32.5 g/dL (32.0-36.0); MEAN CORPUSCULAR VOLUME 91.6 fL (81.0-99.0); MEAN PLATELET VOLUME 11.5 fL (7.9-10.8); MONOCYTES # (AUTO) 0.4 10^3/uL (0.0-1.0); MONOCYTES % (AUTO) 4.7 %; NEUTROPHILS # (AUTO) 6.8 10^3/uL (1.5-6.6); NEUTROPHILS % (AUTO) 75.7 %; PLT - PLATELET COUNT 167 10^3/uL (130-450); RED BLOOD COUNT 3.46 10^6/uL (4.20-5.40); RED CELL DISTRIBUTION WIDTH 14.5 % (12.0-15.0)
[2023-01-29 21:45] LABS: MUDS CUTOFF CONCENTRATIONS CUTOFF CONC BELOW:
[2023-01-29 21:46] LABS: BILIRUBIN,URINE NEGATIVE (NEGATIVE); GLUCOSE, URINE (UA) NEGATIVE (NEGATIVE); KETONES,URINE (UA) NEGATIVE (NEGATIVE); LEUKOCYTE ESTERASE, URINE SMALL (NEGATIVE); NITRITE,URINE POSITIVE (NEGATIVE); OCCULT BLOOD,URINE SMALL (NEGATIVE); PROTEIN,URINE 100 mg/dL (NEGATIVE); UROBILINOGEN,URINE 0.2 (NORMAL) E.U./dL (NORMAL)
[2023-01-29 21:47] LABS: CLARITY,URINE HAZY (CLEAR)
[2023-01-29 21:53] LABS: BACTERIA,URINE Many /HPF (None Seen); EPITHELIAL CELLS,UR FEW Transitional /HPF (<= Few); SQUAMOUS EPITHELIAL CELL,UR NONE SEEN (<= Few); WBC,URINE >25 /HPF (0-5)
--- NOTE | 2023-01-29 21:56 | XRAY Report ---
PROCEDURE: Chest 1 View X-Ray INDICATIONS: unconscious 2/2 heroin OD. bystander CPR performed TECHNIQUE: One view of the chest was acquired. COMPARISON: 09/11/2022. FINDINGS: Surgical changes and devices: None. Lungs and pleura: No pleural effusions or pneumothorax. Lungs are clear. Mediastinum: Mediastinal contours appear normal. Heart size is normal. Bones and chest wall: No suspicious bony lesions. Overlying soft tissues appear unremarkable. IMPRESSION: 1. No acute cardiopulmonary disease. Reviewed by: Joey Hall MD on 01/29/2023 9:55 PM PDT Approved by: Joey Hall MD on 01/29/2023 9:55 PM PDT Station ID: [id number]
[2023-01-29 21:58] LABS: AMPHETAMINE SCREEN,URINE POSITIVE (NEGATIVE); BARBITURATE SCREEN,UR NEGATIVE (NEGATIVE); BENZODIAZEPINES SCREEN, URINE NEGATIVE (NEGATIVE); COCAINE SCREEN URINE NEGATIVE (NEGATIVE); METHADONE SCREEN, URINE NEGATIVE (NEGATIVE); METHAMPHETAMINES SCREEN, URINE POSITIVE (NEGATIVE); OPIATE SCREEN, URINE NEGATIVE (NEGATIVE); OXYCODONE SCREEN, URINE NEGATIVE (NEGATIVE); PROPOXYPHENE SCREEN, URINE NEGATIVE (NEGATIVE); THC CANNABINOID SCREEN, URINE NEGATIVE (NEGATIVE); TRICYCLIC ANTIDEPRESSANT,URINE NEGATIVE (NEGATIVE)
[2023-01-29 22:03] LABS: ACETAMINOPHEN < 10 ug/mL (10-30); ALBUMIN 3.9 g/dL (3.2-5.5); ALBUMIN/GLOBULIN RATIO 1.3 (1.0-2.2); ALKALINE PHOSPHATASE 52 IU/L (42-121); ALT ALANINE AMINOTRANSFERASE 26 IU/L (10-60); AST ASPARTATE AMINOTRANSFERASE 58 IU/L (10-42); BILIRUBIN,TOTAL 0.5 mg/dL (0.2-1.0); BUN - BLOOD UREA NITROGEN 33 mg/dL (6-20); CALCIUM 9.2 mg/dL (8.5-10.3); CARBON DIOXIDE - CO2 27 mmol/L (21-32); CHLORIDE 102 mmol/L (101-111); ETOH - ETHANOL < 5.0 mg/dL; GFR - MDRD 16 (>89); GLUCOSE 93 mg/dL (70-100); LIPASE 31 U/L (22-51); MAGNESIUM 2.2 mg/dL (1.7-2.8); POTASSIUM 3.3 mmol/L (3.5-5.0); SALICYLATE < 6.0 mg/dL; SODIUM 139 mmol/L (135-145); TOTAL PROTEIN 6.8 g/dL (6.7-8.2)
[2023-01-30 00:35] LABS: FREE T3 1.68 pg/mL (2.5-3.9)
[2023-01-30 00:38] LABS: FREE T4 (FREE THYROXINE) < 0.25 ng/dL (0.58-1.64)
[2023-01-30 00:39] LABS: T4 (THYROXINE) < 0.50 ug/dL (6.09-12.23)
[2023-01-30] MEDS ORDERED: LEVOTHYROXINE 100 MCG VIAL IVP STA (07:06)
[2023-01-30 09:19] VITALS: BP 198/137
[2023-01-30] MEDS ORDERED: BUPRENORPHINE/NALOXONE 8-2 MG TAB SL STA (12:14)
== END 2023-01-30 12:40 | disposition home or self-care (01) ==
LOC: EDUNIT# → ED 21:14
DX: R45.851 Suicidal ideations (principal); N18.9 Chronic kidney disease, unspecified; D63.1 Anemia in chronic kidney disease; E03.9 Hypothyroidism, unspecified; F11.129 Opioid abuse with intoxication, unspecified; F17.200 Nicotine dependence, unspecified, uncomplicated
CPT/HCPCS: 36415; 80053; 80306; 80307; 80320; 80329; 81001; 81003; 83690; 83735; 84436; 84439; 84443; 84480; 84481; 85025; 87086; 87181; 93005; 96374; 99284

== ENCOUNTER 2023-02-16 15:13 | Emergency (ER) | payer MEDICAID ==
--- NOTE | 2023-02-16 15:38 | XRAY Report ---
PROCEDURE: Chest 1 View X-Ray INDICATIONS: dyspnea TECHNIQUE: One view of the chest was acquired. COMPARISON: Plain films dated 01/29/2023 FINDINGS: Surgical changes and devices: None. Lungs and pleura: Moderate left pleural effusion. Small right pleural effusion. Moderate bibasilar a irspace opacity. Mediastinum: Mediastinal contours appear normal. Heart size is normal. Bones and chest wall: No suspicious bony lesions. Overlying soft tissues appear unremarkable. IMPRESSION: 1. Bibasilar pneumonia. Follow-up PA and lateral chest x-rays or chest CT is recommended to ensure re solution, and to exclude underlying neoplasm. 2. Moderate left and small right pleural effusions. Reviewed by: Dominique Carrasco MD on 02/16/2023 2:37 PM MARIA ELENA Approved by: Dominique Carrasco MD on 02/16/2023 2:37 PM MARIA ELENA Station ID: [id number]
[2023-02-16] MEDS ORDERED: cefTRIAXone 2 GM VIAL IM STA (15:53)
[2023-02-16] MEDS ORDERED: AZITHROMYCIN 250 MG TABLET PO STA (15:54)
--- NOTE | 2023-02-16 15:57 | ED Physician Documentation ---
History of Present Illness - Stated complaint Stated Complaint: SOA - Chief complaint Chief Complaint: Resp - History obtained from History obtained from: Patient - Additonal information Additional information: The patient comes to the emergency department with chief complaint of dyspnea over the past week since having to receive CPR after heroin overdose. The patient states that her chest has been sore and that she has had a hard time getting a deep breath in because it hurts. The patient states she has had chronic edema in her lower extremities which does not seem worse than usual. The patient has poor kidney function and has been told she cannot be on diuretics because of this. The patient denies cough but has had a fever on and off over the last few days. No other complaints at this time. She has not been on her chronic meds for hypertension in months she states. She is a patient of Ty Rendon. 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 - Present Medications Home Medications: Ambulatory Orders Medication Instructions Recorded Confirmed Azithromycin [Zithromax] 0 mg PO DAILY #6 tablet 02/16/23 Levothyroxine [Synthroid] 112 mcg PO QDAC 02/16/23 02/16/23 - Allergies Allergies/Adverse Reactions: Allergies Allergy/AdvReac Type Severity Reaction Status Date / Time NSAIDS (Non-Steroidal Allergy Nausea Verified 02/16/23 15:20 Anti-Inflamma Penicillins Allergy Respiratory Verified 02/16/23 15:20 lactose AdvReac Unknown Verified 02/16/23 15:20 - Social History Does the pt smoke?: Yes Smoking Status: Current every day smoker Does the pt drink ETOH?: No Does the pt have substance abuse?: Yes - Immunizations Immunizations are current?: Yes - POLST Patient has POLST: No PD ED PE NORMAL - Vitals Vital signs reviewed: Yes - General General: Alert and oriented X 3, No acute distress, Well developed/nourished - HEENT HEENT: Atraumatic, PERRL, EOMI, Moist mucous membranes - Neck Neck: Supple, no meningeal sign - Cardiac Cardiac: RRR, No murmur, Strong equal pulses - Respiratory Respiratory: No respiratory distress, Clear bilaterally, Other (Mildly diminished breath sounds in the left lung base.) - Abdomen Abdomen: Soft, Non tender, Non distended - Derm Derm: Normal color, Warm and dry, No rash - Extremities Extremities: No deformity, Other (1+ pitting edema bilateral lower extremities.) - Neuro Neuro: Alert and oriented X 3 - Psych Psych: Normal mood, Normal affect Results - Vitals Vitals: Oxygen O2 Source Room air - Rads (name of study) Chest x-ray Relevant Findings:: Final report received, See rad report (Mild right, moderate left pleural effusions; mild bilateral basilar infiltrates.) PD Medical Decision Making - ED course Complexity details: reviewed results, re-evaluated patient, considered differential, d/w patient ED course: The patient's oxygen saturation and heart rate were normal, and she did not display labored respirations. Her lungs were mostly clear with the exception of some Diminished breath sounds at the left lung base. Chest x-ray showed a small right and moderate left pleural effusion, along with bilateral basilar infiltrates that the radiologist felt were consistent with pneumonia. I discussed with the patient that we could go ahead and tap the patient's chest on the left and try to remove some of the fluid, though I suspect with the recent CPR and lack of pleural effusion previously, that the patient probably will experience resolution of the pleural effusions on her own, given time. The patient would prefer not to have thoracentesis today. She wants to try just doing antibiotics and give the pleural effusions a bit more time. I feel this is reasonable at this point, given the patient's all-around examination. The patient is given doses of Rocephin and Zithromax here in the emergency department. We have discussed the usual indications for return. Departure - Departure Disposition: 01 Home, Self Care Clinical Impression: Pneumonia Qualifiers: Pneumonia type: due to unspecified organism Laterality: bilateral Lung location: lower lobe of lung Qualified Code(s): J18.9 - Pneumonia, unspecified organism Condition: Stable Instructions: Pneumonia Dc, ED Effusion Pleural Prescriptions: Azithromycin [Zithromax] 0 mg PO DAILY #6 tablet Comments: Your chest x-ray shows some inflammatory fluid around your lungs which is most likely from the CPR that you had last week. You also have a little bit of pneumonia at the bottom of each lung. You have been started on antibiotics here in the emergency department. The fluid around your left lung is at a "moderate" level, meaning that it would potentially be possible to insert a needle into your chest and drain it, that this would be somewhat on the borderline of the size of fluid collection we could drain without putting your lung at risk. At this point in time, it is also reasonable to give it a little more time and see if it resolves on its own over the next couple of weeks, as you have requested to do. For now, since you are oxygen in your blood is good and your respiratory status is stable, this is a reasonable option. A prescription for your antibiotics has been electronically transmitted to the [facility] pharmacy in [place]. Please pick these up in time to take your next dose tomorrow. Please return to the emergency department if you notice significant worsening of your breathing. Discharge Date/Time: 02/16/23 16:59
[2023-02-16 16:56] VITALS: BP 192/135
== END 2023-02-16 16:59 | disposition home or self-care (01) ==
LOC: ED 15:13
DX: J18.9 Pneumonia, unspecified organism (principal); J90 Pleural effusion, not elsewhere classified; F17.200 Nicotine dependence, unspecified, uncomplicated
CPT/HCPCS: 71045; 96372; 99283; A9270

== ENCOUNTER 2023-03-09 09:34 | Emergency (ER) | payer MEDICAID ==
--- NOTE | 2023-03-09 11:25 | ED Physician Documentation ---
History of Present Illness - Stated complaint Stated Complaint: SWOLLEN EYES - Chief complaint Chief Complaint: Heent - History obtained from History obtained from: Patient - History of Present Illness Timing: Yesterday - Additonal information Additional information: 52-year-old female with a history of heroin abuse has awakened this morning with swollen eyes. She complains of dyspnea as well. She feels her feet might be swollen. She does indicate that she last used last night. She also indicates that she has had an overdose and received CPR. She did end up with pneumonia following that and she is finished with her antibiotic course. She has a prior history of renal failure requiring dialysis about 1 year ago. She had a 13-day stay at [facility]. Review of Systems Constitutional: denies: Fever Eyes: reports: Other (swelling to the lids). denies: Loss of vision, Decreased vision Ears: denies: Ear pain Nose: denies: Rhinorrhea / runny nose, Congestion Throat: denies: Sore throat Cardiac: denies: Chest pain / pressure Respiratory: reports: Cough (chronic). 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: Yes Smoking Status: Current every day smoker Does the pt drink ETOH?: No Does the pt have substance abuse?: Yes - Immunizations Immunizations are current?: Yes - POLST Patient has POLST: No PD ED PE NORMAL - Vitals Vital signs reviewed: Yes - General General: Well developed/nourished, Other (The patient nods off easily but answers appropriately ) - HEENT HEENT: Atraumatic, PERRL, EOMI, Other (periorbital edema is present bilaterally and symetrically enough swelling that it looks funny) - Neck Neck: Supple, no meningeal sign, No bony TTP - Cardiac Cardiac: RRR, No murmur - Respiratory Respiratory: No respiratory distress, Clear bilaterally - Abdomen Abdomen: Soft, Non tender - Derm Derm: Normal color, Warm and dry - Extremities Extremities: No deformity, No edema - Neuro Neuro: Alert and oriented X 3, manager inpatient 2-12 intact, No motor deficit, No sensory deficit, Normal speech Eye Opening: Spontaneous Motor: Obeys Commands Verbal: Oriented GCS Score: 15 - Psych Psych: Normal mood, Normal affect Results - Vitals Vitals: Vital Signs - 24 hr 03/09/23 03/09/23 03/09/23 09:51 12:04 14:04 Temperature 36.5 C Heart Rate 67 58 L 59 L Respiratory 20 16 16 Rate Blood Pressure 194/124 H 200/124 H 236/126 H O2 Saturation 94 97 94 03/09/23 16:06 Temperature Heart Rate 65 Respiratory 17 Rate Blood Pressure 205/134 H O2 Saturation 93 Oxygen O2 Source Room air - Labs Labs: Laboratory Tests 03/09/23 03/09/23 03/09/23 11:29 11:29 11:29 WBC 11.1 H RBC 3.69 L Hgb 10.5 L Hct 34.7 L MCV 94.0 MCH 28.5 MCHC 30.3 L RDW 14.2 Plt Count 304 MPV 10.9 H Neut # (Auto) 8.5 H Lymph # (Auto) 1.5 [place] # (Auto) 0.8 Eos # (Auto) 0.3 Baso # (Auto) 0.1 Absolute Nucleated RBC 0.00 Nucleated RBC % 0.0 Sodium 140 Potassium 3.9 Chloride 101 Carbon Dioxide 30 Anion Gap 9.0 BUN 25 H Creatinine 2.0 H Estimated GFR (MDRD) 26 L Glucose 101 H Lactic Acid 0.9 Calcium 8.8 Total Bilirubin 0.3 AST 24 ALT 16 Alkaline Phosphatase 137 H Total Protein 7.5 Albumin 3.5 Globulin 4.0 Albumin/Globulin Ratio 0.9 L Lipase 24 TSH Free T4 Free T3 pg/mL Urine Color Urine Clarity Urine pH Ur Specific [place] Urine Protein Urine Glucose (UA) Urine Ketones Urine Occult Blood Urine Nitrite Urine Bilirubin Urine Urobilinogen Ur Leukocyte Esterase Urine RBC Urine WBC Ur Squamous Epith Cells Urine Bacteria Urine Casts Urine Mucus Ur Microscopic Review Urine Culture Comments Urine HCG, Qual Salicylates < 6.0 Urine Opiates Screen Ur Oxycodone Screen Urine Methadone Screen Ur Propoxyphene Screen Acetaminophen < 10 L Ur Barbiturates Screen Ur Tricyclics Screen Ur Phencyclidine Scrn Ur Amphetamine Screen U Methamphetamines Scrn U Benzodiazepines Scrn Urine Cocaine Screen U Cannabinoids Screen Ethyl Alcohol < 5.0 03/09/23 03/09/23 03/09/23 11:29 11:29 13:19 WBC RBC Hgb Hct MCV MCH MCHC RDW Plt Count MPV Neut # (Auto) Lymph # (Auto) [place] # (Auto) Eos # (Auto) Baso # (Auto) Absolute Nucleated RBC Nucleated RBC % Sodium Potassium Chloride Carbon Dioxide Anion Gap BUN Creatinine Estimated GFR (MDRD) Glucose Lactic Acid Calcium Total Bilirubin AST ALT Alkaline Phosphatase Total Protein Albumin Globulin Albumin/Globulin Ratio Lipase TSH 46.30 H Free T4 0.74 Free T3 pg/mL 2.61 Urine Color YELLOW Urine Clarity SL. CLOUDY Urine pH 6.0 Ur Specific [place] >=1.030 H Urine Protein >=300 H Urine Glucose (UA) NEGATIVE Urine Ketones NEGATIVE Urine Occult Blood NEGATIVE Urine Nitrite NEGATIVE Urine Bilirubin NEGATIVE Urine Urobilinogen 0.2 (NORMAL) Ur Leukocyte Esterase NEGATIVE Urine RBC None Seen Urine WBC 11-25 H Ur Squamous Epith Cells MANY Squamous H Urine Bacteria Rare Urine Casts 11-25 Hyaline Casts Urine Mucus Few Strands Ur Microscopic Review INDICATED Urine Culture Comments NOT INDICATED Urine HCG, Qual NEGATIVE Salicylates Urine Opiates Screen Ur Oxycodone Screen Urine Methadone Screen Ur Propoxyphene Screen Acetaminophen Ur Barbiturates Screen Ur Tricyclics Screen Ur Phencyclidine Scrn Ur Amphetamine Screen U Methamphetamines Scrn U Benzodiazepines Scrn Urine Cocaine Screen U Cannabinoids Screen Ethyl Alcohol 03/09/23 14:42 WBC RBC Hgb Hct MCV MCH MCHC RDW Plt Count MPV Neut # (Auto) Lymph # (Auto) [place] # (Auto) Eos # (Auto) Baso # (Auto) Absolute Nucleated RBC Nucleated RBC % Sodium Potassium Chloride Carbon Dioxide Anion Gap BUN Creatinine Estimated GFR (MDRD) Glucose Lactic Acid Calcium Total Bilirubin AST ALT Alkaline Phosphatase Total Protein Albumin Globulin Albumin/Globulin Ratio Lipase TSH Free T4 Free T3 pg/mL Urine Color Urine Clarity Urine pH Ur Specific [place] Urine Protein Urine Glucose (UA) Urine Ketones Urine Occult Blood Urine Nitrite Urine Bilirubin Urine Urobilinogen Ur Leukocyte Esterase Urine RBC Urine WBC Ur Squamous Epith Cells Urine Bacteria Urine Casts Urine Mucus Ur Microscopic Review Urine Culture Comments Urine HCG, Qual Salicylates Urine Opiates Screen POSITIVE H Ur Oxycodone Screen NEGATIVE Urine Methadone Screen NEGATIVE Ur Propoxyphene Screen NEGATIVE Acetaminophen Ur Barbiturates Screen NEGATIVE Ur Tricyclics Screen NEGATIVE Ur Phencyclidine Scrn NEGATIVE Ur Amphetamine Screen POSITIVE H U Methamphetamines Scrn POSITIVE H U Benzodiazepines Scrn NEGATIVE Urine Cocaine Screen NEGATIVE U Cannabinoids Screen POSITIVE H Ethyl Alcohol PD Medical Decision Making - ED course Reviewed Lab Results: We reviewed a complete blood count showing an elevated white blood cell count of 11.1 hemoglobin and hematocrit were low and similar in range to prior chemistry showed normal electrolytes elevated BUN and creatinine with kidney and function improved from prior over the past year. TSH elevated at 46.3 Free T4 normal at 0.74 and free T3 at 2.61 normal. Urinalysis remarkable for 11-25 white blood cells per high-powered field negative test high specific gravity elevated urine protein. Toxicology is positive for opiates amphetamine methamphetamine and cannabis alcohol is negative ED course: 52-year-old Orly Montes has a long history of narcotic abuse and medical noncompliance. Today she is presenting with swelling to her eyes similar to what she has had previously with administration of nonsteroidal. She states that she has not taken any nonsteroidal. When we evaluated her today we found that her kidney function appears improved from her prior, her anemia is stable, urinalysis was concerning for infection and the patient indicates symptoms. I found 2 things to treat I found swelling in the eyes and urinary tract infection. She was administered 10 mg of dexamethasone for the swelling in the eyes and a gram of Rocephin IM for the urinary tract infection we will put her on some Keflex as an outpatient. She has marked hypertension and is medically noncompliant I have asked her to follow-up with her primary care for continued treatment of hypertension. Departure - Departure Disposition: 01 Home, Self Care Clinical Impression: Periorbital edema of both eyes UTI (urinary tract infection) Qualifiers: Urinary tract infection type: acute cystitis Hematuria presence: without hematuria Qualified Code(s): N30.00 - Acute cystitis without hematuria Instructions: ED UTI Cystitis Female Follow-Up: Yokasta Bowens PA-C [Primary Care Provider] - Prescriptions: Nitrofurantoin [Macrobid] 100 mg PO BID #10 cap Comments: Verena, today looks like you do have a urinary tract infection we have given you an injection of antibiotic and I have E scribed additional antibiotic to the [facility] in [place]. The expectation with the swelling and the bias is that it should resolve within the next 2 days. Discharge Date/Time: 03/09/23 16:18
[2023-03-09 11:35] LABS: BASOPHILS # (AUTO) 0.1 10^3/uL (0.0-0.1); BASOPHILS % (AUTO) 0.5 %; EOSINOPHILS # (AUTO) 0.3 10^3/uL (0.0-0.7); EOSINOPHILS % (AUTO) 2.3 %; HCT - HEMATOCRIT 34.7 % (37.0-47.0); HGB - HEMOGLOBIN 10.5 g/dL (12.0-16.0); LYMPHOCYTES # (AUTO) 1.5 10^3/uL (1.5-3.5); LYMPHOCYTES % (AUTO) 13.5 %; MEAN CORPUSCULAR HEMOGLOBIN 28.5 pg (27.0-31.0); MEAN CORPUSCULAR HGB CONC 30.3 g/dL (32.0-36.0); MEAN PLATELET VOLUME 10.9 fL (7.9-10.8); MONOCYTES # (AUTO) 0.8 10^3/uL (0.0-1.0); MONOCYTES % (AUTO) 6.9 %; NEUTROPHILS # (AUTO) 8.5 10^3/uL (1.5-6.6); NEUTROPHILS % (AUTO) 76.5 %; PLT - PLATELET COUNT 304 10^3/uL (130-450); RED BLOOD COUNT 3.69 10^6/uL (4.20-5.40); RED CELL DISTRIBUTION WIDTH 14.2 % (12.0-15.0); WHITE BLOOD COUNT 11.1 x10^3/uL (4.8-10.8)
[2023-03-09 11:52] LABS: ACETAMINOPHEN < 10 ug/mL (10-30); ALBUMIN 3.5 g/dL (3.2-5.5); ALBUMIN/GLOBULIN RATIO 0.9 (1.0-2.2); ALKALINE PHOSPHATASE 137 IU/L (42-121); ALT ALANINE AMINOTRANSFERASE 16 IU/L (10-60); AST ASPARTATE AMINOTRANSFERASE 24 IU/L (10-42); BILIRUBIN,TOTAL 0.3 mg/dL (0.2-1.0); BUN - BLOOD UREA NITROGEN 25 mg/dL (6-20); CALCIUM 8.8 mg/dL (8.5-10.3); CARBON DIOXIDE - CO2 30 mmol/L (21-32); CHLORIDE 101 mmol/L (101-111); ETOH - ETHANOL < 5.0 mg/dL; GFR - MDRD 26 (>89); GLUCOSE 101 mg/dL (70-100); LIPASE 24 U/L (22-51); POTASSIUM 3.9 mmol/L (3.5-5.0); SALICYLATE < 6.0 mg/dL; SODIUM 140 mmol/L (135-145); TOTAL PROTEIN 7.5 g/dL (6.7-8.2)
[2023-03-09 13:00] LABS: FREE T3 2.61 pg/mL (2.5-3.9); FREE T4 (FREE THYROXINE) 0.74 ng/dL (0.58-1.64)
--- NOTE | 2023-03-09 13:17 | XRAY Report ---
PROCEDURE: Chest 1 View X-Ray INDICATIONS: dyspnea TECHNIQUE: One view of the chest was acquired. COMPARISON: 02/16/2023 FINDINGS: Surgical changes and devices: None. Lungs and pleura: Large left-sided pleural effusion with mediastinal shift has increased in size fro m the prior exam. Right basilar atelectasis and or infiltrate tip. No right-sided pleural effusion. Mediastinum: Mediastinal contours appear normal. Heart size is normal. Bones and chest wall: No suspicious bony lesions. Overlying soft tissues appear unremarkable. IMPRESSION: Enlarging left large left pleural effusion with mediastinal shift Reviewed by: Roney Hector MD on 03/09/2023 12:15 PM AKDT Approved by: Roney Hector MD on 03/09/2023 12:15 PM AKDT Station ID: [id number]
[2023-03-09 13:25] LABS: BILIRUBIN,URINE NEGATIVE (NEGATIVE); GLUCOSE, URINE (UA) NEGATIVE (NEGATIVE); KETONES,URINE (UA) NEGATIVE (NEGATIVE); LEUKOCYTE ESTERASE, URINE NEGATIVE (NEGATIVE); NITRITE,URINE NEGATIVE (NEGATIVE); OCCULT BLOOD,URINE NEGATIVE (NEGATIVE); PROTEIN,URINE >=300 mg/dL (NEGATIVE); UROBILINOGEN,URINE 0.2 (NORMAL) E.U./dL (NORMAL)
[2023-03-09 13:53] LABS: CLARITY,URINE SL. CLOUDY (CLEAR); HCG UR QUAL NEGATIVE
[2023-03-09 13:54] LABS: BACTERIA,URINE Rare /HPF (None Seen); RBC,URINE None Seen /HPF (0-5); SQUAMOUS EPITHELIAL CELL,UR MANY Squamous (<= Few)
[2023-03-09 13:55] LABS: MUCUS,URINE Few Strands
[2023-03-09] MEDS ORDERED: DEXAMETHASONE 10 MG/ML VIAL PO STA (14:43)
[2023-03-09] MEDS ORDERED: CHERRY SYRUP 10 ML UDC PO ONE (14:43)
[2023-03-09] MEDS ORDERED: LIDOCAINE 1% 2 ML VIAL MC ONE (14:45)
[2023-03-09] MEDS ORDERED: cefTRIAXone 1 GM VIAL IM STA (14:45)
[2023-03-09 15:17] LABS: MUDS CUTOFF CONCENTRATIONS CUTOFF CONC BELOW:
[2023-03-09 15:33] LABS: COCAINE SCREEN URINE NEGATIVE (NEGATIVE); THC CANNABINOID SCREEN, URINE POSITIVE (NEGATIVE)
[2023-03-09 15:34] LABS: AMPHETAMINE SCREEN,URINE POSITIVE (NEGATIVE); BARBITURATE SCREEN,UR NEGATIVE (NEGATIVE); BENZODIAZEPINES SCREEN, URINE NEGATIVE (NEGATIVE); METHADONE SCREEN, URINE NEGATIVE (NEGATIVE); METHAMPHETAMINES SCREEN, URINE POSITIVE (NEGATIVE); OPIATE SCREEN, URINE POSITIVE (NEGATIVE); OXYCODONE SCREEN, URINE NEGATIVE (NEGATIVE); PROPOXYPHENE SCREEN, URINE NEGATIVE (NEGATIVE); TRICYCLIC ANTIDEPRESSANT,URINE NEGATIVE (NEGATIVE)
[2023-03-09 16:08] VITALS: BP 205/134
== END 2023-03-09 16:18 | disposition home or self-care (01) ==
LOC: ED 09:34
DX: N30.00 Acute cystitis without hematuria (principal); R60.0 Localized edema; I10 Essential (primary) hypertension; F17.200 Nicotine dependence, unspecified, uncomplicated
CPT/HCPCS: 36415; 71045; 80053; 80306; 80307; 80320; 80329; 81001; 81025; 83605; 83690; 84439; 84443; 84481; 85025; 87040; 96372; 99284; A9270; 81003; 87086

== ENCOUNTER 2023-03-18 16:53 | Inpatient (IN) | payer MEDICAID ==
--- NOTE | 2023-03-18 17:26 | ED Physician Documentation ---
PD HPI CHEST PAIN - Stated complaint Stated Complaint: SOA - Chief complaint Chief Complaint: Resp - History obtained from History obtained from: Patient - Additional information Additional information: This is a 52-year-old female with a past medical history of hypertension, COPD, CHF and polysubstance abuse per chart review. She presents reporting shortness of breath that started just prior to arrival. She denies any chest pain. She denies any known fever, no recent cough or URI symptoms, no abdominal pain nausea vomiting or diarrhea. She does admit to heroin use today, last use this morning, uses rectally. She has not been taking her chronic medications. Review of Systems Unable to obtain: Other (Limited by critical illness) Constitutional: reports: Reviewed and negative Throat: reports: Reviewed and negative Cardiac: reports: Pedal edema. denies: Chest pain / pressure Respiratory: reports: Dyspnea, Cough, Wheezing. 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 : None HEENT: None Psych: Depression, Other Musculoskeletal: None Derm: None - Past Surgical History Past Surgical History: Yes General: Cholecystectomy, 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: Yes Smoking Status: Current every day smoker Does the pt drink ETOH?: No Does the pt have substance abuse?: Yes - Immunizations Immunizations are current?: Yes - POLST Patient has POLST: No PD ED PE NORMAL - Vitals Vital signs reviewed: Yes - General General: Alert and oriented X 3, Other (Patient dyspneic, in respiratory distress. She appears chronically ill) - HEENT HEENT: Atraumatic, Moist mucous membranes - Neck Neck: Supple, no meningeal sign, No adenopathy - Cardiac Cardiac: Strong equal pulses, Other (Tachycardic no murmur) - Respiratory Respiratory: Other (Extremely diminished lung sounds bilaterally with scattered expiratory wheezes) - Abdomen Abdomen: Normal bowel sounds, Soft, Non tender, Non distended - Derm Derm: Normal color, Warm and dry, No rash - Extremities Extremities: No deformity, No tenderness to palpate, Other (2+ pedal edema) - Neuro Neuro: Alert and oriented X 3 Eye Opening: Spontaneous Motor: Obeys Commands Verbal: Oriented GCS Score: 15 Results - Vitals Vitals: Vital Signs - 24 hr 03/18/23 03/18/23 03/18/23 17:05 17:11 17:54 Temperature 36.4 C L Heart Rate 89 95 105 H Respiratory 23 30 H Rate Blood Pressure 205/129 H 208/139 H 212/137 H O2 Saturation 99 97 90 L If not protocol 6 : Oxygen Flow, liters/minute 03/18/23 03/18/23 03/18/23 18:00 18:36 19:05 Temperature Heart Rate 112 H 100 110 H Respiratory 18 22 27 H Rate Blood Pressure 216/129 H O2 Saturation 64 L If not protocol 3 : Oxygen Flow, liters/minute 03/18/23 03/18/23 03/18/23 19:16 19:18 19:20 Temperature Heart Rate 107 H 111 H Respiratory 24 20 Rate Blood Pressure 231/146 H O2 Saturation 99 97 95 If not protocol : Oxygen Flow, liters/minute 03/18/23 03/18/23 03/18/23 19:23 19:28 19:30 Temperature Heart Rate 104 H 99 91 Respiratory 16 13 Rate Blood Pressure 212/127 H 189/118 H O2 Saturation 100 If not protocol : Oxygen Flow, liters/minute 03/18/23 03/18/23 03/18/23 19:40 19:43 19:48 Temperature Heart Rate 94 92 91 Respiratory 14 19 Rate Blood Pressure 170/109 H 155/104 H 146/102 H O2 Saturation 100 100 100 If not protocol : Oxygen Flow, liters/minute 03/18/23 03/18/23 03/18/23 20:06 20:24 20:38 Temperature 35.2 C L Heart Rate 86 82 81 Respiratory 18 18 Rate Blood Pressure 128/90 H 114/79 108/78 O2 Saturation 100 100 100 If not protocol : Oxygen Flow, liters/minute 03/18/23 03/18/23 03/18/23 20:55 21:18 21:26 Temperature 36.0 C L Heart Rate 82 83 83 Respiratory 18 16 18 Rate Blood Pressure 124/83 H 144/97 H 144/97 H O2 Saturation 100 100 100 If not protocol : Oxygen Flow, liters/minute 03/18/23 21:37 Temperature Heart Rate 85 Respiratory 18 Rate Blood Pressure 144/100 H O2 Saturation 100 If not protocol : Oxygen Flow, liters/minute Oxygen O2 Source Mechanical ventilator Oxygen Flow Rate 6 - EKG (time done) No standard instances EKG releavant findings:: EKG personally interpreted by author of this note. Relevant findings are: Rhythm: NSR Intervals: Normal ID Ischemia: Normal ST segments Compare to prior EKG: Unchanged from prior EKG Computer interpretation: Agree with computer - Labs Labs: Laboratory Tests 03/18/23 03/18/23 03/18/23 17:08 17:08 17:08 WBC 12.6 H RBC 3.63 L Hgb 10.4 L Hct 33.5 L MCV 92.3 MCH 28.7 MCHC 31.0 L RDW 14.4 Plt Count 325 MPV 11.4 H Neut # (Auto) 10.5 H Lymph # (Auto) 1.1 L [place] # (Auto) 0.8 Eos # (Auto) 0.1 Baso # (Auto) 0.1 Absolute Nucleated RBC 0.00 Nucleated RBC % 0.0 D-Dimer 700.5 H VBG pH VBG pCO2 VBG pO2 VBG HCO3 VBG Total CO2 VBG O2 Saturation VBG Base Excess Sodium 139 Potassium 4.1 Chloride 98 L Carbon Dioxide 31 Anion Gap 10.0 BUN 24 H Creatinine 1.9 H Estimated GFR (MDRD) 28 L Glucose 140 H Calcium 8.8 Total Bilirubin 0.5 AST 21 ALT 13 Alkaline Phosphatase 127 H Troponin I High Sens B-Natriuretic Peptide Total Protein 7.5 Albumin 3.3 Globulin 4.2 Albumin/Globulin Ratio 0.8 L Lipase 20 L 03/18/23 03/18/23 03/18/23 17:08 17:08 19:09 WBC RBC Hgb Hct MCV MCH MCHC RDW Plt Count MPV Neut # (Auto) Lymph # (Auto) [place] # (Auto) Eos # (Auto) Baso # (Auto) Absolute Nucleated RBC Nucleated RBC % D-Dimer VBG pH VBG pCO2 VBG pO2 VBG HCO3 VBG Total CO2 VBG O2 Saturation VBG Base Excess Sodium Potassium Chloride Carbon Dioxide Anion Gap BUN Creatinine Estimated GFR (MDRD) Glucose Calcium Total Bilirubin AST ALT Alkaline Phosphatase Troponin I High Sens 247.2 H* 186.6 H* B-Natriuretic Peptide 2257 H Total Protein Albumin Globulin Albumin/Globulin Ratio Lipase 03/18/23 19:09 WBC RBC Hgb Hct MCV MCH MCHC RDW Plt Count MPV Neut # (Auto) Lymph # (Auto) [place] # (Auto) Eos # (Auto) Baso # (Auto) Absolute Nucleated RBC Nucleated RBC % D-Dimer VBG pH 7.341 VBG pCO2 44.7 VBG pO2 40.7 VBG HCO3 23.6 VBG Total CO2 25.0 VBG O2 Saturation 70.7 VBG Base Excess -2.2 L Sodium Potassium Chloride Carbon Dioxide Anion Gap BUN Creatinine Estimated GFR (MDRD) Glucose Calcium Total Bilirubin AST ALT Alkaline Phosphatase Troponin I High Sens B-Natriuretic Peptide Total Protein Albumin Globulin Albumin/Globulin Ratio Lipase PD Medical Decision Making - ED course Complexity details: reviewed old records, reviewed results, re-evaluated patient, considered differential, d/w patient, d/w family, other (d/w ED attendings Dr. Marquez and Dr. Hernandez) ED course: This is a 52-year-old female with past medical history of COPD, CHF, hypertension, polysubstance abuse with history of noncompliance with her medication regimen presented with acute onset shortness of breath this afternoon. History limited by patient's critical illness. She is extremely dyspneic with poor air movement on arrival, saturating in the 80s. She had hypertensive emergency with BP 230s/130s. There was concern for CHF and/or COPD exacerbation as well as possible ACS or PE. She was placed on Oxygen and given a DuoNeb plus an albuterol neb, she was also given Solu-Medrol and 40 mg of IV Lasix. She had some improvement in her lung sounds but was very restless and noncompliant with her oxygen, continually taking off oxygen and dropping into the 70s and even 60s. She had an x-ray which showed a left pleural effusion and signs of vascular congestion but no other acute findings. Her labs are significant for elevated troponin at 247, elevated D-dimer 700, mild Leukocytosis, and chronic kidney disease with a GFR of 28 which is actually somewhat improved from prior, her BNP is greater than 2000. I started the patient on a heparin drip for possible ACS though patient's EKG showed no acute ischemic changes. I was also concerned for a possible PE causing her symptoms and therefore obtain a CT of the chest which was negative for PE but did show CHF and left pleural effusion. Patient was remained hypertensive and therefore a nitro drip was ordered but subsequently the patient became increasingly dyspneic, and was not complying with oxygen mask therefore we did elect to intubate the patient. I asked for assistance from both Dr. Marquez and Dr. Hernandez as it was right at change of shift, Dr. Hernandez kindly intubated the patient as described in event note. The patient subsequently had substantial improvement in her oxygenation and her blood pressure did improve. The nitro drip was only on for approximately 5 minutes before it was Turned off after blood pressure improved with sedation. She required Both propofol and Versed for adequate sedation though these are being titrated down now. The patient remains on a heparin drip. A follow-up troponin is down to 187. I do believe the patient is stable for admission to the hospital at this time. Given improving troponin that was likely a demand ischemia and lack of EKG changes, I do think the patient can stay here. She will need to be admitted for COPD and CHF exacerbation as well as NSTEMI. I have spoken with the hospitalist service, Dr. Phelps, who has very kindly agreed to admit the patient. Departure - Departure Disposition: 66 [facility] DC/Xfer Clinical Impression: Heroin abuse, COPD with exacerbation, Pleural effusion, left Acute exacerbation of CHF (congestive heart failure) Qualifiers: Heart failure type: unspecified Qualified Code(s): I50.9 - Heart failure, unspecified Condition: Critical
[2023-03-18] MEDS ORDERED: IPRATROPIUM/ALBUTEROL 3 ML NEB INH STA (17:33)
[2023-03-18 17:34] LABS: BASOPHILS # (AUTO) 0.1 10^3/uL (0.0-0.1); BASOPHILS % (AUTO) 0.6 %; EOSINOPHILS # (AUTO) 0.1 10^3/uL (0.0-0.7); EOSINOPHILS % (AUTO) 0.6 %; HCT - HEMATOCRIT 33.5 % (37.0-47.0); HGB - HEMOGLOBIN 10.4 g/dL (12.0-16.0); LYMPHOCYTES # (AUTO) 1.1 10^3/uL (1.5-3.5); LYMPHOCYTES % (AUTO) 8.8 %; MEAN CORPUSCULAR HEMOGLOBIN 28.7 pg (27.0-31.0); MEAN CORPUSCULAR VOLUME 92.3 fL (81.0-99.0); MEAN PLATELET VOLUME 11.4 fL (7.9-10.8); MONOCYTES # (AUTO) 0.8 10^3/uL (0.0-1.0); MONOCYTES % (AUTO) 6.4 %; NEUTROPHILS # (AUTO) 10.5 10^3/uL (1.5-6.6); NEUTROPHILS % (AUTO) 83.3 %; PLT - PLATELET COUNT 325 10^3/uL (130-450); RED BLOOD COUNT 3.63 10^6/uL (4.20-5.40); RED CELL DISTRIBUTION WIDTH 14.4 % (12.0-15.0); WHITE BLOOD COUNT 12.6 x10^3/uL (4.8-10.8)
[2023-03-18] MEDS ORDERED: methylPREDNISolone SUCCINATE 125 MG/2 ML VIAL IVP STA (17:34)
[2023-03-18 17:47] LABS: ALBUMIN 3.3 g/dL (3.2-5.5); ALBUMIN/GLOBULIN RATIO 0.8 (1.0-2.2); BILIRUBIN,TOTAL 0.5 mg/dL (0.2-1.0); CALCIUM 8.8 mg/dL (8.5-10.3); CREATININE 1.9 mg/dL (0.4-1.0); POTASSIUM 4.1 mmol/L (3.5-5.0); TOTAL PROTEIN 7.5 g/dL (6.7-8.2)
[2023-03-18] MEDS ORDERED: ALBUTEROL NEB 2.5 MG/3 ML INH ONE (17:50)
[2023-03-18] MEDS ORDERED: iohexoL-300 100 ML VIAL ONE (18:14)
[2023-03-18] MEDS ORDERED: FUROSEMIDE 40 MG/4 ML VIAL IVP STA (18:14)
--- NOTE | 2023-03-18 18:21 | XRAY Report ---
PROCEDURE: Chest 1 View X-Ray INDICATIONS: Chest Pain TECHNIQUE: One view of the chest was acquired. COMPARISON: 03/09/2023 FINDINGS: Surgical changes and devices: None. Lungs and pleura: There is a moderate left-sided pleural effusion, which is slightly improved compar ed to the prior examination. However, this study is a semiupright examination. No pneumothorax is see n. Joint interstitial prominence is seen, which is worse on the prior examination. Mediastinum: There is at least moderate cardiomegaly. There is mild [id number] mediastinal shift. Bones and chest wall: No suspicious bony lesions. Overlying soft tissues appear unremarkable. IMPRESSION: Worsening interstitial prominence, which is consistent with volume overload. There is a large left-sided pleural effusion, which appears slightly smaller than on the prior examin ation. However, apparent difference may be simply artifactual, given the differences in imaging techn ique. Mild left to right mediastinal shift is again seen. At least moderate cardiomegaly is seen. Reviewed by: Trell Matute MD on 03/18/2023 5:19 PM MARIA ELENA Approved by: Trell Matute MD on 03/18/2023 5:19 PM MARIA ELENA Station ID: [id number]
[2023-03-18] MEDS ORDERED: NITROGLYCERIN 50 MG/250 ML 50 MG/250 ML BOTTLE IV STA (18:58)
[2023-03-18] MEDS ORDERED: HEPARIN 25000UNITS/500ML (D5W) 25,000 UNIT/500 ML BAG IV SCH (19:00)
[2023-03-18] MEDS ORDERED: LORazepam 2 MG/ML VIAL IVP STA (19:01)
[2023-03-18] MEDS ORDERED: ETOMIDATE 40 MG/20 ML VIAL IVP STA (19:10)
[2023-03-18] MEDS ORDERED: SUCCINYLCHOLINE 200 MG/10 ML VIAL IVP STA (19:10)
[2023-03-18] MEDS: PROPOFOL 1000 MG/100 ML 1,000 MG/100 ML BOTTLE IV SCH (19:27)
[2023-03-18 19:34] LABS: VBG BASE EXCESS -2.2 mmol/L (-2 - +2); VBG HCO3 23.6 mmol/L (23-28); VBG OXYGEN SATURATION 70.7 % (60-80); VBG PCO2 44.7 mmHg (41-51); VBG PH 7.341 (7.31-7.41); VBG PO2 40.7 mmHg (25-47)
--- NOTE | 2023-03-18 19:47 | CT Report ---
PROCEDURE: ANGIO CHEST W/WO INDICATIONS: r/o PE CONTRAST: 80mL Omni 300 TECHNIQUE: After the administration of intravenous contrast, 2 mm axial images were acquired from the pulmonary apices to the posterior costophrenic angles during the arterial phase. In addition, 1 mm lung kernel and 5 mm soft tissue kernel reconstructions were performed. 3-dimensional coronal oblique maximum int ensity projection (MIP) reformats, 8 mm axial MIP, and 5 mm coronal and sagittal MPR reformats were t hen performed through the thorax. For radiation dose reduction, the following was used: automated exp osure control, adjustment of mA and/or kV according to patient size. COMPARISON: CXR earlier today, 03/09/2023. FINDINGS: Image quality: Fair. Respiratory motion. Large vessels: No filling defects within the opacified pulmonary arteries, accounting for motion and contrast timing. No evidence of acute aortic syndrome or aortic aneurysm. Lungs and pleura: Diffuse interlobular septal thickening. Trace secretions in the right mainstem bron chus. Minimal opacity in the right lower lobe. Suspect compressive atelectasis in the left lower lobe . Large left pleural effusion. Trace right pleural effusion. Mediastinum: Heart size is normal. No pericardial effusion. No large vessel abnormality. No mediastin al adenopathy by size criteria. Chest wall and lower neck: Thyroid is unremarkable. No axillary or supraclavicular adenopathy by size . Bones: No aggressive osseous abnormality. Upper Abdomen: Reflux of contrast into the intrahepatic veins. Postcholecystectomy.. IMPRESSION: 1. No central pulmonary embolism. 2. Diffuse interlobular septal thickening. Suspect fluid overload/CHF. 3. Large left pleural effusion. Trace right pleural effusion. 4. Mild opacity in the lower lungs. Favor atelectasis over pneumonia. Reviewed by: Olvin Roberto MD on 03/18/2023 7:46 PM PDT Approved by: Olvin Roberto MD on 03/18/2023 7:46 PM PDT Station ID: [id number]
--- NOTE | 2023-03-18 19:50 | XRAY Report ---
PROCEDURE: Chest 1 View X-Ray INDICATIONS: Post intubation TECHNIQUE: One view of the chest was acquired. COMPARISON: CT pulmonary angiogram 03/18/2023. CXR 03/18/2023, 03/09/2023. FINDINGS: Surgical changes and devices: Endotracheal in the upper trachea. Enteric tube coursing into the stom ach. Lungs and pleura: Opacity at the left lung base with air bronchograms. Large left pleural effusion. Trace right pleural effusion. No pneumothorax. Mediastinum: Mediastinal contours appear unchanged. Heart size is within normal limits. Bones and chest wall: No suspicious bony lesions. Overlying soft tissues appear unremarkable. IMPRESSION: 1. Endotracheal tube in the upper trachea. 2. Enteric tube coursing into the stomach. 3. Moderate to large left pleural effusion. 4. Fluid overload/CHF. Reviewed by: Olvin Roberto MD on 03/18/2023 7:48 PM PDT Approved by: Olvin Roberto MD on 03/18/2023 7:48 PM PDT Station ID: [id number]
--- NOTE | 2023-03-18 19:59 | ED Physician Documentation ---
Procedures - Intubation Time of Intubation: 07:20 Intubation Method: orotracheal Tube Size (cm): 8.0 Medications: Succinylcholine Breath Sounds after Intubation: equal Intubation Complications: no complications Post Intubation Xray: Yes Progress/Xray Impression: intubated per request of Bella Angulo
[2023-03-18] MEDS: MIDAZOLAM DRIP 50 MG/50 ML 50 MG/50 ML BAG IV SCH (20:02)
[2023-03-18] MEDS ORDERED: iohexoL-300 100 ML VIAL IVP ONE (20:20)
[2023-03-18] MEDS ORDERED: ALBUTEROL NEB 2.5 MG/3 ML INH PRN (21:38)
[2023-03-18] MEDS ORDERED: SODIUM CHLORIDE FLUSH 0.9% 10 ML SYRINGE IVP PRN (21:38)
[2023-03-18] MEDS ORDERED: IPRATROPIUM 0.2 MG/ML NEB INH PRN (21:38)
--- NOTE | 2023-03-18 21:48 | HISTORY & PHYSICAL EXAMINATION ---
Chief Complaint - Chief Complaint Chief Complaint: Shortness of Breath History of Present Illness - Admitted From Admitted From:: ER - History Obtained From Records Reviewed: Yes History obtained from: Staff, chart Exam Limitations: Pt sedated, intubated. H&P conducted via video remotely, using Access cart - History of Present Illness HPI Comment/Other: Patient is in [place]. Physician is in [place]. No one is at bedside. Pt is unable to give History d/t sedation/intubation. History obtained from staff, chart. 52 yo F with PMH of COPD, +Tob use, HFpEF/Diastolic Dysfunction, CKD stage 3, Polysubstance abuse, NC with meds, Hypothyroidism, Ulcerative Colitis, Seizure D/o presented to the ER with c/o 1 day h/o Shortness of breath. Pt used Heroin rectally today. Shortly after that, she became acutely short of breath. She denied CP. She had no other complaints. She denied fever, cough, URI symptoms, abdominal pain, nausea, vomiting or diarrhea. She has not been taking her chronic medications. In the ER, WBC 12.6, Hgb 10.4, D-Dimer 700.5, CR 1.9, Glc 140, Trop 247.2-186.6, BNP 2257, TSH 100.78, UDS: +opiates, Methamphetamines, Cannabinoids, Methadone CXR: interstitial prominence/fluid overload, L to R Mediastinal shift, L pleural effusion CTA Chest: no PE, large L pleural effusion, opacities B/L LL EKG: NSR at 94 bpm, no change from prior EKGs. Pt was placed on NC O2, then Oxymask, then BIPAP,then finally intubated for Hypoxia in the ER. She was restless and uncooperative with earlier forms of O2 delivery, desatted and finally required intubation. Pt was given Duonebs, Lasix 40 mg IV, SoluMedrol 125 mg IV, Etomi date/Succinylcholine/Ativan for intubation and placed on Heparin gtt, Versed gtt, Propofol gtt, and NTG gtt in the ER. History - Past Medical History Cardiovascular: reports: Hypertension Respiratory: reports: Asthma, COPD Neuro: reports: None Endocrine/Autoimmune: reports: HyPOthyroidism GI: reports: Ulcerative colitis ORCHESTRATOR: reports: None : reports: None HEENT: reports: None Psych: reports: Depression, Other Musculoskeletal: reports: None Derm: reports: None MRSA Hx?: No - Past Surgical History General: reports: Cholecystectomy, Gastric surgery /ORCHESTRATOR: reports: Hysterectomy - Family & Social History Family History: Mother: Cancer, Father: Cancer Family History Comment/Other: Mother: gastric cancer, in her 50s. Father: lung cancer, in his 50s Living Situation: With friend(s) Social History Notes: She lives at home with her roommates: 2 females and 1 males. She has been in a monogamous relationship with the same man for 15 years. She admits to daily marijuana and methamphetamine use. No alcohol abuse. 2 cigarette/day. unemployed. - Substance History Use: Uses substance without health or social issues: Tobacco, Amphetamine, Cannabis, Other (Heroin) - POLST Patient has POLST: No Meds/Allgy - Home Medications Home Medications: Ambulatory Orders Medication Instructions Recorded Confirmed Azithromycin [Zithromax] 0 mg PO DAILY #6 tablet 02/16/23 Levothyroxine [Synthroid] 112 mcg PO QDAC 02/16/23 02/16/23 Nitrofurantoin [Macrobid] 100 mg PO BID #10 cap 03/09/23 - Allergies Allergies/Adverse Reactions: Allergies Allergy/AdvReac Type Severity Reaction Status Date / Time NSAIDS (Non-Steroidal Allergy Nausea Verified 03/18/23 17:06 Anti-Inflamma Penicillins Allergy Respiratory Verified 03/18/23 17:06 lactose AdvReac Unknown Verified 03/18/23 17:06 Review of Systems - All Other Systems All Other Systems: reports: Other (Unable to obtain d/t patient's clinical condition) Exam - Vital Signs Reviewed Vital Signs: Yes Vital Signs: Vital Signs x48h Temp Pulse Resp BP Pulse Ox O2 Flow Rate 03/18/23 21:37 85 18 144/100 H 100 03/18/23 21:26 36.0 C L 83 18 144/97 H 100 03/18/23 21:18 83 16 144/97 H 100 03/18/23 20:55 82 18 124/83 H 100 03/18/23 20:38 81 108/78 100 03/18/23 20:24 82 18 114/79 100 03/18/23 20:06 35.2 C L 86 18 128/90 H 100 03/18/23 19:48 91 19 146/102 H 100 03/18/23 19:43 92 155/104 H 100 03/18/23 19:40 94 14 170/109 H 100 03/18/23 19:30 91 03/18/23 19:28 99 13 189/118 H 03/18/23 19:23 104 H 16 212/127 H 100 03/18/23 19:20 111 H 20 95 03/18/23 19:18 231/146 H 97 03/18/23 19:16 107 H 24 99 03/18/23 19:05 110 H 27 H 64 L 03/18/23 18:36 100 22 216/129 H 3 03/18/23 18:00 112 H 18 03/18/23 17:54 105 H 30 H 212/137 H 90 L 6 03/18/23 17:11 95 208/139 H 97 03/18/23 17:05 36.4 C L 89 23 205/129 H 99 - Physical Exam General Appearance: positive: No acute distress, Other (Intubated, Sedated) Eyes Bilateral: positive: Other (Difficult to see via Video d/t pt's ET tube. Per ER Provider: normal inspection) Neck: positive: Tracheal deviation Respiratory: positive: Other (Access cart stethoscope not working; per ER Provider: Extremely diminished lung sounds bilaterally with scattered expiratory wheeze) Cardiovascular: positive: Other (Access cart stethoscope not working; per ER Provider: RR, Tachycardic no murmur) Abdomen: positive: Other (per ER Provider: non-distended, NT, Soft) Extremities: positive: Other (per ER Provider: 2+ pedal edema B/L LE) Neurologic/Psychiatric: positive: Other (Sedated) Conclusion/Plan - Problem List (1) Acute respiratory failure with hypoxia Conclusion/Plan: Acute Respiratory Failure requiring Intubation COPD Exacerbation CHF Exacerbation/HFpEF/Diastolic Dysfunction Shortness of Breath +Tob use Leukocytosis Elevated BNP -WBC 12.6, D-Dimer 700.5, BNP 2257 -CXR: interstitial prominence/fluid overload, L to R Mediastinal shift, L pleural effusion -CTA Chest: no PE, large L pleural effusion, opacities B/L LL -Echo 01/2023: Diastolic Dysfnctn, EF 45% -Pt was placed on NC O2, then Oxymask, then BIPAP,then finally intubated for Hypoxia in the ER. She was restless and uncooperative with earlier forms of O2 delivery, desatted and finally required intubation. -Pt was given Duonebs, Lasix 40 mg IV, SoluMedrol 125 mg IV, Etomidate/Succinylcholine/Ativan for intubation and placed on Versed gtt, Propofol gtt in the ER. -admit to ICU -continue MV/O2 support at current settings with RT support -continue Versed gtt, Propofol gtt for sedation/pain -continue Duonebs, SoluMedrol -continue Lasix NSTEMI vs Demand Ischemia Elevated Troponin Elevated BP -BP 205/129 -pt denied CP -Trop 247.2-186.6/down-trending -EKG: NSR at 94 bpm, no change from prior EKGs. -Pt was placed on Heparin gtt and NTG gtt in the ER. -continue to trend Troponins -continue Heparin gtt and NTG gtt -Echo ordered Anemia, normocytic, chronic -Hgb 10.4; at baseline -check B12/Folate, iron studies CKD stage 3 -CR 1.9; at baseline -avoid nephrotoxins Polysubstance abuse -UDS: +opiates, Methamphetamines, Cannabinoids, Methadone -Pt used Heroin rectally today -cessation counseling -SW consult s/p extubation NC with meds -complicates care Hypothyroidism -TSH 100.78 -check free T3, free T4 -pt NC with Levothyroxine -restart home medications: Levothyroxine when PO meds restarted Seizure D/o -restart home medications: Keppra when PO meds restarted Gastric Prophylaxis: Pepcid IV VTE Prophylaxis: on Heparin gtt Code Status: Full Code ~Nicky Phelps MD Hospitalist - Lab Results Fish Bones: 03/18/23 17:08 03/18/23 17:08
--- NOTE | 2023-03-18 22:47 | ED Physician Documentation ---
ED Addendum - Addendum Addendum: 03/18/231899 Patient required bilateral wrist restraints Because she was continually trying to take off oxygen mask And she was hypoxic. We attempted redirection verbally and attempted to try various different oxygen modalities including nasal cannula, mask, blow-by, and patient ultimately was becoming increasingly hypoxic. She was placed in bilateral wrist restraints Just prior to requiring intubation.
[2023-03-19] MEDS: methylPREDNISolone SUCCINATE 40 MG/ML VIAL IVP SCH ×5 (00:22→23:16)
[2023-03-19] MEDS: SODIUM CHLORIDE FLUSH 0.9% 10 ML SYRINGE IVP SCH ×5 (00:23→23:16)
[2023-03-19] MEDS: cefTRIAXone 1 GM in SODIUM CHLORIDE 0.9% MINIBAG 100 ML IV SCH ×2 (00:23→20:03)
[2023-03-19] MEDS ORDERED: NITROGLYCERIN 50 MG/250 ML 50 MG/250 ML BOTTLE IV STA (01:34)
[2023-03-19] MEDS: MIDAZOLAM DRIP 50 MG/50 ML 50 MG/50 ML BAG IV SCH ×2 (01:44→07:30)
[2023-03-19] MEDS: PROPOFOL 1000 MG/100 ML 1,000 MG/100 ML BOTTLE IV SCH ×3 (01:45→18:32)
[2023-03-19] MEDS: HEPARIN 25000UNITS/500ML (D5W) 25,000 UNIT/500 ML BAG IV SCH (01:46)
[2023-03-19 05:05] LABS: CALCIUM, IONIZED 0.99 mmol/L (1.15-1.33); VBG PH 7.509 (7.31-7.41)
[2023-03-19 05:29] LABS: % IRON SATURATION 11 % (20-50); IRON 33 ug/dL (28-170); TOTAL IRON BINDING CAPACITY 311 ug/dL (250-450); TRANSFERRIN 222 mg/dL (192-382)
[2023-03-19 05:45] LABS: FOLATE 8.85 ng/mL (5.90 - >24.8)
[2023-03-19 05:55] LABS: BASOPHILS % (AUTO) 0.2 %; HCT - HEMATOCRIT 31.9 % (37.0-47.0); LYMPHOCYTES # (AUTO) 0.5 10^3/uL (1.5-3.5); LYMPHOCYTES % (AUTO) 8.6 %; MEAN CORPUSCULAR HEMOGLOBIN 28.3 pg (27.0-31.0); MEAN CORPUSCULAR HGB CONC 31.3 g/dL (32.0-36.0); MEAN CORPUSCULAR VOLUME 90.4 fL (81.0-99.0); MEAN PLATELET VOLUME 11.8 fL (7.9-10.8); MONOCYTES # (AUTO) 0.1 10^3/uL (0.0-1.0); MONOCYTES % (AUTO) 1.6 %; NEUTROPHILS # (AUTO) 5.5 10^3/uL (1.5-6.6); NEUTROPHILS % (AUTO) 89.1 %; PLT - PLATELET COUNT 268 10^3/uL (130-450); RED BLOOD COUNT 3.53 10^6/uL (4.20-5.40); RED CELL DISTRIBUTION WIDTH 14.5 % (12.0-15.0); WHITE BLOOD COUNT 6.2 x10^3/uL (4.8-10.8)
[2023-03-19 06:01] LABS: ALBUMIN 2.9 g/dL (3.2-5.5); ALBUMIN/GLOBULIN RATIO 0.8 (1.0-2.2); BILIRUBIN,TOTAL 0.7 mg/dL (0.2-1.0); CALCIUM 8.4 mg/dL (8.5-10.3); CREATININE 2.1 mg/dL (0.4-1.0); MAGNESIUM 2.4 mg/dL (1.7-2.8); POTASSIUM 4.3 mmol/L (3.5-5.0); TOTAL PROTEIN 6.7 g/dL (6.7-8.2)
[2023-03-19 06:09] LABS: ABG BASE EXCESS 6.2 mmol/L (-2.0-3.0); ABG HCO3 27.9 mmol/L (22.0-26.0); ABG OXYGEN SATURATION 96 % (94-98); ABG PCO2 30 mmHg (34-45); ABG PH 7.58 (7.35-7.45); ABG PO2 77 mmHg (80-100); ABG TCO2 28.8 MMOL/L (21.0-29.0); ALLEN TEST POSITIVE
[2023-03-19 06:10] LABS: ABG MODE OF VENTILATION ASSIST/CONTROL; ABG RESPIRATORY RATE 18 b/min
[2023-03-19] MEDS ORDERED: CALCIUM GLUCONATE IN NS 0.9% 2,000 MG/100 ML BAG IV ONE (08:00)
[2023-03-19] MEDS: FUROSEMIDE 40 MG/4 ML VIAL IVP SCH (08:30)
[2023-03-19] MEDS: FAMOTIDINE 20 MG/2 ML VIAL IVP SCH (08:30)
[2023-03-19 10:20] LABS: MUDS CUTOFF CONCENTRATIONS CUTOFF CONC BELOW:
[2023-03-19 10:26] LABS: HCT - HEMATOCRIT 28.3 % (37.0-47.0); MEAN CORPUSCULAR HEMOGLOBIN 28.1 pg (27.0-31.0); MEAN CORPUSCULAR HGB CONC 31.8 g/dL (32.0-36.0); MEAN CORPUSCULAR VOLUME 88.4 fL (81.0-99.0); MEAN PLATELET VOLUME 11.3 fL (7.9-10.8); RED BLOOD COUNT 3.2 10^6/uL (4.20-5.40); RED CELL DISTRIBUTION WIDTH 14.4 % (12.0-15.0); WHITE BLOOD COUNT 7.2 x10^3/uL (4.8-10.8)
[2023-03-19 10:28] LABS: BILIRUBIN,URINE NEGATIVE (NEGATIVE); GLUCOSE, URINE (UA) NEGATIVE (NEGATIVE); KETONES,URINE (UA) NEGATIVE (NEGATIVE); LEUKOCYTE ESTERASE, URINE NEGATIVE (NEGATIVE); NITRITE,URINE NEGATIVE (NEGATIVE); OCCULT BLOOD,URINE NEGATIVE (NEGATIVE); PROTEIN,URINE 100 mg/dL (NEGATIVE); UROBILINOGEN,URINE 0.2 (NORMAL) E.U./dL (NORMAL)
[2023-03-19 10:29] LABS: CLARITY,URINE CLEAR (CLEAR)
[2023-03-19 10:29] LABS: CALCIUM, IONIZED 1.09 mmol/L (1.15-1.33); VBG PH 7.526 (7.31-7.41)
[2023-03-19 10:38] LABS: AMPHETAMINE SCREEN,URINE POSITIVE (NEGATIVE); COCAINE SCREEN URINE POSITIVE (NEGATIVE); METHAMPHETAMINES SCREEN, URINE POSITIVE (NEGATIVE); OPIATE SCREEN, URINE POSITIVE (NEGATIVE); THC CANNABINOID SCREEN, URINE POSITIVE (NEGATIVE)
[2023-03-19 10:39] LABS: BARBITURATE SCREEN,UR NEGATIVE (NEGATIVE); BENZODIAZEPINES SCREEN, URINE NEGATIVE (NEGATIVE); METHADONE SCREEN, URINE NEGATIVE (NEGATIVE); OXYCODONE SCREEN, URINE NEGATIVE (NEGATIVE); PROPOXYPHENE SCREEN, URINE NEGATIVE (NEGATIVE); TRICYCLIC ANTIDEPRESSANT,URINE NEGATIVE (NEGATIVE)
[2023-03-19 10:45] LABS: BACTERIA,URINE Few /HPF (None Seen); RBC,URINE 0-5 /HPF (0-5); SQUAMOUS EPITHELIAL CELL,UR FEW Squamous (<= Few); WBC,URINE 0-3 /HPF (0-5)
[2023-03-19] MEDS ORDERED: CALCIUM GLUC 1,000MG/50ML-NACL 1,000 MG/50 ML BAG IV ONE ×2 (10:56→16:21)
--- NOTE | 2023-03-19 13:27 | PHARMACY PROGRESS NOTE ---
- Best Possible Medication History Admit Date and Time: 03/18/232137 Processed by: Pharmacy Patient Interview: Pt unable to participate Secondary Source(s): Pharmacy records (Pt's contacts didn't know her meds.) As the person ultimately responsible for medication therapy, providers are able to order a medication from an existing home medication list in [facility] via the "Reconcile Routine" prior to Confirmation of that medication by lab support service tech. Such practice is discouraged except when the physician, in their clinical judgment, deems that a medical need exists for a medication without regard to previous use.
[2023-03-19 15:58] LABS: CALCIUM, IONIZED 1.09 mmol/L (1.15-1.33); VBG PH 7.449 (7.31-7.41)
--- NOTE | 2023-03-19 18:56 | PROVIDER PROGRESS NOTE ---
Progress Note On theMarch 19, 2023 6:43 PM Patient has been stable and on the ventilator all day today. Peak pulmonary pressures do not go more than 18. On her own she generates tidal volumes of 450, 430. She is on assist control. FiO2 40% and saturating 96%. For sedation she is on midazolam and propofol. There have been no objective manifestations of tachycardia or withdrawal. Blood pressure is stable, no tachycardia, no diaphoresis. Vitals: Temperature 36.7. Heart rate 72. Blood pressure 154/98. Respirations 7-14. Is sedated middle-aged white female with an ET tube in place. NG tube in place. Pupils are pinpoint. Reactive. Neck is supple Lungs have coarse upper airway sounds but otherwise clear. No crackles rhonchi wheezing. Vent settings have been stable all day long. Regular rate and rhythm without tachycardia Abdomen has hypoactive bowel sounds, nondistended, soft. Skin is malodorous, she is unkempt, but no diaphoresis or open lesions. Acevedo is draining clear yellow urine. Extremities have callused feet, dry scaly skin of the legs. 1+ edema. Labs: CMP with BUN 30, creatinine 2.1. She was 1.9 yesterday. Glucose 115. Magnesium 2.4. Troponin 199. B12 is 267 and normal. Folate is 8.85. Free T3 is 2.53. Normal. White cell count has come down to normal at 7.2. She was admitted at 12.6 on March 18. Hemoglobin 9. MCV is normal. Platelet is normal. No current cultures Assessment/plan 1. Acute respiratory failure with hypoxia Attributed to COPD exacerbation, CHF exacerbation, and rectal heroin use. Chest x-ray shows fluid overload, no true pneumonia. She was intubated in the ER. Overnight she stayed stable. Diuresis was ongoing with Lasix. Today's urine output has been 598 cc. Echocardiogram August 13, 2022 has an EF of 40 to 50%. Left ventricular hypertrophy. Normal RV size and systolic function. Echocardiogram today has improved ejection fraction of 50 to 55%. Normal right side. Current medications are albuterol, Lasix 40 daily Atrovent, Solu-Medrol. Those will be continued. I will keep her on a ventilator today. Tomorrow morning I am asking nursing and respiratory therapy to stop sedation at approximately 6 AM and see if we can start weaning her in the dehydrogenation supervisor and then extubate. I will continue her DVT prophylaxis through her heparin drip, and Pepcid IV. 2. COPD exacerbation. As above. She is on albuterol, Atrovent, Solu-Medrol. No change. Plan for extubation tomorrow if able. 3. NSTEMI versus demand ischemia. Troponin started at 247 at 5 PM yesterday came down to 199 at 430 this morning. Plan she is on a heparin drip, no aspirin or statin was given. I suspect this is more demand ischemia. Depending on the next troponin level done this afternoon, I may be stopping her heparin drip. 4. Chronic normocytic anemia. B12 levels normal. Folate normal. Thyroid normal. 5. Polysubstance abuse. I ordered a urine talk screen and is positive for amphetamines, methamphetamines, cocaine and cannabinoids. She also took heroin in the morning. Plan is for her to be given opportunities through social work to see if she would like to go to rehab. 6. Hypothyroid. Free T3 level normal. Continue same dose of Synthroid when she is awake. 7. Seizure disorder. Keppra is being given via her NG.
[2023-03-19 20:28] LABS: CALCIUM, IONIZED 1.1 mmol/L (1.15-1.33); VBG PH 7.482 (7.31-7.41)
[2023-03-19] MEDS ORDERED: ALBUMIN 25% 12.5 GM/50 ML VIAL IV STA (23:13)
[2023-03-20] MEDS: PROPOFOL 1000 MG/100 ML 1,000 MG/100 ML BOTTLE IV SCH ×2 (00:07→16:11)
[2023-03-20] MEDS: HEPARIN 25000UNITS/500ML (D5W) 25,000 UNIT/500 ML BAG IV SCH (00:28)
[2023-03-20] MEDS: MIDAZOLAM DRIP 50 MG/50 ML 50 MG/50 ML BAG IV SCH ×2 (00:47→01:59)
[2023-03-20] MEDS: methylPREDNISolone SUCCINATE 40 MG/ML VIAL IVP SCH ×3 (05:15→17:13)
[2023-03-20 05:35] LABS: MAGNESIUM 2.3 mg/dL (1.7-2.8); PHOSPHORUS 8.1 mg/dL (2.5-4.6); POTASSIUM 4.2 mmol/L (3.5-5.0)
[2023-03-20 05:44] LABS: ABG BASE EXCESS 4.1 mmol/L (-2.0-3.0); ABG HCO3 27.2 mmol/L (22.0-26.0); ABG OXYGEN SATURATION 94 % (94-98); ABG PCO2 35 mmHg (34-45); ABG PH 7.51 (7.35-7.45); ABG PO2 71 mmHg (80-100); ABG TCO2 28.3 MMOL/L (21.0-29.0)
[2023-03-20 05:45] LABS: ABG MODE OF VENTILATION ASSIST/CONTROL; ABG RESPIRATORY RATE 14 b/min; ALLEN TEST POSITIVE
[2023-03-20] MEDS: FAMOTIDINE 20 MG/2 ML VIAL IVP SCH (08:38)
[2023-03-20] MEDS: FUROSEMIDE 40 MG/4 ML VIAL IVP SCH (08:38)
[2023-03-20] MEDS: SODIUM CHLORIDE FLUSH 0.9% 10 ML SYRINGE IVP SCH ×2 (08:45→16:38)
[2023-03-20 09:34] LABS: HCT - HEMATOCRIT 29.8 % (37.0-47.0); HGB - HEMOGLOBIN 9.5 g/dL (12.0-16.0); MEAN CORPUSCULAR HEMOGLOBIN 29.1 pg (27.0-31.0); MEAN CORPUSCULAR HGB CONC 31.9 g/dL (32.0-36.0); MEAN CORPUSCULAR VOLUME 91.1 fL (81.0-99.0); MEAN PLATELET VOLUME 11.6 fL (7.9-10.8); RED BLOOD COUNT 3.27 10^6/uL (4.20-5.40); WHITE BLOOD COUNT 11.5 x10^3/uL (4.8-10.8)
[2023-03-20 09:37] LABS: CALCIUM, IONIZED 1.02 mmol/L (1.15-1.33); VBG PH 7.534 (7.31-7.41)
[2023-03-20 09:45] LABS: ALBUMIN/GLOBULIN RATIO 0.8 (1.0-2.2); BILIRUBIN,TOTAL 0.4 mg/dL (0.2-1.0); CALCIUM 8.4 mg/dL (8.5-10.3); CREATININE 3.6 mg/dL (0.4-1.0); POTASSIUM 4.6 mmol/L (3.5-5.0); TOTAL PROTEIN 6.7 g/dL (6.7-8.2)
[2023-03-20] MEDS ORDERED: FUROSEMIDE 40 MG/4 ML VIAL IVP STA (10:31)
[2023-03-20] MEDS ORDERED: levETIRAcetam 500 MG/5 ML VIAL IVP STA (10:32)
[2023-03-20] MEDS: CHLORHEXIDINE GLUCONATE 15 ML UDC PO SCH ×2 (10:46→22:12)
[2023-03-20 11:47] LABS: ABG BASE EXCESS 2.9 mmol/L (-2.0-3.0); ABG HCO3 25.7 mmol/L (22.0-26.0); ABG OXYGEN SATURATION 95 % (94-98); ABG PCO2 33 mmHg (34-45); ABG PH 7.51 (7.35-7.45); ABG PO2 75 mmHg (80-100); ABG TCO2 26.7 MMOL/L (21.0-29.0); ALLEN TEST POSITIVE
[2023-03-20 11:48] LABS: ABG MODE OF VENTILATION CPAP
--- NOTE | 2023-03-20 12:47 | XRAY Report ---
PROCEDURE: Chest 1 View X-Ray INDICATIONS: intubated TECHNIQUE: One view of the chest was acquired. COMPARISON: None. FINDINGS: Surgical changes and devices: Endotracheal tube 3.7 cm by the katerina. Nasogastric tube in the stomac h. There is obscuration of the left hemidiaphragm with large pleural effusion associated atelectasis and or infiltrate. Right lung and pleural space clear. Heart size enlarged. Bones and chest wall: No suspicious bony lesions. Overlying soft tissues appear unremarkable. IMPRESSION: Endotracheal tube tip is 3.7 cm below the katerina Large left pleural effusion with associated compressive atelectasis Reviewed by: Roney Hector MD on 03/20/2023 11:46 AM MARIA ELENA Approved by: Roney Hector MD on 03/20/2023 11:46 AM MARIA ELENA Station ID: [id number]
--- NOTE | 2023-03-20 17:54 | PROVIDER PROGRESS NOTE ---
Progress Note March 20, 2023 5:30 PM We stopped sedation at 6 AM. I was evaluating her by 7:30 AM. We put her on CPAP. The only vital sign change was that of a rising blood pressure to the 225 systolic. She was having short episodes of apnea or a respiratory rate down to 8 x 2 p.m. While she would wake to our voice, and would not yes or no appropriately, she would then go back to sleep. This is off sedation. As such, I felt that she was not aware or alert enough to be safely extubated. Chest x- ray this morning has a large left pleural effusion with compressive atelectasis. Back on the ventilator, and propofol, her blood pressure is now come back down to 140 systolic. She started a rate of 14 with an FiO2 of 35%. Tidal volume 450. She is saturating at 98% with this. Pressure support of 5. Throughout her stay, her blood pressure has not been low. Her main problem is that of been of apnea and hypoxia. Urine output started to drop off yesterday and was scant overnight. She did not respond to 40 mg of Lasix this morning and I gave her another 80 mg and she did have improvement. Creatinine was 1.9 on admission. In the past she has been as high as 3.0. Baseline normal appears to be 0.9. Since admission creatinine has continued to creep up and she is 3.6 with this drop in urine output. When she was hospitalized in July 2022 she was in renal failure with a creatinine of 2.6. In January 2023 creatinine was 3.0 with an ER visit. When she was admitted March 18, creatinine was 1.9. I did update her daughter, Cathie at [phone]. She shares with me that mom is a DO NOT RESUSCITATE. Mom would never want to be intubated. She does not want dialysis. We did not know that and we need to have the POLST form brought in. Cathie lives in [place] and she will go through her records to see if she can find it. She will also see if she can find out who her mom's roommates are so maybe they could bring it in. She is apprised that Ms. fierro now did not give us a copy of that because she tends to "carry it around with her all the time" and gives it to everyone she knows. However the daughter is happy that we resuscitated mom and intubated her. Active Medications Albuterol (Albuterol Neb 2.5 Mg/3 Ml) 2.5 mg INH Q4HR PRN PRN Reason: Wheezing Chlorhexidine Gluconate (Chlorhexidine Gluconate 15 Ml Udc) 15 ml PO BID [facility] Last Admin: 03/20/23 10:46 Dose: 15 ml Famotidine (Famotidine 20 Mg/2 Ml Vial) 20 mg IVP Q24H [facility]I Last Admin: 03/20/23 08:38 Dose: 20 mg Furosemide (Furosemide 40 Mg/4 Ml Vial) 40 mg IVP DAILY [facility] Last Admin: 03/20/23 08:38 Dose: 40 mg Heparin Sodium (Porcine) (Heparin 1,000 Unit/Ml Vial) 1,000 - 2,000 unit IVP Q6H PRN; Protocol PRN Reason: aPTT <50 Last Admin: 03/19/23 09:43 Dose: 2,000 unit Ceftriaxone Sodium 1 gm/ (Sodium Chloride) 100 mls @ 200 mls/hr IV HS [facility] Last Infusion: 03/19/23 20:43 Dose: Infused Midazolam HCl (Versed Drip 50 Mg/50 Ml) 50 mg in 50 mls @ 2.449 mls/hr IV .[id number] [facility]; Protocol Last Titration: 03/20/23 07:44 Dose: 0 mg/kg/hr, 0 mls/hr Heparin Sodium/Dextrose (Heparin Sodium/Dextrose) 25,000 unit in 500 mls @ 14.696 mls/hr IV .Q34H2M [facility]I; Protocol Last Titration: 03/20/23 10:16 Dose: 19 unit/kg/hr, 23.269 mls/hr Nitroglycerin (Nitroglycerin) 50 mg in 250 mls @ 1.5 mls/hr IV TITR STA; Protocol Stop: 03/26/23 00:12 Last Admin: 03/19/23 01:50 Dose: Not Given Propofol (Diprivan) 1,000 mg in 100 mls @ 3.69 mls/hr IV .Q27H7M [facility]I; Protocol Last Titration: 03/20/23 17:08 Dose: 20 mcg/kg/min, 7.38 mls/hr Ipratropium Nunda (Ipratropium 0.2 Mg/Ml Neb) 0.5 mg INH Q6HR PRN PRN Reason: Wheezing Levetiracetam (Levetiracetam 500 Mg/5 Ml Udc) 500 mg PO BID [facility] Methylprednisolone (Methylprednisolone Succinate 40 Mg/Ml Vial) 40 mg IVP Q6HR [facility] Last Admin: 03/20/23 17:13 Dose: 40 mg Prochlorperazine Edisylate (Prochlorperazine 10 Mg/2 Ml Vial) 10 mg IVP Q6HR PRN PRN Reason: Nausea / Vomiting Sodium Chloride (Sodium Chloride Flush 0.9% 10 Ml Syringe) 10 ml IVP 0100,0900,1700 [facility] Last Admin: 03/20/23 16:38 Dose: 10 ml Sodium Chloride (Sodium Chloride Flush 0.9% 10 Ml Syringe) 10 ml IVP PRN PRN PRN Reason: NEEDED PER PROVIDER ORDERS Levothyroxine [Synthroid] 112 mcg PO QDAC 02/16/23 Exam: Temperature 37.5, heart rate 84. Blood pressure 149/97 after being resumed on propofol. The highest she got was 225/153 off propofol. Respirations 14. FiO2 35% resulting in 100% saturation. Before I resedated her, she was lethargic middle-aged female, pupils pinpoint but reactive. Would open her eyes to my voice raise her eyebrows, but no meaningful interaction. She will try and sit up. I do have her in two-point restraints to make sure she does not pull her ET tube. Neck is supple Lungs have coarse upper airway sounds but are clear and the ET tube suction is bringing up creamy white secretions Regular rate and rhythm Abdomen is not distended, soft, hypoactive bowel sounds Extremities are with trace edema around the right ankle. Severe, severe onychomycosis of the toenails. They are raised, black. The soles of her feet are also black with dirt, dry, and cracked. Lab: Anion gap is high at 14. BUN 56, creatinine 3.6. Glucose 142. Liver function studies normal. Phosphorus is high at 8.1. Troponin 247> 186> 197> 199> 208> 163 this morning White cell count was 12.6 on admission. Came down to normal the , and today is 11.5. Hemoglobin 10.4 on admission, 9.5 this morning Platelets 287 Repeat chest x-ray done today and compared to chest x-ray from 2 days ago shows a large pleural effusion associated with atelectasis and/or infiltrate. Right lung and pleura are normal. Heart size enlarged. 1. Acute respiratory failure with hypoxia Attributed to COPD exacerbation, CHF exacerbation, and rectal heroin use. Chest x-ray shows fluid overload, no true pneumonia. She was intubated in the ER. Overnight she stayed stable. Diuresis was ongoing with Lasix. Urine output was present in the morning on the . Gradually slow down to be almost 0 cc last night. Echocardiogram August 13, 2022 has an EF of 40 to 50%. Left ventricular hypertrophy. Normal RV size and systolic function. Echocardiogram 03/18 has improved ejection fraction of 50 to 55%. Normal right side. I did try and extubate today. Nursing care was excellent and that they and respiratory therapy kept in close contact with me. In reexamining the patient after several hours, she was way too sedated to still be safe to extubate. Plan: Resume normal ventilator settings of tidal volume 450, assist-control, FiO2 35%, PEEP of 5. Resume propofol. With that blood pressure elevation resolved. I will continue Current medications are albuterol, Atrovent, Solu-Medrol. However, due to new renal failure, I have given her 80 mg of Lasix in the late morning/early afternoon and she has had improvement in urine output. I will continue her DVT prophylaxis through her heparin drip, and Pepcid IV. After trying to find a clinic record, she is not on the clinic so I cannot get a POLST from there. It is not in our EMR. Daughter will try and track down and bring that in 2. COPD exacerbation. As above. She is on albuterol, Atrovent, Solu-Medrol. No change. Plan for extubation tomorrow if able.If she continues to have large left pleural effusion, and this is impeding her ability to get extubated, I will ask radiology to do a thoracentesis. 3. NSTEMI versus demand ischemia. I feel that her troponin bump was not an NSTEMI. There is no EKG changes. The rise was not really compatible with an [place]. As such I will stop IV heparin. 4. Acute on chronic renal failure The mechanism of injury to cause the renal failure is unclear to me. The patient was already going into renal failure when she came into the hospital. She was not hypotensive. CT scan does not show obstruction of the ureters or kidney tumors. Plan: I've otdered a Renal ultrasound Phoslo for the hyperphosphatemia 5. Chronic normocytic anemia. B12 levels normal. Folate normal. Thyroid normal. I will continue to monitor to make sure she does not need a transfusion. But currently stable. I suspect her anemia is due to combination of renal failure and bone marrow suppression from alcohol or drugs 6. Polysubstance abuse. I ordered a urine tox screen and it was positive for amphetamines, methamphetamines, cocaine and cannabinoids. She also took heroin on the morning of admission. Plan is for her to be given opportunities through social work to see if she would like to go to rehab. 7. Hypothyroid. Free T3 level normal. Continue same dose of Synthroid when she is awake. 8. Seizure disorder. Keppra is being given via her NG. However, pharmacy cannot find any record of her filling a prescription for Keppra. I looked into [employer], the EMR for the outpatient clinics. She is not in their EMR. I was able to find where she had an admission in February 2021 where she presented to the emergency room with a seizure at home. It was witnessed by her roommate who called EMS. In route to the hospital she had another seizure and given Versed. Patient had no previous history of seizures. And she was Stapley maintaining that she did not have any seizures. Her diastolic blood pressure was in the 120s that day. EKG had diffuse ST depression. She was discharged on Keppra. She returned in July 2021 with abdominal pain and nausea and she reported a seizure in the afternoon, the day before her admission July 30. The patient has history of severe hypertensive disorder with hypertensive crisis. Chest pain. The above seizure. But her med list currently only shows Synthroid. Review of the outside pharmacy records show that she is not filling her medications other than for Synthroid. Plan: Resume Keppra. She has had 3 witnessed seizures. She is supposed to be on medication. When she is more awake, and verbal, I will find out which office she is followed by. 9. History of hypertension. In the past blood pressure has been severely elevated. She is supposed to be on medication. When she was initially in the ER her blood pressure was 205/129. Then 208/139. She was then intubated for her respiratory distress and placed on propofol and her blood pressure came down to 108/78 6 hours later. Her blood pressure then gradually rebounded and she has been 144/97. Yesterday again 122 systolic or 144 systolic. 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 But there is no correlation with other change in status. Today she became gradually hypertensive as her sedation wore off, and she was no longer on propofol. Now that I resumed her on propofol blood pressure is brought back down again. Plan: Again, we will have to wait for her to wake up to find out where she is with her blood pressure medication and why she is not taking it. As long as she is on propofol, sedated and blood pressure is acceptable, no blood pressure medicine at this time.However I will write for as needed hydralazine.
[2023-03-20] MEDS: cefTRIAXone 1 GM in SODIUM CHLORIDE 0.9% MINIBAG 100 ML IV SCH (22:11)
[2023-03-20] MEDS: levETIRAcetam 500 MG/5 ML UDC PO SCH (22:12)
[2023-03-21] MEDS: HEPARIN 25000UNITS/500ML (D5W) 25,000 UNIT/500 ML BAG IV SCH (01:02)
[2023-03-21] MEDS: methylPREDNISolone SUCCINATE 40 MG/ML VIAL IVP SCH ×4 (01:02→16:59)
[2023-03-21] MEDS: SODIUM CHLORIDE FLUSH 0.9% 10 ML SYRINGE IVP SCH ×3 (01:02→16:59)
[2023-03-21 05:16] LABS: BASOPHILS % (AUTO) 0.2 %; HCT - HEMATOCRIT 27.5 % (37.0-47.0); HGB - HEMOGLOBIN 8.7 g/dL (12.0-16.0); LYMPHOCYTES # (AUTO) 0.7 10^3/uL (1.5-3.5); LYMPHOCYTES % (AUTO) 5.7 %; MEAN CORPUSCULAR HGB CONC 31.6 g/dL (32.0-36.0); MEAN CORPUSCULAR VOLUME 88.4 fL (81.0-99.0); MEAN PLATELET VOLUME 12.1 fL (7.9-10.8); MONOCYTES # (AUTO) 0.4 10^3/uL (0.0-1.0); MONOCYTES % (AUTO) 3.5 %; NEUTROPHILS # (AUTO) 10.9 10^3/uL (1.5-6.6); NEUTROPHILS % (AUTO) 89.8 %; PLT - PLATELET COUNT 240 10^3/uL (130-450); RED BLOOD COUNT 3.11 10^6/uL (4.20-5.40); RED CELL DISTRIBUTION WIDTH 14.9 % (12.0-15.0); WHITE BLOOD COUNT 12.2 x10^3/uL (4.8-10.8)
[2023-03-21 05:29] LABS: ALBUMIN 2.9 g/dL (3.2-5.5); ALBUMIN/GLOBULIN RATIO 0.8 (1.0-2.2); BILIRUBIN,TOTAL 0.4 mg/dL (0.2-1.0); CALCIUM 8.3 mg/dL (8.5-10.3); CREATININE 3.8 mg/dL (0.4-1.0); POTASSIUM 4.2 mmol/L (3.5-5.0); TOTAL PROTEIN 6.4 g/dL (6.7-8.2)
[2023-03-21 05:52] LABS: CALCIUM, IONIZED 1.01 mmol/L (1.15-1.33); VBG PH 7.513 (7.31-7.41)
[2023-03-21 06:06] LABS: ABG BASE EXCESS 5.2 mmol/L (-2.0-3.0); ABG HCO3 27.9 mmol/L (22.0-26.0); ABG OXYGEN SATURATION 93 % (94-98); ABG PCO2 34 mmHg (34-45); ABG PH 7.53 (7.35-7.45); ABG PO2 68 mmHg (80-100); ALLEN TEST POSITIVE
[2023-03-21 06:07] LABS: ABG MODE OF VENTILATION ASSIST/CONTROL; ABG RESPIRATORY RATE 14 b/min
[2023-03-21] MEDS: PROPOFOL 1000 MG/100 ML 1,000 MG/100 ML BOTTLE IV SCH (06:07)
[2023-03-21 06:10] LABS: MAGNESIUM 2.5 mg/dL (1.7-2.8); PHOSPHORUS 7.4 mg/dL (2.5-4.6)
[2023-03-21 07:33] LABS: ABG BASE EXCESS 3.4 mmol/L (-2.0-3.0); ABG HCO3 26.2 mmol/L (22.0-26.0); ABG MODE OF VENTILATION VENT; ABG OXYGEN SATURATION 95 % (94-98); ABG PCO2 33 mmHg (34-45); ABG PH 7.51 (7.35-7.45); ABG PO2 75 mmHg (80-100); ABG TCO2 27.2 MMOL/L (21.0-29.0); ALLEN TEST POSITIVE
--- NOTE | 2023-03-21 08:01 | PROVIDER PROGRESS NOTE ---
Progress Note March 21, 2023 7:59 AM We tried extubating yesterday. But she was not awake enough or alert enough to follow commands. Was having episodes of a few seconds of apnea, and a respiratory rate of 8. At 7 am,I was at the bedside. This morning we have tried again. Blood pressure has come up with lack of propofol. But she is much more responsive, alert, able to stay awake to follow commands for a few moments. She is generating a tidal volume over 500 on her own with CPAP. No tachycardia. No apnea. She does desaturate to 88% with the effort of trying to get out of restraints.Creatinine is still elevated at 3.8 today. But she is making good urine with a brisk urine output of close to 100 cc an hour.Yesterday, in the morning, she was making no urine at all. She has a previous history of renal failure with her last admission as well. As such extubated by 7;50 am. At 9 AM, I was at the bedside. She started becoming diaphoretic, hypertensive, tachycardic. Pupils reactive but mildly dilated. So started on Suboxone. I then increased to to twice daily. Blood pressure became elevated and I ordered hydralazine at 10:51 AM. Because of continued agitation I ordered Ativan at that same time as well. My ongoing evaluation was that she was going through withdrawal.She was comfortable from a respiratory perspective. Ongoing O2 sats were stable. At 11:20 AM I was at the bedside. she had sudden onset of respiratory distress. "Am I going to ". She is diaphoretic, wheezing, using accessory muscles to breathe. O2 sats suddenly dropped. I am ordering a stat ABG, stat chest x-ray, stat CT angiogram. On examination diffuse wheezing, rhonchi.In looking at the chest x-ray, she has the large left pleural effusion with blunting and an visualized left costophrenic angle. She has diffuse fluffy edema. She is on antibiotics since admission. She is on steroids in the form of Solu-Medrol 40 mg IV 3 times daily since admission. Differential would include pulmonary angiogram, flash pulmonary edema from the hypertension, respiratory distress from the pleural effusion. I will also check EKG and troponins to make sure th ere is no coronary ischemia.One of her best friend, Cathie, is at the bedside. She shares with me that the patient has only been back in town since December of this year. The patient had gone to [place] and had gotten clean and sober when she stayed with her daughter Cathie there. But her behavior was deteriorating in [place], so the patient decided to come back to [place] even though she really did not have a place to live. Patient has gone back to substance abuse behavior. Her friend Cathie (same name is a daughter) says that is been hard to watch. Cathie has been clean and sober going on 7 years. So she feels like she is on "the other side" watching her friend, Mrs. Montes, go through this. At 12:00 She is on BiPAP. I have reexamined. Blood gas showed a pH of 7.43, PCO2 42, PCO2 57. O2 sat 86%. EKG had normal sinus rhythm with high voltages but no ST-T wave changes of ischemia. Troponin yesterday morning was 163, troponin this morning is 177. I interpret this as demand ischemia but not NSTEMI. For the blood gases, I am interpreting this as pure hypoxia with no CO2 retention. BiPAP started. I have also started labetalol and blood pressure is down to 150s systolic. Breathing much, much improved. No use of accessory muscles. O2 sat stable on BiPAP. Urine output is brisk.I cannot get the CT angiogram because her GFR is too low. We do not have nuclear medicine and as s [facility] we cannot get a VQ scan. At this point I think her problem is flash pulmonary edema from hypertension causing CHF and not a PE. I am not getting a D-dimer because it will be elevated. It will not help me 12:45 PM pharmacy approaches me and let me know that labetalol drip is at a high rate to control her blood pressure. They do not have enough in the hospital to continue this rate. So I am giving her Lopressor 100 mg p.o. twice daily, Norvasc 10 mg daily p.o. I re examined and spoke to nursing. Nursing is going to have to wake her up, take off the mask quickly, and put the mask back on to give her these meds.I am Hoping to titrate down the labetalol drip. She is sleeping, comfortable. Exam Temperature 37.1. Heart rate 70, blood pressure 143/97. On BiPAP 50% FiO2, 15/5, her O2 sat is 97%. She is arousable, able to follow commands. Slender, disheveled middle-aged female, eyes open and tracking. Before extubation lungs were clear with occasional rhonchi. After extubation, immediate exam showed clear lungs. With sudden tachypnea, lungs had severe coarse rhonchi, severe wheezing in all lung valles. Now that on BiPAP her wheezing is resolved. She has a rub on the left. No use of accessory muscles. Laying comfortably at approximately 30 degrees. Regular rate and rhythm Abdomen soft, not distended, nontender Extremities with mild edema, dry cracked feet skin, onychomycosis of the toenails, dirt on the feet. Neurologically easily arousable, opens her eyes and nods yes or no but goes right back to sleep. No focal deficits. Lab: Sodium 137, potassium 4.2, chloride 97, anion gap 14, BUN continues to rise at 73. She was 56 yesterday. Creatinine is 3.8. She was 3.6 yesterday. 1.9 on admission. Phosphorus 7.4, magnesium 2.5, liver enzymes normal. Troponin 177. CBC has a white cell count of 12.2, hemoglobin 8.7 hematocrit 27, platelets 240. Chest x-ray done yesterday showed a large left pleural effusion with associated compressive atelectasis. Chest x-ray done today shows cardiomegaly, moderate vascular congestion and a large left pleural effusion Assessment/Plan 1. Acute respiratory failure with hypoxia was admitting presentation. Now with recurrent acute failure due to flash pulmonary edema due due to acute on chronic systolic heart failure caused from severe hypertension On admisison she had hypoxia and respiratory failure attributed to COPD exacerbation, CHF exacerbation, and rectal heroin use. Chest x-ray shows fluid overload, no true pneumonia. She was intubated in the ER. Overnight she stayed stable. Diuresis was ongoing with Lasix. Urine output was present in the morning on the . Gradually slow down to be almost 0 cc last night. Echocardiogram August 13, 2022 has an EF of 40 to 50%. Left ventricular hypertrophy. Normal RV size and systolic function. Echocardiogram 03/18 has improved ejection fraction of 50 to 55%. Normal right side. In addition to intubation, the patient was on Lasix to help with the renal failure that she now had. We tried to extubate her March 19 but she was too sedated and having episodes of slowed respiratory rate or apnea. This morning we have extubated and her course has been nik as noted above in history. Plan: Continue BiPAP until blood pressure is controlled and CHF is controlled Start metoprolol 100 mg p.o. twice daily, Norvasc 10 mg p.o. daily with first doses now. See if we can start reducing her labetalol drip. I will continue albuterol, Atrovent, Solu-Medrol, IV pushLasix 40 mg twice daily DVT prophylaxis with Lovenox 40 mg subcu After trying to find a clinic record, [facility] not have a record in our community clinic so I cannot get a POLST from there. It is not in our EMR. Daughter will try and track down and bring that in. Daughter lives in [place]. According to her history, mom is a DO NOT RESUSCITATE. 2. COPD exacerbation. As above. She is on albuterol, Atrovent, Solu-Medrol. Extubated today. Has a large pleural effusion on the left. Plan: Continue same medications. I have thought about antibiotics but without fever or purulent phlegm, I do not think I am treating infectious pneumonia. 3. Elevated troponins with demand ischemia I feel that her troponin bump was not an NSTEMI. There is no EKG changes. The rise was not really compatible with an [place]. I stopped heparin drip on March 20. Today's troponin is minimally elevated from the value yesterday in the midst of this flash pulmonary edema. I continue to interpret this as demand ischemia. 4. Acute on chronic renal failure with hyperphosphatemia The mechanism of injury to cause the renal failure is unclear to me. The patient was already going into renal failure when she came into the hospital. She was not hypotensive. 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 After 80 mg of Lasix yesterday morning, her urine output has picked up. She is now on 40 mg IV push twice daily. Urine output for 24 hours yesterday was 1595. Since midnight last night, and dictation of this note, her urine output is 1483 cc. Her creatinine has come up a bit today at 3.8 from 3.6 yesterday. But I think her probable ATN is improving. Urine output has picked up, and creatinine has not doubled. Plan: Continue Lasix. I did order a renal ultrasound but she cannot cooperate to do that. Now cannot take p.o. because of facemask but will try phoslo today 5. Chronic normocytic anemia. B12 levels normal. Folate normal. Thyroid normal. I will continue to monitor to make sure she does not need a transfusion. But currently stable. I suspect her anemia is due to combination of renal failure and bone marrow suppression from alcohol or drugs 6. Polysubstance abuse. I ordered a urine tox screen and it was positive for amphetamines, methamphetamines, cocaine and cannabinoids. She also took heroin on the morning of admission. Plan is for her to be given opportunities through social work to see if she would like to go to rehab. 7. Hypothyroid. Free T3 level normal. Continue same dose of Synthroid when she is awake. 8. Seizure disorder. Keppra is being given via her NG. However, pharmacy cannot find any record of her filling a prescription for Keppra. I looked into [employer], the EMR for the outpatient clinics. She is not in their EMR. I was able to find where she had an admission in February 2021 where she presented to the emergency room with a seizure at home. It was witnessed by her roommate who called EMS. In route to the hospital she had another seizure and given Versed. Patient had no previous history of seizures. And she was Stapley maintaining that she did not have any seizures. Her diastolic blood pressure was in the 120s that day. EKG had diffuse ST depression. She was discharged on Keppra. She returned in July 2021 with abdominal pain and nausea and she reported a seizure in the afternoon, the day before her admission July 30. The patient has history of severe hypertensive disorder with hypertensive crisis. Chest pain. The above seizure. But her med list currently only shows Synthroid. Review of the outside pharmacy records show that she is not filling her medications other than for Synthroid. Plan: Resume Keppra. She has had 3 witnessed seizures. She is supposed to be on medication. When she is more awake, and verbal, I will find out which office she is followed by. 9. History of hypertension. In the past blood pressure has been severely elevated. She is supposed to be on medication. When she was initially in the ER her blood pressure was 205/129. Then 208/139. She was then intubated for her respiratory distress and placed on propofol and her blood pressure came down to 108/78 6 hours later. Her blood pressure then gradually rebounded and she has been 144/97. Yesterday again 122 systolic or 144 systolic. 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 But there is no correlation with other change in status. yesterday and today, she became gradually hypertensive as her propofol wore off. Once I resumed her on propofol blood pressure was brought back down again. This morning, blood pressure continued to rise as extubated her and stopped her propofol. She went into pulmonary edema. Plan: Wait for her to wake up enough to tell me if she takes any blood pressure medicine at home. Metoprolol 100 twice daily and Norvasc 10 daily ordered We will try and wean off labetalol soon 75 minutes of combined bedside care has been provided to the patient as of this dictation This document was made in part using voice recognition software. While efforts are made to proofread this document, sound alike and grammatical errors may occur.
[2023-03-21] MEDS: CHLORHEXIDINE GLUCONATE 15 ML UDC PO SCH ×2 (08:03→20:32)
[2023-03-21] MEDS: FAMOTIDINE 20 MG/2 ML VIAL IVP SCH (08:14)
[2023-03-21] MEDS: FUROSEMIDE 40 MG/4 ML VIAL IVP SCH (08:14)
[2023-03-21] MEDS: BUPRENORPHINE/NALOXONE 8-2 MG TAB SL SCH ×2 (08:36→20:31)
[2023-03-21] MEDS: levETIRAcetam 500 MG/5 ML UDC PO SCH ×2 (08:36→20:31)
[2023-03-21] MEDS: PROCHLORPERAZINE 10 MG/2 ML VIAL IVP PRN (10:55)
[2023-03-21] MEDS: hydrALAZINE INJ 20 MG/ML VIAL IVP PRN (11:02)
[2023-03-21] MEDS: LORazepam 2 MG/ML VIAL IVP PRN ×3 (11:03→22:33)
[2023-03-21] MEDS ORDERED: iohexoL-300 100 ML VIAL ONE (11:35)
[2023-03-21 11:36] LABS: ABG HCO3 26.6 mmol/L (22.0-26.0); ABG PCO2 42 mmHg (34-45); ABG PH 7.43 (7.35-7.45); ABG PO2 57 mmHg (80-100); ABG TCO2 27.9 MMOL/L (21.0-29.0)
[2023-03-21 11:37] LABS: ALLEN TEST POSITIVE
[2023-03-21 11:38] LABS: ABG OXYGEN SATURATION 86 % (94-98)
[2023-03-21] MEDS ORDERED: LABETALOL 20 MG/4 ML SYRINGE IVP STA (11:43)
[2023-03-21] MEDS: LABETALOL VIAL 200 MG in SODIUM CHLORIDE 0.9% 160 ML IV SCH ×2 (11:48→13:48)
--- NOTE | 2023-03-21 12:25 | XRAY Report ---
PROCEDURE: Chest 1 View X-Ray INDICATIONS: respiratory distress TECHNIQUE: One view of the chest was acquired. COMPARISON: None. FINDINGS: Heart size is enlarged. Moderate vascular congestion and large left pleural effusion associated with atelectasis and/or infiltrate tip. No minimal blunting the right costophrenic angle present as well. IMPRESSION: Cardiomegaly, moderate vascular congestion and large left pleural effusion Reviewed by: Roney Hector MD on 03/21/2023 11:24 AM [id number] Approved by: Roney Hector MD on 03/21/2023 11:24 AM AKDT Station ID: [id number]
[2023-03-21] MEDS: METOPROLOL TARTRATE 50 MG TABLET PO SCH ×2 (13:17→20:31)
[2023-03-21] MEDS: amLODIPine 5 MG TABLET PO SCH (13:18)
[2023-03-21] MEDS: ENOXAPARIN 30 MG/0.3 ML SYRINGE SUBQ SCH (16:59)
[2023-03-21] MEDS: cefTRIAXone 1 GM in SODIUM CHLORIDE 0.9% MINIBAG 100 ML IV SCH (20:32)
--- NOTE | 2023-03-21 23:02 | Ultrasound Report ---
PROCEDURE: Retroperitoneal INDICATIONS: new renal failure TECHNIQUE: Real-time scanning was performed of the retroperitoneal organs, with image documentation. COMPARISON: None. FINDINGS: Kidneys: Kidneys are normal in size. Right kidney measures 9.6 cm long; left kidney measures 9 cm l antonia. Right renal cortical thickness is 0.9 cm; left renal cortical thickness is 1.1 cm. No solid ma sses, hydronephrosis, or nephrolithiasis. Bladder: A Acevedo catheter seen, which decompresses the bladder and limits evaluation of the bladder. Miscellaneous: No free abdominal fluid. This study is limited by body habitus. This study is further limited by the patient's inability to c ooperate with the examination. IMPRESSION: Unremarkable kidneys, without hydronephrosis. Acevedo catheter seen in place. Reviewed by: Trell Matute MD on 03/21/2023 10:01 PM MARIA ELENA Approved by: Trell Matute MD on 03/21/2023 10:01 PM MARIA ELENA Station ID: [id number]
[2023-03-22] MEDS: LORazepam 2 MG/ML VIAL IVP PRN ×2 (00:35→02:38)
[2023-03-22] MEDS: SODIUM CHLORIDE FLUSH 0.9% 10 ML SYRINGE IVP SCH ×3 (00:45→17:21)
[2023-03-22] MEDS: methylPREDNISolone SUCCINATE 40 MG/ML VIAL IVP SCH ×5 (00:45→23:50)
[2023-03-22] MEDS: LABETALOL VIAL 200 MG in SODIUM CHLORIDE 0.9% 160 ML IV SCH ×2 (02:18→07:52)
[2023-03-22 06:09] LABS: BASOPHILS % (AUTO) 0.1 %; HCT - HEMATOCRIT 27.6 % (37.0-47.0); HGB - HEMOGLOBIN 8.6 g/dL (12.0-16.0); LYMPHOCYTES # (AUTO) 0.4 10^3/uL (1.5-3.5); LYMPHOCYTES % (AUTO) 3.5 %; MEAN CORPUSCULAR HEMOGLOBIN 28.1 pg (27.0-31.0); MEAN CORPUSCULAR HGB CONC 31.2 g/dL (32.0-36.0); MEAN CORPUSCULAR VOLUME 90.2 fL (81.0-99.0); MONOCYTES # (AUTO) 0.7 10^3/uL (0.0-1.0); MONOCYTES % (AUTO) 5.3 %; NEUTROPHILS # (AUTO) 11.1 10^3/uL (1.5-6.6); NEUTROPHILS % (AUTO) 90.4 %; PLT - PLATELET COUNT 187 10^3/uL (130-450); RED BLOOD COUNT 3.06 10^6/uL (4.20-5.40); RED CELL DISTRIBUTION WIDTH 15.2 % (12.0-15.0); WHITE BLOOD COUNT 12.2 x10^3/uL (4.8-10.8)
[2023-03-22 06:10] LABS: CALCIUM, IONIZED 1.01 mmol/L (1.15-1.33); VBG PH 7.493 (7.31-7.41)
[2023-03-22 06:26] LABS: ALBUMIN 3.1 g/dL (3.2-5.5); ALBUMIN/GLOBULIN RATIO 0.8 (1.0-2.2); BILIRUBIN,TOTAL 0.9 mg/dL (0.2-1.0); CALCIUM 8.4 mg/dL (8.5-10.3); CREATININE 3.7 mg/dL (0.4-1.0); MAGNESIUM 2.6 mg/dL (1.7-2.8); PHOSPHORUS 6.4 mg/dL (2.5-4.6); POTASSIUM 4.3 mmol/L (3.5-5.0)
[2023-03-22] MEDS: hydrALAZINE INJ 20 MG/ML VIAL IVP PRN ×2 (07:59→20:17)
[2023-03-22] MEDS: FUROSEMIDE 40 MG/4 ML VIAL IVP SCH (07:59)
[2023-03-22] MEDS: CHLORHEXIDINE GLUCONATE 15 ML UDC PO SCH ×2 (08:01→20:18)
[2023-03-22] MEDS: ENOXAPARIN 30 MG/0.3 ML SYRINGE SUBQ SCH (08:01)
[2023-03-22] MEDS: levETIRAcetam 500 MG/5 ML UDC PO SCH ×2 (08:08→20:19)
[2023-03-22] MEDS: FAMOTIDINE 20 MG TABLET PO SCH (08:08)
[2023-03-22] MEDS: amLODIPine 5 MG TABLET PO SCH (08:08)
[2023-03-22] MEDS: BUPRENORPHINE/NALOXONE 8-2 MG TAB SL SCH ×2 (08:08→20:18)
[2023-03-22] MEDS: METOPROLOL TARTRATE 50 MG TABLET PO SCH ×2 (08:09→20:19)
--- NOTE | 2023-03-22 11:01 | CT Report ---
PROCEDURE: HEAD WO INDICATIONS: aloc TECHNIQUE: Noncontrast 4.5 mm thick angled axial sections acquired from the foramen magnum to the vertex. For r adiation dose reduction, the following was used: automated exposure control, adjustment of mA and/or kV according to patient size. COMPARISON: None. FINDINGS: Image quality: Excellent. CSF spaces: Basal cisterns are patent. No extra-axial fluid collections. Ventricles are normal in size and shape. Brain: No midline shift. No intracranial masses or hemorrhage. Blum-white matter interface is norm al. Skull and face: Calvarium and visualized facial bones are intact, without suspicious lesions. Sinuses: Visualized sinuses and mastoids are clear. IMPRESSION: No acute intracranial abnormality. Reviewed by: Jericho Watson on 03/22/2023 9:59 AM MARIA ELENA Approved by: Jericho Watson on 03/22/2023 9:59 AM MARIA ELENA Station ID: [id number]
[2023-03-22] MEDS: METOPROLOL 5 MG/5 ML VIAL IVP SCH ×4 (11:38→23:46)
[2023-03-22] MEDS: ENALAPRILAT 1.25 MG/ML VIAL IVP SCH ×3 (11:38→18:08)
--- NOTE | 2023-03-22 13:05 | PROVIDER PROGRESS NOTE ---
Progress Note March 22, 2023 12:57 PM & 5:35 PM She was extubated yesterday. Then went into acute respiratory distress from severe hypertension and flash pulmonary edema. I was able to get her blood pressure down with a labetalol drip. I then transitioned her to oral medications and blood pressure came down so that labetalol could be stopped. She is on Lasix twice daily and urine output was 2568 yesterday. She continues to be minimally responsive. She does open her eyes, look at you but go right back to sleep. In reviewing her history she had severe hypoxia for at least an hour before her friends brought her in for her obtundation. Overnight, blood pressure went back up and she received a dose of hydralazine this morning. Respiratory rate came up to 30 around 11:00 last night. She was put back on BiPAP with a 50% FiO2. 15:5 ratio. This morning she is sleepy, does respond to voice with opening her eyes. Her last dose of Ativan was at 3 AM. Blood pressure was 171/105 at 7 AM and another dose of hydralazine. I reexamined her at 12:15 PM. She appears to be comfortable, sleeping. Right hand curled underneath her chin as she lays on her back. Still on the BiPAP. FiO2 is varying between 40 to 50%. O2 sat is 94%. No tachycardia, no struggle to breathe. As such I am stopping the BiPAP and putting her on oxy mask again. She has been tolerating the oxy mask since around 12:30 PM. Several times she is rolled over in bed, made herself comfortable. It appears to be sleeping comfortably. Tolerating oxy mask better than the BiPAP. No tachypnea, tachycardia, respiratory distress. Active Medications Albuterol (Albuterol Neb 2.5 Mg/3 Ml) 2.5 mg INH Q4HR PRN PRN Reason: Wheezing Last Admin: 03/21/23 11:11 Dose: 2.5 mg Amlodipine Besylate (Amlodipine 5 Mg Tablet) 10 mg PO DAILY [facility] Last Admin: 03/22/23 08:08 Dose: Not Given Buprenorphine HCl (Buprenorphine/Naloxone 8-2 Mg Tab) 1 tab SL BID [facility] Last Admin: 03/22/23 08:08 Dose: Not Given Chlorhexidine Gluconate (Chlorhexidine Gluconate 15 Ml Udc) 15 ml PO BID [facility] Last Admin: 03/22/23 08:01 Dose: 15 ml Enalaprilat (Enalaprilat 1.25 Mg/Ml Vial) 1.25 mg IVP Q6HR [facility] Last Admin: 03/22/23 12:06 Dose: Not Given Enoxaparin Sodium (Enoxaparin 30 Mg/0.3 Ml Syringe) 30 mg SUBQ DAILY [facility] Last Admin: 03/22/23 08:01 Dose: 30 mg Famotidine (Famotidine 20 Mg Tablet) 20 mg PO DAILY [facility] Last Admin: 03/22/23 08:08 Dose: Not Given Furosemide (Furosemide 40 Mg/4 Ml Vial) 40 mg IVP DAILY [facility] Last Admin: 03/22/23 07:59 Dose: 40 mg Hydralazine HCl (Hydralazine Inj 20 Mg/Ml Vial) 10 mg IVP TID PRN PRN Reason: sys >180, diato >100 Last Admin: 03/22/23 07:59 Dose: 10 mg Ceftriaxone Sodium 1 gm/ (Sodium Chloride) 100 mls @ 200 mls/hr IV HS [facility] Last Infusion: 03/22/23 07:23 Dose: Infused Ipratropium Oketo (Ipratropium 0.2 Mg/Ml Neb) 0.5 mg INH Q6HR PRN PRN Reason: Wheezing Levetiracetam (Levetiracetam 500 Mg/5 Ml Udc) 500 mg PO BID [facility] Last Admin: 03/22/23 08:08 Dose: Not Given Lorazepam (Lorazepam 2 Mg/Ml Vial) 0.5 mg IVP Q2H PRN PRN Reason: Anxiety Last Admin: 03/22/23 02:38 Dose: 0.5 mg Methylprednisolone (Methylprednisolone Succinate 40 Mg/Ml Vial) 40 mg IVP Q6HR [facility] Last Admin: 03/22/23 12:17 Dose: 40 mg Metoprolol Tartrate (Metoprolol Tartrate 50 Mg Tablet) 100 mg PO BID [facility] Last Admin: 03/22/23 08:09 Dose: Not Given Metoprolol Tartrate (Metoprolol 5 Mg/5 Ml Vial) 5 mg IVP Q6HR [facility] Last Admin: 03/22/23 12:06 Dose: Not Given Prochlorperazine Edisylate (Prochlorperazine 10 Mg/2 Ml Vial) 10 mg IVP Q6HR PRN PRN Reason: Nausea / Vomiting Last Admin: 03/21/23 10:55 Dose: 10 mg Sodium Chloride (Sodium Chloride Flush 0.9% 10 Ml Syringe) 10 ml IVP 0100, 0900,1700 [facility] Last Admin: 03/22/23 08:09 Dose: 10 ml Sodium Chloride (Sodium Chloride Flush 0.9% 10 Ml Syringe) 10 ml IVP PRN PRN PRN Reason: NEEDED PER PROVIDER ORDERS Only [facility] Med: Levothyroxine [Synthroid] 112 mcg PO QDAC 02/16/23 Exam: Vitals with a temperature 37.2. Heart rate 74. Middle-aged white female that is well-nourished well-developed, disheveled and malodorous Neck is supple with shotty adenopathy but no bruits or JVD Coarse upper airway sounds, rhonchi at the bases. No tachypnea, no use of accessory muscles. Abdomen is soft, nontender, normal bowel sounds Extremities with 1+ edema Neurologically she is opening her eyes to voice and to pain, no lucid conversation yet. We treated annealer helper at 7 AM to now at 12:30 PM she is becoming a little bit more alert. Manifested by more opening of eyes, and she is spontaneously repositioning herself in bed to be more comfortable while she sleeps. Lab: Anion gap 15. Sodium 142, potassium 4.3. BUN 70, creatinine 3.7. She is stable with creat varying between 3.6 to 3.8 since admission. GFR is 13. Glucose 129. Troponin was 177 yesterday. I stopped her heparin drip. White cell count is 12.2. Stable from yesterday. Hemoglobin is 8.6. She was 8.7 yesterday. Hematocrit 27. Admission hemoglobin was 10.4. Radiology: I ordered a CT of her head because of her prolonged lethargy. CT of the head has no acute intracranial abnormality. Urine output: March 18--26 mils March 19--612 mL March 20--1595 mils March 21--2568 mils Assessment/Plan 1. Improved acute respiratory failure with hypoxia. On admisison she had hypoxia and respiratory failure attributed to COPD exacerbation, CHF exacerbation, and rectal heroin use. Chest x-ray shows fluid overload, no true pneumonia. She was intubated in the ER. Overnight she stayed stable. Diuresis was ongoing with Lasix. Urine output was present in the morning on the but slowed down to almost 0 that morning. Over the course of that day picked up again. . Echocardiogram August 13, 2022 has an EF of 40 to 50%. Left ventricular hypertrophy. Normal RV size and systolic function. Echocardiogram 03/18 has improved ejection fraction of 50 to 55%. Normal right side. In addition to intubation, the patient was on Lasix to help with the renal failure that she now had. We tried to extubate her March 19 but she was too sedated and having episodes of slowed respiratory rate or apnea. I then extu bated her on the morning of the . With that she developed: Hypertensive urgency Flash pulmonary edema Severe acute on chronic systolic heart failure I put her on a labetalol drip and BiPAP 10/02. This only needed to be used for several hours to get her blood pressure down. Once I was able to get her blood pressure down, much of her shortness of breath and hypoxemia improved. I transitioned her to oral Lopressor and Norvasc. That kept her blood pressure down until late last night, or the annealer helper hours of this morning. She is required hydralazine. Unfortunately she has remained quite sedated. She has been receiving Ativan for agitation with her last dose at 3 AM. Today, I ordered a CT of her head to make sure I was not missing something like a subdural or hemorrhage and that is negative. By 12: 15 today, she appears to be resting comfortably. Almost seems asleep. Seems to be more responsive and more quickly responsive when we wake her up. Still on BiPAP. Plan: Remove BiPAP and put her on oxy mask again. She keeps on trying to take off the BiPAP. Continue metoprolol 100 mg p.o. twice daily, Norvasc 10 mg p.o. daily but this may be a problem if not awake. I had thought about an NG tube with meds down the NG tube but this patient already hates the BiPAP. I have thought about changing her medications to IV metoprolol and IV enalapril. She did receive 1 dose of hydralazine this morning and blood pressure came back down to the 130s systolic. I discussed this with the nurse and I have instructed him to use metoprolol, or enalapril or hydralazine to keep her blood pressure down. If she needs to use more than 1 agent do it. When she is awake we will stop the IV medications and give only oral medications. I will continue albuterol, Atrovent, Solu-Medrol, IV pushLasix 40 mg twice daily DVT prophylaxis with Lovenox 40 mg subcu After trying to find a clinic record, she does not have a record in our community clinic so I cannot get a POLST from there. It is not in our EMR. Daughter will try and track down and bring that in. Daughter lives in [place]. According to her history, mom is a DO NOT RESUSCITATE. 2. COPD exacerbation. As above. She is on albuterol, Atrovent, Solu-Medrol. Extubated today. Has a large pleural effusion on the left. Plan: Continue same medications. I have thought about antibiotics but without fever or purulent phlegm, I do not think I am treating infectious pneumonia.Consider a thoracentesis on March 24 3. Elevated troponins with demand ischemia I feel that her troponin bump was not an NSTEMI. There is no EKG changes. The rise was not really compatible with an VT. I stopped heparin drip on March 20. Troponin on March 21 was minimally elevated in the midst of this flash pulmonary edema. I continue to interpret this as demand ischemia. 4. Acute on chronic renal failure with hyperphosphatemia The mechanism of injury to cause the renal failure is unclear to me. The patient was already going into renal failure when she came into the hospital. She was not hypotensive. CT scan does not show obstruction of the ureters or kidney tumors.She had no urine output in the annealer helper hours of March 20. After 80 mg of Lasix yesterday morning, her urine output has picked up. She is now on 40 mg IV push twice daily. Urine output for 24 hours yesterday was 1595. Since midnight last night, and dictation of this note, her urine output is 1483 cc. Her creatinine has come up a bit today at 3.8 from 3.6 yesterday. But I think her probable ATN is improving. Urine output has picked up, and creatinine has not doubled. Plan: Continue Lasix. I did order a renal ultrasound but she cannot cooperate to do that. I had wanted her to be on PhosLo, but she has been unable to tolerate taking the facemask off. Now that facemask is off today, and on OxyMask, I will try that. 5. Chronic normocytic anemia. B12 levels normal. Folate normal. Thyroid normal. I will continue to monitor to make sure she does not need a transfusion. But currently stable. I suspect her anemia is due to combination of renal failure and bone marrow suppression from alcohol or drugs 6. Polysubstance abuse. I ordered a urine tox screen and it was positive for amphetamines, methamphetamines, cocaine and cannabinoids. She also took heroin on the morning of admission. Plan is for her to be given opportunities through social work to see if she would like to go to rehab. 7. Hypothyroid. Free T3 level normal. Continue same dose of Synthroid when she is awake. 8. Seizure disorder. Keppra is being given via her NG. However, pharmacy cannot find any record of her filling a prescription for Keppra. I looked into [facility], the EMR for the outpatient clinics. She is not in their EMR. I was able to find where she had an admission in February 2021 where she presented to the emergency room with a seizure at home. It was witnessed by her roommate who called EMS. In route to the hospital she had another seizure and given Versed. Patient had no previous history of seizures. And she was [place] maintaining that she did not have any seizures. Her diastolic blood pressure was in the 120s that day. EKG had diffuse ST depression. She was discharged on Keppra. She returned in July 2021 with abdominal pain and nausea and she reported a seizure in the afternoon, the day before her admission July 30. The patient has history of severe hypertensive disorder with hypertensive crisis. Chest pain. The above seizure. But her med list currently only shows Synthroid. Review of the outside pharmacy records show that she is not filling her medications other than for Synthroid. Plan: Resume Keppra. She has had 3 witnessed seizures. She is supposed to be on medication. When she is more awake, and verbal, I will find out which office she is followed by. 9. History of hypertension. I am still waiting for her to wake up enough to tell me what her medicines are supposed to be. With this severe episode of hypertension causing flash pulmonary edema superimposed on her chronic systolic heart failure she has to be on some meds at home. I will wait for her to wake up and tell me. Right now continue the metoprolol and Norvasc. This document was made in part using voice recognition software. While efforts are made to proofread this document, sound alike and grammatical errors may occur.
[2023-03-22] MEDS: CALCIUM ACETATE 667 MG CAPSULE PO SCH (18:09)
[2023-03-22] MEDS: cefTRIAXone 1 GM in SODIUM CHLORIDE 0.9% MINIBAG 100 ML IV SCH (20:17)
[2023-03-22] MEDS: levETIRAcetam INJ 500 MG in SODIUM CHLORIDE 0.9% 100ML 100 ML IV SCH (21:17)
[2023-03-23] MEDS: ENALAPRILAT 1.25 MG/ML VIAL IVP SCH ×2 (00:47→06:28)
[2023-03-23] MEDS: SODIUM CHLORIDE FLUSH 0.9% 10 ML SYRINGE IVP SCH ×4 (00:47→23:50)
[2023-03-23] MEDS: METOPROLOL 5 MG/5 ML VIAL IVP SCH (05:11)
[2023-03-23] MEDS: methylPREDNISolone SUCCINATE 40 MG/ML VIAL IVP SCH ×4 (05:14→23:50)
[2023-03-23 05:21] LABS: BASOPHILS % (AUTO) 0.1 %; HCT - HEMATOCRIT 31.2 % (37.0-47.0); HGB - HEMOGLOBIN 9.8 g/dL (12.0-16.0); LYMPHOCYTES # (AUTO) 0.3 10^3/uL (1.5-3.5); LYMPHOCYTES % (AUTO) 2.3 %; MEAN CORPUSCULAR HEMOGLOBIN 28.2 pg (27.0-31.0); MEAN CORPUSCULAR HGB CONC 31.4 g/dL (32.0-36.0); MEAN CORPUSCULAR VOLUME 89.9 fL (81.0-99.0); MEAN PLATELET VOLUME 12.4 fL (7.9-10.8); MONOCYTES # (AUTO) 0.7 10^3/uL (0.0-1.0); MONOCYTES % (AUTO) 5.8 %; NEUTROPHILS # (AUTO) 11.4 10^3/uL (1.5-6.6); NEUTROPHILS % (AUTO) 90.6 %; PLT - PLATELET COUNT 228 10^3/uL (130-450); RED BLOOD COUNT 3.47 10^6/uL (4.20-5.40); RED CELL DISTRIBUTION WIDTH 15.1 % (12.0-15.0); WHITE BLOOD COUNT 12.6 x10^3/uL (4.8-10.8)
[2023-03-23 05:45] LABS: ALBUMIN 3.3 g/dL (3.2-5.5); ALBUMIN/GLOBULIN RATIO 0.9 (1.0-2.2); BILIRUBIN,TOTAL 0.5 mg/dL (0.2-1.0); CALCIUM 8.5 mg/dL (8.5-10.3); CREATININE 3.1 mg/dL (0.4-1.0); POTASSIUM 3.3 mmol/L (3.5-5.0); TOTAL PROTEIN 7.1 g/dL (6.7-8.2)
[2023-03-23] MEDS: POTASSIUM CHLORIDE 20 MEQ/15 ML UDC PO SCH ×2 (06:37→08:26)
[2023-03-23] MEDS: CHLORHEXIDINE GLUCONATE 15 ML UDC PO SCH ×2 (07:16→21:39)
[2023-03-23] MEDS: levETIRAcetam INJ 500 MG in SODIUM CHLORIDE 0.9% 100ML 100 ML IV SCH (07:17)
[2023-03-23] MEDS: ENOXAPARIN 30 MG/0.3 ML SYRINGE SUBQ SCH (08:26)
[2023-03-23] MEDS: levETIRAcetam 500 MG/5 ML UDC PO SCH ×2 (08:26→21:39)
[2023-03-23] MEDS: CALCIUM ACETATE 667 MG CAPSULE PO SCH ×3 (08:27→17:05)
[2023-03-23] MEDS: BUPRENORPHINE/NALOXONE 8-2 MG TAB SL SCH ×2 (08:27→21:35)
[2023-03-23] MEDS: amLODIPine 5 MG TABLET PO SCH (08:27)
[2023-03-23] MEDS: FAMOTIDINE 20 MG TABLET PO SCH (08:27)
[2023-03-23] MEDS: METOPROLOL TARTRATE 50 MG TABLET PO SCH ×2 (08:27→21:35)
[2023-03-23] MEDS: FUROSEMIDE 40 MG/4 ML VIAL IVP SCH (08:27)
[2023-03-23] MEDS: PROCHLORPERAZINE 10 MG/2 ML VIAL IVP PRN (08:33)
[2023-03-23] MEDS ORDERED: polyethylene glycoL 3350 17 GM PACKET PO PRN (08:46)
[2023-03-23] MEDS: polyethylene glycoL 3350 17 GM PACKET PO SCH (10:55)
[2023-03-23] MEDS: hydrALAZINE INJ 20 MG/ML VIAL IVP PRN (11:03)
--- NOTE | 2023-03-23 11:40 | XRAY Report ---
PROCEDURE: Abdomen 1 View X-Ray INDICATIONS: abd pain and bloating TECHNIQUE: One view of the abdomen acquired. COMPARISON: None. FINDINGS: Surgical changes and devices: None. Bowel: Bowel gas pattern is normal. Soft tissues: No suspicious abdominal calcifications. Visualized solid organ contours appear normal in size. Bones: No suspicious bony lesions. IMPRESSION: No acute abdominal pathology. Reviewed by: Dominique Carrasco MD on 03/23/2023 11:39 AM PDT Approved by: Dominique Carrasco MD on 03/23/2023 11:39 AM PDT Station ID: [id number]
--- NOTE | 2023-03-23 11:41 | XRAY Report ---
PROCEDURE: Chest 1 View X-Ray INDICATIONS: substernal chest pain TECHNIQUE: One view of the chest was acquired. COMPARISON: 03/21/2023 FINDINGS: Surgical changes and devices: None. Lungs and pleura: No pneumothorax. Small left pleural effusion. Moderate airspace opacity within the left mid and lower lung. Mediastinum: Mediastinal contours appear normal. Heart size is enlarged. Bones and chest wall: No suspicious bony lesions. Overlying soft tissues appear unremarkable. IMPRESSION: 1. Left lung pneumonia with small parapneumonic effusion. Reviewed by: Dominique Carrasco MD on 03/23/2023 11:39 AM PDT Approved by: Dominique Carrasco MD on 03/23/2023 11:39 AM PDT Station ID: [id number]
--- NOTE | 2023-03-23 11:56 | PROVIDER PROGRESS NOTE ---
Progress Note March 23, 2023 11:45 AM Nursing found out that if they took the pulse ox off of her toes and put on her fingers, her oxygen saturations were normal. As such the patient's O2 sats have been stable. She is now off of oxygen. She is still very sleepy, consider self up in bed, but speech is slurred, fragmented. She keeps on saying she wants to go home. But she has not been able to stay awake long enough to eat. She needed hydralazine 3 times yesterday to control her blood pressure. This morning she needed it 10:00. Nursing managed to get her oral antihypertensives down her. She is not safe to stand and to walk to the bathroom without a 1 person assist. She is ataxic, swaying. She woke up a few minutes ago stating that she is has substernal chest pain. No nausea, no radiation. But she says is pretty severe. Exam: Temperature 36.8, heart rate 82, blood pressure 170/108. This is the highest she has been today. Intake yesterday was 425, output was 2225. So she continues with a brisk urine output in the face of renal failure. Weight on admission was 61.5 kg. She was 54 kg yesterday, 56 kg this morning. Disheveled middle-aged white female, slightly malodorous. Very weak, deconditioned. Needs a lot of help to go from supine to sitting. Not safe to go from sitting to standing without nurse and aide standing next to her. In spite of the complaints of chest pain, she appears comfortable, no diaphoresis or distress. Neck is supple, shotty adenopathy, no bruits Lungs are clear. Diminished breath sounds at the left lung base with some very slight egophony Regular rate and rhythm. Pulse consistently in the 70s and 80s and sinus Abdomen is soft, slightly bloated, but nontender. Quiet bowel sounds. She has a Acevedo catheter draining clear yellow urine. Extremities have mild edema around the ankles. The skin of the feet are callused, scaly, with dirt. Her skin overall is quite dry and callused. Neurologically she knows she is in the hospital, she does not know why. When I explained that it is because of a heroin overdose with respiratory arrest she says that she does not do heroin. Speech is garbled, slurred, truncated. But at least she is making sentences where she was not yesterday. She has no focal deficits. Ataxic. Lab: Sodium 141. Potassium is 3.3. And will need to be supplemented today. BUN is 74. She was admitted with a BUN of 24. Creatinine is 3.1. She peaked at 3.8 on the , and she was admitted with a creatinine of 1.9. So she was in acute renal failure and now has post ATN diuresis. LFTs are normal. Assessment/Plan 1. New substernal chest pain. No previous history of heart disease. Troponins were elevated on the initial part of her stay but they were flat, and I felt that they were enzyme leak due to her hypertensive urgency and flash pulmonary edema. Plan: Stat troponin Stat EKG Stat chest x-ray Sublingual nitroglycerin for every 5 minutes as needed 1 inch of Nitropaste 2. Resolved acute respiratory failure with hypoxia. On admisison she had hypoxia and respiratory failure attributed to COPD exace rbation, CHF exacerbation, and rectal heroin use. Chest x-ray shows fluid overload, no true pneumonia. She was intubated in the ER. Overnight she stayed stable. Diuresis was ongoing with Lasix. Urine output was present in the morning on the but slowed down to almost 0 that morning. Over the course of that day picked up again. . Echocardiogram August 13, 2022 has an EF of 40 to 50%. Left ventricular hypertrophy. Normal RV size and systolic function. Echocardiogram 03/18 has improved ejection fraction of 50 to 55%. Normal right side. In addition to intubation, the patient was on Lasix to help with the renal failure that she now had. We tried to extubate her March 19 but she was too sedated and having episodes of slowed respiratory rate or apnea. I then extubated her on the morning of the . within hours of extubation she developed: Hypertensive urgency resolved Flash pulmonary edema resolved Severe acute on chronic systolic heart failure resolved I put her on a labetalol drip and BiPAP 10/02. This only needed to be used for several hours to get her blood pressure down. Once I was able to get her blood pressure down, much of her shortness of breath and hypoxemia improved. I transitioned her to oral Lopressor and Norvasc. That kept her blood pressure down until late last night, or the dubbing machine operator hours of this morning. She is required hydralazine. Unfortunately she remained quite sedated. She has been receiving Ativan for agitation with her last dose at 3 AM. on the . On the , I ordered a CT of her head to make sure I was not missing something like a subdural or hemorrhage and that is negative. By 12: 15 of the , she appears to be resting comfortably. Almost seems asleep. Seems to be more responsive and more quickly responsive when we wake her up. Was still on BiPAP. She kept trying to remove the BiPAP mask. She was Restless, Agitated. So I Took Her off BiPAP Yesterday Afternoon. Initially We Thought We Were Struggling with Trying to Keep Her Oxygen Sats up on Oxy Mask. She Was Requiring up to 10 L Sometimes Then Back down to 4 L. Now that we have fixed the oximeter problem this morning, her O2 sats are just fine. She is now on room air. Plan: Supply with oxygen as needed to keep her O2 sats above 88%. Right now not needing oxygen. Stop metoprolol IV and enalapril IV since she can take p.o. Continue metoprolol 100 mg p.o. twice daily, Norvasc 10 p.o. daily to control her blood pressure. I will also have her on hydralazine 10 mg IV push every 6 hours as needed for systolic greater than 180 and a diastolic greater than 100 (3 doses yesterday, 1 dose today so far) 3. COPD exacerbation/Left pleural effusion. She is on albuterol, Atrovent, Solu-Medrol. Extubated today. Has a large pleural effusion on the left. Plan: Stop Solu-Medrol. Now that her O2 sats are normal, respiratory status is stable with no wheezing or respiratory distress, I do not think any to do a thoracentesis since she is asymptomatic. She will need serial chest x-rays in the outpatient setting to make sure that that is resolving and that it does not go into an empyema. She is not on antibiotics since I do not feel I am treating an infectious process. Continue albuterol, Atrovent. 4. Acute on chronic renal failure with hyperphosphatemia The mechanism of injury to cause the renal failure is unclear to me. The patient was already going into renal failure when she came into the hospital. She was not hypotensive. CT scan does not show obstruction of the ureters or kidney tumors.She had no urine output in the dubbing machine operator hours of March 20. After 80 mg of Lasix yesterday morning, her urine output has picked up. She is now on 40 mg IV push twice daily. Laboratory Tests 03/18/23 03/19/23 03/20/23 17:08 04:30 09:23 Creatinine 1.9 H 2.1 H 3.6 H 03/21/23 03/22/23 03/23/23 04:26 04:18 04:14 Creatinine 3.8 H 3.7 H 3.1 H Creatinine has come down from yesterday. With the excellent urine output, I think she had ATN that had developed even prior to admission. Her creatinine had gone from 1.9-2.1 in 24 hours and then 3.6 the day after that. She she finally did a retroperitoneal ultrasound, I was looking for hydronephrosis. This was unremarkable kidneys without hydronephrosis. Plan: Continue Lasix. . I had wanted her to be on PhosLo, but she has been unable to tolerate taking the facemask off. Once I stopped the BiPAP mask on the , and she is now on room air. Nurse is just struggling to keep her awake enough to take her medicines. And she had 1 dose yesterday, and 2 doses today. No level checked today, but will be checked tomorrow. 5. Chronic normocytic anemia. B12 levels normal. Folate normal. Thyroid normal. I will continue to monitor to make sure she does not need a transfusion. But cu rrently stable. I suspect her anemia is due to combination of renal failure and bone marrow suppression from alcohol or drugs 6. Polysubstance abuse. I ordered a urine tox screen and it was positive for amphetamines, methamphetamines, cocaine and cannabinoids. She also took heroin on the morning of admission. Plan is for her to be given opportunities through social work to see if she would like to go to rehab.Today, when she asked why she was in the hospital, I explained to her about the heroin overdose and she denied it. She also denied using any other recreational substances and stated it must be a mistake 7. Hypothyroid. Free T3 level normal. Continue same dose of Synthroid when she is awake. 8. Seizure disorder. Keppra is being given via her NG. However, pharmacy cannot find any record of her filling a prescription for Keppra. I looked into [facility], the EMR for the outpatient clinics. She is not in their EMR. I was able to find where she had an admission in February 2021 where she presented to the emergency room with a seizure at home. It was witnessed by her roommate who called EMS. In route to the hospital she had another seizure and given Versed. Patient had no previous history of seizures. And she was stoutly maintaining that she did not have any seizures. Her diastolic blood pressure was in the 120s that day. EKG had diffuse ST depression. She was discharged on Keppra. She returned in July 2021 with abdominal pain and nausea and she reported a seizure in the afternoon, the day before her admission July 30. The patient has history of severe hypertensive disorder with hypertensive crisis. Chest pain. The above seizure. But her med list currently only shows Synthroid. Review of the outside pharmacy records show that she is not filling her medications other than for Synthroid. Plan: Resume Keppra. She has had 3 witnessed seizures. She is supposed to be on medication. When she is more awake, and verbal, I will find out which office she is followed by. 9. History of hypertension. I am still waiting for her to wake up enough to tell me what her medicines are supposed to be. With this severe episode of hypertension causing flash pulmonary edema superimposed on her chronic systolic heart failure she has to be on some meds at home. I will wait for her to wake up and tell me. Right now continue the metoprolol and Norvasc. This document was made in part using voice recognition software. While efforts are made to proofread this document, sound alike and grammatical errors may occur.
[2023-03-23] MEDS ORDERED: NITROGLYCERIN 2% PASTE TOP SCH (12:00)
[2023-03-23] MEDS: NITROGLYCERIN SL 0.4 MG TABLET SL PRN ×2 (16:56→23:52)
[2023-03-23] MEDS: LORazepam 2 MG/ML VIAL IVP PRN (18:00)
[2023-03-23] MEDS: cefTRIAXone 1 GM in SODIUM CHLORIDE 0.9% MINIBAG 100 ML IV SCH (21:35)
[2023-03-24] MEDS: LORazepam 2 MG/ML VIAL IVP PRN (01:57)
[2023-03-24] MEDS: NITROGLYCERIN SL 0.4 MG TABLET SL PRN ×3 (02:01→08:08)
[2023-03-24] MEDS: methylPREDNISolone SUCCINATE 40 MG/ML VIAL IVP SCH ×2 (05:42→11:38)
[2023-03-24 06:00] LABS: BASOPHILS % (AUTO) 0.1 %; CALCIUM, IONIZED 1.06 mmol/L (1.15-1.33); HCT - HEMATOCRIT 31.7 % (37.0-47.0); HGB - HEMOGLOBIN 9.9 g/dL (12.0-16.0); LYMPHOCYTES # (AUTO) 0.5 10^3/uL (1.5-3.5); LYMPHOCYTES % (AUTO) 3.5 %; MEAN CORPUSCULAR HGB CONC 31.2 g/dL (32.0-36.0); MEAN CORPUSCULAR VOLUME 89.8 fL (81.0-99.0); MEAN PLATELET VOLUME 12.6 fL (7.9-10.8); MONOCYTES # (AUTO) 0.6 10^3/uL (0.0-1.0); MONOCYTES % (AUTO) 4.8 %; NEUTROPHILS # (AUTO) 11.8 10^3/uL (1.5-6.6); NEUTROPHILS % (AUTO) 90.7 %; PLT - PLATELET COUNT 213 10^3/uL (130-450); RED BLOOD COUNT 3.53 10^6/uL (4.20-5.40); RED CELL DISTRIBUTION WIDTH 14.9 % (12.0-15.0); VBG PH 7.543 (7.31-7.41)
[2023-03-24 06:12] LABS: ALBUMIN 3.3 g/dL (3.2-5.5); BILIRUBIN,TOTAL 0.6 mg/dL (0.2-1.0); CALCIUM 8.9 mg/dL (8.5-10.3); CREATININE 2.4 mg/dL (0.4-1.0); MAGNESIUM 2.3 mg/dL (1.7-2.8); PHOSPHORUS 3.9 mg/dL (2.5-4.6); POTASSIUM 4.1 mmol/L (3.5-5.0); TOTAL PROTEIN 6.6 g/dL (6.7-8.2)
[2023-03-24] MEDS: amLODIPine 5 MG TABLET PO SCH (08:30)
[2023-03-24] MEDS: BUPRENORPHINE/NALOXONE 8-2 MG TAB SL SCH ×2 (08:30→21:01)
[2023-03-24] MEDS: FAMOTIDINE 20 MG TABLET PO SCH (08:30)
[2023-03-24] MEDS: CALCIUM ACETATE 667 MG CAPSULE PO SCH ×2 (08:30→11:38)
[2023-03-24] MEDS: levETIRAcetam 500 MG/5 ML UDC PO SCH ×2 (08:30→21:01)
[2023-03-24] MEDS: FUROSEMIDE 40 MG/4 ML VIAL IVP SCH (08:30)
[2023-03-24] MEDS: METOPROLOL TARTRATE 50 MG TABLET PO SCH ×2 (08:30→21:02)
[2023-03-24] MEDS: hydrALAZINE INJ 20 MG/ML VIAL IVP PRN (08:31)
[2023-03-24] MEDS: polyethylene glycoL 3350 17 GM PACKET PO SCH (08:32)
[2023-03-24] MEDS: ENOXAPARIN 30 MG/0.3 ML SYRINGE SUBQ SCH (08:32)
[2023-03-24] MEDS: SODIUM CHLORIDE FLUSH 0.9% 10 ML SYRINGE IVP SCH ×2 (08:33→16:19)
[2023-03-24] MEDS: CHLORHEXIDINE GLUCONATE 15 ML UDC PO SCH ×2 (08:40→21:03)
--- NOTE | 2023-03-24 10:58 | PROVIDER PROGRESS NOTE ---
Subjective - Prog Note Date Prog Note Date: 03/24/23 Prog Note Time: 10:56 - Subjective Subjective: Crying. Cannot believe how weak she is after being in bed with the intubation. It is all she can do to sit up and feed herself. The ability to go from sitting to supine and trying to walk is exhausting. She is asking if she can have some physical therapy. She continues to have some chest pain. It started yesterday. Troponins were stable. EKG showed high voltages but no ST-T wave changes. Nitroglycerin did not make a difference. Nevertheless, after I left at 7 PM, she had another episode of chest pain and got more nitroglycerin. Again it did not make a difference. She is asking for some pain medicine. Current Medications - Current Medications Current Medications: Active Medications Acetaminophen/Butalbital/Caffeine (Butalb/Acetam/Caff 50/325/40mg Tablet) 2 tab PO Q4HR PRN PRN Reason: PAIN 1-4 Albuterol (Albuterol Neb 2.5 Mg/3 Ml) 2.5 mg INH Q4HR PRN PRN Reason: Wheezing Last Admin: 03/21/23 11:11 Dose: 2.5 mg Amlodipine Besylate (Amlodipine 5 Mg Tablet) [address] [facility] Last Admin: 03/24/23 08:30 Dose: 10 mg Buprenorphine HCl (Buprenorphine/Naloxone 8-2 Mg Tab) [address] [facility] Last Admin: 03/24/23 08:30 Dose: 1 tab Calcium Acetate (Calcium Acetate 667 Mg Capsule) [address] [facility] Last Admin: 03/24/23 08:30 Dose: 667 mg Chlorhexidine Gluconate (Chlorhexidine Gluconate 15 Ml Udc) [address] [facility] Last Admin: 03/24/23 08:40 Dose: Not Given Docusate Sodium (Docusate Sodium 250 Mg Capsule) 250 - [address] [facility] Enoxaparin Sodium (Enoxaparin 30 Mg/0.3 Ml Syringe) [address] [facility] Last Admin: 03/24/23 08:32 Dose: 30 mg Famotidine (Famotidine 20 Mg Tablet) [address] [facility] Last Admin: 03/24/23 08:30 Dose: 20 mg Furosemide (Furosemide 40 Mg/4 Ml Vial) [address] [facility] Last Admin: 03/24/23 08:30 Dose: 40 mg Hydralazine HCl (Hydralazine Inj 20 Mg/Ml Vial) 10 mg IVP TID PRN PRN Reason: sys >180, diato >100 Last Admin: 03/24/23 08:31 Dose: 10 mg Ceftriaxone Sodium 1 gm/ (Sodium Chloride) 100 mls @ 200 mls/hr IV HS [facility] Last Infusion: 03/23/23 22:05 Dose: Infused Ipratropium Beecher (Ipratropium 0.2 Mg/Ml Neb) 0.5 mg INH Q6HR PRN PRN Reason: Wheezing Levetiracetam (Levetiracetam 500 Mg/5 Ml Udc) [address] [facility] Last Admin: 03/24/23 08:30 Dose: 500 mg Lorazepam (Lorazepam 2 Mg/Ml Vial) 0.5 mg IVP Q2H PRN PRN Reason: Anxiety Last Admin: 03/24/23 01:57 Dose: 0.5 mg Methylprednisolone (Methylprednisolone Succinate 40 Mg/Ml Vial) [address] [facility] Last Admin: 03/24/23 05:42 Dose: 40 mg Metoprolol Tartrate (Metoprolol Tartrate 50 Mg Tablet) [address] [facility] Last Admin: 03/24/23 08:30 Dose: 100 mg Nitroglycerin (Nitroglycerin Sl 0.4 Mg Tablet) 0.4 mg SL Q5MIN PRN PRN Reason: Chest Pain Last Admin: 03/24/23 08:08 Dose: 0.4 mg Polyethylene Glycol (Polyethylene Glycol 3350 17 Gm Packet) [address] [facility] Last Admin: 03/24/23 08:32 Dose: 17 gm Prochlorperazine Edisylate (Prochlorperazine 10 Mg/2 Ml Vial) 10 mg IVP Q6HR PRN PRN Reason: Nausea / Vomiting Last Admin: 03/23/23 08:33 Dose: 10 mg Senna (Senna 8.6 Mg Tablet) 8.6 - 17.[address] [facility] Sodium Chloride (Sodium Chloride Flush 0.9% 10 Ml Syringe) 10 ml IVP 0100,0900,1700 [facility] Last Admin: 03/24/23 08:33 Dose: 10 ml Sodium Chloride (Sodium Chloride Flush 0.9% 10 Ml Syringe) 10 ml IVP PRN PRN PRN Reason: NEEDED PER PROVIDER ORDERS Levothyroxine [Synthroid] 112 mcg PO QDAC 02/16/23 Objective - Vital Signs/Intake & Output Reviewed Vital Signs: Yes Vital Signs: Vital Signs x48h Temp Pulse Pulse Resp BP BP BP 03/24/23 09:22 151/93 H 03/24/23 09:01 151/93 H 03/24/23 08:31 189/108 H 03/24/23 08:30 189/108 H 03/24/23 08:23 36.3 C L 62 18 177/118 H 189/108 H 03/24/23 08:08 63 189/108 H 03/24/23 05:52 167/93 H 03/24/23 05:46 63 181/107 H Pulse Ox 03/24/23 09:22 03/24/23 09:01 03/24/23 08:31 03/24/23 08:30 03/24/23 08:23 95 03/24/23 08:08 03/24/23 05:52 03/24/23 05:46 Intake & Output: Intake & Output 03/21/23 03/22/23 03/23/23 03/24/23 23:59 23:59 23:59 23:59 Intake Total 950.871 930 6592 340 Output Total 2568 2225 3130 400 Balance -1617.826 -1800 -1280 -60 - Objective General Appearance: positive: Alert, Moderate distress (More emotional and physical. She has the chest pain but does not rated as severe. She is talking a lot about her disappointment in her relationship with her children. That her daughter is a liar. She is specifically talking about the daughter in [place] that told her she could live with her anymore), Other (Middle-aged white female who looks stated age, partially edentulous, disheveled) Eyes Bilateral: positive: PERRL, EOMI ENT: positive: No signs of dehydration, Other (Some teeth missing) Neck: positive: No JVD, Other (Shotty neck nodes). negative: Stiff neck Respiratory: positive: No respiratory distress, Rhonchi (Right midlung. I have a cough, and they disappear), Other (Diminished in the left lung base but no crackles or egophony). negative: Wheezes, Rales Cardiovascular: positive: Regular rate & rhythm, Systolic murmur Abdomen: positive: Non-tender, No organomegaly, Nml bowel sounds, No distention Skin: positive: Warm, Dry Extremities: positive: Full ROM, No pedal edema Neurologic/Psychiatric: positive: Oriented x3, CN's nml (2-12), Motor nml (Exce pt for the weakness she describes. There is no focal deficit) - Lab Results Fish Bones: 03/24/23 05:46 03/24/23 05:46 Other Labs: Lab Results x24hrs 03/24/23 03/24/23 03/24/23 Range/Units 09:03 05:46 05:46 WBC 13.0 H (4.8-10.8) x10^3/uL RBC 3.53 L (4.20-5.40) 10^6/uL Hgb 9.9 L (12.0-16.0) g/dL Hct 31.7 L (37.0-47.0) % MCV 89.8 (81.0-99.0) fL MCH 28.0 (27.0-31.0) pg MCHC 31.2 L (32.0-36.0) g/dL RDW 14.9 (12.0-15.0) % Plt Count 213 (130-450) 10^3/uL MPV 12.6 H (7.9-10.8) fL Neut # (Auto) 11.8 H (1.5-6.6) 10^3/uL Lymph # (Auto) 0.5 L (1.5-3.5) 10^3/uL [place] # (Auto) 0.6 (0.0-1.0) 10^3/uL Eos # (Auto) 0.0 (0.0-0.7) 10^3/uL Baso # (Auto) 0.0 (0.0-0.1) 10^3/uL Absolute Nucleated RBC 0.00 x10^3/uL Nucleated RBC % 0.0 /100WBC VBG pH 7.543 H (7.31-7.41) Ionized Calcium 1.06 L (1.15-1.33) mmol/L Sodium (135-145) mmol/L Potassium (3.5-5.0) mmol/L Chloride (101-111) mmol/L Carbon Dioxide (21-32) mmol/L Anion Gap (6-13) BUN (6-20) mg/dL Creatinine (0.4-1.0) mg/dL Estimated GFR (MDRD) (>89) Glucose (70-100) mg/dL Calcium 8.8 (8.5-10.3) mg/dL Phosphorus (2.5-4.6) mg/dL Magnesium (1.7-2.8) mg/dL Total Bilirubin (0.2-1.0) mg/dL AST (10-42) IU/L ALT (10-60) IU/L Alkaline Phosphatase (42-121) IU/L Troponin I High Sens (2.3-14.8) ng/L Total Protein (6.7-8.2) g/dL Albumin (3.2-5.5) g/dL Globulin (2.1-4.2) g/dL Albumin/Globulin Ratio (1.0-2.2) 03/24/23 03/23/23 03/23/23 Range/Units 05:46 14:57 11:57 WBC (4.8-10.8) x10^3/uL RBC (4.20-5.40) 10^6/uL Hgb (12.0-16.0) g/dL Hct (37.0-47.0) % MCV (81.0-99.0) fL MCH (27.0-31.0) pg MCHC (32.0-36.0) g/dL RDW (12.0-15.0) % Plt Count (130-450) 10^3/uL MPV (7.9-10.8) fL Neut # (Auto) (1.5-6.6) 10^3/uL Lymph # (Auto) (1.5-3.5) 10^3/uL [place] # (Auto) (0.0-1.0) 10^3/uL Eos # (Auto) (0.0-0.7) 10^3/uL Baso # (Auto) (0.0-0.1) 10^3/uL Absolute Nucleated RBC x10^3/uL Nucleated RBC % /100WBC VBG pH (7.31-7.41) Ionized Calcium (1.15-1.33) mmol/L Sodium 140 (135-145) mmol/L Potassium 4.1 3.9 (3.5-5.0) mmol/L Chloride 99 L (101-111) mmol/L Carbon Dioxide 29 (21-32) mmol/L Anion Gap 12.0 (6-13) BUN 68 H (6-20) mg/dL Creatinine 2.4 H (0.4-1.0) mg/dL Estimated GFR (MDRD) 21 L (>89) Glucose 155 H (70-100) mg/dL Calcium 8.9 (8.5-10.3) mg/dL Phosphorus 3.9 (2.5-4.6) mg/dL Magnesium 2.3 (1.7-2.8) mg/dL Total Bilirubin 0.6 (0.2-1.0) mg/dL AST 20 (10-42) IU/L ALT 27 (10-60) IU/L Alkaline Phosphatase 82 (42-121) IU/L Troponin I High Sens 77.4 H* (2.3-14.8) ng/L Total Protein 6.6 L (6.7-8.2) g/dL Albumin 3.3 (3.2-5.5) g/dL Globulin 3.3 (2.1-4.2) g/dL Albumin/Globulin Ratio 1.0 (1.0-2.2) 03/23/23 Range/Units 11:18 WBC (4.8-10.8) x10^3/uL RBC (4.20-5.40) 10^6/uL Hgb (12.0-16.0) g/dL Hct (37.0-47.0) % MCV (81.0-99.0) fL MCH (27.0-31.0) pg MCHC (32.0-36.0) g/dL RDW (12.0-15.0) % Plt Count (130-450) 10^3/uL MPV (7.9-10.8) fL Neut # (Auto) (1.5-6.6) 10^3/uL Lymph # (Auto) (1.5-3.5) 10^3/uL [place] # (Auto) (0.0-1.0) 10^3/uL Eos # (Auto) (0.0-0.7) 10^3/uL Baso # (Auto) (0.0-0.1) 10^3/uL Absolute Nucleated RBC x10^3/uL Nucleated RBC % /100WBC VBG pH (7.31-7.41) Ionized Calcium (1.15-1.33) mmol/L Sodium (135-145) mmol/L Potassium (3.5-5.0) mmol/L Chloride (101-111) mmol/L Carbon Dioxide (21-32) mmol/L Anion Gap (6-13) BUN (6-20) mg/dL Creatinine (0.4-1.0) mg/dL Estimated GFR (MDRD) (>89) Glucose (70-100) mg/dL Calcium (8.5-10.3) mg/dL Phosphorus (2.5-4.6) mg/dL Magnesium (1.7-2.8) mg/dL Total Bilirubin (0.2-1.0) mg/dL AST (10-42) IU/L ALT (10-60) IU/L Alkaline Phosphatase (42-121) IU/L Troponin I High Sens 82.5 H* (2.3-14.8) ng/L Total Protein (6.7-8.2) g/dL Albumin (3.2-5.5) g/dL Globulin (2.1-4.2) g/dL Albumin/Globulin Ratio (1.0-2.2) ABX Reporting Has patient been on IV antibiotics over the past 48 hours?: Yes Assessment/Plan - Problem List (1) Substernal chest pain Impression: She had had elevated troponins on admission. EKG was unchanged. Troponins came down and I attributed the rise in troponin troponin leak from the flash pulmonary edema, and acute CHF. I rechecked her again yesterday when she was having chest pain and Troponins were unchanged . She was 82.5 with the episode of chest pain. Rechecking later at 2:57 PM was 77.4. EKG had no acute ST-T wave changes. She had high voltages, but no acute ST changes. Between yesterday and today she has had the chest pain off and on. Again complaining of it this morning. Chest x-ray did show that the "large pleural effusion" was not as large as described on previous films. It is now being described as a small parapneumonic effusion. Sometimes she says the pain is pleuritic, but she says not all the time. Plan: I will repeat troponin and EKG to make sure there are no changes from yesterday. I will stop the sublingual nitroglycerin since is not making a difference. She only received 1 inch of Nitropaste. I will not renew. I cannot give her Toradol because her creatinine is still slightly elevated. I do not want a flat give her an opioid in the form of oxycodone because she has tremendous drug tolerance. She is already on Suboxone. Try Fioricet 1 to 2 tablets every 4 hours as needed 2. Acute on chronic renal failure with hyperphosphatemia The mechanism of injury to cause the renal failure is unclear to me. The patient was already going into renal failure when she came into the hospital. She was not hypotensive Or in shock from the vital signs reviewed in the ED.. CT scan does not show obstruction of the ureters or kidney tumors. She had no urine output in the early childhood worker hours of March 20. And by that morning her creatinine had gone up to 3.6 from 1.9. After 80 mg of Lasix that morning, her urine output has picked up. She is now on 40 mg IV push twice daily of lasix and has good urine output. Urine output was over a liter again yesterday. Laboratory Tests 03/18/23 03/19/23 03/20/23 17:08 04:30 09:23 Creatinine 1.9 H 2.1 H 3.6 H 03/21/23 03/22/23 03/23/23 04:26 04:18 04:14 Creatinine 3.8 H 3.7 H 3.1 H Laboratory Tests 03/24/23 05:46 Creatinine 2.4 H I think she had ATN that was developing even prior to admission. Her creatinine had gone from 1.9-2.1 in 24 hours and then 3.6 the day after that. Radiology was finally Able to perform a retroperitoneal ultrasound, I was looking for hydronephrosis. This was unremarkable kidneys without hydronephrosis. Plan: Continue Lasix. I had wanted her to be on PhosLo, but she has been unable to tolerate taking the facemask off. Once I stopped the BiPAP mask on the , and she was on room air, she had 1 dose 03/22 and and 3 doses 03/23 and 2 doses so far today. Phosphorous is 3.9 today. Plan: stop phoslo switch to po lasix 40 mg daily for history of systolic heart failure. She has been on lasix for the flash pulmonary edema she had with uncontrolled hyper tension after extubation. Echo July 2022 had an ejection fraction of 45 to 50%, grade 1 diastolic failure. Repeat echo March 19 with this admission shows her ejection fraction to improved to low normal at 50 to 55%. Normal RV size and systolic function. No valvular pathology. 3. Generalized weakness after ICU stay Part of her tearfulness has to do with how weak she is. She is very dismayed at how much effort required for her just to stand up and walk to the toilet. I had occupational and physical therapy work with her. Their initial assessment says that she will most likely need physical rehab. Just standing at the sink to brush her teeth and comb her hair was an effort. She almost fell back twice because she could not support her weight on her legs due to weakness. When she was sitting on the edge of the bed, truncal stability was impaired and she would have to put her arm out on the bed as she would lean to 1 side or the other to support her self. Plan: Continue to work with physical therapy and Occupational Therapy. Goals would be to be able to be independent with transitioning from supine to sitting, sitting to standing, self toileting, self-feeding, self- dressing. I am hoping that she will respond to our therapy and be able to go back to living in an apartment with her friends. If she cannot be discharged due to deconditioning, our plan would then be to transition her to assisted facility for rehab. But we fear that her substance abuse would cause denial of acceptance. We will just keep him moving forward discharge goals. 4 Resolved acute respiratory failure with hypoxia. On admisison she had hypoxia and respiratory failure attributed to COPD exa cerbation, CHF exacerbation, and rectal heroin use. Chest x-ray showed fluid overload, no true pneumonia. She was intubated in the ER. Overnight she stayed stable. Diuresis was ongoing with Lasix. Urine output was present in the morning on the but slowed down to almost 0 early in the morning. Over the course of that day picked up again with 40 mg of lasix. Echocardiogram August 13, 2022 has an EF of 40 to 50%. Left ventricular hypertrophy. Normal RV size and systolic function. Echocardiogram 03/18 has improved ejection fraction of 50 to 55%. Normal right side. In addition to intubation, I gave her 80 mg of lasix on 03/20 and then resumed the 40 mg her urine output improved substatially. We tried to extubate her March 19 but she was too sedated and having episodes of slowed respiratory rate or apnea. I then extubated her on the morning of the . within hours of extubation she developed: Hypertensive urgency resolved but still with Hypertension that is not completely controlled. Flash pulmonary edema resolved Severe acute on chronic systolic heart failure resolved I put her on a labetalol drip and BiPAP 10/02. This only needed to be used for several hours to get her blood pressure down. Once I was able to get her blood pressure down, much of her shortness of breath and hypoxemia improved. I transitioned her to oral Lopressor and Norvasc. That kept her blood pressure down until the evening of 03/22 and the early childhood worker hours of 03/23. She required hydralazine. Unfortunately she remained quite sedated. She had been receiving Ativan for agitation with her last dose at 3 AM. on the . On the , I ordered a CT of her head to make sure I was not missing something like a subdural or hemorrhage and that was negative. By 12: 15 of the , she appears to be resting comfortably. Almost seems asleep. Seemed to be more responsive and more quickly responsive when we wake her up. Was still on BiPAP. She kept trying to remove the BiPAP mask. She was Restless, Agitated. So I Took Her off BiPAP the afternoon of the . Initially I Thought We Were Struggling with Trying to Keep Her Oxygen Sats up on Oxy Mask. She Was Requiring up to 10 L Sometimes Then Back down to 4 L. But RN figured out on the morning of the that is a pulse oximeter problem. Once we move the pulse oximeter to fingers, her hypoxia resolved. Between the and now she has been comfortable on room air. Still having problems with hypertension.I stopped IV metoprolol and IV enalapril on the since she was taking p.o. and that was enough to. I kept the as needed hydralazine IV. Plan: Supply with oxygen as needed to keep her O2 sats above 88%. Right now not needing oxygen. Continue metoprolol 100 mg p.o. twice daily, Norvasc 10 p.o. daily to control her blood pressure. I will also have her on hydralazine 10 mg IV push every 6 hours as needed for systolic greater than 180 and a diastolic greater than 100 (3 doses on the . 1 dose on the . And 1 dose this morning). And assessing what I need to do to control her blood pressure using oral medications, I have been hesitating to use an ARB or an ANG inhibitor because of her renal function. But I do think she had ATN and she is improving so I will be adding losartan 50 mg in the evening. So she will be getting 100 mg of metoprolol twice a day, Norvasc in the morning, and losartan in the evening Resolved or chronic medical problems: 5. COPD exacerbation/Left pleural effusion. She is on albuterol, Atrovent, Solu-Medrol. Plan: Stop Solu-Medrol. Now that her O2 sats are normal, respiratory status is stable with no wheezing or respiratory distress, I do not think any to do a thoracentesis since she is asymptomatic. She will need serial chest x-rays in the outpatient setting to make sure that that is resolving and that it does not go into an empyema. She is not on antibiotics since I do not feel I am treating an infectious process. Continue albuterol, Atrovent. 6. Chronic normocytic anemia. B12 levels normal. Folate normal. Thyroid normal.I will continue to monitor to make sure she does not need a transfusion. But currently stable. I suspect her anemia is due to combination of renal failure and bone marrow suppression from alcohol or drugs 7. Polysubstance abuse. I ordered a urine tox screen and it was positive for amphetamines, methamphetamines, cocaine and cannabinoids. She also took heroin on the morning of admission. Plan is for her to be given opportunities through social work to see if she would like to go to rehab.03/23, when she asked why she was in the hospital, I explained to her about the heroin overdose and she denied it. She also denied using any other recreational substances and stated it must be a mistake 8. Hypothyroid. Free T3 level normal. Continue same dose of Synthroid when she is awake. 9. Seizure disorder. Keppra is being given via her NG. However, pharmacy cannot find any record of her filling a prescription for Keppra. I looked into [facility], the EMR for the outpatient clinics. She is not in their EMR. I was able to find where she had an admission in February 2021 where she presented to the emergency room with a seizure at home. It was witnessed by her roommate who called EMS. In route to the hospital she had another seizure and given Versed. Patient had no previous history of seizures. And she was stoutly maintaining that she did not have any seizures. Her diastolic blood pressure was in the 120s that day. EKG had diffuse ST depression. She was discharged on Keppra. She returned in July 2021 with abdominal pain and nausea and she reported a seizure in the afternoon, the day before her admission July 30. The patient has history of severe hypertensive disorder with hypertensive crisis. Chest pain. The above seizure. But her med list currently only shows Synthroid. Review of the outside pharmacy records show that she is not filling her medications other than for Synthroid. Plan: Resume Keppra. She has had 3 witnessed seizures. She is supposed to be on medication. She has not been taking the medication. She does not have a [facility] provider that follows through on her since she is got back from [place] in the last month. This document was made in part using voice recognition software. While efforts are made to proofread this document, sound alike and grammatical errors may occur.
[2023-03-24] MEDS: BUTALB/ACETAM/CAFF 50/325/40MG TABLET PO PRN (11:28)
[2023-03-24] MEDS: LOSARTAN 50 MG TABLET PO SCH (21:01)
[2023-03-24] MEDS: cefTRIAXone 1 GM in SODIUM CHLORIDE 0.9% MINIBAG 100 ML IV SCH (21:03)
[2023-03-25] MEDS: SODIUM CHLORIDE FLUSH 0.9% 10 ML SYRINGE IVP SCH ×2 (04:13→10:35)
[2023-03-25] MEDS: BUTALB/ACETAM/CAFF 50/325/40MG TABLET PO PRN (04:13)
[2023-03-25 05:51] LABS: BASOPHILS % (AUTO) 0.2 %; HCT - HEMATOCRIT 32.9 % (37.0-47.0); HGB - HEMOGLOBIN 10.6 g/dL (12.0-16.0); LYMPHOCYTES # (AUTO) 1.6 10^3/uL (1.5-3.5); LYMPHOCYTES % (AUTO) 13.4 %; MEAN CORPUSCULAR HEMOGLOBIN 28.6 pg (27.0-31.0); MEAN CORPUSCULAR HGB CONC 32.2 g/dL (32.0-36.0); MEAN CORPUSCULAR VOLUME 88.7 fL (81.0-99.0); MEAN PLATELET VOLUME 12.6 fL (7.9-10.8); MONOCYTES # (AUTO) 1.3 10^3/uL (0.0-1.0); MONOCYTES % (AUTO) 10.4 %; NEUTROPHILS # (AUTO) 9.2 10^3/uL (1.5-6.6); NEUTROPHILS % (AUTO) 75.1 %; PLT - PLATELET COUNT 211 10^3/uL (130-450); RED BLOOD COUNT 3.71 10^6/uL (4.20-5.40); RED CELL DISTRIBUTION WIDTH 14.9 % (12.0-15.0); WHITE BLOOD COUNT 12.2 x10^3/uL (4.8-10.8)
[2023-03-25 06:05] LABS: CALCIUM, IONIZED 1.05 mmol/L (1.15-1.33); VBG PH 7.512 (7.31-7.41)
[2023-03-25 06:15] LABS: CHOL/HDL RATIO 4.1 (<4.4); CHOLESTEROL 202 mg/dL; HDL CHOLESTEROL 49 mg/dL; LDL CHOLESTEROL,CALCULATED 107 mg/dL; LDL/HDL RATIO 2.2 (<4.4); TRIGLYCERIDES 232 mg/dL; VLDL CHOLESTEROL 46 mg/dL
[2023-03-25] MEDS: LOSARTAN 50 MG TABLET PO SCH (08:12)
[2023-03-25] MEDS: BUPRENORPHINE/NALOXONE 8-2 MG TAB SL SCH (08:12)
[2023-03-25] MEDS: levETIRAcetam 500 MG/5 ML UDC PO SCH (08:12)
[2023-03-25] MEDS: CHLORHEXIDINE GLUCONATE 15 ML UDC PO SCH (08:12)
[2023-03-25] MEDS: amLODIPine 5 MG TABLET PO SCH (08:12)
[2023-03-25] MEDS: FAMOTIDINE 20 MG TABLET PO SCH (08:12)
[2023-03-25] MEDS: ENOXAPARIN 30 MG/0.3 ML SYRINGE SUBQ SCH (08:26)
--- NOTE | 2023-03-25 08:29 | PROVIDER PROGRESS NOTE ---
Assessment/Plan - Problem List (1) Substernal chest pain Assessment/Plan: She had had elevated troponins on admission. EKG was unchanged. Troponins rise was likely from the flash pulmonary edema, and acute CHF. Rechecked again when she was having chest pain and Troponins were unchanged. Trop was 82.5 with the episode of chest pain. Then was 77.4. EKG had no acute ST changes. Chest x-ray did show that the "large pleural effusion" was now described as a small parapneumonic effusion. Sometimes she says the pain is pleuritic, but she says not all the time. She has had the chest pain off and on. None this morning. Plan: No sublingual nitroglycerin since is not making a difference. No Toradol be cause her creatinine is still slightly elevated. No opioid in the form of oxycodone because she has tremendous drug tolerance. She is already on Suboxone. Will try Fioricet 1 to 2 tablets every 4 hours as needed 2. Acute on chronic renal failure with hyperphosphatemia The mechanism of injury to cause the renal failure is unclear to me. The patient was already going into renal failure when she came into the hospital. She was not hypotensive Or in shock from the vital signs reviewed in the ED.. CT scan does not show obstruction of the ureters or kidney tumors. She had no urine output in the university tutor hours of March 20. And by that morning her cre atinine had gone up to 3.6 from 1.9. After 80 mg of Lasix that morning, her urine output has picked up. She is now on 40 mg IV push twice daily of lasix and has good urine output. Urine output was over a liter again yesterday. Laboratory Tests 03/18/23 03/19/23 03/20/23 17:08 04:30 09:23 Creatinine 1.9 H 2.1 H 3.6 H 03/21/23 03/22/23 03/23/23 04:26 04:18 04:14 Creatinine 3.8 H 3.7 H 3.1 H Laboratory Tests 03/24/23 05:46 Creatinine 2.4 H We think she had ATN that was developing even prior to admission. Her creatinine had gone from 1.9-2.1 in 24 hours and then 3.6 the day after that. Radiology was finally Able to perform a retroperitoneal ultrasound, looking for hydronephrosis. This was unremarkable kidneys without hydronephrosis. Plan: Continue Lasix, now po 40 mg daily for history of systolic heart failure Remain off phoslo 3. Generalized weakness after ICU stay Part of her tearfulness has to do with how weak she is. She is very dismayed at how much effort required for her just to stand up and walk to the toilet. I had occupational and physical therapy work with her. Their initial assessment says that she will most likely need physical rehab. Just standing at the sink to brush her teeth and comb her hair was an effort. She almost fell back twice because she could not support her weight on her legs due to weakness. When she was sitting on the edge of the bed, truncal stability was impaired and she would have to put her arm out on the bed as she would lean to 1 side or the other to support her self. Plan: Continue to work with physical therapy and Occupational Therapy. Goals would be to be able to be independent with transitioning from supine to sitting, sitting to standing, self toileting, self-feeding, self- dressing. Hoping that she go back to living in an apartment with her friends. If she cannot, our plan would then be to transition her to long-term facility for rehab. But we fear that her substance abuse would cause denial of acceptance. 4 Flash pulm edema Troponins came down and the rise in troponin troponin leak was from the flash pulmonary edema, and acute CHF. On admisison she had hypoxia and respiratory failure attributed to COPD exacerbation, CHF exacerbation, and rectal heroin use. Chest x-ray showed fluid overload, no true pneumonia. She was intubated in the ER. Overnight she stayed stable. Diuresis was ongoing with Lasix. Urine output was present in the morning on the but slowed down to almost 0 early in the morning. Over the course of that day picked up again with 40 mg of lasix. Echocardiogram August 13, 2022 has an EF of 40 to 50%. Left ventricular hypertrophy. Normal RV size and systolic function. Echocardiogram 03/18 has improved ejection fraction of 50 to 55%. Normal right side. In addition to intubation, We gave her 80 mg of lasix on 03/20 and then resumed the 40 mg her urine output improved substatially. We tried to extubate her March 19 but she was too sedated and having episodes of slowed respiratory rate or apnea. She was extubated on the morning of the . Plan: Continue Lasix, now po 40 mg daily for history of systolic heart failure Hypertension poorly controlled. I put her on a labetalol drip and BiPAP 10/02. This only needed to be used for several hours to get her blood pressure down. Once I was able to get her blood pressure down, much of her shortness of breath and hypoxemia improved. I transitioned her to oral Lopressor and Norvasc. That kept her blood pressure down until the evening of 03/22 and the university tutor hours of 03/23. She required hydralazine. Unfortunately she remained quite sedated. She had been receiving Ativan for agitation with her last dose at 3 AM. on the . On the , I ordered a CT of her head to make sure I was not missing something like a subdural or hemorrhage and that was negative. By 12: 15 of the , she appears to be resting comfortably. Almost seems asleep. Seemed to be more responsive and more quickly responsive when we wake her up. Was still on BiPAP. She kept trying to remove the BiPAP mask. She was Restless, Agitated. So I Took Her off BiPAP the afternoon of the . Initially I Thought We Were Struggling with Trying to Keep Her Oxygen Sats up on Oxy Mask. She Was Requiring up to 10 L Sometimes Then Back down to 4 L. But RN figured out on the morning of the that is a pulse oximeter problem. Once we move the pulse oximeter to fingers, her hypoxia resolved. Between the and now she has been comfortable on room air. Still having problems with hypertension.I stopped IV metoprolol and IV enalapril on the since she was taking p.o. and that was enough to. I kept the as needed hydralazine IV. Plan: Continue Norvasc 10 p.o. daily Change metoprolol tartrate 100 mg p.o. BID to Metoprolol succinate 75 mg BID, due to HRs in the 50's, but to give a more sustained BP effect Cont the new Losartan 50 mg in the evening. Cont on prn hydralazine 10 mg IV push every 6 hours as needed for systolic greater than 180 and a diastolic greater than 100 Resolved or chronic medical problems: Acute on chronic systolic heart failure She has been on lasix for the flash pulmonary edema she had with uncontrolled hypertension after extubation. Echo July 2022 had an ejection fraction of 45 to 50%, grade 1 diastolic failure. Repeat echo March 19 with this admission shows her ejection fraction to improved to low normal at 50 to 55%. Normal RV size and systolic function. No valvular pathology. 5. COPD exacerbation/Left pleural effusion. She is on albuterol, Atrovent, Solu-Medrol. Plan: Stop Solu-Medrol. Now that her O2 sats are normal, respiratory status is stable with no wheezing or respiratory distress, I do not think any to do a thoracentesis since she is asymptomatic. She will need serial chest x-rays in t outpatient setting to make sure that that is resolving and that it does not go into an empyema. She is not on antibiotics since I do not feel I am treating an infectious process. Continue albuterol, Atrovent. 6. Chronic normocytic anemia. B12 levels normal. Folate normal. Thyroid normal.I will continue to monitor to make sure she does not need a transfusion. But currently stable. We suspect her anemia is due to combination of renal failure and bone marrow suppression from alcohol or drugs 7. Polysubstance abuse. I ordered a urine tox screen and it was positive for amphetamines, methamphetamines, cocaine and cannabinoids. She also took heroin on the morning of admission. Plan is for her to be given opportunities through social work to see if she would like to go to rehab.03/23, when she asked why she was in the hospital, the last Hospitalist explained to her about the heroin overdose and she denied it. She also denied using any other recreational substances and stated it must be a mistake 8. Hypothyroid. Free T3 level normal. Plan: Continue same dose of Synthroid when she is awake. 9. Seizure disorder. Keppra is being given via her NG. However, pharmacy cannot find any record of her filling a prescription for Keppra. I looked into [employer], the EMR for the outpatient clinics. She is not in their EMR. I was able to find where she had an admission in February 2021 where she presented to the emergency room with a seizure at home. It was witnessed by her roommate who called EMS. In route to the hospital she had another seizure and given Versed. Patient had no previous history of seizures. And she was stoutly maintaining that she did not have any seizures. Her diastolic blood pressure was in the 120s that day. EKG had diffuse ST depression. She was discharged on Keppra. She returned in July 2021 with abdominal pain and nausea and she reported a seizure in the afternoon, the day before her admission July 30. The patient has history of severe hypertensive disorder with hypertensive crisis. Chest pain. The above seizure. But her med list currently only shows Synthroid. Review of the outside pharmacy records show that she is not filling her medications other than for Synthroid. Plan: Cont Keppra. She has had 3 witnessed seizures. She is supposed to be on medication. She has not been taking the medication. She does not have a primary care provider that follows through on her since she is got back from [place] in the last month. - Current Meds Current Meds: Current Medications Generic Name Dose Route Start Last Admin Trade Name Freq PRN Reason Stop Dose Admin Acetaminophen/Butalbital/Caffeine 2 tab 03/24/23 10:53 03/25/23 04:13 Butalb/Acetam/Caff 50/325/40mg Tablet PO 2 tab Q4HR PRN Administration PAIN 1-4 Albuterol 2.5 mg 03/18/23 21:38 03/21/23 11:11 Albuterol Neb 2.5 Mg/3 Ml INH 2.5 mg Q4HR PRN Administration Wheezing Amlodipine Besylate 10 mg 03/21/23 13:04 03/24/23 08:30 Amlodipine 5 Mg Tablet PO 10 mg DAILY PHI Administration Buprenorphine HCl 1 tab 03/21/23 09:00 03/24/23 21:01 Buprenorphine/Naloxone 8-2 Mg Tab SL 1 tab BID PHI Administration Chlorhexidine Gluconate 15 ml 03/20/23 11:00 03/24/23 21:03 Chlorhexidine Gluconate 15 Ml Udc PO Not Given BID PHI Enoxaparin Sodium 30 mg 03/21/23 17:00 03/24/23 08:32 Enoxaparin 30 Mg/0.3 Ml Syringe SUBQ 30 mg DAILY PHI Administration Famotidine 20 mg 03/22/23 09:00 03/24/23 08:30 Famotidine 20 Mg Tablet PO 20 mg DAILY PHI Administration Hydralazine HCl 10 mg 03/21/23 10:51 03/24/23 08:31 Hydralazine Inj 20 Mg/Ml Vial IVP 10 mg TID PRN Administration sys >180, diato >100 Ceftriaxone Sodium 1 gm/ 100 mls @ 200 mls/hr 03/18/23 23:00 03/24/23 21:40 Sodium Chloride IV Infused HS PHI Infusion Levetiracetam 500 mg 03/20/23 21:00 03/24/23 21:01 Levetiracetam 500 Mg/5 Ml Udc PO 500 mg BID PHI Administration Lorazepam 0.5 mg 03/21/23 10:51 03/24/23 01:57 Lorazepam 2 Mg/Ml Vial IVP 0.5 mg Q2H PRN Administration Anxiety Losartan Potassium 50 mg 03/24/23 21:00 03/24/23 21:01 Losartan 50 Mg Tablet PO 50 mg DAILY PHI Administration Nitroglycerin 0.4 mg 03/23/23 11:09 03/24/23 08:08 Nitroglycerin Sl 0.4 Mg Tablet SL 0.4 mg Q5MIN PRN Administration Chest Pain Polyethylene Glycol 17 gm 03/23/23 11:00 03/24/23 08:32 Polyethylene Glycol 3350 17 Gm Packet PO 17 gm DAILY PHI Administration Prochlorperazine Edisylate 10 mg 03/18/23 21:38 03/23/23 08:33 Prochlorperazine 10 Mg/2 Ml Vial IVP 10 mg Q6HR PRN Administration Nausea / Vomiting Sodium Chloride 10 ml 03/19/23 01:00 03/25/23 04:13 Sodium Chloride Flush 0.9% 10 Ml Syringe IVP 10 ml 0100,0900,1700 PHI Administration - Lab Result Fish Bone Diagrams: 03/25/23 05:16 03/25/23 05:16 - Additional Planning My Orders: My Active Orders 03/25/23 05:00 BMP - BASIC METABOLIC PANEL [CHEM] Urgent 03/25/23 09:00 Metoprolol Succinate [Toprol Xl] 75 mg PO BID 03/26/23 05:00 BMP - BASIC METABOLIC PANEL [CHEM] DAILYLAB Subjective - Subjective Patient Reports: Feeling Better, No Complaints Objective Vital Signs: Vital Signs - 24 hr 03/24/23 03/24/23 03/24/23 08:23 08:30 08:31 Temperature 36.3 C L Heart Rate [ 62 Brachial] Respiratory 18 Rate Blood Pressure 189/108 H 189/108 H Blood Pressure 177/118 H [Left] Blood Pressure 189/108 H [Right Brachial artery] O2 Saturation 95 03/24/23 03/24/23 03/24/23 09:01 09:22 15:43 Temperature 36.4 C L Heart Rate [ 57 L Brachial] Respiratory 16 Rate Blood Pressure 151/93 H Blood Pressure [Left] Blood Pressure 151/93 H 149/107 H [Right Brachial artery] O2 Saturation 92 03/24/23 03/24/23 03/24/23 16:11 21:02 23:56 Temperature 36.6 C Heart Rate [ 57 L 52 L Brachial] Respiratory 20 Rate Blood Pressure 162/99 H Blood Pressure [Left] Blood Pressure 155/97 H 144/97 H [Right Brachial artery] O2 Saturation 92 03/25/23 08:03 Temperature 36.6 C Heart Rate [ 55 L Brachial] Respiratory 16 Rate Blood Pressure Blood Pressure 155/102 H [Left] Blood Pressure 151/104 H [Right Brachial artery] O2 Saturation 96 Oxygen O2 Source Room air Oxygen Flow Rate 6 I&O (Last 24 Hrs): Intake and Output Totals x24h 03/23/23 03/24/23 03/25/23 23:59 23:59 23:59 Intake Total 1850 1274 240 Output Total 3130 1250 Balance -1280 24 240 General: Alert, No acute distress, Other (Disheveled and poor dentition) HEENT: PERRLA, Mucous membr. moist/pink Neck: Supple, No JVD Neuro: Alert Cardiovascular: No murmurs Respiratory: No respiratory distress Abdomen: No tenderness Extremities: No clubbing - Results Results: Laboratory Results WBC 12.2 x10^3/uL (4.8-10.8) H 03/25/23 05:16 RBC 3.71 10^6/uL (4.20-5.40) L 03/25/23 05:16 Hgb 10.6 g/dL (12.0-16.0) L 03/25/23 05:16 Hct 32.9 % (37.0-47.0) L 03/25/23 05:16 MCV 88.7 fL (81.0-99.0) 03/25/23 05:16 MCH 28.6 pg (27.0-31.0) 03/25/23 05:16 MCHC 32.2 g/dL (32.0-36.0) 03/25/23 05:16 RDW 14.9 % (12.0-15.0) 03/25/23 05:16 Plt Count 211 10^3/uL (130-450) 03/25/23 05:16 MPV 12.6 fL (7.9-10.8) H 03/25/23 05:16 Neut # (Auto) 9.2 10^3/uL (1.5-6.6) H 03/25/23 05:16 Lymph # (Auto) 1.6 10^3/uL (1.5-3.5) 03/25/23 05:16 Mills # (Auto) 1.3 10^3/uL (0.0-1.0) H 03/25/23 05:16 Eos # (Auto) 0.0 10^3/uL (0.0-0.7) 03/25/23 05:16 Baso # (Auto) 0.0 10^3/uL (0.0-0.1) 03/25/23 05:16 Absolute Nucleated RBC 0.00 x10^3/uL 03/25/23 05:16 Nucleated RBC % 0.0 /100WBC 03/25/23 05:16 APTT 26.6 secs (24.9-33.3) 03/22/23 04:18 D-Dimer 700.5 ng/mL (200.0-255.0) H 03/18/23 17:08 Bld Gas Analysis Time 1130 03/21/23 11:20 Sample Site LEFT RADIAL 03/21/23 11:20 ABG pH 7.43 (7.35-7.45) 03/21/23 11:20 ABG pCO2 42 mmHg (34-45) 03/21/23 11:20 ABG pO2 57 mmHg (80-100) L 03/21/23 11:20 ABG HCO3 26.6 mmol/L (22.0-26.0) H 03/21/23 11:20 ABG Total CO2 27.9 MMOL/L (21.0-29.0) 03/21/23 11:20 ABG O2 Saturation 86 % (94-98) L* 03/21/23 11:20 ABG Base Excess 2.0 mmol/L (-2.0-3.0) 03/21/23 11:20 López Test POSITIVE 03/21/23 11:20 VBG pH 7.512 (7.31-7.41) H 03/25/23 05:16 VBG pCO2 44.7 mmHg (41-51) 03/18/23 19:09 VBG pO2 40.7 mmHg (25-47) 03/18/23 19:09 VBG HCO3 23.6 mmol/L (23-28) 03/18/23 19:09 VBG Total CO2 25.0 mmol/L (24-29) 03/18/23 19:09 VBG O2 Saturation 70.7 % (60-80) 03/18/23 19:09 VBG Base Excess -2.2 mmol/L (-2 - +2) L 03/18/23 19:09 Ionized Calcium 1.05 mmol/L (1.15-1.33) L 03/25/23 05:16 Respiration Rate 14 b/min 03/21/23 05:55 O2 Delivery Device OXYMASK 03/21/23 11:20 O2 Liters/Min 10.00 LPM 03/21/23 11:20 Vent Mode VENT 03/21/23 07:20 FiO2 40.00 03/21/23 07:20 Tidal Volume 450 mL 03/21/23 05:55 PEEP 5 cmH2O 03/21/23 07:20 Pressure Support Vent 10 cmH2O 03/21/23 07:20 Sodium 140 mmol/L (135-145) 03/24/23 05:46 Potassium 4.1 mmol/L (3.5-5.0) 03/24/23 05:46 Chloride 99 mmol/L (101-111) L 03/24/23 05:46 Carbon Dioxide 29 mmol/L (21-32) 03/24/23 05:46 Anion Gap 12.0 (6-13) 03/24/23 05:46 BUN 68 mg/dL (6-20) H 03/24/23 05:46 Creatinine 2.4 mg/dL (0.4-1.0) H 03/24/23 05:46 Estimated GFR (MDRD) 21 (>89) L 03/24/23 05:46 Glucose 155 mg/dL (70-100) H 03/24/23 05:46 Calcium 8.8 mg/dL (8.5-10.3) 03/24/23 09:03 Phosphorus 3.5 mg/dL (2.5-4.6) 03/25/23 05:16 Magnesium 2.3 mg/dL (1.7-2.8) 03/24/23 05:46 Iron 33 ug/dL (28-170) 03/19/23 04:30 TIBC 311 ug/dL (250-450) 03/19/23 04:30 % Saturation 11 % (20-50) L 03/19/23 04:30 Transferrin 222 mg/dL (192-382) 03/19/23 04:30 Total Bilirubin 0.6 mg/dL (0.2-1.0) 03/24/23 05:46 AST 20 IU/L (10-42) 03/24/23 05:46 ALT 27 IU/L (10-60) 03/24/23 05:46 Alkaline Phosphatase 82 IU/L (42-121) 03/24/23 05:46 Troponin I High Sens 54.2 ng/L (2.3-14.8) H* 03/25/23 05:16 B-Natriuretic Peptide 2257 pg/mL (5-100) H 03/18/23 17:08 Total Protein 6.6 g/dL (6.7-8.2) L 03/24/23 05:46 Albumin 3.3 g/dL (3.2-5.5) 03/24/23 05:46 Globulin 3.3 g/dL (2.1-4.2) 03/24/23 05:46 Albumin/Globulin Ratio 1.0 (1.0-2.2) 03/24/23 05:46 Triglycerides 232 mg/dL (-149) H 03/25/23 05:16 Cholesterol 202 mg/dL (-199) H 03/25/23 05:16 LDL Cholesterol, Calc 107 mg/dL (-129) 03/25/23 05:16 VLDL Cholesterol 46 mg/dL 03/25/23 05:16 HDL Cholesterol 49 mg/dL (60-) L 03/25/23 05:16 LDL/HDL Ratio 2.2 (<4.4) 03/25/23 05:16 Cholesterol/HDL Ratio 4.1 (<4.4) 03/25/23 05:16 Lipase 20 U/L (22-51) L 03/18/23 17:08 Vitamin B12 267 pg/mL (180-914) 03/19/23 04:30 Folate 8.85 ng/mL (5.90 - >24.8) 03/19/23 04:30 Free T4 1.79 ng/dL (0.58-1.64) H 03/18/23 21:44 Free T3 pg/mL 2.53 pg/mL (2.5-3.9) 03/19/23 04:30 Urine Color DARK YELLOW 03/19/23 10:10 Urine Clarity CLEAR (CLEAR) 03/19/23 10:10 Urine pH 5.0 PH (5.0-7.5) 03/19/23 10:10 Ur Specific Gilbert 1.010 (1.002-1.030) 03/19/23 10:10 Urine Protein 100 mg/dL (NEGATIVE) H 03/19/23 10:10 Urine Glucose (UA) NEGATIVE mg/dL (NEGATIVE) 03/19/23 10:10 Urine Ketones NEGATIVE mg/dL (NEGATIVE) 03/19/23 10:10 Urine Occult Blood NEGATIVE (NEGATIVE) 03/19/23 10:10 Urine Nitrite NEGATIVE (NEGATIVE) 03/19/23 10:10 Urine Bilirubin NEGATIVE (NEGATIVE) 03/19/23 10:10 Urine Urobilinogen 0.2 (NORMAL) E.U./dL (NORMAL) 03/19/23 10:10 Ur Leukocyte Esterase NEGATIVE (NEGATIVE) 03/19/23 10:10 Urine RBC 0-5 /HPF (0-5) 03/19/23 10:10 Urine WBC 0-3 /HPF (0-5) 03/19/23 10:10 Ur Squamous Epith Cells FEW Squamous (<= Few) 03/19/23 10:10 Urine Bacteria Few /HPF (None Seen) 03/19/23 10:10 Ur Microscopic Review INDICATED 03/19/23 10:10 Urine Culture Comments NOT INDICATED 03/19/23 10:10 Nasal Screen MRSA (PCR) NEGATIVE (NEGATIVE) 03/18/23 22:45 Urine Opiates Screen POSITIVE (NEGATIVE) H 03/19/23 10:10 Ur Oxycodone Screen NEGATIVE (NEGATIVE) 03/19/23 10:10 Urine Methadone Screen NEGATIVE (NEGATIVE) 03/19/23 10:10 Ur Propoxyphene Screen NEGATIVE (NEGATIVE) 03/19/23 10:10 Ur Barbiturates Screen NEGATIVE (NEGATIVE) 03/19/23 10:10 Ur Tricyclics Screen NEGATIVE (NEGATIVE) 03/19/23 10:10 Ur Phencyclidine Scrn NEGATIVE (NEGATIVE) 03/19/23 10:10 Ur Amphetamine Screen POSITIVE (NEGATIVE) H 03/19/23 10:10 U Methamphetamines Scrn POSITIVE (NEGATIVE) H 03/19/23 10:10 U Benzodiazepines Scrn NEGATIVE (NEGATIVE) 03/19/23 10:10 Urine Cocaine Screen POSITIVE (NEGATIVE) H 03/19/23 10:10 U Cannabinoids Screen POSITIVE (NEGATIVE) H 03/19/23 10:10
[2023-03-25 08:33] LABS: CALCIUM 8.2 mg/dL (8.5-10.3); CREATININE 2.3 mg/dL (0.4-1.0)
[2023-03-25] MEDS ORDERED: SENNA 8.6 MG TABLET PO SCH (09:00)
[2023-03-25] MEDS ORDERED: FUROSEMIDE 40 MG TABLET PO SCH (09:00)
[2023-03-25] MEDS ORDERED: DOCUSATE SODIUM 250 MG CAPSULE PO SCH (09:00)
[2023-03-25] MEDS ORDERED: METOPROLOL SUCCINATE 25 MG TABLET PO SCH (09:00)
[2023-03-25] MEDS: polyethylene glycoL 3350 17 GM PACKET PO SCH (10:35)
[2023-03-25] MEDS ORDERED: PRENATAL VITAMIN TABLET PO SCH (12:00)
--- NOTE | 2023-03-25 13:28 | DISCHARGE SUMMARY ---
Discharge Summary Admit Date: 03/18/23 Discharge Date: 03/25/23 Discharging Provider: Dr Bonnie Vu Primary Care Provider: PIEDAD Bowens Condition at Discharge: Fair Discharge Disposition: [facility] History of Present Illness: Pt is unable to give History d/t sedation/intubation. History obtained from staff, chart. 52 yo F with PMH of COPD, +Tob use, HFpEF/Diastolic Dysfunction, CKD stage 3, Polysubstance abuse, NC with meds, Hypothyroidism, Ulcerative Colitis, Seizure D/o presented to the ER with c/o 1 day h/o Shortness of breath. Pt used Heroin rectally today. Shortly after that, she became acutely short of breath. She denied CP. She had no other complaints. She denied fever, cough, URI symptoms, abdominal pain, nausea, vomiting or diarrhea. She has not been taking her chronic medications. In the ER, WBC 12.6, Hgb 10.4, D-Dimer 700.5, CR 1.9, Glc 140, Trop 247.2-186.6, BNP 2257, TSH 100.78, UDS: +opiates, Methamphetamines, Cannabinoids, Methadone CXR: interstitial prominence/fluid overload, L to R Mediastinal shift, L pleural effusion CTA Chest: no PE, large L pleural effusion, opacities B/L LL EKG: NSR at 94 bpm, no change from prior EKGs. Pt was placed on NC O2, then Oxymask, then BIPAP,then finally intubated for Hypoxia in the ER. She was restless and uncooperative with earlier forms of O2 delivery, desatted and finally required intubation. Pt was given Duonebs, Lasix 40 mg IV, SoluMedrol 125 mg IV, Etomidate/Succinylcholine/Ativan for intubation and placed on Heparin gtt, Versed gtt, Propofol gtt, and NTG gtt in the ER. - HOSPITAL COURSE Hospital Course: 1. Polysubstance abuse. Her MUDS showed +Opiates, Methamphetamines, Cannabinoids, Methadone, and Cocaine. Pt used Heroin rectally today. She also took heroin on the morning of admission. Plan was for opportunities through social work to see if she would like to go to rehab. On 03/23, when she asked why she was in the hospital, she denied using heroine. She also denied using any other recreational substances and stated "it must be a mistake". 2 Flash pulm edema On admission she had hypoxia and respiratory failure attributed to COPD exacerbation, CHF exacerbation, and rectal heroin use. Chest x-ray showed fluid overload, no true pneumonia. She was intubated in the ER. Troponins came down and the rise in troponin was from the flash pulmonary edema, and acute CHF. Echocardiogram done 08/13/2022 had an EF of 40 to 50%. Left ventricular hypertrophy. Normal RV size and systolic function. Echocardiogram done now, 03/18/2023 has improved ejection fraction of 50 to 55%. Normal right side. No valvular pathology. She received 80 mg of lasix and then resumed the 40 mg. We extubated her on 03/21. 3. Left pleural effusion This was managed with Lasix. She will need serial chest x-rays in the outpatient setting to make sure that the effusion is resolving and that it does not go into an empyema. 4. Hypertension poorly controlled. She required a Labetalol drip. Once we got her blood pressure down, after extubation, much of her shortness of breath and hypoxemia improved, but she needed BIPAP. We transitioned her to oral Lopressor and Norvasc. She required IV hydralazine, IV metoprolol and IV enalapril. We continued Norvasc 10 p.o. daily, changed metoprolol tartrate 100 mg p.o. BID to Metoprolol succinate 75 mg BID, due to HRs in the 50's, but to give a more sustained BP effect, continued the new Losartan 50 mg in the evening. 5. Acute on chronic renal failure with hyperphosphatemia She had a rise in creat above her baseline 6. Generalized weakness after ICU stay She was tearfulness and very dismayed at how much effort required for her just to stand up and walk to the toilet. She worked with occupational and physical therapy and improved, was able to be discharged home. 7. COPD exacerbation She was on albuterol, Atrovent, Solu-Medrol. 8. Chronic normocytic anemia. B12 levels normal. Folate normal. Thyroid normal. We suspected her anemia was due to renal failure and bone marrow suppression from alcohol or drugs 9. Hypothyroid. Free T3 level was normal. We continued same dose of Synthroid 10. Seizure disorder. I was able to find an admission in February 2021 where she presented to the emergency room with a seizure at home. It was witnessed by her roommate who called EMS. In route to the hospital she had another seizure and given Versed. She was discharged on Keppra. She returned in July 2021 with abdominal pain and nausea and she reported a seizure the previous day. Basically, she has had 3 witnessed seizures. She is supposed to be on medication, but she has not been taking the medication. She does not have a primary care provider that follows her, since she is got back from [place] in the last month. 11. Substernal chest pain She had had elevated troponins on admission. EKG was unchanged. Troponins came down which we attributed to the flash pulmonary edema, and acute CHF. We rechecked troponins when she was having chest pain and troponins and her EKG were unchanged. Sometimes she called the pain pleuritic, possibly from the pleural effusion. - ALLERGIES Allergies/Adverse Reactions: Allergies Allergy/AdvReac Type Severity Reaction Status Date / Time NSAIDS (Non-Steroidal Allergy Nausea Verified 03/27/23 20:47 Anti-Inflamma Penicillins Allergy Respiratory Verified 03/27/23 20:47 lactose AdvReac Unknown Verified 03/27/23 20:47 - MEDICATIONS Home Medications: Ambulatory Orders Medication Instructions Recorded Confirmed Levothyroxine [Synthroid] 112 mcg PO QDAC 02/16/23 03/19/23 Furosemide [Lasix] 20 mg PO DAILY #30 tab 03/25/23 Losartan [Cozaar] 50 mg PO DAILY #30 tab 03/25/23 Metoprolol Succinate [Toprol Xl] 50 mg PO BID #60 tablet 03/25/23 amLODIPine [Norvasc] 10 mg PO DAILY #30 tab 03/25/23 levETIRAcetam [Keppra] 500 mg PO BID #120 tab 03/25/23 - PHYSICAL EXAM AT DISCHARGE General Appearance: positive: No acute distress, Alert, Other (Disheveled) Eyes Bilateral: positive: Normal inspection, EOMI ENT: positive: ENT inspection nml, No signs of dehydration, Other (Poor den tition) Neck: positive: Nml inspection, No JVD Respiratory: positive: No respiratory distress, Breath sounds nml Cardiovascular: positive: Regular rate & rhythm, No murmur Abdomen: positive: Non-tender, No distention Skin: positive: Warm, Dry Extremities: positive: Non-tender, No pedal edema Neurologic/Psychiatric: positive: Oriented x3, Motor nml - LABS Result Diagrams: 03/25/23 05:16 03/25/23 05:16 - TIME SPENT Time Spent in Discharge (Minutes): 40
--- NOTE | 2023-03-25 13:37 | Discharge Plan ---
Discharge Plan Problem Reviewed?: Yes Disposition: Home, Self Care Condition: Fair Prescriptions: Losartan [Cozaar] 50 mg PO DAILY #30 tab levETIRAcetam [Keppra] 500 mg PO BID #120 tab Furosemide [Lasix] 20 mg PO DAILY #30 tab amLODIPine [Norvasc] 10 mg PO DAILY #30 tab Metoprolol Succinate [Toprol Xl] 50 mg PO BID #60 tablet Diet: Low Sodium Activity Restrictions: Activity as Tolerated Shower Restrictions: No Assistance Devices: Walker Weight Bearing: Full Weight Instruction Topics: Abuse Heroin Abuse and Addiction Health Concerns: You were hospitalized after using heroin and other drugs. These made you sleepy and groggy. During that time you had very high blood pressure which caused you to retain fluid which went in your lungs. You were in the ICU on a ventilator. You were critically sick. Since that time you were weak but have improved with physical therapy. You are being discharged home today and there are several new medicines for you to take because of the poorly controlled high blood pressure and the fluid that developed in your lungs. New medications were electronically prescribed to the [facility] pharmacy in [place]. You are advised to not use any illicit drugs. You have said you want to go to drug rehab which is very much supported. An order was put in for a Home Health agency to check your vital signs at home and assure you are taking the right blood pressure medicines now, and to give you more physical therapy at home. Plan of Treatment: As above. Care Goals: Improvement in symptoms and stabilization are the goals. Assessment: The patient promises she will follow the new med list and indicates she wants to stop using drugs, and start drug rehab. No Smoking: If you smoke, Please STOP! Call for help. Follow-up with: Yokasta Bowens PA-C [Primary Care Provider] -
[2023-03-25 17:23] VITALS: BP 155/95
[2023-03-25] MEDS ORDERED: levETIRAcetam 250 MG TABLET PO SCH (21:00)
== END 2023-03-25 18:00 | disposition home health service (06) | DRG 208 ==
LOC: ED 16:53 → ICU 21:38 → MS2 03-23 14:11
PROVIDERS: ADMIT Internal Medicine; ATTEND Internal Medicine
PROC: 0BH17EZ Insertion of Endotracheal Airway into Trachea, Via Natural or Artificial Opening (ICD-10-PCS; principal; 2023-03-19)
PROC: 5A1945Z Respiratory Ventilation, 24-96 Consecutive Hours (ICD-10-PCS; 2023-03-19)
DX: J96.01 Acute respiratory failure with hypoxia (principal); I50.33 Acute on chronic diastolic (congestive) heart failure; J44.1 Chronic obstructive pulmonary disease with (acute) exacerbation; I13.0 Hypertensive heart and chronic kidney disease with heart failure and stage 1 through stage 4 chronic kidney disease, or unspecified chronic kidney disease; N17.9 Acute kidney failure, unspecified; F11.10 Opioid abuse, uncomplicated; N18.30 Chronic kidney disease, stage 3 unspecified; E03.9 Hypothyroidism, unspecified; G40.909 Epilepsy, unspecified, not intractable, without status epilepticus; E83.39 Other disorders of phosphorus metabolism; R53.1 Weakness; D63.1 Anemia in chronic kidney disease; F32.A Depression, unspecified; D72.829 Elevated white blood cell count, unspecified; F15.10 Other stimulant abuse, uncomplicated; F12.10 Cannabis abuse, uncomplicated; K08.409 Partial loss of teeth, unspecified cause, unspecified class; F17.210 Nicotine dependence, cigarettes, uncomplicated; R07.2 Precordial pain; R40.0 Somnolence; R45.1 Restlessness and agitation; R77.8 Other specified abnormalities of plasma proteins; Z56.0 Unemployment, unspecified; Z78.1 Physical restraint status; Z79.890 Hormone replacement therapy; Z79.899 Other long term (current) drug therapy; Z80.0 Family history of malignant neoplasm of digestive organs; Z80.1 Family history of malignant neoplasm of trachea, bronchus and lung; Z90.49 Acquired absence of other specified parts of digestive tract; Z90.710 Acquired absence of both cervix and uterus; Z91.148 Patient's other noncompliance with medication regimen for other reason
CPT/HCPCS: 31500; 36415; 36600; 70450; 71045; 71275; 74018; 76770; 80048; 80053; 80061; 80306; 81001; 82310; 82330; 82607; 82746; 82803; 83540; 83690; 83735; 83880; 84100; 84132; 84439; 84466; 84481; 84484; 85025; 85027; 85379; 85730; 87150; 93005; 93306; 94002; 94003; 94640; 94660; 96374; 96375; 97161; 97166; 97530; 97535; 99285; A9270; J0330; J1650; J2060; P9047; Q9967; 81003; 82272; 83721; 87086; 94770

== ENCOUNTER 2023-03-27 20:02 | Outpatient (CLI) | payer MEDICAID | END 2023-03-27 23:59 | disposition critical access hospital (66) | LOC: EMS 20:02 | DX: R19.7 Diarrhea, unspecified (principal); M25.532 Pain in left wrist; R42 Dizziness and giddiness; W18.39XA Other fall on same level, initial encounter; Z79.01 Long term (current) use of anticoagulants; Z59.00 Homelessness unspecified | CPT/HCPCS: A0425; A0429; A0999 ==

== ENCOUNTER 2023-03-27 20:25 | Emergency (ER) | payer MEDICAID ==
--- NOTE | 2023-03-27 20:33 | ED Physician Documentation ---
PD HPI Fall - Stated complaint Stated Complaint: DIARRHEA, FALL - History obtained from History obtained from: Patient, EMS - Additional information Additional information: 53-year-old woman with history of polysubstance abuse was discharged in the hospital 2 days ago after a stay for pulmonary edema. She was walking on the road and had a simple slip and fall injuring her left, nondominant wrist. She has no other complaints. States she has not used illicit substances since her discharge from the hospital. She states she did hit her head but she has no headache. She is not anticoagulated. No recent seizure activity. She started have diarrhea this afternoon. 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: None : None HEENT: None Psych: Depression, Other Musculoskeletal: None Derm: None - Past Surgical History Past Surgical History: Yes General: Cholecystectomy, Gastric surgery /BOTTOMING ROOM SUPERVISOR: Hysterectomy - Present Medications Home Medications: Ambulatory Orders Medication Instructions Recorded Confirmed Levothyroxine [Synthroid] 112 mcg PO QDAC 02/16/23 03/19/23 Furosemide [Lasix] 20 mg PO DAILY #30 tab 03/25/23 Losartan [Cozaar] 50 mg PO DAILY #30 tab 03/25/23 Metoprolol Succinate [Toprol Xl] 50 mg PO BID #60 tablet 03/25/23 amLODIPine [Norvasc] 10 mg PO DAILY #30 tab 03/25/23 levETIRAcetam [Keppra] 500 mg PO BID #120 tab 03/25/23 - Allergies Allergies/Adverse Reactions: Allergies Allergy/AdvReac Type Severity Reaction Status Date / Time NSAIDS (Non-Steroidal Allergy Nausea Verified 03/27/23 20:47 Anti-Inflamma Penicillins Allergy Respiratory Verified 03/27/23 20:47 lactose AdvReac Unknown Verified 03/27/23 20:47 - Social History Does the pt smoke?: Yes Smoking Status: Current every day smoker Does the pt drink ETOH?: No Does the pt have substance abuse?: Yes - Immunizations Immunizations are current?: Yes - POLST Patient has POLST: No PD ED PE NORMAL - Vitals Vital signs reviewed: Yes - General General: Alert and oriented X 3, Other (Somnolent but arousable) - HEENT HEENT: PERRL, EOMI - Neck Neck: Supple, no meningeal sign, No bony TTP - Cardiac Cardiac: RRR, No murmur - Respiratory Respiratory: No respiratory distress, Clear bilaterally - Abdomen Abdomen: Non tender - Back Back: No CVA TTP, No spinal TTP - Derm Derm: Normal color, Warm and dry - Extremities Extremities: Other (Mild tenderness of the dorsal left wrist without limited range of motion or deformity.) - Neuro Neuro: Alert and oriented X 3, Normal speech Eye Opening: Spontaneous Motor: Obeys Commands Verbal: Oriented GCS Score: 15 Results - Vitals Vitals: Vital Signs - 24 hr 03/27/23 03/27/23 20:35 22:00 Temperature 36.7 C Heart Rate 55 L 86 Respiratory 16 16 Rate Blood Pressure 148/93 H 144/69 H O2 Saturation 92 92 Oxygen O2 Source Room air - Labs Labs: Laboratory Tests 03/27/23 03/27/23 20:58 20:58 WBC 15.8 H RBC 4.21 Hgb 11.9 L Hct 37.8 MCV 89.8 MCH 28.3 MCHC 31.5 L RDW 14.8 Plt Count 230 MPV 12.2 H Neut # (Auto) 13.2 H Lymph # (Auto) 1.1 L Navarro # (Auto) 1.1 H Eos # (Auto) 0.3 Baso # (Auto) 0.0 Absolute Nucleated RBC 0.00 Nucleated RBC % 0.0 Sodium 136 Potassium 3.5 Chloride 92 L Carbon Dioxide 32 Anion Gap 12.0 BUN 62 H Creatinine 2.4 H Estimated GFR (MDRD) 21 L Glucose 87 Calcium 8.5 Total Bilirubin 0.5 AST 18 ALT 29 Alkaline Phosphatase 104 Total Protein 7.4 Albumin 3.9 Globulin 3.5 Albumin/Globulin Ratio 1.1 - Rads (name of study) 4 view x-ray of the left wrist is without fracture Relevant Findings:: Final report received, EMP independent interpretation of test PD Medical Decision Making - ED course ED course: 53-year-old woman with recent admission presents after a fall, mechanical fall today. She injured her left wrist, but does not appear fracture clinically and that corroborates with a negative x-ray. She is quite somnolent here, question from ongoing drug abuse. She also has new diarrhea and was on antibiotics while in the hospital so C. difficile is a concern. CBC and CMP reviewed with stable poor renal function and stable leukocytosis, perhaps a bit up from discharge. Given the ongoing somnolence, likely related to ongoing drug abuse she will board in the emergency department overnight pending a safe for disposition in the morning. Departure - Departure Clinical Impression: Contusion of left wrist, Ground-level fall, CKD (chronic kidney disease) stage 4, GFR 15-29 ml/min, Illicit drug use Condition: Good Instructions: ED Sprain Wrist, ED Drug Abuse General Comments: Call your doctor to arrange a follow-up appointment, make the next available appointment. In the interim, return anytime if worse or if new symptoms develop. Discharge Date/Time: 03/27/23 22:02
[2023-03-27 21:03] LABS: BASOPHILS % (AUTO) 0.1 %; EOSINOPHILS # (AUTO) 0.3 10^3/uL (0.0-0.7); EOSINOPHILS % (AUTO) 1.9 %; HCT - HEMATOCRIT 37.8 % (37.0-47.0); HGB - HEMOGLOBIN 11.9 g/dL (12.0-16.0); LYMPHOCYTES # (AUTO) 1.1 10^3/uL (1.5-3.5); LYMPHOCYTES % (AUTO) 6.9 %; MEAN CORPUSCULAR HEMOGLOBIN 28.3 pg (27.0-31.0); MEAN CORPUSCULAR HGB CONC 31.5 g/dL (32.0-36.0); MEAN CORPUSCULAR VOLUME 89.8 fL (81.0-99.0); MEAN PLATELET VOLUME 12.2 fL (7.9-10.8); MONOCYTES # (AUTO) 1.1 10^3/uL (0.0-1.0); MONOCYTES % (AUTO) 6.9 %; NEUTROPHILS # (AUTO) 13.2 10^3/uL (1.5-6.6); NEUTROPHILS % (AUTO) 83.6 %; PLT - PLATELET COUNT 230 10^3/uL (130-450); RED BLOOD COUNT 4.21 10^6/uL (4.20-5.40); RED CELL DISTRIBUTION WIDTH 14.8 % (12.0-15.0); WHITE BLOOD COUNT 15.8 x10^3/uL (4.8-10.8)
[2023-03-27 21:14] LABS: ALBUMIN 3.9 g/dL (3.2-5.5); ALBUMIN/GLOBULIN RATIO 1.1 (1.0-2.2); BILIRUBIN,TOTAL 0.5 mg/dL (0.2-1.0); CALCIUM 8.5 mg/dL (8.5-10.3); CREATININE 2.4 mg/dL (0.4-1.0); POTASSIUM 3.5 mmol/L (3.5-5.0); TOTAL PROTEIN 7.4 g/dL (6.7-8.2)
--- NOTE | 2023-03-27 21:17 | XRAY Report ---
PROCEDURE: Wrist 4 View LT INDICATIONS: left wrist inj TECHNIQUE: 3 views of the wrist were acquired. COMPARISON: None. FINDINGS: Bones: No fractures or dislocations. No suspicious bony lesions. Distal radial ORIF. Hardware is intact without evidence of hardware fracture or periprosthetic lucency to suggest loosening. Soft tissues: No suspicious soft tissue calcifications or masses. IMPRESSION: ORIF of the distal radius. No visualized acute fracture or dislocation. However, occult injury cannot be excluded. Recommend short interval imaging follow-up in 7-10 days as clinically indicated for add itional evaluation. Reviewed by: Soo Weber MD on 03/27/2023 9:16 PM PDT Approved by: Soo Weber MD on 03/27/2023 9:16 PM PDT Station ID: [id number]
[2023-03-28 02:57] VITALS: BP 160/89
--- NOTE | 2023-03-28 11:52 | ED Physician Documentation ---
ED Addendum - Addendum Addendum: 03/28/23 11:51The patient was sleeping and resting much of the morning with adequate respirations and would stir enough to moan and rolled but not fully alert until just the past hour or so. She is now fully awake and able to sit up and converse readily. She denies any ingestion of substances extra medications etc. last night. Unclear the cause of her altered mental status and prolonged sedation. She is appearing well with good vitals and alertness. She states she is good and try calling for her daughter to get a ride. Diagnoses: 1. Altered mental status with sedation Disposition: The patient discharged home in stable condition.
== END 2023-03-28 12:03 | disposition home or self-care (01) ==
LOC: EDUNIT# → EDBD → ED 20:25
DX: S60.212A Contusion of left wrist, initial encounter (principal); W01.0XXA Fall on same level from slipping, tripping and stumbling without subsequent striking against object, initial encounter; Y93.01 Activity, walking, marching and hiking; I12.9 Hypertensive chronic kidney disease with stage 1 through stage 4 chronic kidney disease, or unspecified chronic kidney disease; N18.4 Chronic kidney disease, stage 4 (severe); R41.82 Altered mental status, unspecified; F19.90 Other psychoactive substance use, unspecified, uncomplicated; J44.9 Chronic obstructive pulmonary disease, unspecified; E03.9 Hypothyroidism, unspecified; F17.200 Nicotine dependence, unspecified, uncomplicated; Z79.899 Other long term (current) drug therapy
CPT/HCPCS: 36415; 80053; 85025; 87045; 87046; 87427; 87493; 99284

== ENCOUNTER 2023-04-03 17:38 | Outpatient (CLI) | payer MEDICAID | END 2023-04-03 23:59 | disposition critical access hospital (66) | LOC: EMS 17:38 | DX: R41.0 Disorientation, unspecified (principal); R32 Unspecified urinary incontinence; R53.81 Other malaise; Z99.2 Dependence on renal dialysis | CPT/HCPCS: A0425; A0429; A0999 ==

== ENCOUNTER 2023-04-03 17:58 | Emergency (ER) | payer MEDICAID ==
--- NOTE | 2023-04-03 18:05 | ED Physician Documentation ---
PD HPI DYSPNEA - Stated complaint Stated Complaint: SOA - History obtained from History obtained from: Patient, Friend, EMS - Additional information Additional information: 53-year-old woman with history of polysubstance abuse, stage IV kidney disease, tobacco use, HFpEF, ulcerative colitis, seizure disorder presents today for 2 to 3 days of confusion, constant chest pain, a single episode of urinary incontinence, and shortness of breath. She was admitted to this hospital on March 23 for pulmonary edema. She has plans to enter hospice tomorrow for her kidney disease. States has not used any substances since her discharge from the hospital. 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: None : None HEENT: None Psych: Depression, Other Musculoskeletal: None Derm: None - Past Surgical History Past Surgical History: Yes General: Cholecystectomy, Gastric surgery /CHILD CARE GROUP LEADER: Hysterectomy - Present Medications Home Medications: Ambulatory Orders Medication Instructions Recorded Confirmed Levothyroxine [Synthroid] 112 mcg PO QDAC 02/16/23 03/19/23 Furosemide [Lasix] 20 mg PO DAILY #30 tab 03/25/23 Losartan [Cozaar] 50 mg PO DAILY #30 tab 03/25/23 Metoprolol Succinate [Toprol Xl] 50 mg PO BID #60 tablet 03/25/23 amLODIPine [Norvasc] 10 mg PO DAILY #30 tab 03/25/23 levETIRAcetam [Keppra] 500 mg PO BID #120 tab 03/25/23 oxyCODONE [Roxicodone] 5 mg PO Q4-6H PRN #15 tablet 04/03/23 - Allergies Allergies/Adverse Reactions: Allergies Allergy/AdvReac Type Severity Reaction Status Date / Time NSAIDS (Non-Steroidal Allergy Nausea Verified 04/03/23 18:03 Anti-Inflamma Penicillins Allergy Respiratory Verified 04/03/23 18:03 lactose AdvReac Unknown Verified 04/03/23 18:03 - Social History Does the pt smoke?: Yes Smoking Status: Current every day smoker Does the pt drink ETOH?: No Does the pt have substance abuse?: Yes - Immunizations Immunizations are current?: Yes - POLST Patient has POLST: No PD ED PE NORMAL - Vitals Vital signs reviewed: Yes - General General: Alert and oriented X 3, Other (Slightly somnolent but alert and oriented, cooperative but despondent.) - HEENT HEENT: PERRL, EOMI - Neck Neck: Supple, no meningeal sign, No bony TTP - Cardiac Cardiac: RRR, No murmur - Respiratory Respiratory: No respiratory distress, Clear bilaterally - Abdomen Abdomen: Non tender - Derm Derm: Normal color, Warm and dry - Extremities Extremities: No edema, No calf tenderness / cord - Neuro Neuro: Alert and oriented X 3, Normal speech Results - Vitals Vitals: Vital Signs - 24 hr 04/03/23 04/03/23 18:03 19:40 Temperature 36.5 C Heart Rate 62 58 L Respiratory 18 16 Rate Blood Pressure 130/75 O2 Saturation 96 Oxygen O2 Source Room air - EKG (time done) 1836 EKG releavant findings:: EKG personally interpreted by author of this note. Relevant findings are: Rate: Rate (enter#) (50) Rhythm: NSR [place]: Normal QRS: LVH Ischemia: ST depression (lateral), Non specific changes. No: ST elevation c/w ischemia Computer interpretation: Agree with computer - Labs Labs: Laboratory Tests 04/03/23 04/03/23 04/03/23 18:16 18:16 18:16 WBC 10.3 RBC 3.33 L Hgb 9.3 L Hct 29.5 L MCV 88.6 MCH 27.9 MCHC 31.5 L RDW 15.3 H Plt Count 470 H MPV 10.1 Neut # (Auto) 7.6 H Lymph # (Auto) 1.6 Hart # (Auto) 0.7 Eos # (Auto) 0.2 Baso # (Auto) 0.0 Absolute Nucleated RBC 0.00 Nucleated RBC % 0.0 PT 11.7 INR 1.1 VBG pH VBG pCO2 VBG pO2 VBG HCO3 VBG Total CO2 VBG O2 Saturation VBG Base Excess Sodium 134 L Potassium 3.5 Chloride 95 L Carbon Dioxide 28 Anion Gap 11.0 BUN 33 H Creatinine 2.5 H Estimated GFR (MDRD) 20 L Glucose 148 H Calcium 8.1 L Phosphorus 3.4 Magnesium 2.1 Total Bilirubin 0.5 AST 12 ALT 17 Alkaline Phosphatase 84 Troponin I High Sens B-Natriuretic Peptide Total Protein 6.8 Albumin 3.0 L Globulin 3.8 Albumin/Globulin Ratio 0.8 L Lipase 40 Urine Opiates Screen Ur Oxycodone Screen Urine Methadone Screen Ur Propoxyphene Screen Ur Barbiturates Screen Ur Tricyclics Screen Ur Phencyclidine Scrn Ur Amphetamine Screen U Methamphetamines Scrn U Benzodiazepines Scrn Urine Cocaine Screen U Cannabinoids Screen Ethyl Alcohol < 5.0 04/03/23 04/03/23 04/03/23 18:16 18:16 18:16 WBC RBC Hgb Hct MCV MCH MCHC RDW Plt Count MPV Neut # (Auto) Lymph # (Auto) Hart # (Auto) Eos # (Auto) Baso # (Auto) Absolute Nucleated RBC Nucleated RBC % PT INR VBG pH 7.456 H VBG pCO2 43.5 VBG pO2 27.6 VBG HCO3 30.0 H VBG Total CO2 31.3 H VBG O2 Saturation 54.4 L VBG Base Excess 5.5 H Sodium Potassium Chloride Carbon Dioxide Anion Gap BUN Creatinine Estimated GFR (MDRD) Glucose Calcium Phosphorus Magnesium Total Bilirubin AST ALT Alkaline Phosphatase Troponin I High Sens 22.8 H* B-Natriuretic Peptide 215 H Total Protein Albumin Globulin Albumin/Globulin Ratio Lipase Urine Opiates Screen Ur Oxycodone Screen Urine Methadone Screen Ur Propoxyphene Screen Ur Barbiturates Screen Ur Tricyclics Screen Ur Phencyclidine Scrn Ur Amphetamine Screen U Methamphetamines Scrn U Benzodiazepines Scrn Urine Cocaine Screen U Cannabinoids Screen Ethyl Alcohol 04/03/23 18:30 WBC RBC Hgb Hct MCV MCH MCHC RDW Plt Count MPV Neut # (Auto) Lymph # (Auto) Hart # (Auto) Eos # (Auto) Baso # (Auto) Absolute Nucleated RBC Nucleated RBC % PT INR VBG pH VBG pCO2 VBG pO2 VBG HCO3 VBG Total CO2 VBG O2 Saturation VBG Base Excess Sodium Potassium Chloride Carbon Dioxide Anion Gap BUN Creatinine Estimated GFR (MDRD) Glucose Calcium Phosphorus Magnesium Total Bilirubin AST ALT Alkaline Phosphatase Troponin I High Sens B-Natriuretic Peptide Total Protein Albumin Globulin Albumin/Globulin Ratio Lipase Urine Opiates Screen NEGATIVE Ur Oxycodone Screen NEGATIVE Urine Methadone Screen NEGATIVE Ur Propoxyphene Screen NEGATIVE Ur Barbiturates Screen NEGATIVE Ur Tricyclics Screen NEGATIVE Ur Phencyclidine Scrn NEGATIVE Ur Amphetamine Screen POSITIVE H U Methamphetamines Scrn POSITIVE H U Benzodiazepines Scrn NEGATIVE Urine Cocaine Screen NEGATIVE U Cannabinoids Screen NEGATIVE Ethyl Alcohol - Rads (name of study) Single view chest x-ray is unremarkable, CT head showing microvascular ischemic disease and chronic volume loss, nothing acute Relevant Findings:: Final report received, EMP independent interpretation of test PD Medical Decision Making - ED course ED course: 53-year-old woman with multiple comorbidities and polysubstance abuse presents with multiple complaints including shortness of breath and chest pain. Her work-up here actually demonstrates improved over her usual chronic findings. She has a chronic stable normocytic anemia. A stable depressed renal function. Her troponin is technically elevated but this is the lowest value she has had in many years. She is still positive for methamphetamines but states she has not been using since her discharge from the hospital. She plans to enroll in hospice tomorrow. And tonight she really just wants something for pain for her chest pain. There is no indication that the chest pain is related to an acute ischemic issue and even if it was she is enrolling in hospice. Departure - Departure Disposition: 01 Home, Self Care Clinical Impression: CKD (chronic kidney disease) stage 4, GFR 15-29 ml/min, Chest pain Condition: Good Record reviewed to determine appropriate education?: Yes Instructions: ED Chest Pain NonCardiac Prescriptions: oxyCODONE [Roxicodone] 5 mg PO Q4-6H PRN #15 tablet PRN Reason: Pain Comments: We wish you the best of luck as you enroll in hospice tomorrow. I sent a prescription for pain medication to [facility] in [place] and we gave you a few for ioana. Please refrain from drug and alcohol and tobacco use if you can. I am prescribing a short course of narcotic pain medication for you. These are potentially dangerous and addictive medications that should be used carefully. These medications may constipate you. Take an jufk-npx-koqhydi stool softener (docusate) twice daily with plenty of water while taking these medications. If you go 24 hours without a bowel movement, take [id number]-cov-qhkehnv miralax, per package instructions. Do not drink or drive while taking these medications. If you received narcotic or sedating medications while in the emergency department, do not drive for 24 hours. Store this medication in a safe, secure place and out of reach of children. It is a violation of federal law to give or sell this medication to another person or to use in a manner other than prescribed. The ED will not refill narcotic prescriptions, including prescriptions lost or stolen. To dispose of unwanted medications: 1. [facility] provides a drop box for medication in pill form only (no liquids) 8:00 am to 4:30 p.m. Friday-Friday in the lobby of the [facility], [address] [place] [address]. Empty pills into ziplock bag before disposal. Call [phone] for information. 2.[employer] is a free service available to all [facility] residents. Go to [email or web address] Note that many narcotic pain relievers also contain Tylenol/acetaminophen. Please ensure that your total dose of acetaminophen from all sources does not exceed 3 g (3000 mg) per day.
[2023-04-03 18:22] LABS: BASOPHILS % (AUTO) 0.4 %; EOSINOPHILS # (AUTO) 0.2 10^3/uL (0.0-0.7); EOSINOPHILS % (AUTO) 1.8 %; HCT - HEMATOCRIT 29.5 % (37.0-47.0); HGB - HEMOGLOBIN 9.3 g/dL (12.0-16.0); LYMPHOCYTES # (AUTO) 1.6 10^3/uL (1.5-3.5); MEAN CORPUSCULAR HEMOGLOBIN 27.9 pg (27.0-31.0); MEAN CORPUSCULAR HGB CONC 31.5 g/dL (32.0-36.0); MEAN CORPUSCULAR VOLUME 88.6 fL (81.0-99.0); MEAN PLATELET VOLUME 10.1 fL (7.9-10.8); MONOCYTES # (AUTO) 0.7 10^3/uL (0.0-1.0); NEUTROPHILS # (AUTO) 7.6 10^3/uL (1.5-6.6); NEUTROPHILS % (AUTO) 74.3 %; PLT - PLATELET COUNT 470 10^3/uL (130-450); RED BLOOD COUNT 3.33 10^6/uL (4.20-5.40); RED CELL DISTRIBUTION WIDTH 15.3 % (12.0-15.0); WHITE BLOOD COUNT 10.3 x10^3/uL (4.8-10.8)
[2023-04-03 18:25] LABS: VBG BASE EXCESS 5.5 mmol/L (-2 - +2); VBG OXYGEN SATURATION 54.4 % (60-80); VBG PCO2 43.5 mmHg (41-51); VBG PH 7.456 (7.31-7.41); VBG PO2 27.6 mmHg (25-47); VBG TOTAL CO2 31.3 mmol/L (24-29)
[2023-04-03 18:30] LABS: INR 1.1 (0.8-1.2); PT - PROTHROMBIN TIME 11.7 secs (9.9-12.6)
[2023-04-03 18:31] LABS: MUDS CUTOFF CONCENTRATIONS CUTOFF CONC BELOW:
[2023-04-03 18:35] LABS: ALBUMIN/GLOBULIN RATIO 0.8 (1.0-2.2); ALKALINE PHOSPHATASE 84 IU/L (42-121); ALT ALANINE AMINOTRANSFERASE 17 IU/L (10-60); AST ASPARTATE AMINOTRANSFERASE 12 IU/L (10-42); BILIRUBIN,TOTAL 0.5 mg/dL (0.2-1.0); BUN - BLOOD UREA NITROGEN 33 mg/dL (6-20); CALCIUM 8.1 mg/dL (8.5-10.3); CARBON DIOXIDE - CO2 28 mmol/L (21-32); CHLORIDE 95 mmol/L (101-111); CREATININE 2.5 mg/dL (0.4-1.0); ETOH - ETHANOL < 5.0 mg/dL; GFR - MDRD 20 (>89); GLUCOSE 148 mg/dL (70-100); LIPASE 40 U/L (22-51); MAGNESIUM 2.1 mg/dL (1.7-2.8); PHOSPHORUS 3.4 mg/dL (2.5-4.6); POTASSIUM 3.5 mmol/L (3.5-5.0); SODIUM 134 mmol/L (135-145); TOTAL PROTEIN 6.8 g/dL (6.7-8.2)
[2023-04-03 18:46] LABS: AMPHETAMINE SCREEN,URINE POSITIVE (NEGATIVE); BARBITURATE SCREEN,UR NEGATIVE (NEGATIVE); BENZODIAZEPINES SCREEN, URINE NEGATIVE (NEGATIVE); COCAINE SCREEN URINE NEGATIVE (NEGATIVE); METHADONE SCREEN, URINE NEGATIVE (NEGATIVE); METHAMPHETAMINES SCREEN, URINE POSITIVE (NEGATIVE); OPIATE SCREEN, URINE NEGATIVE (NEGATIVE); OXYCODONE SCREEN, URINE NEGATIVE (NEGATIVE); PROPOXYPHENE SCREEN, URINE NEGATIVE (NEGATIVE); THC CANNABINOID SCREEN, URINE NEGATIVE (NEGATIVE); TRICYCLIC ANTIDEPRESSANT,URINE NEGATIVE (NEGATIVE)
--- NOTE | 2023-04-03 19:14 | XRAY Report ---
PROCEDURE: Chest 1 View X-Ray INDICATIONS: dyspne TECHNIQUE: One view of the chest was acquired. COMPARISON: CXR and abdominal radiographs 03/23/2023. FINDINGS: Patient is mildly rotated. Surgical changes and devices: None. Lungs and pleura: No pleural effusions or pneumothorax. Lungs are clear. Mediastinum: Mediastinal contours appear similar. Heart size is normal. Bones and chest wall: No suspicious bony lesions. Overlying soft tissues appear unremarkable. IMPRESSION: No acute cardiopulmonary process identified. Reviewed by: Olvin Roberto MD on 04/03/2023 7:12 PM PDT Approved by: Olvin Roberto MD on 04/03/2023 7:12 PM PDT Station ID: [id number]
--- NOTE | 2023-04-03 19:19 | CT Report ---
PROCEDURE: HEAD WO INDICATIONS: confusion TECHNIQUE: Noncontrast 4.5 mm thick angled axial sections acquired from the foramen magnum to the vertex. For r adiation dose reduction, the following was used: automated exposure control, adjustment of mA and/or kV according to patient size. COMPARISON: None. FINDINGS: Image quality: Excellent. CSF spaces: Basal cisterns are patent. No extra-axial fluid collections. Ventricles are normal in size and shape. Brain: No midline shift. No intracranial masses or hemorrhage. Blum-white matter interface is norm al. Skull and face: Calvarium and visualized facial bones are intact, without suspicious lesions. Sinuses: Visualized sinuses and mastoids are clear. IMPRESSION: 1. No acute intracranial abnormality. 2. Microvascular ischemic disease and age-related cerebral volume loss. Reviewed by: Jericho Watson on 04/03/2023 6:18 PM MARIA ELENA Approved by: Jericho Watson on 04/03/2023 6:18 PM MARIA ELENA Station ID: [id number]
[2023-04-03] MEDS ORDERED: IPRATROPIUM/ALBUTEROL 3 ML NEB INH STA (19:26)
[2023-04-03] MEDS ORDERED: oxyCODONE/ACET 5/325 Prepack 4 PO STA (20:27)
[2023-04-03 20:51] VITALS: BP 130/81
== END 2023-04-03 21:01 | disposition home or self-care (01) ==
LOC: EDUNIT# → ED 17:58
DX: R07.9 Chest pain, unspecified (principal); N18.4 Chronic kidney disease, stage 4 (severe); F17.200 Nicotine dependence, unspecified, uncomplicated
CPT/HCPCS: 36415; 80053; 80306; 80320; 82803; 83690; 83735; 83880; 84100; 84484; 85025; 85610; 93005; 94640; 99284

== ENCOUNTER 2023-05-18 15:44 | Outpatient (CLI) | payer MEDICAID | END 2023-05-18 15:45 | disposition EMS.NT | LOC: EMS 15:44 | DX: T63.441A Toxic effect of venom of bees, accidental (unintentional), initial encounter (principal) ==

== ENCOUNTER 2023-05-24 18:52 | Outpatient (CLI) | payer MEDICAID | END 2023-05-24 18:53 | disposition EMS.NT | LOC: EMS 18:52 | DX: R40.4 Transient alteration of awareness (principal) ==

== ENCOUNTER 2023-05-30 10:28 | Outpatient (CLI) | payer MEDICAID | END 2023-05-30 23:59 | disposition critical access hospital (66) | LOC: EMS 10:28 | DX: S00.83XA Contusion of other part of head, initial encounter (principal); Y04.2XXA Assault by strike against or bumped into by another person, initial encounter; I10 Essential (primary) hypertension | CPT/HCPCS: A0425; A0429; A0999 ==

== ENCOUNTER 2023-05-30 10:57 | Emergency (ER) | payer MEDICAID ==
[2023-05-30 11:20] VITALS: BP 154/136; O2SAT 98
[2023-05-30] MEDS ORDERED: oxyCODONE 5 MG TABLET PO STA (11:30)
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
--- OUTSIDE RECORDS SUMMARY | 2023-05-30 11:41 | EXTERNAL MEDICAL SUMMARY RPT | Continuity of Care Document ---
Author Name Unknown Address [address] [place] [address] Phone Organization [facility] Address [address] [place] [address] Phone Care Team Providers Care Door Puller Name Role Phone Unavailable Unavailable Unavailable Jose Government Teacher Enp, Sangita Unavailable Unavail able Nicolasa, Provider Unavailable Unavailable Medications date description facility 2023-04-07 00:00 diclofenac sodium All 2023-04-07 00:00 diclofenac sodium All 2023-04-07 00:00 diclofenac sodium All 2023-04-07 00:00 diclofenac sodium All 2023-04-07 00:00 diclofenac sodium All 2023-04-07 00:00 diclofenac sodium All 2023-04-07 00:00 diclofenac sodium All 2023-04-07 00:00 diclofenac sodium All Problems date description facility 2023-04-07 00:00 Flank pain All 2023-04-07 00:00 Flank pain All 2023-04-07 00:00 Hypertensive disorder All 2023-04-07 00:00 Hypertensive disorder All 2023-04-07 00:00 Unspecified essential hypertens ion All 2023-04-07 00:00 Unspecified essential hypertens ion All 2023-04-07 00:00 Abdominal pain, other specified site; multiple sites All 2023-04-07 00:00 Abdominal pain, other specified site; multiple sites All 2023-04-07 00:00 Essential (primary) hypertensio n All 2023-04-07 00:00 Essential (primary) hypertensio n All 2023-04-07 00:00 Unspecified abdominal pain All 2023-04-07 00:00 Unspecified abdominal pain All Procedures date description facility 2023-04-07 00:00 Visit Code Hold All 2023-04-07 00:00 Visit Code Hold All Results/Labs test date facility value unit notes Vital Signs date measurement value units 2023-04-07 00:00 BMI 21.71 kg/m2 2023-04-07 00:00 BP_diastolic 122 mmHg 2023-04-07 00:00 BP_systolic 212 mmHg 2023-04-07 00:00 heart_rate 65 /min 2023-04-07 00:00 height_metric 167 cm 2023-04-07 00:00 height_standard 65.75 in 2023-04-07 00:00 respiration_rate 20 /min 2023-04-07 00:00 temperature_metric 36.44 C 2023-04-07 00:00 temperature_standard 97.6 F 2023-04-07 00:00 weight_metric 60.33 kg 2023-04-07 00:00 weight_standard 133 lb
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
== END 2023-05-30 13:57 | disposition home or self-care (01) ==
LOC: EDUNIT# → ED 10:57
DX: S00.83XA Contusion of other part of head, initial encounter (principal); Y29.XXXA Contact with blunt object, undetermined intent, initial encounter; I10 Essential (primary) hypertension; J44.9 Chronic obstructive pulmonary disease, unspecified; E03.9 Hypothyroidism, unspecified; Z79.899 Other long term (current) drug therapy; Z87.891 Personal history of nicotine dependence; Z59.00 Homelessness unspecified
CPT/HCPCS: 70450; 70486; 99283; 99284; A9270

== ENCOUNTER 2023-07-08 07:42 | Outpatient (CLI) | payer MEDICAID | END 2023-07-08 23:59 | disposition critical access hospital (66) | LOC: EMS 07:42 | DX: R06.02 Shortness of breath (principal); M54.9 Dorsalgia, unspecified; R51.9 Headache, unspecified; Z59.01 Sheltered homelessness | CPT/HCPCS: A0425; A0427; A0999 ==

== ENCOUNTER 2023-07-08 08:09 | Emergency (ER) | payer MEDICAID ==
[2023-07-08 08:28] VITALS: BP 166/129; O2SAT 96
[2023-07-08] MEDS ORDERED: oxyCODONE 5 MG TABLET PO STA (08:30)
[2023-07-08 09:07] LABS: ALBUMIN 4.5 g/dL (3.2-5.5); ALBUMIN/GLOBULIN RATIO 1.5 (1.0-2.2); BILIRUBIN,TOTAL 0.9 mg/dL (0.2-1.0); CALCIUM 9.6 mg/dL (8.5-10.3); CREATININE 2.5 mg/dL (0.6-1.3); POTASSIUM 3.8 mmol/L (3.5-4.5); TOTAL PROTEIN 7.6 g/dL (6.4-8.9)
--- NOTE | 2023-07-08 09:12 | XRAY Report ---
PROCEDURE: Chest 1 View X-Ray INDICATIONS: SOA TECHNIQUE: One view of the chest was acquired. COMPARISON: 04/03/2023 FINDINGS: Surgical changes and devices: None. Lungs and pleura: Mildly prominent interstitium, with suspected superimposed opacities at the right base. No pleural effusions. Mediastinum: Normal heart size Bones and chest wall: No suspicious bony lesions. Overlying soft tissues appear unremarkable. IMPRESSION: Mildly prominent interstitium with more focal opacity at the right base, possibly mild infection or e wojciech with superimposed atelectasis. Consider future imaging surveillance to assess for resolution. Reviewed by: Morgan Ortiz MD on 07/08/2023 9:11 AM PDT Approved by: Morgan Ortiz MD on 07/08/2023 9:11 AM PDT Station ID: [id number]
[2023-07-08 09:29] LABS: BASOPHILS # (AUTO) 0.1 10^3/uL (0.0-0.1); BASOPHILS % (AUTO) 0.4 %; HCT - HEMATOCRIT 39.4 % (37.0-47.0); HGB - HEMOGLOBIN 12.7 g/dL (12.0-16.0); LYMPHOCYTES # (AUTO) 1.5 10^3/uL (1.5-3.5); LYMPHOCYTES % (AUTO) 9.6 %; MEAN CORPUSCULAR HEMOGLOBIN 28.5 pg (27.0-31.0); MEAN CORPUSCULAR HGB CONC 32.2 g/dL (32.0-36.0); MEAN CORPUSCULAR VOLUME 88.5 fL (81.0-99.0); MEAN PLATELET VOLUME 11.1 fL (7.9-10.8); MONOCYTES % (AUTO) 6.7 %; NEUTROPHILS # (AUTO) 12.9 10^3/uL (1.5-6.6); PLT - PLATELET COUNT 157 10^3/uL (130-450); RED BLOOD COUNT 4.45 10^6/uL (4.20-5.40); RED CELL DISTRIBUTION WIDTH 16.4 % (12.0-15.0); WHITE BLOOD COUNT 15.6 x10^3/uL (4.8-10.8)
[2023-07-08] MEDS ORDERED: BUPRENORPHINE/NALOXONE 8-2 MG TAB SL STA (10:09)
--- OUTSIDE RECORDS SUMMARY | 2023-07-08 10:13 | EXTERNAL MEDICAL SUMMARY RPT | Continuity of Care Document ---
Author Name Unknown Address [address] [place] [address] Phone Organization [facility] Address [address] [place] [address] Phone Care Team Providers Care Angio Technologist Name Role Phone Unavailable Unavailable Unavailable Results/Labs test date facility value unit notes Social History date description facility
--- NOTE | 2023-07-08 11:37 | ED Physician Documentation ---
History of Present Illness - Stated complaint Stated Complaint: SOA - Chief complaint Chief Complaint: Resp - History obtained from History obtained from: Patient - Additonal information Additional information: Patient is a 53-year-old female with a history of chronic kidney disease, COPD, congestive heart failure presenting for evaluation of feeling short of breath and having allover body pain today. Patient states that she ran out of her Suboxone approximately 1 week ago and is complaining of pain all over including in her chest. Nothing makes her pain better or worse. Patient was administered 1 DuoNeb treatment by EMS which patient states did not help with her breathing. Patient states that she has an interest in being enrolled in hospice but has not officially enrolled yet.This was a similar sentiment that she related to ED staff in March when she was seen here. Review of Systems Constitutional: denies: Fever Cardiac: reports: Chest pain / pressure Respiratory: reports: Dyspnea GI: denies: Abdominal Pain PD PAST MEDICAL HISTORY - Past Medical History Cardiovascular: Hypertension Respiratory: Asthma, COPD Neuro: None Endocrine/Autoimmune: HyPOthyroidism GI: Ulcerative colitis COUNTER SUPERVISOR: None : None HEENT: None Psych: Depression, Other Musculoskeletal: None Derm: None - Past Surgical History Past Surgical History: Yes General: Cholecystectomy, Gastric surgery /COUNTER SUPERVISOR: Hysterectomy - Present Medications Home Medications: Ambulatory Orders Medication Instructions Recorded Confirmed Levothyroxine [Synthroid] 112 mcg PO QDAC 02/16/23 03/19/23 Furosemide [Lasix] 20 mg PO DAILY #30 tab 03/25/23 Losartan [Cozaar] 50 mg PO DAILY #30 tab 03/25/23 Metoprolol Succinate [Toprol Xl] 50 mg PO BID #60 tablet 03/25/23 amLODIPine [Norvasc] 10 mg PO DAILY #30 tab 03/25/23 levETIRAcetam [Keppra] 500 mg PO BID #120 tab 03/25/23 - Allergies Allergies/Adverse Reactions: Allergies Allergy/AdvReac Type Severity Reaction Status Date / Time NSAIDS (Non-Steroidal Allergy Nausea Verified 04/14/23 15:32 Anti-Inflamma Penicillins Allergy Respiratory Verified 04/14/23 15:32 lactose AdvReac Unknown Verified 04/14/23 15:32 - Social History Does the pt smoke?: Yes Smoking Status: Former smoker Does the pt drink ETOH?: No Does the pt have substance abuse?: Yes - Immunizations Immunizations are current?: Yes - POLST Patient has POLST: No PD ED PE NORMAL - General General: Alert and oriented X 3, No acute distress, Well developed/nourished - HEENT HEENT: Atraumatic - Neck Neck: Supple, no meningeal sign - Cardiac Cardiac: RRR, No murmur - Respiratory Respiratory: No respiratory distress, Clear bilaterally - Abdomen Abdomen: Normal bowel sounds, Soft, Non tender, Non distended - Extremities Extremities: No edema, No calf tenderness / cord - Neuro Neuro: Normal speech Results - Vitals Vitals: Vital Signs - 24 hr 07/08/23 08:10 Temperature 37.2 C Heart Rate 86 Respiratory 19 Rate Blood Pressure 166/129 H O2 Saturation 96 Oxygen O2 Source Room air - EKG (time done) 1003 EKG releavant findings:: EKG personally interpreted by author of this note. Relevant findings are: Rate 80, normal sinus rhythm, no STEMI, QTc 540 - Labs Labs: Laboratory Tests 07/08/23 07/08/23 07/08/23 08:46 09:23 09:23 WBC 15.6 H RBC 4.45 Hgb 12.7 Hct 39.4 MCV 88.5 MCH 28.5 MCHC 32.2 RDW 16.4 H Plt Count 157 MPV 11.1 H Neut # (Auto) 12.9 H Lymph # (Auto) 1.5 [place] # (Auto) 1.0 Eos # (Auto) 0.0 Baso # (Auto) 0.1 Absolute Nucleated RBC 0.00 Nucleated RBC % 0.0 Sodium 138 Potassium 3.8 Chloride 97 L Carbon Dioxide 30 Anion Gap 11.0 BUN 35 H Creatinine 2.5 H Estimated GFR (MDRD) 20 L Glucose 122 H Calcium 9.6 Total Bilirubin 0.9 AST 46 H ALT 38 Alkaline Phosphatase 98 Troponin I High Sens 71.0 H* B-Natriuretic Peptide 1693 H Total Protein 7.6 Albumin 4.5 Globulin 3.1 Albumin/Globulin Ratio 1.5 SARS-CoV-2 (PCR) 07/08/23 07/08/23 10:00 10:11 WBC RBC Hgb Hct MCV MCH MCHC RDW Plt Count MPV Neut # (Auto) Lymph # (Auto) [place] # (Auto) Eos # (Auto) Baso # (Auto) Absolute Nucleated RBC Nucleated RBC % Sodium Potassium Chloride Carbon Dioxide Anion Gap BUN Creatinine Estimated GFR (MDRD) Glucose Calcium Total Bilirubin AST ALT Alkaline Phosphatase Troponin I High Sens 55.2 H* B-Natriuretic Peptide Total Protein Albumin Globulin Albumin/Globulin Ratio SARS-CoV-2 (PCR) NOT DETECTED PD Medical Decision Making - ED course Complexity details: reviewed results, re-evaluated patient, d/w patient ED course: Patient is a 53-year-old female presenting for evaluation of allover body pain in the setting of being out of her Suboxone for the past week. Patient states she missed her appointment. It is unclear as to why she missed her appointment. She does report having chest pain but states that she hurts everywhere. EKG was obtained which I reviewed. High-sensitivity troponin is elevated at 71 And repeat is 55. Patient's troponins are chronically elevated and this is not her highest levels. BNP 1693 but clinically patient does not appear to be in fluid overload.Renal insufficiency appears to be at her baseline. Chest x-ray which I reviewed is negative for pneumonia or large effusion. Initially I gave the patient a dose of oxycodone. This did not appear to help with her symptoms. I then was able to order dose of Suboxone which patient reports has helped. She understands that she needs close follow-up with her prescribing provider for further doses of Suboxone. She can expresses interest in entering hospice so was given a brochure regarding hospice. Initial BP was elevated. Repeat blood pressures were not documented but did appear improved on the surveillance monitor on my reevaluations. Departure - Departure Disposition: 01 Home, Self Care Clinical Impression: Generalized pain, Chronic prescription opiate use, Chronic kidney disease Condition: Fair Instructions: ED Chest Pain Atypical Unkn Cause Follow-Up: Nuvia Alcaraz ARNP [Provider Admit Priv/Credential] - Comments: You need close follow-up with her primary care provider or palliative care.You also need to follow-up with your usual prescriber in regards to your chronic pain needs. Return to the emergency department with new or worsening symptoms. Forms: PCP List Discharge Date/Time: 07/08/23 11:47
== END 2023-07-08 11:47 | disposition home or self-care (01) ==
LOC: EDUNIT# → ED 08:09
DX: I10 Essential (primary) hypertension (principal); Z87.891 Personal history of nicotine dependence; R52 Pain, unspecified; N18.9 Chronic kidney disease, unspecified; T50.996A Underdosing of other drugs, medicaments and biological substances, initial encounter; F11.90 Opioid use, unspecified, uncomplicated; Z20.822 Contact with and (suspected) exposure to COVID-19
CPT/HCPCS: 36415; 71045; 80053; 83880; 84484; 85025; 87635; 93005; 99284; A9270

== ENCOUNTER 2023-08-07 16:33 | Outpatient (CLI) | payer MEDICAID | END 2023-08-07 16:34 | disposition E | LOC: EMS 16:33 ==